=== PATIENT | male | born 1965 | race Caucasian/White ===

== ENCOUNTER → 2016-08-29 | Outpatient (CLI) | payer BC ==
[2016-08-29 16:59] LABS: BASO % 0.3 %; BASO ABS # 0.03 K/uL (0-0.2); COMPLETE YES; EOS % 0.2 %; HEMATOCRIT 43.9 % (42-52); IG% 0.3 %; LYMPH % 12.3 %; LYMPH ABS # 1.21 K/uL (1.2-3.4); MEAN CELL VOLUME 88.7 fL (80-100); MEAN CORPUSCULAR HEMOGLOBIN 31.1 pg (25-34); MEAN CORPUSCULAR HGB CONC 35.1 g/dl (32-36); MEAN PLATELET VOLUME 11.1 fL (7.4-10.4); MONO % 4.8 %; NEUT % 82.1 %; PLATELET COUNT 321 K/uL (130-400); RED BLOOD COUNT 4.95 M/uL (4.7-6.1); WHITE BLOOD COUNT 9.86 K/uL (4.8-10.8)
[2016-08-29 17:07] LABS: ALT/SGPT 43 U/L (12-78); AST/SGOT 15 U/L (15-37); BLOOD UREA NITROGEN 12 mg/dl (7-18); BUN/CREATININE RATIO 13.9 (10-20); CALCIUM 9.6 mg/dl (8.5-10.1); CARBON DIOXIDE 24 mmol/L (21-32); CHLORIDE 106 mmol/L (98-107); CREATININE 0.85 mg/dl (0.60-1.40); GLUCOSE 100 mg/dl (70-99); SODIUM 138 mmol/L (136-145)
[2016-08-29 17:17] LABS: ALB/GLOB RATIO 1.1 (0.9-2); ALKALINE PHOSPHATASE 72 U/L (45-117)
[2016-09-05 00:37] LABS: JCV ANTIBODY POSITIVE; JCV INDEX 0.45
== END | disposition home or self-care (01) ==
LOC: C.LABBC 13:39
PROVIDERS: ATTEND Psychiatry & Neurology Neurology
DX: G35 Multiple sclerosis (principal); E55.9 Vitamin D deficiency, unspecified; R26.1 Paralytic gait; R15.9 Full incontinence of feces

== ENCOUNTER → 2016-09-09 | Outpatient (CLI) | payer BC ==
[~2016-09-09] MED LIST: GADAVIST IV PRN
--- NOTE | 2016-09-09 14:15 | DIAGNOSTIC IMAGING REPORT ---
MRI CERVICAL SPINE COMBO CLINICAL HISTORY: G35 Multiple [id number] Spastic gaitR15.9 fecal incontinence TECHNIQUE: Sagittal and axial T1, T2 and STIR images were obtained. Imaging was performed before and after administration of 9.5 cc of intravenous Gadavist COMPARISON STUDY: 09/11/2015 There are foci of increased T2 signal within the brainstem. There is a linear focus of increased T2 signal within the cervical cord at the C2 level. There is a focus of increased activity in the cervical cord to C3 level posteriorly. There is an ovoid focus of increased activity within the anterior cervical cord at the inferior C4 level. This measures 7 mm. There is a linear focus of increased signal within the cord at the C6-7 level. The lesions remain similar to the prior 2016 study. The findings are consistent with multiple sclerosis plaques. There is no pathologic enhancement. C2-3: There is no evidence of disc bulge or focal herniation. There is no spinal or foraminal stenosis. C3-4: There is no evidence of disc bulge or focal herniation. There is no spinal or foraminal stenosis. C4-5: There is a mild circumferential disc bulge. There is no significant spinal or foraminal stenosis C5-6 :There is a mild circumferential disc bulge. There is mild effacement of the anterior subarachnoid space. There is no significant foraminal narrowing C6-7: There is a mild circumferential disc bulge. There is no significant spinal stenosis. There is minor bilateral foraminal narrowing. C7-T1: There is no evidence of disc bulge or focal herniation. There is no evidence of spinal or foraminal stenosis. IMPRESSION: 1. Mild multilevel spondylitic changes. 2. Multiple foci of abnormal increased T2 signal within both the cervical spinal cord and right stent. The findings are consistent with the clinical history of multiple sclerosis. The lesions remain similar to the preceding study. There is no pathologic enhancement. Electronically signed by: Pool Bedoya M.D. 09/09/2016 2:14 PM Dictated Date/Time: 09/09/2016 2:08 PM
--- NOTE | 2016-09-09 14:33 | DIAGNOSTIC IMAGING REPORT ---
BRAIN COMBO FOR MS CLINICAL HISTORY: 51 years-old Male presenting with multiple sclerosis, spastic gait, fecal incontinence. TECHNIQUE: Multisequence, multiplane are MR imaging of the brain was performed before and after the administration of intravenous contrast. IV contrast: 9.5 mL of Gadavist. COMPARISON: 09/11/2015. FINDINGS: Extensive T1 hypointense, T2/FLAIR hyperintense foci throughout the periventricular and subcortical white matter extensively involving the corpus callosum, similar in size and extent to prior exam in 2016. No restricted diffusion of lesions or evidence of acute ischemia. No convincing evidence of new lesion. No lesion enhancement to suggest active disease. No mass effect or midline shift. No hemorrhage or extra-axial fluid collection. No hydrocephalus. Normal T2 skull base flow voids. IMPRESSION: 1. Extensive periventricular and subcortical white matter T1 hypointense, T2/FLAIR hyperintense lesions, consistent with multiple sclerosis. No restricted diffusion or enhancement to suggest active disease. No evidence of progression since the prior exam in 2016. Electronically signed by: Guzman Dumont M.D. 09/09/2016 2:32 PM Dictated Date/Time: 09/09/2016 2:15 PM
--- NOTE | 2016-09-09 14:46 | DIAGNOSTIC IMAGING REPORT ---
THORACIC SPINE COMBO HISTORY:51 [id number] Multiple [id number] Spastic gaitR15.9 Incontinence COMPARISON: Cervical spine and brain MRI 09/09/2016, MRI cervical spine 09/11/2015. TECHNIQUE: Multiplanar multisequence MRI of the thoracic spine was obtained both with and without the use of 9.5 mL Gadavist. FINDINGS: Several of the sequences are mildly motion degraded. There is convex left curvature of the lumbar spine. Large [id number] images demonstrate no gross abnormality of the chest or abdomen. Multilevel mild to moderate endplate degenerative changes are present. No focal fracture marrow or soft tissue edema identified. Posterior spondylitic spurring is seen at T9-T10 along with facet arthropathy. No central canal or foraminal narrowing. At T10-T11 circumferential disc bulge with facet arthropathy and spondylotic spurring is seen causing mild central canal stenosis. This causes mild left foraminal stenosis. The right foramen is patent. At T11-T12: There is intervertebral disc space narrowing with facet arthropathy, circumferential annular disc bulge and posterior spondylotic spurring causing effacement of the ventral thecal sac. No central canal narrowing. There is however mild bilateral foraminal stenosis. At T12-L1, intervertebral disc space narrowing with moderate facet arthropathy, posterior spondylitic spurring and circumferential annular disc bulge causes effacement of the ventral thecal sac and mild bilateral foraminal narrowing. 6 mm linear T2 hyperintense plaque of the right cord at T11-T12 is noted, Christly seen on image 7 of the sagittal series. Similar-appearing 1.9 cm long plaque is seen along the right aspect of the cord at T9-T10. No definite additional T2 hyperintense lesions are identified within the thoracic cord. No significant enhancement of these lesions. IMPRESSION: 1. T2 hyperintense nonenhancing lesions of the lower thoracic cord at T9-T10 and T11-T12 are compatible with patient's known history of multiple sclerosis. 2. Multilevel intervertebral disc space narrowing, facet arthropathy and endplate spurring is noted as above. At T10-T11, these changes cause mild central canal and mild left foraminal stenosis. 3. Mildly limited exam secondary to patient motion. The above report was generated using voice recognition software. It may contain grammatical, syntax or spelling errors. Electronically signed by: Dominic Dhillon M.D. 09/09/2016 2:45 PM Dictated Date/Time: 09/09/2016 2:28 PM
== END | disposition home or self-care (01) ==
LOC: C.MRIBC 11:17
PROVIDERS: ATTEND Psychiatry & Neurology Neurology
DX: G35 Multiple sclerosis (principal); R26.1 Paralytic gait; R15.9 Full incontinence of feces

== ENCOUNTER → 2016-11-19 | Outpatient (CLI) | payer BC ==
--- NOTE | 2016-11-19 12:47 | DIAGNOSTIC IMAGING REPORT ---
CHEST AND ABDOMEN 2 VIEWS HISTORY: DIARRHEA COMPARISON: None. FINDINGS: The lungs are clear. The cardiomediastinal silhouette is within normal limits. There is no pneumoperitoneum or pneumatosis. The bowel gas pattern is unremarkable. No evidence for bowel obstruction. No pathologic calcifications. Levoscoliosis of the lumbar spine. IMPRESSION: No acute cardiopulmonary process. No evidence for bowel obstruction. Electronically signed by: Cameron Hogan M.D. 11/19/2016 12:46 PM Dictated Date/Time: 11/19/2016 12:44 PM
[2016-11-24 22:27] LABS: IGA SERUM 198 mg/dL (81-463); TIS TRANS IGA 1 U/mL (<4)
== END | disposition home or self-care (01) ==
LOC: C.RADBC 12:01
PROVIDERS: ATTEND Physician Assistant
DX: R19.7 Diarrhea, unspecified (principal); R19.4 Change in bowel habit

== ENCOUNTER → 2016-11-28 | Outpatient (CLI) | payer BC | END | disposition home or self-care (01) | LOC: C.LABBC 10:27 | PROVIDERS: ATTEND Physician Assistant | DX: R19.7 Diarrhea, unspecified (principal) ==

== ENCOUNTER → 2016-12-16 | Day surgery (SDC) | payer BC ==
[2016-12-13 15:31] VITALS: BMI 32.0
[~2016-12-16] VITALS: Ht 172.7 cm; Wt 95.5 kg
[~2016-12-16] MED LIST changes: +CHOL1000 PO; +CPXI SC; -GADAVIST IV PRN; +LIDOCAINE HCL 2% 2 ML VIAL (20MG/ML) ONE; +MIDAZOLAM HCL 1 MG/ML 2ML VIAL ONE; +MULTTAB58 PO; +NALTREXONE PO; +OMEG10007 PO; +ONDANSETRON INJ 2 MG/ML 2 ML VIAL ONE; +PROPOFOL IV EMULSION 10 MG/ML 20 ML VIAL IV ONE; +PSYL48.59 PO; +SODIUM CHLORIDE 0.9% 500ML 500 ML IV ONE
[2016-12-16 10:50] VITALS: Ht 172.7 cm; Wt 95.5 kg
--- NOTE | 2016-12-16 11:00 | Endo History and Physical ---
History & Physical Date of Service: Dec 16, 2016. Chief Complaint: Change in bowel habits Referring Physician: Khalif Medellin History of Present Illness 51 yo CM who presents for colonoscopy secondary to change in bowel habits. Past Surgical History Hx Cardiac Surgery: No Hx Internal Defibrillator: No Hx Pacemaker: No Hx Abdominal Surgery: No Hx of Implantable Prosthesis: No Hx Post-Op Nausea and Vomiting: No Hx Cancer Surgery: No Hx Thoracic Surgery: No Hx Orthopedic: No Hx Urinary Tract Surgery: No Family History None Social History Smoking Status: Never Smoker Hx Substance Use: No Hx Alcohol Use: Yes (1 BEER/MONTH) Allergies Coded Allergies: No Known Allergies (Verified , 12/16/16) Current Medications Reported Home Medications Medications Dose Route/Sig Max Daily Dose Days Date Category Metamucil (Psyllium) 48.57 % Pow 1 Dose PO QAM 12/13/16 Reported [Naltrex] 1 Tab PO QPM 12/13/16 Reported Vitamin D3 (Cholecalciferol) 1,000 Unit Tab 1 Tab PO DAILY 12/13/16 Reported Herod-3 (Fish Oil) 1 Ea Cap 1 Cap PO DAILY 12/13/16 Reported Multivitamin (Multiple Vitamin) 1 Tab Tab 3 Tabs PO DAILY 12/13/16 Reported Copaxone (Glatiramer Acetate) 20 Mg/1 Ml Inj 20 Mg SC QPM 12/13/16 Reported Vital Signs Weight (Kilograms): 95.45 Height (Feet): 5 Height (Inches): 8 Physical Exam General Appearance: WD/WN, no apparent distress Respiratory/Chest: Auscultation: breath sounds normal Cardiovascular: Heart Auscultation: RRR Abdomen: Bowel Sounds: normal Inspection & Palpation: soft, non-distended, no tenderness, guarding & rebound Assessment and Plan Assessment: 51 yo CM who presents for colonoscopy secondary to change in bowel habits. Plan: Proceed with colonoscopy.
--- NOTE | 2016-12-16 12:28 | Discharge Instructions ---
Endoscopy Patient Instructions Date / Procedure(s) Performed Dec 16, 2016. Colonoscopy Allergy Information Coded Allergies: No Known Allergies (Verified , 12/16/16) Discharge Date / Findings Dec 16, 2016. Colon polyps Rectal polyp Internal hemorrhoids Medication Instructions OK to resume all medications today as prescribed Reported Home Medications Medications Dose Route/Sig Max Daily Dose Days Date Category Metamucil (Psyllium) 48.57 % Pow 1 Dose PO QAM 12/13/16 Reported [Naltrex] 1 Tab PO QPM 12/13/16 Reported Vitamin D3 (Cholecalciferol) 1,000 Unit Tab 1 Tab PO DAILY 12/13/16 Reported [place]-3 (Fish Oil) 1 Ea Cap 1 Cap PO DAILY 12/13/16 Reported Multivitamin (Multiple Vitamin) 1 Tab Tab 3 Tabs PO DAILY 12/13/16 Reported Copaxone (Glatiramer Acetate) 20 Mg/1 Ml Inj 20 Mg SC QPM 12/13/16 Reported Provider Instructions Activity Restrictions - No exercising or heavy lifting for 24 hours. - Do not drink alcohol the day of the procedure. - Do not drive a car or operate machinery until the day after the procedure. - Do not make any important decisions or sign important papers in 24 hours after the procedure. Following Day: - Return to full activity which may include returning to work/school. Diet Start your diet with liquids and light foods (jello, soup, juice, toast). Then eat your usual diet if not nauseated. Treatment For Common After Affects For mild abdominal pain, bloating, or excessive gas: - Rest - Eat lightly - Lie on right side Follow-Up Information Follow-up with DR. CAMILO AYO as scheduled Anesthesia Information What You Should Know You have had a procedure that required some medicine to reduce anxiety and discomfort. This treatment is called moderate sedation. After receiving the treatment, you may be sleepy, but you will be able to breathe on your own. The effects of the treatment may last for several hours. Follow these instructions along with Activity/Diet recommendations noted above: * Do NOT do anything where dizziness or clumsiness would be dangerous. * Rest quietly at home today, then you can be up and about tomorrow. * Have a responsible person stay with you the rest of today. * You may have had an I.V. today. If so, you may take the dressing off later today. Recommendations Call your doctor if: * Trouble breathing * Continuous vomiting for more than 24 hours * Temperature above 101 degrees * Severe abdominal pain or bloating * Pain not relieved by pain medicine ordered * There is increased drainage or redness from any incision * A large amount of rectal bleeding greater than 2-3 tablespoons. (If you had a polyp/s removed or have hemorrhoids, a small amount of blood - from the rectum is to be expected.) * You have any unanswered questions or concerns. IN THE EVENT OF A SERIOUS EMERGENCY, GO TO THE NEAREST EMERGENCY ROOM Your discharge instructions were prepared by provider Julio César Mcclellan. Patient Instructions Signature Page Javier Thomas Patient (or Guardian) Signature/Date: I have read and understand the instructions given to me by my caregivers. Caregiver/RN/Doctor Signature/Date: The above-named patient and/or guardian has received patient instructions on this date. + Original Patient Signature Page (only) stays with chart. Please make copy for patient.
--- NOTE | 2016-12-16 12:33 | GI REPORT ---
Procedure Date: 12/16/2016 11:49 AM Procedure: Colonoscopy Indications: Change in bowel habits Medicines: Monitored Anesthesia Care Complications: No immediate complications. Estimated Blood Loss: Estimated blood loss: none. Procedure: Pre-Anesthesia Assessment: - Prior to the procedure, a History and Physical was performed, and patient medications and allergies were reviewed. The patient's tolerance of previous anesthesia was also reviewed. The risks and benefits of the procedure and the sedation options and risks were discussed with the patient. All questions were answered, and informed consent was obtained. Prior Anticoagulants: The patient has taken no previous anticoagulant or antiplatelet agents. ASA Grade Assessment: II - A patient with mild systemic disease. After reviewing the risks and benefits, the patient was deemed in satisfactory condition to undergo the procedure. After I obtained informed consent, the scope was passed under direct vision. Throughout the procedure, the patient's blood pressure, pulse, and oxygen saturations were monitored continuously. The On-site loaner was introduced through the anus and advanced to the terminal ileum. The colonoscopy was performed without difficulty. The patient tolerated the procedure well. The quality of the bowel preparation was good. The terminal ileum, ileocecal valve, appendiceal orifice, and rectum were photographed. Findings: Three sessile polyps were found in the rectum, in the sigmoid colon and in the transverse colon. The polyps were 5 to 8 mm in size. These polyps were removed with a hot snare. Resection and retrieval were complete. Non-bleeding internal hemorrhoids were found during retroflexion. The hemorrhoids were small. Impression: - Three 5 to 8 mm polyps in the rectum, in the sigmoid colon and in the transverse colon, removed with a hot snare. Resected and retrieved. - Non-bleeding internal hemorrhoids. Recommendation: - Resume previous diet. - Continue present medications. - Repeat colonoscopy for surveillance based on pathology results. - Return to primary care physician as previously scheduled. Julio César Mcclellan DO 12/16/2016 12:33:03 PM This report has been signed electronically. Note Initiated On: 12/16/2016 11:49 AM I attest to the content of the Intraoperative Record and orders documented therein, exceptions below
[2016-12-16 12:50] VITALS: BP 120/85; PULSE 69; O2SAT 92
--- NOTE | 2016-12-16 13:25 | Anesthesiology Progress Note ---
Anesthesia Post Op Note Date & Time Dec 16, 2016 at 13:25 Vital Signs Pain Intensity: 0 Vital Signs Past 12 Hours Date Time Temp Pulse Resp B/P (MAP) Pulse Ox O2 Delivery O2 Flow Rate FiO2 12/16/16 12:50 69 20 120/85 (97) 92 Room Air 12/16/16 12:39 72 20 114/83 (93) 93 Room Air 12/16/16 12:24 90 20 135/66 (89) 97 Room Air 12/16/16 11:12 37 90 20 149/96 (113) 97 Room Air Notes Mental Status: alert / awake / arousable, participated in evaluation Pt Amnestic to Procedure: Yes Nausea / Vomiting: adequately controlled Pain: adequately controlled Airway Patency, RR, SpO2: stable & adequate BP & HR: stable & adequate Hydration State: stable & adequate Anesthetic Complications: no major complications apparent
== END | disposition home or self-care (01) ==
LOC: C.GI 10:40
PROVIDERS: ATTEND Internal Medicine
DX: R19.4 Change in bowel habit (principal); K62.1 Rectal polyp; D12.5 Benign neoplasm of sigmoid colon; D12.3 Benign neoplasm of transverse colon; K64.8 Other hemorrhoids; G47.33 Obstructive sleep apnea (adult) (pediatric); G35 Multiple sclerosis

== ENCOUNTER 2017-03-19 12:17 | Inpatient (IN) | payer BC ==
[~2017-03-19] VITALS: Ht 172.7 cm; Wt 102.4 kg
[~2017-03-19 12:17] MED LIST changes: -LIDOCAINE HCL 2% 2 ML VIAL (20MG/ML) ONE; -MIDAZOLAM HCL 1 MG/ML 2ML VIAL ONE; -ONDANSETRON INJ 2 MG/ML 2 ML VIAL ONE; -PROPOFOL IV EMULSION 10 MG/ML 20 ML VIAL IV ONE; -SODIUM CHLORIDE 0.9% 500ML 500 ML IV ONE
[2017-03-19] MEDS ORDERED: ALBUTEROL 0.083% NEBU SOLN 3 ML VIAL INH STA (12:48)
[2017-03-19] MEDS ORDERED: ACETAMINOPHEN 500 MG TAB PO STA (12:48)
[2017-03-19] MEDS ORDERED: SODIUM CHLORIDE 0.9% 1000ML 1,000 ML IV ONE (12:48)
--- NOTE | 2017-03-19 12:54 | EMERGENCY ROOM VISIT NOTE ---
History Report prepared by Alona: Diane Keita Under the Supervision of: Dr. Dick Noble M.D. First contact with patient: 12:42 Chief Complaint: FEVER Stated Complaint: WEAKNESS History of Present Illness The patient is a 51 year old male who presents to the Emergency Room with complaints of a fever beginning this morning. Per , the patient has had a cough for the last 2 days and has been weak. Per , the patient has multiple sclerosis and fell last night and hit his head. Per , the patient is usually weak when he has multiple sclerosis flair-ups, but she has never seen it this bad. The patient denies having abdominal pain. The patient states that he is not on blood thinners. Source of History: patient, spouse/significant other Onset: this morning Position: other (global) Quality: other (fever) Associated Symptoms: + fevers, + cough, No abdominal pain Review of Systems See HPI for pertinent positives & negatives. A total of 10 systems reviewed and were otherwise negative. Past Medical & Surgical Medical Problems: (1) Multiple sclerosis Family History No pertinent family history Social History Smoking Status: Never Smoker Marital Status: Housing Status: lives with significant other Current/Historical Medications Scheduled Cholecalciferol (Vitamin D3), 1 TAB PO DAILY Fish Oil (Providence-3), 2 CAP PO BID Glatiramer Acetate (Copaxone), 20 MG SC QPM Multiple Vitamin (Multivitamin), 3 TABS PO DAILY Naltrexone Hcl (Naltrexone Hcl), 50 MG PO QPM Oseltamivir Phosphate (Tamiflu), 75 MG PO BID Psyllium (Metamucil), 1 DOSE PO QAM Allergies Coded Allergies: No Known Allergies (Verified , 03/19/17) Physical Exam Vital Signs Date Time Temp Pulse Resp B/P (MAP) Pulse Ox O2 Delivery O2 Flow Rate FiO2 03/19/17 14:42 37.6 107 22 130/76 92 Room Air 03/19/17 13:49 106 24 145/79 95 Room Air 03/19/17 12:27 114 03/19/17 12:20 94 Room Air 03/19/17 12:20 37.8 116 24 136/74 94 Room Air Physical Exam GENERAL: Patient is a healthy-appearing well-nourished male HEAD: Normocephalic atraumatic EYES: Ocular movements intact pupils equal and react to light OROPHARYNX mucous membranes are moist no exudates present no erythema or edema present NECK: Supple no nuchal rigidity CHEST: Good equal expansion LUNGS: Clear and equal to auscultation CARDIAC: Normal S1 and S2 ABDOMEN: Soft nontender no guarding BACK: No CVA tenderness EXTREMITIES: No pain upon palpation normal muscle strength in all groups no clubbing cyanosis or edema NEURO: Patient is following commands and answering questions appropriately. Alert and oriented x3 Cranial Nerves 2-12 grossly intact Medical Decision & Procedures ER Provider Diagnostic Interpretation: Radiology results as stated below per my review and radiologist interpretation: CHEST ONE VIEW PORTABLE HISTORY: 51 years-old Male Sepsis acute sepsis COMPARISON: Acute abdominal series radiographs 11/19/2016 TECHNIQUE: Portable AP view of the chest FINDINGS: Cardiac silhouette is upper limits of normal in size. The patient is rotated to the left. There is no pneumothorax, pleural effusion, focal airspace consolidation or overt pulmonary edema. There is mild right hemidiaphragmatic elevation. Bones of the chest appear grossly intact. IMPRESSION: No acute process. The above report was generated using voice recognition software. It may contain grammatical, syntax or spelling errors. Electronically signed by: Dominic Dhillon M.D. 03/19/2017 1:20 PM Dictated Date/Time: 03/19/2017 1:18 PM HEAD WITHOUT CONTRAST (CT) CLINICAL HISTORY: 51 years-old Male with Pt c/o AMS. Acute altered mental status . History of multiple sclerosis. TECHNIQUE: Multiple axial CT images of the head were obtained without contrast. A dose lowering technique was utilized adhering to the principles of ALARA. CT DOSE: 614.27 mGy.cm COMPARISON: Brain MRI 09/09/2016. FINDINGS: No acute intracranial hemorrhage, midline shift, intracranial mass, hydrocephalus, territorial ischemia or abnormal extra-axial collection. Patchy areas of low-attenuation are seen within the periventricular white matter of the cerebral hemispheres bilaterally correlating with areas of T2/FLAIR prolongation seen on comparison brain MRIs. Vascular calcifications are seen at the level of the skull base. The calvarium is intact. The mastoid air cells, and middle ear cavities are clear. Mild to moderate mucosal thickening of the ethmoid air cells. IMPRESSION: 1. No acute intracranial abnormality. 2. Multifocal areas of ill-defined low-attenuation are seen within the periventricular white matter of the cerebral hemispheres bilaterally corresponding with areas of T2/FLAIR prolongation on comparison brain MRIs. These findings are compatible with patient's clinical history of multiple sclerosis. 3. Mild ethmoid sinus disease. The above report was generated using voice recognition software. It may contain grammatical, syntax or spelling errors. Electronically signed by: Dominic Dhillon M.D. 03/19/2017 1:48 PM Dictated Date/Time: 03/19/2017 1:45 PM Laboratory Results 03/19/17 12:33 Red Blood Count 4.67, Mean Corpuscular Volume 88.0, Mean Corpuscular Hemoglobin 31.0, Mean Corpuscular Hemoglobin Concent 35.3, Mean Platelet Volume 10.4, Neutrophils (%) (Auto) 80.2, Lymphocytes (%) (Auto) 8.3, Monocytes (%) (Auto) 10.6, Eosinophils (%) (Auto) 0.3, Basophils (%) (Auto) 0.3, Neutrophils # (Auto ) 4.90, Lymphocytes # (Auto) 0.51, Monocytes # (Auto) 0.65, Eosinophils # (Auto ) 0.02, Basophils # (Auto) 0.02 03/19/17 12:33 Test 03/19/17 12:24 03/19/17 12:33 03/19/17 12:46 03/19/17 14:30 Influenza Type A Antigen Neg for Influ A (NEG) Influenza Type B Antigen Neg for Influ B (NEG) White Blood Count 6.12 K/uL (4.8-10.8) Red Blood Count 4.67 M/uL (4.7-6.1) Hemoglobin 14.5 g/dL (14.0-18.0) Hematocrit 41.1 % (42-52) Mean Corpuscular Volume 88.0 fL (80-100) Mean Corpuscular Hemoglobin 31.0 pg (25-34) Mean Corpuscular Hemoglobin Concent 35.3 g/dl (32-36) Platelet Count 269 K/uL (130-400) Mean Platelet Volume 10.4 fL (7.4-10.4) Neutrophils (%) (Auto) 80.2 % Lymphocytes (%) (Auto) 8.3 % Monocytes (%) (Auto) 10.6 % Eosinophils (%) (Auto) 0.3 % Basophils (%) (Auto) 0.3 % Neutrophils # (Auto) 4.90 K/uL (1.4-6.5) Lymphocytes # (Auto) 0.51 K/uL (1.2-3.4) Monocytes # (Auto) 0.65 K/uL (0.11-0.59) Eosinophils # (Auto) 0.02 K/uL (0-0.5) Basophils # (Auto) 0.02 K/uL (0-0.2) RDW Standard Deviation 41.7 fL (36.4-46.3) RDW Coefficient of Variation 13.1 % (11.5-14.5) Immature Granulocyte % (Auto) 0.3 % Immature Granulocyte # (Auto) 0.02 K/uL (0.00-0.02) Prothrombin Time 10.3 SECONDS (9.0-12.0) Prothromb Time International Ratio 1.0 (0.9-1.1) Activated Partial Thromboplast Time 26.4 SECONDS (21.0-31.0) Partial Thromboplastin Ratio 1.0 Anion Gap 8.0 mmol/L (3-11) Estimated GFR () 118.6 Estimated GFR (Non- 102.3 BUN/Creatinine Ratio 10.7 (10-20) Calcium Level 8.9 mg/dl (8.5-10.1) Total Bilirubin 0.5 mg/dl (0.2-1) Aspartate Amino Transf (AST/SGOT) 15 U/L (15-37) Alanine Aminotransferase (ALT/SGPT) 44 U/L (12-78) Alkaline Phosphatase 80 U/L (45-117) Total Creatine Kinase 88 U/L (39-308) Creatine Kinase MB 0.6 ng/ml (0.5-3.6) Creatine Kinase MB Ratio 0.7 (0-3.0) Troponin I < 0.015 ng/ml (0-0.045) Total Protein 7.2 gm/dl (6.4-8.2) Albumin 3.5 gm/dl (3.4-5.0) Globulin 3.7 gm/dl (2.5-4.0) Albumin/Globulin Ratio 0.9 (0.9-2) Procalcitonin 0.08 ng/ml (0-0.5) Bedside Lactic Acid Venous 1.88 mmol/L (0.90-1.70) Urine Color DK YELLOW Urine Appearance CLEAR (CLEAR) Urine pH 5.5 (4.5-7.5) Urine Specific Cope 1.025 (1.000-1.030) Urine Protein NEG (NEG) Urine Glucose (UA) NEG (NEG) Urine Ketones TRACE (NEG) Urine Occult Blood NEG (NEG) Urine Nitrite NEG (NEG) Urine Bilirubin NEG (NEG) Urine Urobilinogen NEG (NEG) Urine Leukocyte Esterase NEG (NEG) Urine WBC (Auto) 1-5 /hpf (0-5) Urine RBC (Auto) 0-4 /hpf (0-4) Urine Hyaline Casts (Auto) 1-5 /lpf (0-5) Urine Epithelial Cells (Auto) 10-20 /lpf (0-5) Urine Bacteria (Auto) NEG (NEG) Labs reviewed by ED physician. Medications Administered Medications (Trade) Dose Ordered Sig/Damir Route Start Time Stop Time Status Last Admin Dose Admin Sodium Chloride 1,000 ml @ 999 mls/hr Q1H1M ONCE IV 03/19/17 12:48 03/19/17 13:48 DC 03/19/17 13:20 999 MLS/HR Acetaminophen (Tylenol Tab) 1,000 mg NOW STAT PO 03/19/17 12:48 03/19/17 12:52 DC 03/19/17 13:20 1,000 MG Albuterol Sulfate (Ventolin 0.083% 2.5MG/3ML Neb) 2.5 mg NOW STAT INH 03/19/17 12:48 03/19/17 12:52 DC 03/19/17 13:20 2.5 MG ECG Indication: weakness Rate (beats per minute): 110 Rhythm: sinus tachycardia Findings: no acute ischemic change, no ectopy Change: Patient's Electrocardiogram interpreted by me. ED Course 1244: Past medical records reviewed. The patient was evaluated in room A10. A complete history and physical examination was performed. 1248: Ordered Albuterol Sulfate 2.5 mg INH, Tylenol Tab 1,000 mg PO, Sodium Chloride 1,000 ml @ 999 mls/hr IV. 1420: Upon reexamination the patient is resting. I discussed results and treatment plan with the patient. He verbalizes agreement and understanding. [facility] The patient will be evaluated for further management. Medical Decision Differentials include: Etiologies such as viral syndrome, otitis, pharyngitis, pneumonia, influenza, meningitis, urinary tract infection, sepsis, bacteremia, as well as others were entertained. This is a 51-year-old male who presents emergency department complaining of weakness. The patient is so weak that at this point his needs to carry him around the house. His flu swab is negative I strongly suspect he does most likely have the flu. He was given normal saline bolus here in emergency department along with Tylenol. Repeat examination revealed improvement the patient's symptoms. Because of the weakness of the patient I did discuss the case with the hospitalist service who agreed to admit the patient. Patient and family were in agreement with the treatment plan. Medication Reconcilliation Current Medication List: was personally reviewed by me Blood Pressure Screening Patient's blood pressure: Elevated blood pressure will be monitored by hospitalist Consults Time Called: 1400 Consulting Physician: Dr. Olivares Returned Call: 1420 I discussed the patient's case with Dr. Lemus, He has agreed to evaluate the patient for further management and care. Impression Primary Impression: Weakness Additional Impression: Fever Scribe Attestation The scribe's documentation has been prepared under my direction and personally reviewed by me in its entirety. I confirm that the note above accurately reflects all work, treatment, procedures, and medical decision making performed by me. Departure Information Dispostion Being Evaluated By Hospitalist Prescriptions Oseltamivir Phosphate (Tamiflu) 75 Mg Cap 75 MG PO BID for 3 Days, #6 CAP Prov: Oneida Patel M.D. 03/21/17 Referrals Khalif Medellin M.D. ([facility]) (PCP) Patient Instructions My [facility] Problem Qualifiers Additional Impression: Fever Fever type: unspecified Qualified Codes: R50.9 - Fever, unspecified
[2017-03-19] MEDS ORDERED: NALT50TA5 PO (13:01)
[2017-03-19 13:12] LABS: BASO % 0.3 %; BASO ABS # 0.02 K/uL (0-0.2); EOS % 0.3 %; EOS ABS # 0.02 K/uL (0-0.5); HEMATOCRIT 41.1 % (42-52); HEMOGLOBIN 14.5 g/dL (14.0-18.0); IG# 0.02 K/uL (0.00-0.02); LYMPH % 8.3 %; LYMPH ABS # 0.51 K/uL (1.2-3.4); MEAN CORPUSCULAR HGB CONC 35.3 g/dl (32-36); MEAN PLATELET VOLUME 10.4 fL (7.4-10.4); MONO % 10.6 %; MONO ABS # 0.65 K/uL (0.11-0.59); NEUT % 80.2 %; PLATELET COUNT 269 K/uL (130-400); RED CELL DISTRIBUTION WIDTH CV 13.1 % (11.5-14.5); RED CELL DISTRIBUTION WIDTH SD 41.7 fL (36.4-46.3); WHITE BLOOD COUNT 6.12 K/uL (4.8-10.8)
[2017-03-19 13:20] LABS: ALBUMIN 3.5 gm/dl (3.4-5.0); ALT/SGPT 44 U/L (12-78); AST/SGOT 15 U/L (15-37); BLOOD UREA NITROGEN 9 mg/dl (7-18); CALCIUM 8.9 mg/dl (8.5-10.1); CARBON DIOXIDE 26 mmol/L (21-32); CREATININE 0.85 mg/dl (0.60-1.40); GLUCOSE 129 mg/dl (70-99); POTASSIUM 3.9 mmol/L (3.5-5.1); PTT PATIENT 26.4 SECONDS (21.0-31.0); SODIUM 135 mmol/L (136-145)
--- NOTE | 2017-03-19 13:21 | DIAGNOSTIC IMAGING REPORT ---
CHEST ONE VIEW PORTABLE HISTORY: 51 years-old Male Sepsis acute sepsis COMPARISON: Acute abdominal series radiographs 11/19/2016 TECHNIQUE: Portable AP view of the chest FINDINGS: Cardiac silhouette is upper limits of normal in size. The patient is rotated to the left. There is no pneumothorax, pleural effusion, focal airspace consolidation or overt pulmonary edema. There is mild right hemidiaphragmatic elevation. Bones of the chest appear grossly intact. IMPRESSION: No acute process. The above report was generated using voice recognition software. It may contain grammatical, syntax or spelling errors. Electronically signed by: Dominic Dhillon M.D. 03/19/2017 1:20 PM Dictated Date/Time: 03/19/2017 1:18 PM
[2017-03-19 13:25] LABS: ALKALINE PHOSPHATASE 80 U/L (45-117); CKMB 0.6 ng/ml (0.5-3.6); TOTAL PROTEIN 7.2 gm/dl (6.4-8.2)
[2017-03-19 13:39] LABS: INFLUENZA B ANTIGEN Neg for Influ B (NEG)
--- NOTE | 2017-03-19 13:49 | DIAGNOSTIC IMAGING REPORT ---
HEAD WITHOUT CONTRAST (CT) CLINICAL HISTORY: 51 years-old Male with Pt c/o AMS. Acute altered mental status . History of multiple sclerosis. TECHNIQUE: Multiple axial CT images of the head were obtained without contrast. A dose lowering technique was utilized adhering to the principles of ALARA. CT DOSE: 614.27 mGy.cm COMPARISON: Brain MRI 09/09/2016. FINDINGS: No acute intracranial hemorrhage, midline shift, intracranial mass, hydrocephalus, territorial ischemia or abnormal extra-axial collection. Patchy areas of low-attenuation are seen within the periventricular white matter of the cerebral hemispheres bilaterally correlating with areas of T2/FLAIR prolongation seen on comparison brain MRIs. Vascular calcifications are seen at the level of the skull base. The calvarium is intact. The mastoid air cells, and middle ear cavities are clear. Mild to moderate mucosal thickening of the ethmoid air cells. IMPRESSION: 1. No acute intracranial abnormality. 2. Multifocal areas of ill-defined low-attenuation are seen within the periventricular white matter of the cerebral hemispheres bilaterally corresponding with areas of T2/FLAIR prolongation on comparison brain MRIs. These findings are compatible with patient's clinical history of multiple sclerosis. 3. Mild ethmoid sinus disease. The above report was generated using voice recognition software. It may contain grammatical, syntax or spelling errors. Electronically signed by: Dominic Dhillon M.D. 03/19/2017 1:48 PM Dictated Date/Time: 03/19/2017 1:45 PM
[2017-03-19] MEDS ORDERED: ACETAMINOPHEN 325 MG TAB PO PRN (15:30)
[2017-03-19] MEDS ORDERED: LEVALBUTEROL/IPRATROPIUM NEB INH PRN (15:30)
[2017-03-19] MEDS ORDERED: ALUMINUM/MAGNESIUM/SIMETH (MAALOX MAX) 30 ML UDC PO PRN (15:30)
[2017-03-19] MEDS ORDERED: ONDANSETRON INJ 2 MG/ML 2 ML VIAL IV PRN (15:30)
[2017-03-19] MEDS ORDERED: OSELTAMIVIR PHOSPHATE 75 MG CAP PO STA (16:12)
[2017-03-19 17:59] VITALS: BP 138/81; PULSE 101; TEMP 37; O2SAT 95
[2017-03-19 18:00] VITALS: BP 138/81; PULSE 101; TEMP 37; O2SAT 95; Ht 172.7 cm; Wt 102.4 kg
[2017-03-19] MEDS ORDERED: LEVALBUTEROL 1.25MG/0.5ML NEB INH PRN (18:30)
[2017-03-19] MEDS ORDERED: POLYETHYLENE (MIRALAX) 17 GM PACK PO PRN (18:30)
[2017-03-19] MEDS ORDERED: IPRATROPIUM BROMIDE NEB SOLN 0.02% 2.5 ML VIAL INH PRN (18:30)
[2017-03-19] MEDS: SODIUM CHLORIDE 0.9% 1000ML 1,000 ML IV SCH (19:27)
--- NOTE | 2017-03-19 19:31 | HISTORY & PHYSICAL EXAMINATION ---
DATE OF ADMISSION: 03/19/2017 CHIEF COMPLAINT: Generalized weakness, cough and fever. HISTORY OF PRESENT ILLNESS: This is a 51-year-old male with past medical history significant for multiple sclerosis, presents with ongoing cough since last Monday and also generalized weakness and started spiking temperatures today. He called his neurologist and was advised to come to the ER. The patient has multiple sclerosis and generally his ambulatory function is very limited. He sometimes uses walker and sometimes he will walk with the help of his , but lately since the flu like symptoms started his ambulatory function went down and having generalized weakness, tired and he has dry cough, some mild sore throat. Mild runny nose, no headaches, no blurred vision, no earache, no chest pain, no shortness of breath, no nausea, no vomiting, no abdominal pain, no diarrhea, no constipation, no blood in the stools. Normal bladder movements. He is has temperature spike in the ER, slightly tachycardic, otherwise is comfortable. ALLERGIES: No known drug allergies. PAST MEDICAL HISTORY: As mentioned above. PAST SURGICAL HISTORY: Dental surgery. MEDICATIONS: The patient is on fish oil 2 grams p.o. b.i.d., Copaxone 20 mg subQ q.p.m., multivitamin 1 tablet daily, Mirapex 150 mg p.o. q.p.m. FAMILY HISTORY: Significant for father has hypertension. Aunt has heart disorder. Maternal grandmother has diabetes. Maternal grandfather has [place]. SOCIAL HISTORY: , never smoked. Alcohol rarely. No drug use. REVIEW OF SYMPTOMS: As per HPI. Rest of review of systems negative. PHYSICAL EXAMINATION: GENERAL: The patient is of moderate build, not in distress. VITAL SIGNS: Temperature 37.8, pulse 107, respiratory rate 22, blood pressure 130/76, oxygen 92% on room air. HEENT: No pallor, no icterus. Pupils equal, round, and reactive to light. NECK: No JVD, no neck masses, no carotid bruits. CARDIOVASCULAR: S1, S2 heard. Tachycardia. No murmurs. RESPIRATORY SYSTEM: Clear to auscultation bilaterally. No accessory muscle use. No wheezing, no crackles. ABDOMEN: Soft, bowel sounds present. Nontender. No distention. CENTRAL NERVOUS SYSTEM: Nonfocal. EXTREMITIES: No edema, no erythema. LABS: WBC 6.1, hemoglobin 14.5, hematocrit 41.1, platelets 269. Sodium 135, potassium 3.9, chloride 101, bicarbonate 26, BUN 9, creatinine 0.8, serum glucose 129 lactic acid 1.8, calcium 8.9, total bilirubin 0.5, AST 15, ALT 44, alkaline phosphatase 80, troponin I less than 0.015. Procalcitonin 0.08. PT 10.3, INR 1, PTT 26.4. Urinalysis negative. Influenza A and B negative. CT of the head, no acute intracranial abnormalities seen. CHEST X-RAY: No acute process seen. EKG sinus tachycardia, no previous EKG available, rate of 110. ASSESSMENT AND PLAN: This is a 51-year-old male who presents with fever and cough. 1. Possible flu presents with 2 days of cough, mild sore throat, generalized weakness and fever spikes. No other source of infections. Initial influenza negative, we will do influenza PCR, start on Tamiflu, empirically place on IV Levaquin and IV fluids. Follow the lactic acid and stop the antibiotics if the cultures are negative and monitor on the medical floor. 2. History of multiple sclerosis. Continue home medications of Copaxone the patient gets his MS symptoms worse whenever he gets infection. We will consult neurology in a.m. 3. Deep venous thrombosis prophylaxis, Lovenox. DISPOSITION: Admit to medical floor. Expect to discharge home and follow with his family doctor. Level 1 full code. MTDD
[2017-03-19] MEDS: LEVOFLOXACIN / D5W 750 MG in PREMIXED IN D5W 150 ML IV SCH (19:37)
[2017-03-19] MEDS: OMEGA-3 (PURIFIED FISH OIL) 1 GM CAP PO SCH (20:52)
[2017-03-19] MEDS: ENOXAPARIN 40 MG/0.4 ML SYR SQ SCH (20:52)
[2017-03-19] MEDS: NALTREXONE HCL 50 MG TAB PO SCH (20:52)
[2017-03-19 20:55] LABS: INFLUENZA A PCR POS for Influ A (NEG); INFLUENZA B PCR Neg for Influ B (NEG)
[2017-03-19] MEDS ORDERED: NON-FORMULARY MEDICATION (Glatiramer Acetate (Copaxone) 20 MG) SC SCH (21:00)
[2017-03-19] MEDS: OSELTAMIVIR PHOSPHATE 75 MG CAP PO SCH (21:12)
[2017-03-20] VITALS: BP 124/78; PULSE 104; TEMP 37.9; O2SAT 95
[2017-03-20 07:20] VITALS: BP 131/80; PULSE 102; TEMP 36.8; O2SAT 96
[2017-03-20] MEDS: PSYLLIUM 58.6% PWD PACK S\\F PO SCH (08:33)
[2017-03-20] MEDS: SODIUM CHLORIDE 0.9% 1000ML 1,000 ML IV SCH ×2 (08:33→22:58)
[2017-03-20] MEDS: OMEGA-3 (PURIFIED FISH OIL) 1 GM CAP PO SCH ×2 (08:33→20:38)
[2017-03-20] MEDS: CHOLECALCIFEROL 1000 INTER.UNIT TAB PO SCH (08:33)
[2017-03-20] MEDS: MULTIVITAMIN TAB PO SCH (08:34)
[2017-03-20] MEDS: OSELTAMIVIR PHOSPHATE 75 MG CAP PO SCH ×2 (08:34→20:37)
--- NOTE | 2017-03-20 10:26 | Neurology Consultation ---
Neurology Consultation Date of Consultation: Mar 20, 2017. Attending Physician: Oneida Patel M.D. Primary Care Physician: Khalif Medellin M.D.(DONNY) Reason for Consultation: Consultation for MS History of Present Illness Source: patient, hospital records This is a 51-year-old male who presents with a viral syndrome. Reports having low-grade fever since Monday. Denies any dizziness or presyncopal symptoms. Denies any shortness of breath or chest pain. Denies any new neurological symptoms. Reports that typically when he is sick his MS symptoms can get a little bit worse. Has baseline right hemiplegia and spasticity from his MS. Denies any symptoms or events concerning for an MS exacerbation or flareup at this time. Flu A PCR positive Patient normally sees Dr. Neely in neurology clinic for MS care. Is compliant with his Copaxone. Normally ambulates with the assistance of a cane. Past Medical/Surgical History Medical Problems: (1) Fever Status: Acute (2) Weakness Status: Acute Multiple sclerosis relapsing remitting Social History Marital Status: Housing Status: lives with significant other Allergies Coded Allergies: No Known Allergies (Verified , 03/19/17) Current Inpatient Medications Current Inpatient Medications Medications (Trade) Dose Ordered Sig/Damir Route Start Time Stop Time Status Last Admin Dose Admin Enoxaparin Sodium (Lovenox Inj) 40 mg Q24H SQ 03/19/17 21:00 04/18/17 20:59 03/19/17 20:52 40 MG Acetaminophen (Tylenol Tab) 650 mg Q4H PRN PO 03/19/17 15:30 04/18/17 15:29 Al Hydrox/Mg Hydrox/Simethicone (Maalox Max Susp) 15 ml Q4H PRN PO 03/19/17 15:30 04/18/17 15:29 Polyethylene (Miralax Powder Packet) 17 gm DAILY PRN PO 03/19/17 18:30 04/18/17 18:29 Ondansetron HCl (Zofran Inj) 4 mg Q6H PRN IV 03/19/17 15:30 04/18/17 15:29 Cholecalciferol (Vitamin D Tab) 1,000 inter.unit DAILY PO 03/20/17 09:00 04/19/17 08:59 03/20/17 08:33 1,000 INTER.UNIT Fish Oil ([place]-3 (Purified Fish Oil) Cap) 2 gm BID PO 03/19/17 21:00 04/18/17 20:59 03/20/17 08:33 2 GM Multivitamins (Multivitamin Tab) 3 tab DAILY PO 03/20/17 09:00 04/19/17 08:59 03/20/17 08:34 3 TAB Naltrexone HCl (Naltrexone) 50 mg QPM PO 03/19/17 21:00 04/18/17 20:59 03/19/17 20:52 50 MG Psyllium Hydrophilic Mucilloid (Metamucil Powder) 1 pkt QAM PO 03/20/17 09:00 04/19/17 08:59 03/20/17 08:33 1 PKT Oseltamivir Phosphate (Tamiflu Cap) 75 mg BID PO 03/19/17 21:00 03/24/17 20:59 03/20/17 08:34 75 MG Sodium Chloride 1,000 ml @ 80 mls/hr [id number] IV 03/19/17 18:30 04/18/17 18:29 03/20/17 08:33 80 MLS/HR Levofloxacin 750 mg/Prmx 150 ml @ 100 mls/hr Q24H IV 03/19/17 18:45 03/26/17 18:44 03/19/17 19:37 100 MLS/HR Ipratropium [place] (Atrovent 0.02% 0.5MG/2.5ML Neb) 0.5 mg Q4R PRN INH 03/19/17 18:30 04/18/17 18:29 Levalbuterol (Xopenex 1.25MG/ 0.5ML Neb) 1.25 mg Q4R PRN INH 03/19/17 18:30 04/18/17 18:29 Miscellaneous Information (Order Awaiting Action) 1 ea QS N/A 03/20/17 00:00 04/19/17 00:00 Review of Systems Compleat ROS otherwise negative except for the above noted in HPI Physical Exam Vital Signs (Past 24 Hrs): Date Time Temp Pulse Resp B/P (MAP) Pulse Ox O2 Delivery O2 Flow Rate FiO2 03/20/17 07:20 36.8 102 22 131/80 (97) 96 Room Air 03/20/17 00:00 Room Air 03/20/17 00:00 37.9 104 18 124/78 (93) 95 Room Air 03/19/17 18:00 37.0 101 16 138/81 95 Room Air 03/19/17 17:59 37.0 101 16 138/81 (100) 95 Room Air 03/19/17 17:31 110 20 122/78 99 03/19/17 16:18 104 20 122/82 94 Room Air 03/19/17 14:42 37.6 107 22 130/76 92 Room Air 03/19/17 13:49 106 24 145/79 95 Room Air 03/19/17 12:27 114 03/19/17 12:20 94 Room Air 03/19/17 12:20 37.8 116 24 136/74 94 Room Air Gen.: Patient is alert and sitting in bed, in no acute distress. HEENT: Normocephalic /atraumatic, no scleral icterus Heart: Regular rate and rhythm Extremities: No gross deformities or rashes noted Neurological examination: Mental status: Patient is alert and oriented x3. Attention and concentration normal for the situation. Good fund of knowledge. Remote and recent memory intact. Speech is fluent with mild dysarthria, no aphasia noted Cranial nerve: Funduscopic examination was unremarkable. No papilledema. Pupils equally round and reactive to light. Extraocular muscles intact without nystagmus. No facial asymmetry noted. Facial sensation intact. Tongue is midline. Good palatal elevation. Good shoulder shrug bilaterally. Hearing grossly intact to voice. Strength: 5/5 both proximal and distally in left upper and lower extremity. Right upper extremity is approximately 1/5, and distally 4/5 with difficulty opening his right hand. Increased tone in the right upper extremity. Left lower extremity proximally 3/5 with foot dorsiflexion 1/5 and plantar 3/5 Sensation: Grossly intact to light touch in all extremities. Deep tendon reflexes: +1 in bilateral biceps, brachioradialis and patellar. Coordination: Patient had good finger to nose without dysmetria on the left Station within the bed was normal Laboratory Results Past 24 Hours: 03/19/17 12:33 Red Blood Count 4.67, Mean Corpuscular Volume 88.0, Mean Corpuscular Hemoglobin 31.0, Mean Corpuscular Hemoglobin Concent 35.3, Mean Platelet Volume 10.4, Neutrophils (%) (Auto) 80.2, Lymphocytes (%) (Auto) 8.3, Monocytes (%) (Auto) 10.6, Eosinophils (%) (Auto) 0.3, Basophils (%) (Auto) 0.3, Neutrophils # (Auto ) 4.90, Lymphocytes # (Auto) 0.51, Monocytes # (Auto) 0.65, Eosinophils # (Auto ) 0.02, Basophils # (Auto) 0.02 03/19/17 12:33 Test 03/19/17 12:24 03/19/17 12:33 03/19/17 12:46 03/19/17 14:30 Influenza Type A Antigen Neg for Influ A (NEG) Influenza Type B Antigen Neg for Influ B (NEG) White Blood Count 6.12 K/uL (4.8-10.8) Red Blood Count 4.67 M/uL (4.7-6.1) Hemoglobin 14.5 g/dL (14.0-18.0) Hematocrit 41.1 % (42-52) Mean Corpuscular Volume 88.0 fL (80-100) Mean Corpuscular Hemoglobin 31.0 pg (25-34) Mean Corpuscular Hemoglobin Concent 35.3 g/dl (32-36) Platelet Count 269 K/uL (130-400) Mean Platelet Volume 10.4 fL (7.4-10.4) Neutrophils (%) (Auto) 80.2 % Lymphocytes (%) (Auto) 8.3 % Monocytes (%) (Auto) 10.6 % Eosinophils (%) (Auto) 0.3 % Basophils (%) (Auto) 0.3 % Neutrophils # (Auto) 4.90 K/uL (1.4-6.5) Lymphocytes # (Auto) 0.51 K/uL (1.2-3.4) Monocytes # (Auto) 0.65 K/uL (0.11-0.59) Eosinophils # (Auto) 0.02 K/uL (0-0.5) Basophils # (Auto) 0.02 K/uL (0-0.2) RDW Standard Deviation 41.7 fL (36.4-46.3) RDW Coefficient of Variation 13.1 % (11.5-14.5) Immature Granulocyte % (Auto) 0.3 % Immature Granulocyte # (Auto) 0.02 K/uL (0.00-0.02) Prothrombin Time 10.3 SECONDS (9.0-12.0) Prothromb Time International Ratio 1.0 (0.9-1.1) Activated Partial Thromboplast Time 26.4 SECONDS (21.0-31.0) Partial Thromboplastin Ratio 1.0 Anion Gap 8.0 mmol/L (3-11) Estimated GFR () 118.6 Estimated GFR (Non- 102.3 BUN/Creatinine Ratio 10.7 (10-20) Calcium Level 8.9 mg/dl (8.5-10.1) Total Bilirubin 0.5 mg/dl (0.2-1) Aspartate Amino Transf (AST/SGOT) 15 U/L (15-37) Alanine Aminotransferase (ALT/SGPT) 44 U/L (12-78) Alkaline Phosphatase 80 U/L (45-117) Total Creatine Kinase 88 U/L (39-308) Creatine Kinase MB 0.6 ng/ml (0.5-3.6) Creatine Kinase MB Ratio 0.7 (0-3.0) Troponin I < 0.015 ng/ml (0-0.045) Total Protein 7.2 gm/dl (6.4-8.2) Albumin 3.5 gm/dl (3.4-5.0) Globulin 3.7 gm/dl (2.5-4.0) Albumin/Globulin Ratio 0.9 (0.9-2) Procalcitonin 0.08 ng/ml (0-0.5) Bedside Lactic Acid Venous 1.88 mmol/L (0.90-1.70) Urine Color DK YELLOW Urine Appearance CLEAR (CLEAR) Urine pH 5.5 (4.5-7.5) Urine Specific [place] 1.025 (1.000-1.030) Urine Protein NEG (NEG) Urine Glucose (UA) NEG (NEG) Urine Ketones TRACE (NEG) Urine Occult Blood NEG (NEG) Urine Nitrite NEG (NEG) Urine Bilirubin NEG (NEG) Urine Urobilinogen NEG (NEG) Urine Leukocyte Esterase NEG (NEG) Urine WBC (Auto) 1-5 /hpf (0-5) Urine RBC (Auto) 0-4 /hpf (0-4) Urine Hyaline Casts (Auto) 1-5 /lpf (0-5) Urine Epithelial Cells (Auto) 10-20 /lpf (0-5) Urine Bacteria (Auto) NEG (NEG) Test 03/19/17 16:10 03/19/17 19:57 Lactic Acid Level 0.6 mmol/L (0.4-2.0) Influenza Type A (RT-PCR) POS for Influ A (NEG) Influenza Type B (RT-PCR) Neg for Influ B (NEG) Impression This is a 51-year-old male who presents with 3 days of flulike symptoms. No signs or symptoms concerning for MS exacerbation or flare. Plan Patient should continue with disease modifying therapy of Copaxone. No additional treatment for MS needed at this time. Patient may follow up in neurology clinic with Dr. Neely for care and management of sclerosis as previously indicated. Can give us a call if there is any concerns for acute MS exacerbation or flare.
[2017-03-20 15:25] VITALS: BP 120/83; PULSE 103; TEMP 36.8; O2SAT 97
[2017-03-20] MEDS: LEVOFLOXACIN / D5W 750 MG in PREMIXED IN D5W 150 ML IV SCH (18:09)
--- NOTE | 2017-03-20 18:58 | Progress Note ---
Medicine Progress Note Date & Time of Visit: Mar 20, 2017 at 10:45. Subjective Pt was seen and examined Lying in bed with no distress Pt said that he feels fine Denies any SOB, palpitation, dizziness and SOB Objective Last 8 Hrs Date Time Temp Pulse Resp B/P (MAP) Pulse Ox O2 Delivery O2 Flow Rate FiO2 03/20/17 16:00 Room Air 03/20/17 15:25 36.8 103 18 120/83 (95) 97 Room Air Physical Exam: General- No acute distress Head- atraumatic Eyes- PERRL, EOMI ENT- oropharynx clear Neck- supple, no JVD Lungs- clear to auscultation Heart- regular rhythm Abdomen- normal bowel sounds Extremities- no pretibial edema, no calf tenderness Neuro- alert, oriented x 3; PERRL, Right extremities weakness Skin- warm & dry Laboratory Results: Last 24 Hours Test 03/19/17 19:57 Influenza Type A (RT-PCR) POS for Influ A Influenza Type B (RT-PCR) Neg for Influ B Assessment & Plan Influenza A Present with flu like symptoms Influenza A PCR positive On Tamiflu to complete 5 days course Procalcitonin normal Lactic acid normal Will d/c levaquin Follow up blood cx Hx multiple sclerosis. No signs of exacerbation Continue Copaxone Neuro on board DVT px On lovenox CODE STATUS FULL CODE Current Inpatient Medications: Current Inpatient Medications Medications (Trade) Dose Ordered Sig/Damir Route Start Time Stop Time Status Last Admin Dose Admin Enoxaparin Sodium (Lovenox Inj) 40 mg Q24H SQ 03/19/17 21:00 04/18/17 20:59 03/19/17 20:52 40 MG Acetaminophen (Tylenol Tab) 650 mg Q4H PRN PO 03/19/17 15:30 04/18/17 15:29 Al Hydrox/Mg Hydrox/Simethicone (Maalox Max Susp) 15 ml Q4H PRN PO 03/19/17 15:30 04/18/17 15:29 Polyethylene (Miralax Powder Packet) 17 gm DAILY PRN PO 03/19/17 18:30 04/18/17 18:29 Ondansetron HCl (Zofran Inj) 4 mg Q6H PRN IV 03/19/17 15:30 04/18/17 15:29 Cholecalciferol (Vitamin D Tab) 1,000 inter.unit DAILY PO 03/20/17 09:00 04/19/17 08:59 03/20/17 08:33 1,000 INTER.UNIT Fish Oil ([place]-3 (Purified Fish Oil) Cap) 2 gm BID PO 03/19/17 21:00 04/18/17 20:59 03/20/17 08:33 2 GM Multivitamins (Multivitamin Tab) 3 tab DAILY PO 03/20/17 09:00 04/19/17 08:59 03/20/17 08:34 3 TAB Naltrexone HCl (Naltrexone) 50 mg QPM PO 03/19/17 21:00 04/18/17 20:59 03/19/17 20:52 50 MG Psyllium Hydrophilic Mucilloid (Metamucil Powder) 1 pkt QAM PO 03/20/17 09:00 04/19/17 08:59 03/20/17 08:33 1 PKT Oseltamivir Phosphate (Tamiflu Cap) 75 mg BID PO 03/19/17 21:00 03/24/17 20:59 03/20/17 08:34 75 MG Sodium Chloride 1,000 ml @ 80 mls/hr [id number] IV 03/19/17 18:30 04/18/17 18:29 03/20/17 08:33 80 MLS/HR Levofloxacin 750 mg/Prmx 150 ml @ 100 mls/hr Q24H IV 03/19/17 18:45 03/26/17 18:44 03/20/17 18:09 100 MLS/HR Ipratropium [place] (Atrovent 0.02% 0.5MG/2.5ML Neb) 0.5 mg Q4R PRN INH 03/19/17 18:30 04/18/17 18:29 Levalbuterol (Xopenex 1.25MG/ 0.5ML Neb) 1.25 mg Q4R PRN INH 03/19/17 18:30 04/18/17 18:29 Miscellaneous Information (Order Awaiting Action) 1 ea QS N/A 03/20/17 00:00 04/19/17 00:00
[2017-03-20 19:07] VITALS: BP 117/80; PULSE 101; TEMP 37.1; O2SAT 94
[2017-03-20] MEDS: ENOXAPARIN 40 MG/0.4 ML SYR SQ SCH (20:38)
[2017-03-20] MEDS: NALTREXONE HCL 50 MG TAB PO SCH (20:39)
[2017-03-21 00:39] VITALS: BP 122/82; PULSE 92; TEMP 37.2; O2SAT 98
[2017-03-21 06:58] VITALS: BP 142/88; PULSE 92; TEMP 36.9; O2SAT 97
[2017-03-21 08:00] VITALS: O2SAT 97
[2017-03-21] MEDS: SODIUM CHLORIDE 0.9% 1000ML 1,000 ML IV SCH (09:42)
[2017-03-21] MEDS: OMEGA-3 (PURIFIED FISH OIL) 1 GM CAP PO SCH (09:42)
[2017-03-21] MEDS: PSYLLIUM 58.6% PWD PACK S\\F PO SCH (09:42)
[2017-03-21] MEDS: OSELTAMIVIR PHOSPHATE 75 MG CAP PO SCH ×2 (09:42→18:45)
[2017-03-21] MEDS: MULTIVITAMIN TAB PO SCH (09:42)
[2017-03-21] MEDS: CHOLECALCIFEROL 1000 INTER.UNIT TAB PO SCH (09:43)
--- NOTE | 2017-03-21 10:06 | Progress Note ---
Medicine Progress Note Date & Time of Visit: Mar 21, 2017 at 10:01. Subjective Pt was seen and examined lying in bed with no distress Pt said that he feels fine Denies any chest pain, palpitation and SOB Objective Last 8 Hrs Date Time Temp Pulse Resp B/P (MAP) Pulse Ox O2 Delivery O2 Flow Rate FiO2 03/21/17 06:58 36.9 92 16 142/88 (106) 97 Room Air Physical Exam: General- No acute distress Head- atraumatic Eyes- PERRL, EOMI ENT- oropharynx clear Neck- supple, no JVD Lungs- clear to auscultation Heart- regular rhythm Abdomen- normal bowel sounds Extremities- no pretibial edema, no calf tenderness Neuro- alert, oriented x 3; PERRL, Right extremities weakness Skin- warm & dry Assessment & Plan Influenza A Present with flu like symptoms Influenza A PCR positive On Tamiflu to complete 5 days course Procalcitonin normal Lactic acid normal Will d/c levaquin Blood cx no growth Clinically improve significantly Hx multiple sclerosis. No signs of exacerbation Continue Copaxone Neuro on board Pt had Occupational therapy done today that recommended inpatient rehab Pt refused inpatient rehab. 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 Pt said that he is back to his baseline He said that he has an electronic scouter to take him from the school parking lot to the school building He has a motorized wheelchair where he uses inside the school and the classroom Explained to patient about the risks by not going to rehab such as fall/injury/ worsening weakness, bleeding from the fall and bones fractures Pt understands the risks and continue to refuse to go for inpatient rehab He agreed with home health services and outpatient physical therapy Stable DVT px On lovenox CODE STATUS FULL CODE Disposition Discharge home today Consultants: Neuro Current Inpatient Medications: Current Inpatient Medications Medications (Trade) Dose Ordered Sig/Damir Route Start Time Stop Time Status Last Admin Dose Admin Enoxaparin Sodium (Lovenox Inj) 40 mg Q24H SQ 03/19/17 21:00 04/18/17 20:59 03/20/17 20:38 40 MG Acetaminophen (Tylenol Tab) 650 mg Q4H PRN PO 03/19/17 15:30 04/18/17 15:29 Al Hydrox/Mg Hydrox/Simethicone (Maalox Max Susp) 15 ml Q4H PRN PO 03/19/17 15:30 04/18/17 15:29 Polyethylene (Miralax Powder Packet) 17 gm DAILY PRN PO 03/19/17 18:30 04/18/17 18:29 Ondansetron HCl (Zofran Inj) 4 mg Q6H PRN IV 03/19/17 15:30 04/18/17 15:29 Cholecalciferol (Vitamin D Tab) 1,000 inter.unit DAILY PO 03/20/17 09:00 04/19/17 08:59 03/21/17 09:43 1,000 INTER.UNIT Fish Oil ([place]-3 (Purified Fish Oil) Cap) 2 gm BID PO 03/19/17 21:00 04/18/17 20:59 03/21/17 09:42 2 GM Multivitamins (Multivitamin Tab) 3 tab DAILY PO 03/20/17 09:00 04/19/17 08:59 03/21/17 09:42 3 TAB Naltrexone HCl (Naltrexone) 50 mg QPM PO 03/19/17 21:00 04/18/17 20:59 03/20/17 20:39 50 MG Psyllium Hydrophilic Mucilloid (Metamucil Powder) 1 pkt QAM PO 03/20/17 09:00 04/19/17 08:59 03/21/17 09:42 1 PKT Oseltamivir Phosphate (Tamiflu Cap) 75 mg BID PO 03/19/17 21:00 03/24/17 20:59 03/21/17 09:42 75 MG Sodium Chloride 1,000 ml @ 80 mls/hr [id number] IV 03/19/17 18:30 04/18/17 18:29 03/21/17 09:42 80 MLS/HR Ipratropium [place] (Atrovent 0.02% 0.5MG/2.5ML Neb) 0.5 mg Q4R PRN INH 03/19/17 18:30 04/18/17 18:29 Levalbuterol (Xopenex 1.25MG/ 0.5ML Neb) 1.25 mg Q4R PRN INH 03/19/17 18:30 04/18/17 18:29 Miscellaneous Information (Order Awaiting Action) 1 ea QS N/A 03/20/17 00:00 04/19/17 00:00
[2017-03-21] MEDS ORDERED: TMF75 PO (10:11)
--- NOTE | 2017-03-21 10:23 | Discharge Instructions ---
Discharge Instructions Date of Service Mar 21, 2017. Admission Reason for Admission: Fever, Weakness Discharge Discharge Diagnosis / Problem: Influenza A, Hx multiple sclerosis Discharge Goals Goal(s): Decrease discomfort, Improve function, Improve disease control Activity Recommendations Activity Limitations: resume your previous activity (as tolerated) . Instructions / Follow-Up Instructions / Follow-Up Discharge with home health services Follow up with your primary care provider Dr. Medellin on 03/27 @ 12:55 Complete the course of Tamiflu Continue Physical therapy and occupational therapy Fall precaution Current Hospital Diet Patient's current hospital diet: Regular Diet Discharge Diet Recommended Diet: Regular Diet Pending Studies Studies pending at discharge: no Medical Emergencies . Who to Call and When: Medical Emergencies: If at any time you feel your situation is an emergency, please call 911 immediately. . Non-Emergent Contact Non-Emergency issues call your: Primary Care Provider Call Non-Emergent contact if: you have a fever, you have any medication questions . . "Provider Documentation" section prepared by Oneida Patel. . VTE Core Measure Inpt VTE Proph given/why not?: Enoxaparin (Lovenox)SQ
[2017-03-21 14:52] VITALS: BP 129/86; PULSE 92; TEMP 37.5; O2SAT 97
[2017-03-21 18:03] VITALS: BP 129/86; PULSE 92; TEMP 37.5; O2SAT 97
--- NOTE | 2017-03-21 18:06 | Discharge Summary ---
Discharge Summary Date of Service Mar 21, 2017. Discharge Summary Admission Date: Mar 19, 2017 at 15:37 Discharge Date: Mar 21, 2017 Discharge Disposition: Home with services Principal Diagnosis: Influenza A Secondary Diagnoses/Problems: Multiple sclerosis Weakness Ambulatory dysfunction Procedures: HEAD WITHOUT CONTRAST (CT) CLINICAL HISTORY: 51 years-old Male with Pt c/o AMS. Acute altered mental status . History of multiple sclerosis. TECHNIQUE: Multiple axial CT images of the head were obtained without contrast. A dose lowering technique was utilized adhering to the principles of ALARA. CT DOSE: 614.27 mGy.cm COMPARISON: Brain MRI 09/09/2016. FINDINGS: No acute intracranial hemorrhage, midline shift, intracranial mass, hydrocephalus, territorial ischemia or abnormal extra-axial collection. Patchy areas of low-attenuation are seen within the periventricular white matter of the cerebral hemispheres bilaterally correlating with areas of T2/FLAIR prolongation seen on comparison brain MRIs. Vascular calcifications are seen at the level of the skull base. The calvarium is intact. The mastoid air cells, and middle ear cavities are clear. Mild to moderate mucosal thickening of the ethmoid air cells. IMPRESSION: 1. No acute intracranial abnormality. 2. Multifocal areas of ill-defined low-attenuation are seen within the periventricular white matter of the cerebral hemispheres bilaterally corresponding with areas of T2/FLAIR prolongation on comparison brain MRIs. These findings are compatible with patient's clinical history of multiple sclerosis. 3. Mild ethmoid sinus disease. The above report was generated using voice recognition software. It may contain grammatical, syntax or spelling errors. Electronically signed by: Dominic Dhillon M.D. 03/19/2017 1:48 PM Dictated Date/Time: 03/19/2017 1:45 PM CHEST ONE VIEW PORTABLE HISTORY: 51 years-old Male Sepsis acute sepsis COMPARISON: Acute abdominal series radiographs 11/19/2016 TECHNIQUE: Portable AP view of the chest FINDINGS: Cardiac silhouette is upper limits of normal in size. The patient is rotated to the left. There is no pneumothorax, pleural effusion, focal airspace consolidation or overt pulmonary edema. There is mild right hemidiaphragmatic elevation. Bones of the chest appear grossly intact. IMPRESSION: No acute process. The above report was generated using voice recognition software. It may contain grammatical, syntax or spelling errors. Electronically signed by: Dominic Dhillon M.D. 03/19/2017 1:20 PM Dictated Date/Time: 03/19/2017 1:18 PM Consultations: Neuro Medication Reconciliation New Medications: Oseltamivir Phosphate (Tamiflu) 75 Mg Cap 75 MG PO BID for 3 Days, #6 CAP Continued Medications: Cholecalciferol (Vitamin D3) 1,000 Unit Tab 1 TAB PO DAILY Fish Oil ([place]-3) 1 Ea Cap 2 CAP PO BID Glatiramer Acetate (Copaxone) 20 Mg/1 Ml Inj 20 MG SC QPM Multiple Vitamin (Multivitamin) 1 Tab Tab 3 TABS PO DAILY Naltrexone Hcl (Naltrexone Hcl) 50 Mg Tab 50 MG PO QPM, TAB 1 Refill Psyllium (Metamucil) 48.57 % Pow 1 DOSE PO QAM Admission Information HPI (per Admitting provider): CHIEF COMPLAINT: Generalized weakness, cough and fever. HISTORY OF PRESENT ILLNESS: This is a 51-year-old male with past medical history significant for multiple sclerosis, presents with ongoing cough since last Monday and also generalized weakness and started spiking temperatures today. He called his neurologist and was advised to come to the ER. The patient has multiple sclerosis and generally his ambulatory function is very limited. He sometimes uses walker and sometimes he will walk with the help of his , but lately since the flu like symptoms started his ambulatory function went down and having generalized weakness, tired and he has dry cough, some mild sore throat. Mild runny nose, no headaches, no blurred vision, no earache, no chest pain, no shortness of breath, no nausea, no vomiting, no abdominal pain, no diarrhea, no constipation, no blood in the stools. Normal bladder movements. He is has temperature spike in the ER, slightly tachycardic, otherwise is comfortable. Physical Exam (per Admitting): GENERAL: The patient is of moderate build, not in distress. VITAL SIGNS: Temperature 37.8, pulse 107, respiratory rate 22, blood pressure 130/76, oxygen 92% on room air. HEENT: No pallor, no icterus. Pupils equal, round, and reactive to light. NECK: No JVD, no neck masses, no carotid bruits. CARDIOVASCULAR: S1, S2 heard. Tachycardia. No murmurs. RESPIRATORY SYSTEM: Clear to auscultation bilaterally. No accessory muscle use. No wheezing, no crackles. ABDOMEN: Soft, bowel sounds present. Nontender. No distention. CENTRAL NERVOUS SYSTEM: Nonfocal. EXTREMITIES: No edema, no erythema. Hospital Course Influenza A Present with flu like symptoms Influenza A PCR positive On Tamiflu to complete 5 days course Procalcitonin normal Lactic acid normal Will d/c levaquin Blood cx no growth Clinically improve significantly Hx multiple sclerosis. No signs of exacerbation Continue Copaxone Neuro on board Ambulatory dysfunction Pt had Occupational therapy done today that recommended inpatient rehab Pt refused inpatient rehab. 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 Pt said that he is back to his baseline He said that he has an electronic scouter to take him from the school parking lot to the school building He has a motorized wheelchair where he uses inside the school and the classroom Explained to patient about the risks by not going to rehab such as fall/injury/ worsening weakness, bleeding from the fall and bones fractures Pt understands the risks and continue to refuse to go for inpatient rehab He agreed with home health services and outpatient physical therapy Stable DVT px On lovenox CODE STATUS FULL CODE Disposition Discharge home today Total time spent on discharge = 35 minutes This includes examination of the patient, discharge planning, medication reconciliation, and communication with other providers. Discharge Instructions Discharge Instructions Date of Service Mar 21, 2017. Admission Reason for Admission: Fever, Weakness Discharge Discharge Diagnosis / Problem: Influenza A, Hx multiple sclerosis Discharge Goals Goal(s): Decrease discomfort, Improve function, Improve disease control Activity Recommendations Activity Limitations: resume your previous activity (as tolerated) . Instructions / Follow-Up Instructions / Follow-Up Discharge with home health services Follow up with your primary care provider Dr. Medellin on 03/27 @ 12:55 Complete the course of Tamiflu Physical therapy and occupational therapy Fall precaution Current Hospital Diet Patient's current hospital diet: Regular Diet Discharge Diet Recommended Diet: Regular Diet Pending Studies Studies pending at discharge: no Medical Emergencies . Who to Call and When: Medical Emergencies: If at any time you feel your situation is an emergency, please call 911 immediately. . Non-Emergent Contact Non-Emergency issues call your: Primary Care Provider Call Non-Emergent contact if: you have a fever, you have any medication questions . . "Provider Documentation" section prepared by Oneida Patel. . VTE Core Measure Inpt VTE Proph given/why not?: Enoxaparin (Lovenox)SQ Signed: Signed: The status of this report is Draft * If report status is Draft, the document has not been finalized by the responsible provider. Additional Copies To Khalif Medellin M.D.(DONNY)
== END 2017-03-21 18:58 | disposition home health service (06) | DRG 195 ==
LOC: EDBD 12:17 → C.EDA 12:19 → C.MED 15:37 → ENRESERV 16:49
PROVIDERS: ADMIT Internal Medicine; ATTEND Internal Medicine
DX: J10.1 Influenza due to other identified influenza virus with other respiratory manifestations (principal); G35 Multiple sclerosis; R53.1 Weakness; R26.2 Difficulty in walking, not elsewhere classified; Z51.81 Encounter for therapeutic drug level monitoring; Z79.899 Other long term (current) drug therapy; Z82.49 Family history of ischemic heart disease and other diseases of the circulatory system; Z83.3 Family history of diabetes mellitus

== ENCOUNTER 2017-04-24 14:35 | Emergency (ER) | payer BC ==
[~2017-04-24] VITALS: Ht 172.7 cm; Wt 98.0 kg
[~2017-04-24 14:35] MED LIST changes: +NALT50TA5 PO; -NALTREXONE PO; +TMF75 PO
[2017-04-24 14:51] VITALS: TEMP 36.7; Ht 172.7 cm; Wt 98.0 kg
[2017-04-24] MEDS ORDERED: OPTIRAY 320 IV PRN (16:30)
[2017-04-24 16:46] LABS: BASO % 0.1 %; BASO ABS # 0.01 K/uL (0-0.2); HEMATOCRIT 41.7 % (42-52); HEMOGLOBIN 14.6 g/dL (14.0-18.0); IG# 0.04 K/uL (0.00-0.02); LYMPH % 4.8 %; LYMPH ABS # 0.72 K/uL (1.2-3.4); MEAN CELL VOLUME 87.1 fL (80-100); MEAN CORPUSCULAR HEMOGLOBIN 30.5 pg (25-34); MEAN PLATELET VOLUME 9.7 fL (7.4-10.4); MONO % 4.7 %; NEUT % 90.1 %; NEUT ABS # 13.54 K/uL (1.4-6.5); PLATELET COUNT 316 K/uL (130-400); RED CELL DISTRIBUTION WIDTH CV 13.3 % (11.5-14.5); RED CELL DISTRIBUTION WIDTH SD 42.4 fL (36.4-46.3); WHITE BLOOD COUNT 15.01 K/uL (4.8-10.8)
[2017-04-24 17:03] LABS: ALBUMIN 3.8 gm/dl (3.4-5.0); CALCIUM 9.7 mg/dl (8.5-10.1); CREATININE 1.48 mg/dl (0.60-1.40); POTASSIUM 4.6 mmol/L (3.5-5.1)
[2017-04-24] MEDS ORDERED: SODIUM CHLORIDE 0.9% 1000ML 1,000 ML IV STA ×2 (17:03→18:42)
[2017-04-24 17:05] LABS: TOTAL PROTEIN 7.7 gm/dl (6.4-8.2)
--- NOTE | 2017-04-24 17:28 | DIAGNOSTIC IMAGING REPORT ---
ABDOMEN AND PELVIS CT WITH IV CONTRAST CT DOSE: 656.31 mGy.cm HISTORY: Right lower quadrant abdominal pain. TECHNIQUE: Multiaxial CT images of the abdomen and pelvis were performed following the use of intravenous contrast. A dose lowering technique was utilized adhering to the principles of ALARA. COMPARISON STUDY: None. FINDINGS: The lung bases are clear. No pneumoperitoneum. No pneumatosis. The liver, gallbladder, spleen, adrenal glands, pancreas, and left kidney are unremarkable. No intraperitoneal lymphadenopathy. There is a left retroaortic renal vein. Right perinephric and periureteral edema. Slightly delayed right nephrogram. Mild right hydroureteronephrosis secondary to an obstructing 2 mm stone at the right ureterovesical junction. The bladder is completely decompressed and not well evaluated. No bowel wall thickening or obstruction. Normal appendix. A few scattered colonic diverticula. IMPRESSION: 1. An obstructing 2 mm stone within the right ureterovesical junction resulting in mild right hydronephrosis. 2. Normal appendix. 3. No bowel wall thickening or obstruction. Electronically signed by: Cameron Hogan M.D. 04/24/2017 5:27 PM Dictated Date/Time: 04/24/2017 5:19 PM
[2017-04-24] MEDS ORDERED: MULT-506 PO (17:40)
[2017-04-24] MEDS ORDERED: NALT50TA16 PO (17:40)
[2017-04-24] MEDS ORDERED: CPXI SC (17:40)
[2017-04-24] MEDS ORDERED: OMEG10007 PO (17:40)
[2017-04-24] MEDS ORDERED: CHOL1TAB42 PO (17:40)
[2017-04-24] MEDS ORDERED: PSYL48.59 PO (17:40)
[2017-04-24] MEDS ORDERED: SODIUM CHLORIDE 0.9% 500ML 500 ML IV STA (18:50)
[2017-04-24] MEDS ORDERED: OXYCODONE IR HOME PACK PO ONE (20:00)
[2017-04-24] MEDS ORDERED: TAMSULOSIN HCL 0.4 MG CAP PO ONE (20:00)
[2017-04-24] MEDS ORDERED: ONDANSETRON HOME PACK 4MG OD TAB PO ONE (20:00)
[2017-04-24] MEDS ORDERED: OXYC1TAB3 PO (20:03)
[2017-04-24] MEDS ORDERED: TAMS0.4C38 PO (20:03)
[2017-04-24] MEDS ORDERED: ONDA4TAB10 SL (20:03)
--- NOTE | 2017-04-24 20:05 | EMERGENCY ROOM VISIT NOTE ---
History First contact with patient: 16:03 Chief Complaint: GI ASSESSMENT Stated Complaint: CANT MOVE BOWELS OR PASS GAS, PAIN ON RT SIDE Nursing Triage Summary: RLQ pain started 1 day ago pt reports last normal BM 1 day ago . pt reports unable to pass elba or have BM today and pain in abdomen has increased denies NV History of Present Illness The patient is a 52 year old male who presents to the Emergency Room with complaints of right lower quadrant abdominal pain and decreased bowel movements. The patient reports that for the past 2 days, he has had pain in the right lower quadrant and has not been moving his bowels normally. He states that for him, he typically has 5-6 loose stools per day but he has not had a bowel movement yet today. He reports the pain is worse when he takes a deep breath in. It does not seem to be worse with walking or moving. He does report some increased frequency of urination. There has been no nausea or vomiting. The patient denies any history of similar symptoms. He denies any history of abdominal surgeries. The patient does have MS and states this is fairly well controlled. He denies any fever/chills or blood in the stools. Review of Systems A complete 10 point review of systems was reviewed with the patient with pertinent positives and negatives as per history of present illness. All else were negative. Past Medical/Surgical History Medical Problems: (1) Multiple sclerosis Family History No pertinent family history Social History Smoking Status: Never Smoker Alcohol Use: none Marital Status: Housing Status: lives with significant other Occupation Status: employed Current/Historical Medications Scheduled Cholecalciferol (Vitamin D), 5,000 UNITS PO Q2D Cholecalciferol (Vitamin D), 10,000 UNITS PO Q2D Fish Oil ([place]-3), 2 CAP PO BID Glatiramer Acetate (Copaxone), 20 MG SC QPM Multivitamin (Multivitamin), 1 TAB PO BID Naltrexone HCl (Naltrexone HCl), 50 MG PO QPM Ondasetron Odt (Zofran Odt), 4 MG SL Q6H Psyllium (Metamucil), 1 DOSE PO QAM Tamsulosin Hcl (Flomax), 0.4 MG PO DAILY Scheduled PRN Oxycodone Ir (Roxicodone Ir), 1-2 TAB PO Q4H PRN for Pain Physical Exam Vital Signs Date Time Temp Pulse Resp B/P (MAP) Pulse Ox O2 Delivery O2 Flow Rate FiO2 04/24/17 20:42 100 160/98 93 04/24/17 18:52 109 22 128/99 95 04/24/17 16:38 105 17 166/111 97 Room Air 04/24/17 14:51 36.7 111 20 160/109 96 Room Air Physical Exam VITALS: Vitals are noted on the nurse's note and reviewed by myself. Vital signs stable. GENERAL: This is a 52-year-old male, in no acute distress, nondiaphoretic, well- developed well-nourished. SKIN: The skin was without rashes. EYES: Pupils equal round and reactive to light and accommodation. MOUTH: Mucous membranes moist. Tonsils are not enlarged. Pharynx without erythema or exudate. NECK: Supple without nuchal rigidity. No lymphadenopathy. HEART: Regular rate and rhythm without murmurs gallops or rubs. LUNGS: Clear to auscultation bilaterally without wheezes, rales or rhonchi. No retractions or accessory muscle use. ABDOMEN: Positive bowel sounds x 4. Soft, mild tenderness in the right lower quadrant. No guarding or rebound tenderness. No CVA tenderness. NEURO: Patient was alert and oriented to person place and time. Medical Decision & Procedures ER Provider Diagnostic Interpretation: ABDOMEN AND PELVIS CT WITH IV CONTRAST CT DOSE: 656.31 mGy.cm HISTORY: Right lower quadrant abdominal pain. TECHNIQUE: Multiaxial CT images of the abdomen and pelvis were performed following the use of intravenous contrast. A dose lowering technique was utilized adhering to the principles of ALARA. COMPARISON STUDY: None. FINDINGS: The lung bases are clear. No pneumoperitoneum. No pneumatosis. The liver, gallbladder, spleen, adrenal glands, pancreas, and left kidney are unremarkable. No intraperitoneal lymphadenopathy. There is a left retroaortic renal vein. Right perinephric and periureteral edema. Slightly delayed right nephrogram. Mild right hydroureteronephrosis secondary to an obstructing 2 mm stone at the right ureterovesical junction. The bladder is completely decompressed and not well evaluated. No bowel wall thickening or obstruction. Normal appendix. A few scattered colonic diverticula. IMPRESSION: 1. An obstructing 2 mm stone within the right ureterovesical junction resulting in mild right hydronephrosis. 2. Normal appendix. 3. No bowel wall thickening or obstruction. Laboratory Results 2/26/18 16:35 Red Blood Count 4.79, Mean Corpuscular Volume 87.1, Mean Corpuscular Hemoglobin 30.5, Mean Corpuscular Hemoglobin Concent 35.0, Mean Platelet Volume 9.7, Neutrophils (%) (Auto) 90.1, Lymphocytes (%) (Auto) 4.8, Monocytes (%) (Auto) 4.7, Eosinophils (%) (Auto) 0.0, Basophils (%) (Auto) 0.1, Neutrophils # (Auto) 13.54, Lymphocytes # (Auto) 0.72, Monocytes # (Auto) 0.70, Eosinophils # (Auto) 0.00, Basophils # (Auto) 0.01 04/24/17 16:35 Test 04/24/17 16:35 04/24/17 18:31 White Blood Count 15.01 K/uL (4.8-10.8) Red Blood Count 4.79 M/uL (4.7-6.1) Hemoglobin 14.6 g/dL (14.0-18.0) Hematocrit 41.7 % (42-52) Mean Corpuscular Volume 87.1 fL (80-100) Mean Corpuscular Hemoglobin 30.5 pg (25-34) Mean Corpuscular Hemoglobin Concent 35.0 g/dl (32-36) Platelet Count 316 K/uL (130-400) Mean Platelet Volume 9.7 fL (7.4-10.4) Neutrophils (%) (Auto) 90.1 % Lymphocytes (%) (Auto) 4.8 % Monocytes (%) (Auto) 4.7 % Eosinophils (%) (Auto) 0.0 % Basophils (%) (Auto) 0.1 % Neutrophils # (Auto) 13.54 K/uL (1.4-6.5) Lymphocytes # (Auto) 0.72 K/uL (1.2-3.4) Monocytes # (Auto) 0.70 K/uL (0.11-0.59) Eosinophils # (Auto) 0.00 K/uL (0-0.5) Basophils # (Auto) 0.01 K/uL (0-0.2) RDW Standard Deviation 42.4 fL (36.4-46.3) RDW Coefficient of Variation 13.3 % (11.5-14.5) Immature Granulocyte % (Auto) 0.3 % Immature Granulocyte # (Auto) 0.04 K/uL (0.00-0.02) Anion Gap 11.0 mmol/L (3-11) Est Creatinine Clear Calc Drug Dose 67.8 ml/min Estimated GFR () 63.0 Estimated GFR (Non- 54.4 BUN/Creatinine Ratio 11.3 (10-20) Calcium Level 9.7 mg/dl (8.5-10.1) Total Bilirubin 0.4 mg/dl (0.2-1) Aspartate Amino Transf (AST/SGOT) 13 U/L (15-37) Alanine Aminotransferase (ALT/SGPT) 42 U/L (12-78) Alkaline Phosphatase 82 U/L (45-117) Total Protein 7.7 gm/dl (6.4-8.2) Albumin 3.8 gm/dl (3.4-5.0) Globulin 3.9 gm/dl (2.5-4.0) Albumin/Globulin Ratio 1.0 (0.9-2) Lipase 93 U/L (73-393) Urine Color YELLOW Urine Appearance CLEAR (CLEAR) Urine pH 6.0 (4.5-7.5) Urine Specific [place] 1.024 (1.000-1.030) Urine Protein NEG (NEG) Urine Glucose (UA) NEG (NEG) Urine Ketones NEG (NEG) Urine Occult Blood 2+ (NEG) Urine Nitrite NEG (NEG) Urine Bilirubin NEG (NEG) Urine Urobilinogen NEG (NEG) Urine Leukocyte Esterase NEG (NEG) Urine WBC (Auto) 1-5 /hpf (0-5) Urine RBC (Auto) 5-10 /hpf (0-4) Urine Hyaline Casts (Auto) 0 /lpf (0-5) Urine Epithelial Cells (Auto) 0-5 /lpf (0-5) Urine Bacteria (Auto) NEG (NEG) Medications Administered Medications (Trade) Dose Ordered Sig/Damir Route Start Time Stop Time Status Last Admin Dose Admin Sodium Chloride 1,000 ml @ 999 mls/hr Q1H1M STAT IV 04/24/17 17:03 04/24/17 18:03 DC 04/24/17 17:48 999 MLS/HR Sodium Chloride 1,000 ml @ 999 mls/hr Q1H1M STAT IV 04/24/17 18:42 04/24/17 18:51 DC 04/24/17 18:51 999 MLS/HR Sodium Chloride 500 ml @ 999 mls/hr Q31M STAT IV 04/24/17 18:50 04/24/17 19:20 DC 04/24/17 18:55 999 MLS/HR Ondansetron HCl (ZOFRAN ODT 4MG Home Pack) 1 homepack UD ONCE PO 04/24/17 20:00 04/24/17 20:01 DC 04/24/17 20:19 1 HOMEPACK Oxycodone HCl (Roxicodone Immediate Rel 5MG Home Pack) 1 homepack UD ONCE PO 04/24/17 20:00 04/24/17 20:01 DC 04/24/17 20:19 1 HOMEPACK Tamsulosin HCl (Flomax Cap) 0.4 mg NOW ONCE PO 04/24/17 20:00 04/24/17 20:01 DC 04/24/17 20:19 0.4 MG ED Course The patient was evaluated as above. Labs were drawn and IV access was obtained. Patient was medicated with 1 liter NSS. He declined any analgesics. CT of the abdomen and pelvis was performed and read by radiology as above. Patient was reevaluated and findings were discussed. An additional 500 mL normal saline solution was ordered. Discharge instructions were reviewed with the patient. The patient verbalized understanding of my assessment and treatment plan and was discharged home in good condition. Medical Decision Differential diagnosis includes appendicitis, colitis, small bowel obstruction, kidney stone, pyelonephritis, urinary tract infection, gastroenteritis, among others. The patient is a 52-year-old male who presents today complaining of right lower quadrant abdominal pain. CT was performed and showed a 2 mm obstructing calculus in the distal right ureter. Labs revealed leukocytosis of 15,000, likely secondary to the stress of the situation. Creatinine was mildly elevated at 1.48 and patient was educated that he will need to have this rechecked by his primary care provider. Urinalysis was not suggestive of infection. Patient was initially tachycardic. This improved with IV fluids. On review of patient's previous visits, it does seem that he is slightly tachycardic at baseline as well. The patient did not require any analgesics. He was given a prescription for OxyIR and Zofran to be used as needed. He was given information for urology follow-up and will also follow-up with his primary care provider. Patient does take low-dose naltrexone nightly, but tells me that this is an optional medication and he often misses doses. He states that he will not take this while taking the narcotic medication. I did recommend he call his neurologist to discuss this. He was advised to return here for worsening pain, fevers, vomiting or other new/concerning symptoms. Based on the patient's presentation and work up, I feel the patient is stable for outpatient treatment. The patient was educated to return to the emergency department for any worsening of their current condition or new/concerning symptoms. He will follow up with his PCP. [place] [facility] Monitoring Program Search Results: patient reviewed within database, no issues identified Medication Reconcilliation Current Medication List: was personally reviewed by me Blood Pressure Screening Patient's blood pressure: Elevated blood pressure Blood pressure disposition: Elevated BP felt to be situational Impression Primary Impression: Kidney stone Departure Information Dispostion Home / Self-Care Condition GOOD Prescriptions Ondasetron Odt (ZOFRAN ODT) 4 Mg Tab 4 MG SL Q6H for Nausea, #15 TAB Prov: Samantha Chen PA-C 04/24/17 Oxycodone Ir (Roxicodone Ir) 5 Mg Tab 1-2 TAB PO Q4H Y for Pain, #15 TAB For Initial Treatment Prov: Samantha Chen PA-C 04/24/17 Tamsulosin Hcl (FLOMAX) 0.4 Mg Cap 0.4 MG PO DAILY for 10 Days, #10 CAP Prov: Samantha Chen PA-C 04/24/17 Referrals Khalif Medellin M.D.(DONNY) (PCP) Brodie Hurst MD, Urology Patient Instructions My [facility] Additional Instructions You have been treated in the Emergency Department today for a Kidney Stone ( Nephrolithiasis). You have been prescribed Oxy IR to be used for pain control. This is a narcotic medication. You cannot drive or consume alcohol while on this medicine. This medicine should only be used for pain that cannot be controlled with over-the- counter pain medicines. You have been prescribed Zofran to be used for any nausea or vomiting. Take as prescribed. You have been prescribed Flomax 0.4 mg to be taken ONCE daily until the stone has passed. This medicine has been prescribed as it can help relax the smooth muscles of the urinary tract increasing transit time of the kidney stone. For pain control, you can use the following otit-mdm-lvakwen medicines (if >12 yo): - Regular strength (325mg/tab) Tylenol (acetaminophen) 2 tabs every 4-6 hours as needed. Do not exceed 12 tablets in a 24 hour period. Avoid taking more than 4 grams (4000 mg) of Tylenol per day. This includes any other sources of acetaminophen you may take on a regular basis. - Regular strength (200 mg/tab) Advil (ibuprofen) 1-2 tabs every 4-6 hours as needed. Do not exceed a dose of 3200 mg per day. You have been provided a strainer and specimen collection cup. You should strain your urine to collect any passed stones. Your stones can be placed into the specimen cup and taken to your Urologist for further evaluation. Your creatinine was slightly elevated today. This should be rechecked by your primary care provider after you have passed the stone. You have been provided the contact information for the on-call Urologist. You should contact the Urologist's office tomorrow to establish a follow-up appointment from today's Emergency Department visit. Return to the Emergency Department if your symptoms persist despite the treatment plan outlined above or if you develop the following symptoms: intractable pain, fever, chills, or large amounts of blood in your urine.
[2017-04-24 20:42] VITALS: BP 160/98; PULSE 100; O2SAT 93
== END 2017-04-24 20:43 | disposition home or self-care (01) ==
LOC: C.EDB 14:37 → C.EDC 20:43
DX: N20.0 Calculus of kidney (principal); R10.31 Right lower quadrant pain; G35 Multiple sclerosis; Z79.899 Other long term (current) drug therapy

== ENCOUNTER 2017-06-02 15:50 | Emergency (ER) | payer BC ==
[~2017-06-02 15:50] MED LIST changes: -CHOL1000 PO; +CHOL1TAB42 PO; +MULT-506 PO; -MULTTAB58 PO; +NALT50TA16 PO; -NALT50TA5 PO; +ONDA4TAB10 SL; +OXYC1TAB3 PO; -TMF75 PO
[2017-06-02 15:54] VITALS: Ht 172.7 cm
[2017-06-02] MEDS ORDERED: SODIUM CHLORIDE 0.9% 1000ML 1,000 ML IV STA (17:03)
--- NOTE | 2017-06-02 17:03 | EMERGENCY ROOM VISIT NOTE ---
History Report prepared by Alona: Diane Keita Under the Supervision of: Dr. Santy Pinedo M.D. First contact with patient: 16:56 Chief Complaint: SWELLING TO EXTREMITY Stated Complaint: SWELLING/REDNESS IN LOWER LEFT LEG History of Present Illness The patient is a 52 year old male who presents to the Emergency Room with complaints of worsening redness and swelling to the right lower leg beginning a few days ago. Per family, the patient has multiple sclerosis. His family states that they called his doctor but was unable to get into the office today. The patient denies fevers, chills, cough, nausea, vomiting, headaches, dizziness, and congestion. Per family, the patient does not remember injuring his right lower leg. Per family, the patient is on Copaxone. His family states that the patient was in the ED 1 month ago due to a kidney stone. Source of History: patient, family Onset: a few days ago Position: leg (right) Quality: other (redness and swelling ) Timing: worsening Associated Symptoms: No fevers, No chills, No headache, No nausea, No vomiting, No weakness (dizziness ) Review of Systems See HPI for pertinent positives and negatives. A total of ten systems were reviewed and were otherwise negative. Past Medical & Surgical Medical Problems: (1) Multiple sclerosis Family History No pertinent family history Social History Smoking Status: Never Smoker Alcohol Use: none Marital Status: Housing Status: lives with significant other Occupation Status: employed Current/Historical Medications Scheduled Cephalexin Monohydrate (Keflex), 1 CAP PO QID Cholecalciferol (Vitamin D), 5,000 UNITS PO Q2D Cholecalciferol (Vitamin D), 10,000 UNITS PO Q2D Fish Oil ([place]-3), 2 CAP PO BID Glatiramer Acetate (Copaxone), 20 MG SC QPM Multivitamin (Multivitamin), 1 TAB PO BID Psyllium (Metamucil), 1 DOSE PO QAM [Naltrexone], 4.5 MG PO DAILY Allergies Coded Allergies: No Known Allergies (Verified , 06/02/17) Physical Exam Vital Signs Date Time Temp Pulse Resp B/P (MAP) Pulse Ox O2 Delivery O2 Flow Rate FiO2 06/02/17 18:56 36.8 84 18 141/91 94 06/02/17 18:48 88 18 141/91 98 Room Air 06/02/17 17:41 95 20 126/78 97 Room Air 06/02/17 15:54 36.8 90 16 132/87 95 Room Air Physical Exam GENERAL: Awake, alert, well-appearing, in no distress HENT: Normocephalic, atraumatic. Dry mucous membranes, otherwise oropharynx unremarkable. EYES: Normal conjunctiva. Sclera non-icteric. NECK: Supple. No nuchal rigidity. FROM. No JVD. RESPIRATORY: Clear to auscultation. CARDIAC: Regular rate, normal rhythm. Extremities warm and well perfused. Pulses equal. ABDOMEN: Soft, non-distended. No tenderness to palpation. No rebound or guarding. No masses. RECTAL: Deferred. MUSCULOSKELETAL: Chest examination reveals no tenderness. The back is symmetrical on inspection without obvious abnormality. There is no CVA tenderness to palpation. No joint edema. LOWER EXTREMITIES: Calves are equal size bilaterally and non-tender. 1+ pitting edema. Mild erythema and warmth to right lower leg, foot, and ankle. NEURO: Normal sensorium. No sensory or motor deficits noted. SKIN: No rash or jaundice noted. Medical Decision & Procedures ER Provider Diagnostic Interpretation: Radiology results as stated below per my review and radiologist interpretation: R ANKLE MIN 3 VIEWS ROUTINE CLINICAL HISTORY: Right ankle pain and swelling COMPARISON: None. DISCUSSION: There is mild soft tissue swelling. No acute fractures are visualized. There is irregularity anterior subtalar joint, likely arthritic, although an underlying bone lesion of the talus cannot be excluded. IMPRESSION: 1. No acute fractures 2. Nonspecific irregularity of the anterior subtalar joint, likely arthritic, although an underlying bone lesion of the talus cannot be excluded. Electronically signed by: Pool Bedoya M.D. 06/02/2017 5:21 PM Dictated Date/Time: 06/02/2017 5:19 PM ULTRASOUND R VENOUS DOPP LOWER EXT UNILAT CLINICAL HISTORY: Right leg redness swelling and pain COMPARISON STUDY: No previous studies for comparison. FINDINGS: Real-time and color flow Doppler imaging were performed. Flow was seen within the femoral, popliteal and calf veins with no intraluminal thrombus demonstrated. The saphenous vein is patent. IMPRESSION: No evidence of right lower extremity DVT. Electronically signed by: Pool Bedoya M.D. 06/02/2017 6:22 PM Dictated Date/Time: 06/02/2017 6:22 PM Laboratory Results 06/02/17 17:35 Red Blood Count 4.72, Mean Corpuscular Volume 86.7, Mean Corpuscular Hemoglobin 30.5, Mean Corpuscular Hemoglobin Concent 35.2, Mean Platelet Volume 10.1, Neutrophils (%) (Auto) 70.7, Lymphocytes (%) (Auto) 19.4, Monocytes (%) (Auto) 8.9, Eosinophils (%) (Auto) 0.6, Basophils (%) (Auto) 0.2, Neutrophils # (Auto) 5.71, Lymphocytes # (Auto) 1.57, Monocytes # (Auto) 0.72, Eosinophils # (Auto) 0.05, Basophils # (Auto) 0.02 06/02/17 17:35 Test 06/02/17 17:35 White Blood Count 8.09 K/uL (4.8-10.8) Red Blood Count 4.72 M/uL (4.7-6.1) Hemoglobin 14.4 g/dL (14.0-18.0) Hematocrit 40.9 % (42-52) Mean Corpuscular Volume 86.7 fL (80-100) Mean Corpuscular Hemoglobin 30.5 pg (25-34) Mean Corpuscular Hemoglobin Concent 35.2 g/dl (32-36) Platelet Count 306 K/uL (130-400) Mean Platelet Volume 10.1 fL (7.4-10.4) Neutrophils (%) (Auto) 70.7 % Lymphocytes (%) (Auto) 19.4 % Monocytes (%) (Auto) 8.9 % Eosinophils (%) (Auto) 0.6 % Basophils (%) (Auto) 0.2 % Neutrophils # (Auto) 5.71 K/uL (1.4-6.5) Lymphocytes # (Auto) 1.57 K/uL (1.2-3.4) Monocytes # (Auto) 0.72 K/uL (0.11-0.59) Eosinophils # (Auto) 0.05 K/uL (0-0.5) Basophils # (Auto) 0.02 K/uL (0-0.2) RDW Standard Deviation 41.5 fL (36.4-46.3) RDW Coefficient of Variation 12.9 % (11.5-14.5) Immature Granulocyte % (Auto) 0.2 % Immature Granulocyte # (Auto) 0.02 K/uL (0.00-0.02) Anion Gap 7.0 mmol/L (3-11) Estimated GFR () 122.0 Estimated GFR (Non- 105.3 BUN/Creatinine Ratio 18.1 (10-20) Calcium Level 9.3 mg/dl (8.5-10.1) Chemistry Specimen Hemolysis Laboratory results reviewed by me Medications Administered Medications (Trade) Dose Ordered Sig/Damir Route Start Time Stop Time Status Last Admin Dose Admin Sodium Chloride 1,000 ml @ 999 mls/hr Q1H1M STAT IV 06/02/17 17:03 06/02/17 18:03 DC 06/02/17 17:03 999 MLS/HR Cephalexin Monohydrate (Keflex Cap) 500 mg NOW STAT PO 06/02/17 18:26 06/02/17 18:27 DC 06/02/17 18:47 500 MG Cephalexin Monohydrate (Keflex 500MG Home Pack) 1 homepack NOW STAT PO 06/02/17 18:26 06/02/17 18:27 DC 06/02/17 18:48 1 HOMEPACK ED Course 1657: The patient was evaluated in room A2. A complete history and physical exam was performed. 1831: I reevaluated the patient. Discussed results and discharge instructions: He verbalized understanding and agreement. The patient is ready for discharge. Medical Decision I reviewed the patient's past medical history, medications, and the nursing notes as described above. The patient's presentation and history were concerning for cellulitis, DVT, superficial thrombus, ligamentous injury, soft tissue injury, and fracture. The patient is a 52-year-old gentleman with a past medical history of MS who presents to emergency department with concern for right lower extremity redness and swelling around his ankle brace which he wears for his chronic foot drop, over the past several days per hpi. While the patient is well-appearing no acute distress, afebrile stable vital signs. On exam patient has mild erythema and warmth to the anterior aspect of the right lower leg ankle and foot. No crepitus. Labs unremarkable including WBC within normal limits. Plain film negative for osseous involvement. Duplex negative for DVT. Symptoms most likely related to an early cellulitis. Will treat with Keflex. Findings and plan for follow-up reviewed with patient. Patient agreeable and d/c'd per discharge instructions. Medication Reconcilliation Current Medication List: was personally reviewed by me Blood Pressure Screening Patient's blood pressure: Elevated blood pressure Blood pressure disposition: Referred to PCP Impression Primary Impression: Cellulitis Scribe Attestation The scribe's documentation has been prepared under my direction and personally reviewed by me in its entirety. I confirm that the note above accurately reflects all work, treatment, procedures, and medical decision making performed by me. Departure Information Dispostion Home / Self-Care Prescriptions Cephalexin Monohydrate (Keflex) 500 Mg Cap 1 CAP PO QID for 7 Days, #28 CAP Prov: Santy Pinedo M.D. 06/02/17 Referrals Kt Ledesma DO (PCP) Forms HOME CARE DOCUMENTATION FORM, IMPORTANT VISIT INFORMATION, WORK / SCHOOL INSTRUCTIONS Patient Instructions ED Infec Skin Cellulitis, My [facility] Additional Instructions Please follow up with your primary care physician in the next 1-3 days for re- evaluation. You likely have a skin infection. Otherwise, your exam, lab results, xray, and ultrasound did not show signs of an emergent condition at this time. Acetaminophen or ibuprofen for pain and fevers as needed. Keflex as directed. Drink plenty of fluids to ensure hydration. Return to the emergency department for worsening symptoms as described in the accompanying instructions.
--- NOTE | 2017-06-02 17:23 | DIAGNOSTIC IMAGING REPORT ---
R ANKLE MIN 3 VIEWS ROUTINE CLINICAL HISTORY: Right ankle pain and swelling COMPARISON: None. DISCUSSION: There is mild soft tissue swelling. No acute fractures are visualized. There is irregularity anterior subtalar joint, likely arthritic, although an underlying bone lesion of the talus cannot be excluded. IMPRESSION: 1. No acute fractures 2. Nonspecific irregularity of the anterior subtalar joint, likely arthritic, although an underlying bone lesion of the talus cannot be excluded. Electronically signed by: Pool Bedoya M.D. 06/02/2017 5:21 PM Dictated Date/Time: 06/02/2017 5:19 PM
[2017-06-02] MEDS ORDERED: NALTPOW PO (17:42)
[2017-06-02 18:02] LABS: BASO % 0.2 %; BASO ABS # 0.02 K/uL (0-0.2); EOS % 0.6 %; EOS ABS # 0.05 K/uL (0-0.5); HEMATOCRIT 40.9 % (42-52); HEMOGLOBIN 14.4 g/dL (14.0-18.0); IG# 0.02 K/uL (0.00-0.02); LYMPH % 19.4 %; LYMPH ABS # 1.57 K/uL (1.2-3.4); MEAN CELL VOLUME 86.7 fL (80-100); MEAN CORPUSCULAR HEMOGLOBIN 30.5 pg (25-34); MEAN CORPUSCULAR HGB CONC 35.2 g/dl (32-36); MEAN PLATELET VOLUME 10.1 fL (7.4-10.4); MONO % 8.9 %; MONO ABS # 0.72 K/uL (0.11-0.59); NEUT % 70.7 %; NEUT ABS # 5.71 K/uL (1.4-6.5); PLATELET COUNT 306 K/uL (130-400); RED CELL DISTRIBUTION WIDTH CV 12.9 % (11.5-14.5); RED CELL DISTRIBUTION WIDTH SD 41.5 fL (36.4-46.3); WHITE BLOOD COUNT 8.09 K/uL (4.8-10.8)
[2017-06-02 18:20] LABS: BLOOD UREA NITROGEN 14 mg/dl (7-18); CALCIUM 9.3 mg/dl (8.5-10.1); CARBON DIOXIDE 25 mmol/L (21-32); CREATININE 0.78 mg/dl (0.60-1.40); GLUCOSE 98 mg/dl (70-99); POTASSIUM 4.4 mmol/L (3.5-5.1); SODIUM 135 mmol/L (136-145)
--- NOTE | 2017-06-02 18:23 | DIAGNOSTIC IMAGING REPORT ---
ULTRASOUND R VENOUS DOPP LOWER EXT UNILAT CLINICAL HISTORY: Right leg redness swelling and pain COMPARISON STUDY: No previous studies for comparison. FINDINGS: Real-time and color flow Doppler imaging were performed. Flow was seen within the femoral, popliteal and calf veins with no intraluminal thrombus demonstrated. The saphenous vein is patent. IMPRESSION: No evidence of right lower extremity DVT. Electronically signed by: Pool Bedoya M.D. 06/02/2017 6:22 PM Dictated Date/Time: 06/02/2017 6:22 PM
[2017-06-02] MEDS ORDERED: CEPHALEXIN 500MG HOME PACK 1 EA BTL PO STA (18:26)
[2017-06-02] MEDS ORDERED: CEPHALEXIN MONOHYDRATE 250 MG CAP PO STA (18:26)
[2017-06-02] MEDS ORDERED: CEPH500C PO (18:29)
[2017-06-02 18:56] VITALS: BP 141/91; PULSE 84; TEMP 36.8; O2SAT 94
== END 2017-06-02 18:58 | disposition home or self-care (01) ==
LOC: C.EDB 15:53 → C.EDA 18:58
DX: L03.115 Cellulitis of right lower limb (principal); G35 Multiple sclerosis; Z87.442 Personal history of urinary calculi; Z79.899 Other long term (current) drug therapy

== ENCOUNTER → 2017-09-22 | Outpatient (CLI) | payer BC ==
[~2017-09-22] MED LIST changes: +GADAVIST IV PRN; -NALT50TA16 PO; +NALTPOW PO; -ONDA4TAB10 SL; -OXYC1TAB3 PO
--- NOTE | 2017-09-22 10:10 | DIAGNOSTIC IMAGING REPORT ---
Brain MRI WITH AND WITHOUT CONTRAST HISTORY: Multiple sclerosis. Right-sided foot drop and right arm and leg weakness. TECHNIQUE: Multiplanar multisequence MRI of the brain was performed both before and after the intravenous administration of contrast. COMPARISON STUDY: Head CT 03/19/2017. Brain MRI 09/09/2016. FINDINGS: No areas of restricted diffusion to suggest acute infarction. The midline structures are intact. The major vascular flow voids at the skull base are well-maintained. Partial opacification of the posterior ethmoid air cells, unchanged. The mastoid air cells are clear. The orbits are unremarkable. There is no mass, hematoma, midline shift. Extensive confluent periventricular white matter T2 hyperintensity is not significantly change. There are multiple periventricular T1 dark holes. This is consistent with white matter plaques given the patient's history of multiple sclerosis. Multiple scattered white matter plaques seen within the cerebellar hemispheres, brainstem, and bilateral internal capsules remain unchanged. No abnormal enhancement to suggest active demyelination. IMPRESSION: 1. Extensive white matter plaques within the supratentorial and infratentorial brain consistent with the patient's known history of multiple sclerosis. Overall, this is not significantly changed compared to the prior study. 2. No abnormal enhancement to suggest active demyelination at this time. Electronically signed by: Cameron Hogan M.D. 09/22/2017 10:08 AM Dictated Date/Time: 09/22/2017 9:59 AM
--- NOTE | 2017-09-22 10:29 | DIAGNOSTIC IMAGING REPORT ---
CERVICAL SPINE COMBO HISTORY: Demyelinating disorder G35 Multiple [id number] TECHNIQUE: Multiplanar multisequence MRI of the cervical spine was performed both before and after the use of intravenous contrast. COMPARISON STUDY: 09/09/2016 FINDINGS: Somewhat compromised exam due to patient motion. Nevertheless it is diagnostic. Multiple foci of increased signal within the cervical cord as well as pontine medullary region of the base of the brain. These foci are considered generally stable within limitations of motion artifact. Postcontrast sagittal images are considered negative for an enhancing lesion. Transaxial images throughout the entire cervical region are considered negative for major disc herniation or component of spinal stenosis. Findings of mild broad-based bulging disc C5-C6 and C6-C7 considered unchanged from the prior study. Transaxial postcontrast images again are considered negative for significant postcontrast enhancement. IMPRESSION: 1. Stable exam with no change from the prior study dated 08/30/2016. 2. Foci of increased signal within the pontine medullary region as well as scattered throughout the cervical spine are unchanged compared to the prior study. 3. No new interval or progressive process. 4. No abnormal postcontrast enhancement. 5. Broad-based bulging disc C5-C6 and C6-C7 unchanged. The above report was generated using voice recognition software. It may contain grammatical, syntax or spelling errors. Electronically signed by: Trino Jiemnez M.D. 09/22/2017 10:27 AM Dictated Date/Time: 09/22/2017 10:22 AM
== END | disposition home or self-care (01) ==
LOC: C.MRIBC 07:43
PROVIDERS: ATTEND Psychiatry & Neurology Neurology
DX: G35 Multiple sclerosis (principal)

== ENCOUNTER 2020-08-20 09:32 | Observation (INO) ==
--- NOTE | 2020-08-17 16:02 | Anesthesiology Consultation ---
Date of Service August 17, 2020 Assessment & Plan (1) Encounter for pre-operative examination: Case previously scheduled for 08/06/2020. Postponed pending evaluation by PCP for abnormal chest x-ray. Patient completed echo and was seen by PCP as below. 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 Preoperative COVID19 testing to be completed on 08/18, results pending. PCP clearance 08/10/2020: Presents today for follow-up of cardiomegaly seen on a chest x-ray. He got an echo done, and we are following up on that today. He has been experiencing mild symptoms of shortness of breath and swelling in his legs but attributed to his worsening multiple sclerosis... My recommendation is to get through surgery and then reassess the situation. We talked about starting the patient on an ARB for this but since he is asymptomatic with a normal ejection fraction were going to hold off on this. The patient is having worsening multiple sclerosis, we're going to hold off on this for now. Cleared for surgery." Chart Review Chart Review: Acceptable Risk for Surgery and Patient NOT seen in Pre Admission Testing History Surgery Operation Date: 08/20/20 14:00 Proposed Procedures p Transurethral Resection Of The Prostate, Cystoscopy - Derek Valenzuela DO s Botox Injection - Derek Valenzuela, Height/Weight Height: 5 ft 8 in Weight: 111.13 kg Allergies Allergy/AdvReac Type Severity Reaction Status Date / Time green pepper Allergy Unknown Unknown Verified 08/17/20 14:53 potato Allergy Unknown Unknown Verified 08/17/20 14:53 tomato Allergy Unknown Unknown Verified 08/17/20 14:53 No Known Drug Allergies Allergy NONE Verified 08/17/20 14:53 Medications Home Medications Medication Instructions Recorded Confirmed Last Taken Align 4 mg PO QAM 01/27/18 08/17/20 03/21/18 multivitamin 1 tab PO QAM 01/27/18 08/17/20 03/21/18 AM DOSE omega 5-odu-fnh-fish oil [Fish Oil] 1,000 mg PO QAM 01/27/18 08/17/20 03/21/18 psyllium 3 tbsp PO QAM 01/27/18 08/17/20 03/21/18 cholecalciferol (vitamin D3) 5,000 units PO Q2D 03/21/18 08/17/20 03/20/18 [Vitamin D3] cholecalciferol (vitamin D3) 10,000 units PO Q2D 03/21/18 08/17/20 03/21/18 [Vitamin D3] ocrelizumab 30 mg/mL intravenous 600 mg IV Q6MO #20 ml 05/11/20 08/17/20 Unknown solution baclofen 20 mg tablet 20 mg PO QID #360 tab 07/13/20 08/17/20 Unknown escitalopram oxalate [Lexapro] 20 mg PO QAM 07/31/20 08/17/20 Unknown naltrexone 4.5 mg PO HS 07/31/20 08/17/20 Unknown tamsulosin 0.4 mg PO HS 07/31/20 08/17/20 Unknown Past Medical History Medical History (Updated 08/17/20 @ 14:56 by Yue Thrasher RN) Anxiety and depression Multiple sclerosis WHEELCHAIR BOUND. DX'D 2007-F/U DR GALVEZ. Per last OV 07/01/20, "advanced multiple sclerosis condition radiographically stable on Ocrevus" OCD (obsessive compulsive disorder) Spastic gait Vitamin D deficiency hx Past Family History Family History Father Crohn's disease Colorectal cancer PT DENIES Mother Crohn's disease Colorectal cancer Other No significant family history Past Surgical History Surgical History (Updated 08/17/20 @ 14:56 by Yue Thrasher, RN) History of colonoscopy Social History Smoking Status: Never smoker Do You Dip or Chew Tobacco: No Hx Alcohol Use: No Alcohol type: beer alcohol intake frequency: a few times a month Hx Substance Use: No substance use type: does not use Lab Results Anesthesia Preop Results Results Anesthesia Widget: WBC 6.51 K/uL (4.8-10.8) 08/03/20 Hgb 14.5 g/dL (14.0-18.0) 08/03/20 Hct 43.0 % (42-52) 08/03/20 Plt 373 K/uL (130-400) 08/03/20 Na 140 mmol/L (136-145) 08/03/20 K 3.9 mmol/L (3.5-5.1) 08/03/20 Cl 108 mmol/L (98-107) H 08/03/20 CO2 25 mmol/L (21-32) 08/03/20 BUN 15 mg/dl (7-18) 08/03/20 Creat 0.86 mg/dl (0.6-1.4) 08/03/20 Glucose Level 144 mg/dl (70-99) H 08/03/20 Urine Color Yellow 08/03/20 Urine Appearance Clear (Clear) 08/03/20 Urine pH 5.0 (4.5-7.5) 08/03/20 Urine Specific [place] 1.024 (1.000-1.030) 08/03/20 Urine Protein Negative (Negative) 08/03/20 Urine Glucose (UA) Negative (Negative) 08/03/20 Urine Ketones Negative (Negative) 08/03/20 Urine Blood Negative (Negative) 08/03/20 Urine Nitrite Negative (Negative) 08/03/20 Urine Bilirubin Negative (Negative) 08/03/20 Urine Urobilinogen Negative (Negative) 08/03/20 Urine Leukocyte Esterase Negative (Negative) 08/03/20 Testing Echocardiogram Date: 08/06/20 Normal LV size and systolic function. EF 60-65%. No regional wall motion abnormalities. Mild concentric LVH. No significant valvular abnormalities visualized. Technically difficult study, enhanced with IV Definity. No prior study available for comparison. Other Testing EKG (08/03/20) Normal sinus rhythm at 88 bpm. iRBBB. CXR (08/03/20) FINDINGS: Cardiac silhouette is enlarged. Mild right hemidiaphragmatic elevation. Pulmonary vascular congestion with interstitial opacities. No pneumothorax or large pleural effusion. Degenerative changes of the shoulders and spine with mild dextroscoliosis of the upper to midthoracic spine. A battery pack device projects over the central upper abdomen. IMPRESSION: Cardiomegaly with pulmonary vascular congestion and interstitial coarsening suggestive of pulmonary edema versus interstitial pneumonitis. This CXR was reviewed by PCP and prompted follow-up with echo as above.
[~2020-08-20 09:32] MED LIST changes: -CHOL1TAB42 PO; -CPXI SC; -GADAVIST IV PRN; +LR 15ML/HR IV SCH; -MULT-506 PO; -NALTPOW PO; -OMEG10007 PO; -PSYL48.59 PO; +ceFAZolin 2000MG 2,000 MG/15 ML SYR IV SCH
[2020-08-20] MEDS ORDERED: ONDANSETRON INJ 2 MG/ML 2 ML VIAL ONE (09:58)
[2020-08-20] MEDS ORDERED: MIDAZOLAM HCL 1 MG/ML 2ML VIAL ONE (09:58)
[2020-08-20] MEDS ORDERED: LIDOCAINE 2% 2 ML VIAL/AMP(20MG/ML) INFIL ONE (09:58)
[2020-08-20] MEDS ORDERED: PROPOFOL IV EMULSION 10 MG/ML 20 ML VIAL IV ONE ×2 (09:58→12:09)
[2020-08-20] MEDS ORDERED: fentaNYL citrate 100 MCG/2 ML VIAL ONE ×4 (09:58→12:32)
--- NOTE | 2020-08-20 10:45 | History & Physical Bridge Note ---
Date of Service August 20, 2020 History & Physical Bridge Note I have examined the patient, reviewed the History & Physical and in the interval since the performance of the History & Physical I have noted the following changes of clinical significance: no changes noted
[2020-08-20] MEDS ORDERED: NON-FORMULARY MEDICATION (Ocrelizumab [Ocrevus] 30 mg/mL solution) IV SCH (11:00)
[2020-08-20] MEDS ORDERED: BOTULINUM TOXIN TYPE A 100 UNIT VIAL IM ONE (11:10)
[2020-08-20] MEDS ORDERED: ePHEDrine sulfate 50 MG/ML AMP IV PRN (11:30)
[2020-08-20] MEDS ORDERED: fentaNYL citrate 100 MCG/2 ML VIAL IV PRN (11:30)
[2020-08-20] MEDS ORDERED: ATROPINE SULFATE 0.1 MG/ML 10ML SYR IV PRN (11:30)
[2020-08-20] MEDS ORDERED: ONDANSETRON INJ 2 MG/ML 2 ML VIAL IV PRN ×2 (11:30→15:02)
[2020-08-20] MEDS ORDERED: SUGAMMADEX SODIUM 200 MG/2 ML VIAL IV ONE ×2 (11:41)
[2020-08-20] MEDS ORDERED: SODIUM CHLORIDE 0.9% INJ 10 ML VIAL ONE (12:10)
[2020-08-20] MEDS ORDERED: BELLADONNA/OPIUM SUPP 60 MG SUPP PR ONE ×2 (12:23→12:47)
--- NOTE | 2020-08-20 13:10 | Operative Report ---
PG Post Operative Report Pre & Post Diagnosis Operation Date: 08/20/20 11:10 Pre-Op Diagnosis: Bladder Outlet Obstruction. Refractory urge incontinence. Post-Op Diagnosis: Bladder Outlet Obstruction. Refractory urge incontinence. I identified the patient and participated in the time-out.: Yes Procedure Operation Date: 08/20/20 11:10 Actual Procedures Transurethral Resection Of The Prostate and cystoscopy with meatal/urethral dilation, and Botox Injection - Derek Valenzuela, Surgeon Derek Valenzuela, II, DO Service Delivery Supervisor None Estimated Blood Loss 20 Findings Consistent with Post-Op Diagnosis Prostate with obstruction. Meatal/Distal urethra stricture. Specimens Prostate adenoma. Drains 22Fr Catheter Anesthesia Type General Complications none Disposition Disposition: Recovery Room Indications Patient with obstruction due to prostate enlargement. Severe refractory urge incontinence. Risks and benefits discussed at length. Description of Procedure Patient was consented and brought back to the operating room. Patient was placed under anesthesia in the supine position and moved to the dorsal lithotomy position. Patient was prepped and draped in the regular sterile fashion. A time out was completed. A 30degree Cystoscope was placed into the bladder and the entire bladder was e xamined. The meatus and distal urethra were found to have a significant stricture. This was dilated. The scope was then easily able to bypass the area. The UO's were identified as well as the bladder neck, trigone, dome, and the other important landmarks. The prostatic urethra and large lobes/adenoma was assessed and the veru and bladder neck identified and area/size was assessed. 100 units of botox was then injected into the bladder wall in a 4 x 5 grid pattern. The trigone was spared. No major bleeding after injections. The resection scope was placed and the fine bipolar loop was selected. Starting at the 5 and 7 o'clock positions, a channel was created from bladder neck to the veru. The lateral lobes of the prostate were then resected starting at the 11 and 1 o'clock position. The resection was taken to the capsule fibers. A large channel was able to be formed and all bleeding was controlled. The Specimen was removed and sent for analysis. The resection bed and any bleeding areas were fulgurated/cauterized and the entire area inspected. All bleeding was controlled. The bladder was inspected a final time. The bladder was emptied and irrigated. All specimen and debris was removed. The scope was removed with the bladder partially full. A catheter was placed and balloon elevated. This was easily irrigated. This was attached to CBI. The patient was cleaned, aroused from anesthesia, and transferred to the pacu in stable condition having tolerated the procedure well with no complications. I was present and participated in all aspects of the procedure. The patient will be monitored in the PACU until transferred. Plan to maintain catheter for 10-14 days and follow up as outpatient for removal. Observation overnight. I attest to the content of the Intraoperative Record and any orders documented therein. Any exceptions are noted below.
--- NOTE | 2020-08-20 14:53 | Anesthesiology Progress Note ---
Date of Service August 20, 2020 Anesthesia Post Procedure Vital Signs Vital Signs: Temp Pulse Pulse Resp BP Pulse Ox 08/20/20 14:15 95 H 14 140/82 95 08/20/20 14:00 36.9 C 96 H 14 122/76 94 08/20/20 13:50 37.4 C 97 H 19 133/80 95 08/20/20 13:40 98 H 17 127/84 95 08/20/20 13:30 98 H 16 127/71 96 08/20/20 13:20 100 H 20 142/74 H 97 08/20/20 13:12 36.7 C 95 H 16 124/70 97 08/20/20 10:39 36.6 C 85 18 150/90 H 94 Transfer of Care Handoff Completed per policy Notes Mental Status: alert / awake / arousable and participated in evaluation Patient Amnestic to Procedure: Yes Nausea / Vomiting: adequately controlled Pain: adequately controlled Airway Patency, RR, SpO2: stable & adequate BP & HR: stable & adequate Hydration State: stable & adequate Anesthetic Complications: no major complications apparent and Pt Satisfied with anesthetic care
[2020-08-20] MEDS ORDERED: MoRPHine SULFATE 2 MG/ML CARP IV PRN (15:02)
[2020-08-20] MEDS ORDERED: BELLADONNA/OPIUM SUPP 60 MG SUPP PR PRN (15:02)
[2020-08-20] MEDS ORDERED: oxyCODONE/ACETAMINOPHEN 5mg/325mg TAB PO PRN (15:02)
[2020-08-20] MEDS ORDERED: MoRPHine SULFATE 4 MG/ML 1 ML CARP\\VIAL IV PRN (15:02)
[2020-08-20] MEDS ORDERED: PHENAZOPYRIDINE HCL 200 MG TAB PO PRN (15:02)
[2020-08-20] MEDS: BACLOFEN 20 MG TAB PO SCH ×3 (15:11→22:13)
[2020-08-20 15:20] LABS: Basophils # (auto) 0.02 K/uL (0-0.2); Basophils % (auto) 0.3 %; Eosinophils # (auto) 0.07 K/uL (0-0.5); Eosinophils % (auto) 0.9 %; Hematocrit (blood only) 40.3 % (42-52); Hemoglobin 13.7 g/dL (14.0-18.0); Immature Granulocytes # (auto) 0.01 K/uL (0.00-0.02); Immature Granulocytes % (auto) 0.1 %; Lymphocytes # (auto) 1.01 K/uL (1.2-3.4); Lymphocytes % (auto) 13.2 %; Mean Corpuscular Hemoglobin 30.5 pg (25-34); Mean Corpuscular Volume 89.8 fL (80-100); Mean Platelet Volume 10.1 fL (7.4-10.4); Monocytes # (auto) 0.71 K/uL (0.11-0.59); Monocytes % (auto) 9.3 %; Neutrophils # (auto) 5.82 K/uL (1.4-6.5); Neutrophils % (auto) 76.2 %; Platelet Count 273 K/uL (130-400); RDW Coefficient of Variation 13.6 % (11.5-14.5); RDW Standard Deviation 45.1 fL (36.4-46.3); Red Blood Count 4.49 M/uL (4.7-6.1); White Blood Count 7.64 K/uL (4.8-10.8)
[2020-08-20 15:41] LABS: Albumin Level 3.2 gm/dl (3.4-5.0); BUN Creatinine Ratio 13.8 (10-20); Calcium 8.5 mg/dl (8.5-10.1); Creatinine Clr Calc Pharmacy 124.3 ml/min; Est GFR (African American) 115.9 ml/min; Potassium 4.4 mmol/L (3.5-5.1)
[2020-08-20] MEDS: SODIUM CHLORIDE 0.9% 1000ML 1,000 ML IV SCH (15:41)
[2020-08-20 15:43] LABS: Bilirubin,Total 0.5 mg/dl (0.2-1); Globulin 3.4 gm/dl (2.5-4.0); Total Protein 6.6 gm/dl (6.4-8.2)
[2020-08-20] MEDS ORDERED: TAMSULOSIN HCL 0.4 MG CAP PO SCH (21:00)
[2020-08-21] MEDS: SODIUM CHLORIDE 0.9% 1000ML 1,000 ML IV SCH (03:41)
[2020-08-21] MEDS: BACLOFEN 20 MG TAB PO SCH (08:39)
[2020-08-21] MEDS ORDERED: ESCITALOPRAM OXALATE 20 MG TAB PO SCH (09:00)
--- NOTE | 2020-08-21 09:01 | Urology Progress Note ---
Date of Service August 21, 2020 Assessment & Plan (1) Bladder outlet obstruction: 55 year old male POD #1 s/p TURP with Dr. Valenzuela. - Doing well, progressing as expected - Urine clear overnight with CBI running on slow - CBI clamped at time of exam @0840, plan to discontinue CBI if urine remains appropriate - Tolerating diet - Maintain Mayen catheter x 14 days - Discharge with Cephalexin 500 mg BID x 7 days - Anticipate home later today if he continues to progress as expected - Expected clinical course reviewed, all questions answered - Will arrange appropriate post-op follow-up with our service Admission and Anticipated Discharge Date Admission Date: August 20, 2020 Subjective 55 year old male POD #1 s/p TURP with Dr. Valenzuela. Pt seen and examined at bedside No acute issues overnight Offers no complaints at present Denies pain - he did not utilize any pain medication overnight Tolerating Mayen catheter Mayen intact, patent and draining clear yellow urine with CBI running very slow Per nursing, urine remained clear overnight, no issues with catheter CBI clamped at time of exam @0840 Tolerating PO diet No nausea or vomiting No fever or chills No additional concerns today. Review of Systems Constitutional: as per Subjective / HPI Gastrointestinal: as per Subjective / HPI Genitourinary: + as per Subjective / HPI Physical Exam Constitutional: well developed, well nourished and + obese; no acute distress Respiratory: normal respiratory effort and able to speak in complete sentences; no respiratory distress and no labored breathing Cardiovascular: trace bilateral lower extremity edema Gastrointestinal (Abdomen): Inspection/Auscultation: abdomen normal to inspection; abdomen not distended Percussion/Palpation: abdomen soft; abdomen nontender and no guarding Musculoskeletal: Head/Neck/Chest: normocephalic and head atraumatic Extremities: extremities normal to inspection Skin: no rashes, warm and dry Neurologic: awake Psychiatric: Orientation: alert and oriented x 3 Genitourinary: Mayen intact, patent and draining clear yellow urine with CBI running very slow CBI clamped at 0840 Results & Data ([facility]) Vital Signs (Past 12 Hours) Vital Signs Temp Pulse Resp BP BP Pulse Ox 08/21/20 08:38 93 08/21/20 07:11 36.8 C 90 16 142/85 H 95 08/21/20 05:15 16 95 08/21/20 02:00 18 95 08/20/20 22:09 37.2 C 90 18 137/79 95
--- NOTE | 2020-08-21 11:46 | Discharge Summary ---
Date of Service August 21, 2020 Admission HPI Per Admitting Provider 55 year old male with bladder outlet obstruction admitted for TURP. Admission Exam Per Admitting Provider Constitutional well developed, well nourished and healthy appearing; no acute distress Eyes no eyelid abnormality ENMT Ears: no external ear abnormality Neck normal visual inspection and trachea midline Respiratory normal respiratory effort Auscultation: lungs clear to auscultation bilaterally; no rales, no rhonchi and no wheezes Cardiovascular Rate/Rhythm: regular rate and regular rhythm Heart Sounds: normal S1 and normal S2; no gallop, no murmur and no cardiac rub Extremities: + edema (Trace pitting edema to bilateral lower extremities ) Gastrointestinal (Abdomen) Inspection/Auscultation: abdomen normal to inspection; abdomen not distended Percussion/Palpation: abdomen soft; abdomen nontender and no guarding Obese abdomen Musculoskeletal Head/Neck/Chest: normocephalic and head atraumatic MS, in wheelchair. Skin No visible rashes, lesions, or wounds present. Neurologic awake Motor/Sensory: no tremor Psychiatric A+Ox3, euthymic affect Appearance: appropriately dressed and appropriately groomed Genitourinary no CVA tenderness Principal Diagnosis Bladder outlet obstruction Discharge Exam Constitutional well developed, well nourished and + obese; no acute distress Respiratory normal respiratory effort and able to speak in complete sentences; no respiratory distress and no labored breathing Cardiovascular trace bilateral lower extremity edema Gastrointestinal (Abdomen) Inspection/Auscultation: abdomen normal to inspection; abdomen not distended Percussion/Palpation: abdomen soft; abdomen nontender and no guarding Musculoskeletal Head/Neck/Chest: normocephalic and head atraumatic Extremities: extremities normal to inspection Skin no rashes, warm and dry Neurologic awake Psychiatric Orientation: alert and oriented x 3 Genitourinary Mayen catheter intact, patent and draining clear yellow urine Discharge Data Allergies Allergy/AdvReac Type Severity Reaction Status Date / Time green pepper Allergy Unknown Unknown Verified 08/20/20 10:22 potato Allergy Unknown Unknown Verified 08/20/20 10:22 tomato Allergy Unknown Unknown Verified 08/20/20 10:22 No Known Drug Allergies Allergy NONE Verified 08/20/20 10:22 Procedures Performed Operation Date: 08/20/20 11:10 Actual Procedures p Transurethral Resection Of The Prostate, Cystoscopy(Not Applicable) - Derek H. Valenzuela, DO s Botox Injection(Not Applicable) - Derek Valenzuela DO Hospital Course (1) Bladder outlet obstruction: 55 year old male POD #1 s/p TURP with Dr. Valenzuela. - Doing well, progressing as expected - Urine clear overnight with CBI running on slow - CBI clamped at time of exam @0840, plan to discontinue CBI if urine remains appropriate - Tolerating diet - Maintain Mayen catheter, continue x 14 days - Discharge with Cephalexin 500 mg BID x 7 days - Anticipate home later today if he continues to progress as expected - Expected clinical course reviewed with patient and his , all questions answered - Will arrange appropriate post-op follow-up with our service - Patient discharge to home in stable condition on POD#1 Total Time Total Time Spent Total Time Spent (In Minutes): 30 Discharge Plan Discharge Items Patient Disposition: Home - Self-Care Reason For Visit: Bladder Outlet Obstruction Discharge Diagnosis: Bladder Outlet Obstruction Activity: Per Instructions section Lifting: No more than 25 pounds Bathing Comment: Okay to shower in 1 day, no tub bath or soaking Sexual Activity: Wait until after follow-up appointment Exercise/Sports: Wait until after follow-up appointment Driving/Machine Use: No driving while taking prescription pain medication Non-emergency contact: Surgeon and Urologist Call non-emergency contact if: your pain is not controlled, your pain is worsening, you have a fever and your temperature is above 101 Follow-up/Referrals: Derek Valenzuela DO [Physician] - (Office will call patient with appointment date and time) Kt Ledesma [Primary Care Provider] - Diet: Regular Addtl Attending Provider Instructions: Please take all medications as prescribed and keep all follow-ups as scheduled. Please call our office at [phone] with any questions, concerns or need to reschedule appointments for any reason. We are happy to assist you. Tips for your recovery at home: Dont be alarmed by brownish or reddish blood or clots in your urine. This is a result of the procedure. This may occur off and on for weeks to months after the procedure but should continue to improve. Drink plenty of fluids during the day (enough to keep your urine very light colored). This will help keep a healthy flow of urine. Do not lift >25 lbs until your followup Avoid constipation. Please use a stool softener (Colace) for the first two weeks after your procedure Be sure to finish the antibiotics as prescribed. If you go home with a catheter, please wash tubing where it enters your body twice daily with mild soap (Dove or Dial). Once your catheter is removed, expect some blood in your urine and some burning when you urinate. You should have an appointment to have this removed, if you do not please call our office to arrange. Pending Studies at Discharge: Yes Studies:: Pathology Stand-Alone Forms: [facility], Smoking Cessation Medications and DC Order Prescriptions: New docusate sodium [Colace] 100 mg capsule 100 mg PO BID Qty: 60 RF: 0 cephalexin 500 mg capsule 500 mg PO BID 7 Days Qty: 14 RF: 0 Continued Ocrevus 30 mg/mL solution 600 mg IV Q6MO Qty: 20 RF: 1 baclofen 20 mg tablet 20 mg PO QID Qty: 360 RF: 1 multivitamin Tablet 1 tab PO QAM RF: 0 psyllium Powder 3 tbsp PO QAM RF: 0 Align 4 mg Capsule 4 mg PO QAM RF: 0 omega 4-tlu-sem-fish oil [Fish Oil] 1,000 mg (120 mg-180 mg) Capsule 1,000 mg PO QAM RF: 0 cholecalciferol (vitamin D3) [Vitamin D3] 5,000 unit Tablet 10,000 units PO Q2D RF: 0 cholecalciferol (vitamin D3) [Vitamin D3] 5,000 unit Tablet 5,000 units PO Q2D RF: 0 escitalopram oxalate [Lexapro] 20 mg tablet 20 mg PO QAM RF: 0 naltrexone 50 mg tablet 4.5 mg PO HS RF: 0 tamsulosin 0.4 mg capsule 0.4 mg PO HS RF: 0 Discharge Orders: Discharge Order (Routine); Ordered 08/21/20 Ordered By: Candy Laguerre/Other Patient Handouts: Emptying and Cleaning Your ..., Discharge Instructions Caring for ..., ED Mayen Catheter, Care Admission Data Admit Date/Time: 08/20/20 13:14 Attending Provider: Derek Valenzuela Admit Provider: Derek Valenzuela Primary Care Provider: Kt Ledesma Other Interventions: Discharge Summary Assessment (RN) Last Done: 08/21/20 10:42 Coding Level of Care Code 03451 OBS Care - Discharge Diagnoses Bladder outlet obstruction N32.0 Time Spent (min) 30
== END 2020-08-21 11:58 | disposition home or self-care (01) ==
LOC: ASU 09:32 → 3N 09:32

== ENCOUNTER 2020-08-30 18:47 | Observation (INO) ==
--- NOTE | 2020-08-30 19:16 | Emergency Department Note ---
Impression & Plan Bladder pain, Bladder spasms, History of prostate surgery ED Provider Note NAME: JUAN MIGUEL NIEVES AGE: 55 SEX: M : 1965 ARRIVES VIA: Walk-In INFORMANT: [Patient][] ED PROVIDER(S): [Dennis Lambert MD] CHIEF COMPLAINT: Urinary complaints HISTORY OF PRESENT ILLNESS: The patient is a 55-year-old male who had a transurethral prostate resection on 20 August. He still has a Mayen catheter in place. He is do to have the Mayen out in 3 days. For the last 4 to 5 days, the patient has had a lot of bladder spasms. The pain is intense when it is present. His urologist started him on oxybutynin however, this is not helping. There has been no fever, no vomiting. The urine is yellow/clear in the bag. Last evening, the patient's spoke with urology and they told her that the catheter could be removed early. The was uncomfortable removing catheter herself so the patient presents to the ED for this intervention. Of note, the patient has severe MS and is wheelchair bound. REVIEW OF SYSTEMS: See HPI for pertinent positives and negatives. A total of ten systems were reviewed and were otherwise negative. PMHx/PSHx: See Below SOCIAL HISTORY: See Below. PHYSICAL EXAM: GENERAL: Patient is in no acute distress. HEENT: No acute trauma, normocephalic atraumatic, mucous membranes moist, no nasal congestion, no scleral icterus. NECK: No stridor, no adenopathy, no meningismus, trachea is midline. LUNGS: Clear to auscultation bilaterally, no wheeze, no rhonchi, breath sounds equal. HEART: Without murmurs gallops or rubs, regular rate and rhythm. ABDOMEN: Soft, nontender, bowel sounds positive, no hernias, no peritonitis. EXTREMITIES: No cyanosis, moderate bilateral pedal edema. NEUROLOGIC: The patient has some movement of the left arm and left leg, minimal movement of the right leg and really no movement of the right arm. There is some speech slur but this is baseline as per the . The patient is seated in a wheelchair. SKIN: No rash, no jaundice, no diaphoresis. DIFFERENTIAL DIAGNOSIS: Misplaced Mayen catheter, clogged Mayen catheter, UTI, bladder spasms, urinary retention, hematuria, bladder irritation, among others. EMERGENCY DEPARTMENT COURSE/PROCEDURES: MEDICAL DECISION MAKING: There is no leukocytosis or concerning anemia. There is a normal platelet count. No significant electrolyte abnormality or kidney failure. No worrisome liver enzyme elevation. No evidence for pancreatitis. Urinalysis is consistent with possible infection. Abdominal and pelvis CT shows possible cystitis. There was no urinary obstruction. Pyelonephritis was queried. On exam, the patient was not toxic or febrile. Patient presents asking for his Mayen catheter to be removed. He had undergone prostate surgery just under 2 weeks ago. The patient has been having a lot of irritation from the catheter and a lot of bladder spasms. The patient's Mayen catheter was removed. He persisted with bladder spasms here. He was able to urinate and did not seem to be retaining urine. He was given oral Pyridium to try to help with the bladder spasms. He was given IV saline 1000 cc. He received IV ceftriaxone as antibiotic coverage. I did speak with urology. Really, nothing more is available to help with his spasms. The longer he goes without the Mayen catheter, the more likely his spasms will dissipate. Patient is truly uncomfortable and cannot be cared for by his in this condition. A hospital stay is warranted under the circumstances. I did speak with the patient and his . I spoke with the community case manager. The on-call hos pitalist was consulted. If there is truly a UTI present, this could explain some of his spasms and discomfort. We await urine culture results. Past Med/Surg History Medical History Anxiety and depression Multiple sclerosis WHEELCHAIR BOUND. DX'D 2007-F/U DR GALVEZ. Per last OV 07/01/20, "advanced multiple sclerosis condition radiographically stable on Ocrevus" OCD (obsessive compulsive disorder) Spastic gait Vitamin D deficiency hx Surgical History (Updated 08/31/20 @ 01:27 by Dennis Lambert MD) History of colonoscopy Family History Father Crohn's disease Colorectal cancer PT DENIES Mother Crohn's disease Colorectal cancer Other No significant family history Social History Smoking Status: Never smoker Second Hand Exposure: No; Hx Alcohol Use: No Hx Substance Use: No Preferred Language: Ivorian Communication Ability: Effective [employer] Required: No Beliefs That Will Affect Care: None marital status: Current Living Situation: Spouse current occupational status: disabled Feels Safe at Home: Yes Physical Activity Frequency Comment: WHEELCHAIR BOUND Assistive Devices: Glasses and Wheelchair Allergies Allergies Allergy/AdvReac Type Severity Reaction Status Date / Time green pepper Allergy Unknown Unknown Verified 08/30/20 20:20 potato Allergy Unknown Unknown Verified 08/30/20 20:20 tomato Allergy Unknown Unknown Verified 08/30/20 20:20 No Known Drug Allergies Allergy NONE Verified 08/30/20 20:20 Home Meds Home Medications Medication Instructions Recorded Confirmed Align 4 mg PO QAM 01/27/18 08/30/20 multivitamin 1 tab PO QAM 01/27/18 08/30/20 omega 8-wql-pee-fish oil [Fish Oil] 1,000 mg PO QAM 01/27/18 08/30/20 psyllium 3 tbsp PO QAM 01/27/18 08/30/20 cholecalciferol (vitamin D3) 5,000 units PO Q2D 03/21/18 08/30/20 [Vitamin D3] cholecalciferol (vitamin D3) 10,000 units PO Q2D 03/21/18 08/30/20 [Vitamin D3] escitalopram oxalate [Lexapro] 20 mg PO QAM 07/31/20 08/30/20 naltrexone 4.5 mg PO HS 07/31/20 08/30/20 tamsulosin 0.4 mg PO HS 07/31/20 08/30/20 Previous Rx's Medication Instructions Recorded ocrelizumab 30 mg/mL intravenous 600 mg IV Q6MO #20 ml 05/11/20 solution baclofen 20 mg tablet 20 mg PO QID #360 tab 07/13/20 docusate sodium [Colace] 100 mg PO BID #60 cap 08/21/20 oxybutynin chloride 5 mg tablet 5 mg PO BID PRN #20 tab 08/27/20 Results & Data (ED) Vital Signs Vital Signs - 24 hr 08/30/20 18:55 08/30/20 21:32 08/30/20 23:08 Temperature 36.9 C Temperature Source Oral Pulse Rate 86 Pulse Rhythm Regular Pulse Strength Normal Respiratory Rate 18 Respiratory Effort / Characteristics Non-Labored Spontaneous Non-Labored Spontaneous Non-Labored Spontaneous Respiratory Depth Normal Normal Normal Respiratory Pattern Regular Blood Pressure 129/86 Blood Pressure Mean 100 Blood Pressure Position Sitting Pulse Oximetry 93 98 Oxygen Delivery Method Room Air Room Air Room Air Sepsis Recent Fever Within 48 Hours No Sepsis New/Unexplained Change in Mental Status N/A Sepsis Action Taken by Nursing No Action Required 08/31/20 01:08 Temperature Temperature Source Pulse Rate Pulse Rhythm Pulse Strength Respiratory Rate Respiratory Effort / Characteristics Non-Labored Spontaneous Respiratory Depth Normal Respiratory Pattern Blood Pressure Blood Pressure Mean Blood Pressure Position Pulse Oximetry 98 Oxygen Delivery Method Room Air Sepsis Recent Fever Within 48 Hours Sepsis New/Unexplained Change in Mental Status Sepsis Action Taken by Halfway Medications Current Medication List: was personally reviewed by me Laboratory Data Attestation: I reviewed the patient's lab results. Result diagrams: 08/30/20 23:46 08/30/20 23:46 Lab Results 08/30/20 08/30/20 08/30/20 Range/Units 20:56 23:46 23:46 WBC 9.47 (4.8-10.8) K/uL RBC 4.35 L (4.7-6.1) M/uL Hgb 13.1 L (14.0-18.0) g/dL Hct 38.3 L (42-52) % MCV 88.0 (80-100) fL MCH 30.1 (25-34) pg MCHC 34.2 (32-36) g/dL RDW Std Deviation 45.2 (36.4-46.3) fL RDW Coeff of Bridget 13.9 (11.5-14.5) % Plt Count 388 (130-400) K/uL MPV 9.9 (7.4-10.4) fL Immature Gran % (Auto) 0.5 % Neut % (Auto) 65.2 % Lymph % (Auto) 22.7 % [place] % (Auto) 8.7 % Eos % (Auto) 2.6 % Baso % (Auto) 0.3 % Neut # (Auto) 6.17 (1.4-6.5) K/uL Lymph # (Auto) 2.15 (1.2-3.4) K/uL [place] # (Auto) 0.82 H (0.11-0.59) K/uL Eos # (Auto) 0.25 (0-0.5) K/uL Baso # (Auto) 0.03 (0-0.2) K/uL Immature Gran # (Auto) 0.05 H (0.00-0.02) K/uL Sodium 139 (136-145) mmol/L Potassium 3.8 (3.5-5.1) mmol/L Chloride 105 (98-107) mmol/L Carbon Dioxide 25 (21-32) mmol/L Anion Gap 9.0 (3-11) BUN 11 (7-18) mg/dl Creatinine 0.84 (0.6-1.4) mg/dl Est Cr Clr Drug Dosing 122.3 ml/min Est GFR ( Amer) 115.9 ml/min Est GFR (Non-Af Amer) 100.0 ml/min BUN/Creatinine Ratio 13.0 (10-20) Glucose 93 (70-99) mg/dl Calcium 8.7 (8.5-10.1) mg/dl Total Bilirubin 0.3 (0.2-1) mg/dl AST 14 L (15-37) U/L ALT 37 (12-78) U/L Alkaline Phosphatase 75 (45-117) U/L Total Protein 6.8 (6.4-8.2) gm/dl Albumin 3.2 L (3.4-5.0) gm/dl Globulin 3.6 (2.5-4.0) gm/dl Albumin/Globulin Ratio 0.9 (0.9-2) Lipase 105 (73-393) U/L Urine Color Dark Yellow Urine Appearance Turbid A (Clear) Urine pH 5.5 (4.5-7.5) Ur Specific [place] 1.027 (1.000-1.030) Urine Protein 3+ H (Negative) Urine Glucose (UA) Negative (Negative) Urine Ketones Trace H (Negative) Urine Blood 3+ H (Negative) Urine Nitrite Negative (Negative) Urine Bilirubin Negative (Negative) Urine Urobilinogen Negative (Negative) Ur Leukocyte Esterase 2+ H (Negative) Urine WBC (Auto) >30 H (0-5) /hpf Urine RBC (Auto) >30 H (0-4) /hpf U Hyaline Cast (Auto) 5-10 H (0-5) /lpf U Epithel Cells (Auto) 20-30 H (0-5) /lpf Urine Bacteria (Auto) 1+ H (Negative) Urine Crystals Not Reportable Calcium Oxalate Crystal Present A (None Prsent) Urine Yeast Budding A (None Prsent) Administered Medications Discontinued Medications Sodium Chloride (Nss) 500 mls @ 999 mls/hr IV .Q31M STA Stop: 08/30/20 23:48 Last Admin: 08/31/20 01:09 Dose: 999 mls/hr Documented by: [id number] Ioversol (Optiray 320 100ml) 94 ml IV ONCE ONE Stop: 08/31/20 00:13 Last Admin: 08/31/20 00:12 Dose: 1 ml Documented by: [id number] Phenazopyridine HCl (Phenazopyridine Hcl 200 Mg Tab) 200 mg PO NOW STA Stop: 08/30/20 22:46 Last Admin: 08/30/20 22:56 Dose: 200 mg Documented by: [id number] Imaging Data Radiologist's Impression: Abdominal and pelvis CT with contrast: There is a decompressed urinary bladder with moderate wall thickening which was irregular and appeared consistent with possible UTI. An underlying lesion was not excluded. There was relative decreased enhancement involving the anterior cortex of the left kidney which could be artifactual although, pyelonephritis was thought possible. No bony abnormality. Small fat-containing umbilical hernia. Unremarkable appendix. Discharge Plan Visit Data Chief Complaint: Urinary Symptoms Stated Complaint: PROSTATE SURG WEEK AGO - CATH CAUSING PAIN ED Provider: Dennis Lambetr Discharge Problem: Bladder pain, Bladder spasms, History of prostate surgery Patient Disposition: Admitted As Inpatient Condition: Fair Forms Stand Alone Forms: [facility] Althe[facility] Vdolg Prescriptions Prescriptions: No Action Ocrevus 30 mg/mL solution 600 mg IV Q6MO Qty: 20 RF: 1 baclofen 20 mg tablet 20 mg PO QID Qty: 360 RF: 1 oxybutynin chloride 5 mg tablet 5 mg PO BID PRN (Reason: bladder spasms) Qty: 20 RF: 1 multivitamin Tablet 1 tab PO QAM RF: 0 psyllium Powder 3 tbsp PO QAM RF: 0 Align 4 mg Capsule 4 mg PO QAM RF: 0 omega 0-hrs-jzp-fish oil [Fish Oil] 1,000 mg (120 mg-180 mg) Capsule 1,000 mg PO QAM RF: 0 cholecalciferol (vitamin D3) [Vitamin D3] 5,000 unit Tablet 10,000 units PO Q2D RF: 0 cholecalciferol (vitamin D3) [Vitamin D3] 5,000 unit Tablet 5,000 units PO Q2D RF: 0 docusate sodium [Colace] 100 mg capsule 100 mg PO BID Qty: 60 RF: 0 escitalopram oxalate [Lexapro] 20 mg tablet 20 mg PO QAM RF: 0 naltrexone 50 mg tablet 4.5 mg PO HS RF: 0 tamsulosin 0.4 mg capsule 0.4 mg PO HS RF: 0 Referrals Referrals: Kt Ledesma [Primary Care Provider] -
[2020-08-30] MEDS ORDERED: PHENAZOPYRIDINE HCL 200 MG TAB PO STA (22:45)
[2020-08-30] MEDS ORDERED: SODIUM CHLORIDE 0.9% 500 ML IV STA (23:18)
[2020-08-30 23:53] LABS: Basophils # (auto) 0.03 K/uL (0-0.2); Basophils % (auto) 0.3 %; Eosinophils # (auto) 0.25 K/uL (0-0.5); Eosinophils % (auto) 2.6 %; Hematocrit (blood only) 38.3 % (42-52); Hemoglobin 13.1 g/dL (14.0-18.0); Immature Granulocytes # (auto) 0.05 K/uL (0.00-0.02); Immature Granulocytes % (auto) 0.5 %; Lymphocytes # (auto) 2.15 K/uL (1.2-3.4); Lymphocytes % (auto) 22.7 %; Mean Corpuscular Hemoglobin 30.1 pg (25-34); Mean Corpuscular Hgb Conc 34.2 g/dL (32-36); Mean Platelet Volume 9.9 fL (7.4-10.4); Monocytes # (auto) 0.82 K/uL (0.11-0.59); Monocytes % (auto) 8.7 %; Neutrophils # (auto) 6.17 K/uL (1.4-6.5); Neutrophils % (auto) 65.2 %; Platelet Count 388 K/uL (130-400); RDW Coefficient of Variation 13.9 % (11.5-14.5); RDW Standard Deviation 45.2 fL (36.4-46.3); Red Blood Count 4.35 M/uL (4.7-6.1); White Blood Count 9.47 K/uL (4.8-10.8)
[2020-08-31 00:09] LABS: Albumin Level 3.2 gm/dl (3.4-5.0); Calcium 8.7 mg/dl (8.5-10.1); Creatinine Clr Calc Pharmacy 122.3 ml/min; Est GFR (African American) 115.9 ml/min; Potassium 3.8 mmol/L (3.5-5.1)
[2020-08-31 00:12] LABS: Albumin Globulin Ratio 0.9 (0.9-2); Bilirubin,Total 0.3 mg/dl (0.2-1); Globulin 3.6 gm/dl (2.5-4.0); Total Protein 6.8 gm/dl (6.4-8.2)
[2020-08-31] MEDS ORDERED: OPTIRAY 320 100ml IV ONE (00:12)
[2020-08-31 01:19] LABS: Appearance Urine Turbid (Clear); Bacteria Urine Automated 1+ (Negative); Bilirubin Urine Negative (Negative); Blood Urine 3+ (Negative); Color Urine Dark Yellow; Epithelial Cell Urine Auto 20-30 /lpf (0-5); Glucose Urine UA Negative (Negative); Ketones Urine Trace (Negative); Leukocyte Esterase Urine 2+ (Negative); Nitrite Urine Negative (Negative); Protein Urine 3+ (Negative); RBC Urine Automated >30 /hpf (0-4); Specific Gravity Urine 1.027 (1.000-1.030); Urobilinogen Urine Negative (Negative); WBC Urine Automated >30 /hpf (0-5); pH Urine 5.5 (4.5-7.5)
[2020-08-31 01:35] LABS: Calcium Oxalate Crystals Urine Present (None Prsent)
[2020-08-31] MEDS ORDERED: cefTRIAXone SODIUM 2,000 MG/70 ML BAG IV STA (01:41)
[2020-08-31] MEDS ORDERED: SODIUM CHLORIDE 0.9% 1000ML 500 ML IV ONE (01:42)
--- NOTE | 2020-08-31 02:35 | History & Physical Report ---
Date of Service August 31, 2020 Assessment & Plan (1) Bladder spasms: 55yo male with history of MS, s/p TURP performed 08/20/20 presenting with 3 days of severe bladder spasm. Mayen has been removed in the ER. Patient has been on Oxybutynin as well and was given Phenazopyridine tonight as well. -Continue Oxybutynin - increase to 5mg po TID PRN -Continue Pyridium 200mg po TID PRN -Continue Flomax -Monitor I/Os -Urology consultation appreciated Present on Admission?: Yes (2) UTI (urinary tract infection): ?True infection vs inflammation with recent catheter in place. Ceftriaxone given in ER -Continue Ceftriaxone -Follow cultures Present on Admission?: Yes (3) Anxiety and depression: Chronic -Continue Lexapro Present on Admission?: Yes (4) Multiple sclerosis: Chronic -Continue Baclofen -Continue Naltrexone Present on Admission?: Yes History of Present Illness Chief Complaint: bladder spasm Primary Care Provider: Ktkarely Ledesma Javier Thomas is a 55yo C male with history of MS, s/p TURP for bladder outlet obstruction and refractory urge incontinence performed by Dr. Valenzuela on 08/20/20 presenting with bladder spasm. TURP on 08/20/20 as well as Botox injection. Surgery was well tolerated with no complications identified. Eusebia max was discharged home with Mayen catheter in place. He completed his 7 day course of Keflex as prescribed. He has been experiencing severe bladder spasms for the last 3 days. His describes theses spasms as severe - sometimes causing tension in his whole body, also associated with fecal incontinence. Spasms have been occurring hourly and occasionally more frequently - last 1-2 minutes. No additional complaints - denies fever, chills, chest pain, palpitations, cough, SOB, nausea, vomiting, constipation. ER Course: Ceftriaxone, Pyridium, NSS Allergies Allergy/AdvReac Type Severity Reaction Status Date / Time green pepper Allergy Unknown Unknown Verified 08/30/20 20:20 potato Allergy Unknown Unknown Verified 08/30/20 20:20 tomato Allergy Unknown Unknown Verified 08/30/20 20:20 No Known Drug Allergies Allergy NONE Verified 08/30/20 20:20 Home Medications Medication Instructions Recorded Confirmed Type Align 4 mg PO QAM 01/27/18 08/30/20 History multivitamin 1 tab PO QAM 01/27/18 08/30/20 History omega 6-qli-xic-fish oil [Fish Oil] 1,000 mg PO QAM 01/27/18 08/30/20 History psyllium 3 tbsp PO QAM 01/27/18 08/30/20 History cholecalciferol (vitamin D3) 5,000 units PO Q2D 03/21/18 08/30/20 History [Vitamin D3] cholecalciferol (vitamin D3) 10,000 units PO Q2D 03/21/18 08/30/20 History [Vitamin D3] ocrelizumab 30 mg/mL intravenous 600 mg IV Q6MO #20 ml 05/11/20 08/30/20 Rx solution baclofen 20 mg tablet 20 mg PO QID #360 tab 07/13/20 08/30/20 Rx escitalopram oxalate [Lexapro] 20 mg PO QAM 07/31/20 08/30/20 History naltrexone 4.5 mg PO HS 07/31/20 08/30/20 History tamsulosin 0.4 mg PO HS 07/31/20 08/30/20 History docusate sodium [Colace] 100 mg PO BID #60 cap 08/21/20 08/30/20 Rx oxybutynin chloride 5 mg tablet 5 mg PO BID PRN #20 tab 08/27/20 08/30/20 Rx Past Med/Surg History Medical History (Updated 08/31/20 @ 03:13 by Tana Kaiser DO) Anxiety and depression Multiple sclerosis WHEELCHAIR BOUND. DX'D 2007-F/U DR GALVEZ. Per last OV 07/01/20, "advanced multiple sclerosis condition radiographically stable on Ocrevus" OCD (obsessive compulsive disorder) Spastic gait Vitamin D deficiency hx Surgical History (Updated 08/31/20 @ 03:07 by Tana Kaiser DO) History of colonoscopy History of transurethral resection of prostate Family History Father Crohn's disease Colorectal cancer PT DENIES Mother Crohn's disease Colorectal cancer Other No significant family history Social History Smoking Status: Never smoker Second Hand Exposure: No; Hx Alcohol Use: No Hx Substance Use: No Preferred Language: Vietnamese Communication Ability: Effective Stave Hewer Required: No Beliefs That Will Affect Care: None marital status: Current Living Situation: Spouse current occupational status: disabled Feels Safe at Home: Yes Physical Activity Frequency Comment: WHEELCHAIR BOUND Assistive Devices: Glasses and Wheelchair Review of Systems Review of Systems: All systems reviewed & are unremarkable except as noted in HPI & below Physical Exam Physical Exam: General: patient resting comfortably, NAD, non-toxic in appearance, AA&O x 4 Skin: warm, dry, intact, no rashes or lesions HEENT: NC/AT, PERRL, EOMI, anicteric sclera, conjunctiva without injection, external ear normal to inspection and nontender, nares patent, moist mucus membranes, dentition intact, no oropharyngeal lesions, neck supple, trachea midline, no LAD, no thyromegaly, no JVD Heart: +S1/S2, regular, no m/r/g Lungs: equal air entry bilaterally, no rales/rhonchi/wheezes Abd: +BS, soft, NT/ND, no masses/organomegaly/ascites Ext: warm, 2+ pulses in UE/LE bilaterally, no clubbing/cyanosis or edema Results & Data Results & Data ([facility]) Vital Signs (Past 12 Hours) Vital Signs Temp Pulse Resp BP BP Pulse Ox 08/31/20 01:08 98 08/31/20 00:00 20 148/75 H 98 08/30/20 21:32 98 08/30/20 18:55 36.9 C 86 18 129/86 93 Laboratory Results Laboratory Results WBC 9.47 K/uL (4.8-10.8) 08/30/20 23:46 RBC 4.35 M/uL (4.7-6.1) L 08/30/20 23:46 Hgb 13.1 g/dL (14.0-18.0) L 08/30/20 23:46 Hct 38.3 % (42-52) L 08/30/20 23:46 MCV 88.0 fL (80-100) 08/30/20 23:46 MCH 30.1 pg (25-34) 08/30/20 23:46 MCHC 34.2 g/dL (32-36) 08/30/20 23:46 RDW Std Deviation 45.2 fL (36.4-46.3) 08/30/20 23:46 RDW Coeff of Bridget 13.9 % (11.5-14.5) 08/30/20 23:46 Plt Count 388 K/uL (130-400) 08/30/20 23:46 MPV 9.9 fL (7.4-10.4) 08/30/20 23:46 Immature Gran % (Auto) 0.5 % 08/30/20 23:46 Neut % (Auto) 65.2 % 08/30/20 23:46 Lymph % (Auto) 22.7 % 08/30/20 23:46 [place] % (Auto) 8.7 % 08/30/20 23:46 Eos % (Auto) 2.6 % 08/30/20 23:46 Baso % (Auto) 0.3 % 08/30/20 23:46 Neut # (Auto) 6.17 K/uL (1.4-6.5) 08/30/20 23:46 Lymph # (Auto) 2.15 K/uL (1.2-3.4) 08/30/20 23:46 [place] # (Auto) 0.82 K/uL (0.11-0.59) H 08/30/20 23:46 Eos # (Auto) 0.25 K/uL (0-0.5) 08/30/20 23:46 Baso # (Auto) 0.03 K/uL (0-0.2) 08/30/20 23:46 Immature Gran # (Auto) 0.05 K/uL (0.00-0.02) H 08/30/20 23:46 Sodium 139 mmol/L (136-145) 08/30/20 23:46 Potassium 3.8 mmol/L (3.5-5.1) 08/30/20 23:46 Chloride 105 mmol/L (98-107) 08/30/20 23:46 Carbon Dioxide 25 mmol/L (21-32) 08/30/20 23:46 Anion Gap 9.0 (3-11) 08/30/20 23:46 BUN 11 mg/dl (7-18) 08/30/20 23:46 Creatinine 0.84 mg/dl (0.6-1.4) 08/30/20 23:46 Est Cr Clr Drug Dosing 122.3 ml/min 08/30/20 23:46 Est GFR ( Amer) 115.9 ml/min 08/30/20 23:46 Est GFR (Non-Af Amer) 100.0 ml/min 08/30/20 23:46 BUN/Creatinine Ratio 13.0 (10-20) 08/30/20 23:46 Glucose 93 mg/dl (70-99) 08/30/20 23:46 Calcium 8.7 mg/dl (8.5-10.1) 08/30/20 23:46 Total Bilirubin 0.3 mg/dl (0.2-1) 08/30/20 23:46 AST 14 U/L (15-37) L 08/30/20 23:46 ALT 37 U/L (12-78) 08/30/20 23:46 Alkaline Phosphatase 75 U/L (45-117) 08/30/20 23:46 Total Protein 6.8 gm/dl (6.4-8.2) 08/30/20 23:46 Albumin 3.2 gm/dl (3.4-5.0) L 08/30/20 23:46 Globulin 3.6 gm/dl (2.5-4.0) 08/30/20 23:46 Albumin/Globulin Ratio 0.9 (0.9-2) 08/30/20 23:46 Lipase 105 U/L (73-393) 08/30/20 23:46 Urine Color Dark Yellow 08/30/20 20:56 Urine Appearance Turbid (Clear) A 08/30/20 20:56 Urine pH 5.5 (4.5-7.5) 08/30/20 20:56 Ur Specific [place] 1.027 (1.000-1.030) 08/30/20 20:56 Urine Protein 3+ (Negative) H 08/30/20 20:56 Urine Glucose (UA) Negative (Negative) 08/30/20 20:56 Urine Ketones Trace (Negative) H 08/30/20 20:56 Urine Blood 3+ (Negative) H 08/30/20 20:56 Urine Nitrite Negative (Negative) 08/30/20 20:56 Urine Bilirubin Negative (Negative) 08/30/20 20:56 Urine Urobilinogen Negative (Negative) 08/30/20 20:56 Ur Leukocyte Esterase 2+ (Negative) H 08/30/20 20:56 Urine WBC (Auto) >30 /hpf (0-5) H 08/30/20 20:56 Urine RBC (Auto) >30 /hpf (0-4) H 08/30/20 20:56 U Hyaline Cast (Auto) 5-10 /lpf (0-5) H 08/30/20 20:56 U Epithel Cells (Auto) 20-30 /lpf (0-5) H 08/30/20 20:56 Urine Bacteria (Auto) 1+ (Negative) H 08/30/20 20:56 Urine Crystals Not Reportable 08/30/20 20:56 Calcium Oxalate Crystal Present (None Prsent) A 08/30/20 20:56 Urine Yeast Budding (None Prsent) A 08/30/20 20:[address] Abdomen and Pelvis with contrast: Per STAT-rad - Decompressed bladder with moderate wall thickening which appears mildly irregular which could be seen in clinical settin of UTI. PG Care Time/CCT Total # of Minutes Spent Total Time Spent with Patient: Total time spent is greater than 50% in coordination of care (as documented) at patient's floor/unit and/or counseling patient: Coding Level of Care Code 65476 OBS Care - Level 2 Diagnoses Bladder spasms N32.89 UTI (urinary tract infection) N39.0; R31.9 Urinary tract infection type: site unspecified Hematuria presence: with hematuria Anxiety and depression F41.9; F32.9 Multiple sclerosis G35 (1) UTI (urinary tract infection) Urinary tract infection type: site unspecified Hematuria presence: with hematuria Qualified Code(s): N39.0 - Urinary tract infection, site not specified; R31.9 - Hematuria, unspecified
--- NOTE | 2020-08-31 09:29 | CT Scan Report ---
CT SCAN OF THE ABDOMEN AND PELVIS WITH IV CONTRAST CLINICAL HISTORY: Pelvic pain. Recent TURP. COMPARISON STUDY: Abdominal CT dated 10/10/2019. TECHNIQUE: Following the IV administration of 94 cc of Optiray 320, CT scan of the abdomen and pelvi s is performed from the lung bases to the proximal femora. Images are reviewed in the axial, sagittal , and coronal planes. IV contrast was administered without complication. A dose lowering technique wa s utilized adhering to the principles of ALARA. The examination is significantly degraded by streak a rtifact from the arms which could not be elevated above the abdomen or pelvis as well as motion artif act. CT DOSE: 1747.56 mGy.cm FINDINGS: Lung bases: The heart is normal in size and without pericardial effusion. There are coronary artery c alcifications. A tiny hiatal hernia is noted. The lung bases are clear noting dependent atelectasis. Liver: Evaluation of the liver is compromised by streak artifact. The contrast-enhanced liver appears normal in size, contour, and attenuation. There is no intrahepatic biliary ductal dilatation. The he patic veins and portal veins are patent. Gallbladder: Unremarkable. Spleen: Normal in size and attenuation. Pancreas: Unremarkable. Adrenal glands: Unremarkable. Kidneys: The contrast enhanced kidneys are normal in size and without hydronephrosis. The kidneys enh ance symmetrically. A retroaortic left renal vein is incidentally noted. Abdominal vasculature: The abdominal aorta is normal in course and caliber noting mild atheroscleroti c calcification. Bowel: There is no bowel obstruction. The appendix is well-visualized and normal. Peritoneum: There is no intraperitoneal free air or abdominal ascites. A fat-containing umbilical her jarod is noted. Lymphadenopathy: None. Pelvic viscera: The bladder is decompressed. Pericystic inflammation is noted. Hyperdense material wi thin the bladder lumen may represent small stones and/or blood clots. The prostate gland is diminutiv e and heterogeneous. The seminal vesicles are normal as imaged. There are moderate bilateral fat-cont aining inguinal hernias. Skeletal structures: There is mild lumbosacral spondylosis. No lytic or blastic lesions are seen. IMPRESSION: 1. Streak and motion compromised examination. 2. The prostate gland is diminutive and heterogeneous. 3. The bladder is decompressed and there is mild surrounding inflammation. Correlate with clinical fi ndings and urinalysis. 4. Hyperdense material within the bladder lumen may represent tiny stones and/or blood clots. 5. There is no pelvic hematoma or fluid collection. 6. Additional findings as above. ACT 112: Negative or not required by law. Electronically signed by: Dennis Lombardo M.D. 08/31/2020 9:28 AM
[2020-08-31] MEDS ORDERED: NON-FORMULARY MEDICATION (Bifidobacterium Infantis [Align] 4 mg Capsule) PO SCH (10:03)
[2020-08-31] MEDS ORDERED: ONDANSETRON INJ 2 MG/ML 2 ML VIAL IV PRN (10:03)
[2020-08-31] MEDS ORDERED: OXYBUTYNIN CHLORIDE 5 MG TAB PO PRN (10:03)
[2020-08-31] MEDS ORDERED: PHENAZOPYRIDINE HCL 200 MG TAB PO PRN (10:03)
[2020-08-31] MEDS ORDERED: ACETAMINOPHEN 325 MG TAB PO PRN (10:03)
[2020-08-31] MEDS: DOCUSATE SODIUM 100 MG CAP PO SCH ×2 (11:08→19:45)
[2020-08-31] MEDS: BACLOFEN 20 MG TAB PO SCH ×4 (11:26→21:00)
[2020-08-31] MEDS: PSYLLIUM 58.6% POWDER PACKET PO SCH (11:27)
[2020-08-31] MEDS: ESCITALOPRAM OXALATE 20 MG TAB PO SCH (11:27)
[2020-08-31] MEDS: ADVANCED PROBIOTIC 1250 MG CAPSULE PO SCH (13:27)
--- NOTE | 2020-08-31 14:41 | Urology Consultation ---
Date of Consultation August 31, 2020 Assessment & Plan (1) Bladder spasms: (2) History of prostate surgery: 55 year old male with history of MS admitted for bladder spasms and suspected UTI s/p recent TURP. - Case reviewed with Dr. Valenzuela, urologist supervisor fabrication and assembly - Afebrile, lab work reviewed - creatinine and WBC within normal limits on admission 08/30 - CTAP reviewed - inflammation of bladder noted - possibly due to recent procedure vs infection - UC&S pending - continue IV Ceftriaxone, follow cultures - Pt subjectively improving since catheter removal - Continue supportive care, antibiotics, and management per primary service - Continue prn Pyridium and oxybutynin - Suspect symptoms will continue to gradually improve after catheter removal - Will continue to follow History of Present Illness Reason for Consultation: bladder spasms s/p TURP Requesting Physician: Dr. Kaiser Attending Physician: Alexandre Hare MD History of Present Illness 55 year old male with past medical history of multiple sclerosis, bladder outlet obstruction and s/p recent TURP admitted for bladder spasms and suspected UTI. Patient presented to [facility] ED on 08/30/20 with Mayen catheter in place and complaint of persistent severe bladder spasms for the past few days. Patient is known to our service. He is recently s/p TURP on 08/[address] Valenzuela. He tried oxybutynin at home without much relief. He spoke to the supervisor fabrication and assembly urologist who discussed removal of catheter a few days earlier than scheduled on 09/02. He presented to the ER for catheter removal and evaluation. Afebrile on arrival. Lab work revealed creatinine and WBC within normal limits. UA showed 2+ leuks, >30 RBCs and WBCs, 20-30 epithelials, 1+ bacteria, negative nitrates; urine culture collected. He was treated with IV Ceftriaxone in ED. He was admitted by hospital medicine for further management. Our service is consulted for bladder spasm s/p TURP. Chart review: Afebrile Creatinine 0.84 (08/30) WBC 9.47 (/) Hgb 13.1 (/) UC&S pending On IV Ceftriaxone Imaging: CTAP IMPRESSION: 1. Streak and motion compromised examination. 2. The prostate gland is diminutive and heterogeneous. 3. The bladder is decompressed and there is mild surrounding inflammation. Correlate with clinical findings and urinalysis. 4. Hyperdense material within the bladder lumen may represent tiny stones and/or blood clots. 5. There is no pelvic hematoma or fluid collection. 6. Additional findings as above. Patient seen and examined at bedside this afternoon. present. Reports intermittent bladder spasms, though frequency diminished since catheter removal. Last bladder spasm around 11 am today. No pain at present. No abdominal or flank pain. No dysuria or hematuria. Condom catheter in place draining clear concentrated yellow urine. Tolerating PO diet. Denies constipation. No nausea or vomiting. No fever or chills. No additional concerns at this time. Allergies Allergy/AdvReac Type Severity Reaction Status Date / Time green pepper Allergy Unknown Unknown Verified 08/30/20 20:20 potato Allergy Unknown Unknown Verified 08/30/20 20:20 tomato Allergy Unknown Unknown Verified 08/30/20 20:20 No Known Drug Allergies Allergy NONE Verified 08/30/20 20:20 Home Medications Medication Instructions Recorded Confirmed Type Align 4 mg PO QAM 01/27/18 08/30/20 History multivitamin 1 tab PO QAM 01/27/18 08/30/20 History omega [id number] oil [Fish Oil] 1,000 mg PO QAM 01/27/18 08/30/20 History psyllium 3 tbsp PO QAM 01/27/18 08/30/20 History cholecalciferol (vitamin D3) 5,000 units PO Q2D 03/21/18 08/30/20 History [Vitamin D3] cholecalciferol (vitamin D3) 10,000 units PO Q2D 03/21/18 08/30/20 History [Vitamin D3] ocrelizumab 30 mg/mL intravenous 600 mg IV Q6MO #20 ml 05/11/20 08/30/20 Rx solution baclofen 20 mg tablet 20 mg PO QID #360 tab 07/13/20 08/30/20 Rx escitalopram oxalate [Lexapro] 20 mg PO QAM 07/31/20 08/30/20 History naltrexone 4.5 mg PO HS 07/31/20 08/30/20 History tamsulosin 0.4 mg PO HS 07/31/20 08/30/20 History docusate sodium [Colace] 100 mg PO BID #60 cap 08/21/20 08/30/20 Rx oxybutynin chloride 5 mg tablet 5 mg PO BID PRN #20 tab 08/27/20 08/30/20 Rx Patient History Medical History Anxiety and depression Multiple sclerosis WHEELCHAIR BOUND. DX'D 2007-F/U DR GALVEZ. 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: No Beliefs That Will Affect Care: None marital status: Current Living Situation: Spouse current occupational status: disabled Feels Safe at Home: Yes Physical Activity Frequency Comment: WHEELCHAIR BOUND Assistive Devices: Wheelchair Review of Systems Constitutional: as per Subjective / HPI Respiratory: no problem reported Cardiovascular: no problem reported Gastrointestinal: as per Subjective / HPI Genitourinary: + as per Subjective / HPI Musculoskeletal: as per Subjective / HPI Physical Exam Constitutional: comfortable; no acute distress Respiratory: normal respiratory effort and able to speak in complete sentences; no respiratory distress and no labored breathing Cardiovascular: Extremities: no pedal edema Gastrointestinal (Abdomen): Inspection/Auscultation: abdomen normal to inspection; abdomen not distended Percussion/Palpation: abdomen soft; abdomen nontender and no guarding Musculoskeletal: Head/Neck/Chest: normocephalic and head atraumatic Skin: no rashes, warm and dry Neurologic: awake Psychiatric: Orientation: alert and oriented x 3 Genitourinary: no CVA tenderness Condom catheter intact and draining clear concentrated yellow urine Results & Data ([facility]) Vital Signs (Past 12 Hours) Vital Signs Temp Pulse Pulse Resp BP BP BP 08/31/20 10:05 36.9 C 76 18 154/88 H 08/31/20 08:58 74 18 117/77 08/31/20 06:55 75 20 156/94 H 08/31/20 05:51 142/82 H 08/31/20 05:00 08/31/20 03:00 20 134/90 Pulse Ox 08/31/20 10:05 93 08/31/20 08:58 96 08/31/20 06:55 95 08/31/20 05:51 08/31/20 05:00 98 08/31/20 03:00 98 PG Care Time/CCT Total # of Minutes Spent Total Time Spent with Patient: Total time spent is greater than 50% in coordination of care (as documented) at patient's floor/unit and/or counseling patient: Coding Level of Care Code 00973 Inpt Consult Level 3 Diagnoses Bladder spasms N32.89 History of prostate surgery Z98.890
[2020-08-31] MEDS: OXYBUTYNIN CHLORIDE 5 MG TAB PO SCH ×2 (15:53→21:00)
[2020-08-31] MEDS: TAMSULOSIN HCL 0.4 MG CAP PO SCH (21:00)
[2020-08-31] MEDS: cefTRIAXone SODIUM 2,000 MG in DEXTROSE 5% 50 ML IV SCH (21:00)
[2020-08-31] MEDS: PHENAZOPYRIDINE HCL 200 MG TAB PO PRN (21:00)
[2020-09-01] MEDS: PHENAZOPYRIDINE HCL 200 MG TAB PO PRN (06:31)
[2020-09-01] MEDS: OXYBUTYNIN CHLORIDE 5 MG TAB PO SCH ×2 (08:16→13:12)
[2020-09-01] MEDS: ESCITALOPRAM OXALATE 20 MG TAB PO SCH (08:16)
[2020-09-01] MEDS: ADVANCED PROBIOTIC 1250 MG CAPSULE PO SCH (08:16)
[2020-09-01] MEDS: DOCUSATE SODIUM 100 MG CAP PO SCH ×2 (08:16→21:47)
[2020-09-01] MEDS: PSYLLIUM 58.6% POWDER PACKET PO SCH (08:17)
[2020-09-01] MEDS: BACLOFEN 20 MG TAB PO SCH ×4 (08:17→21:47)
[2020-09-01] MEDS: cefTRIAXone SODIUM 2,000 MG in DEXTROSE 5% 50 ML IV SCH (08:29)
--- NOTE | 2020-09-01 11:40 | Hospitalist Progress Note ---
Date of Service September 01, 2020 Assessment & Plan (1) Bladder spasms: 55yo male with history of MS, s/p TURP performed 08/20/20 presenting with 3 days of severe bladder spasm. Hernandez has been removed in the ER. Patient has been on Oxybutynin as well and was given Phenazopyridine tonight as well. -Continue Oxybutynin - will switch back to PRN given improvement with hernandez catheter removal. -Continue Pyridium 200mg po TID PRN -Continue Flomax -Monitor I/Os -Urology consultation appreciated (2) UTI (urinary tract infection): ?True infection vs inflammation with recent catheter in place. -x3 doses of ceftriaxone given. Urine culture showing mixed anatoliy. In setting of antibiotic-associated diarrhea will discontinue further antibiotics now hernandez catheter has been removed. (3) Anxiety and depression: Chronic -Continue Lexapro (4) Multiple sclerosis: Chronic -Continue Baclofen -Continue Naltrexone if his brings this in (5) Diarrhea: C. diff negative. Suspected antibiotic-associated however will get stool culture for completeness. Medically stable for discharge pending placement decision. Admission and Anticipated Discharge Date Admission Date: August 31, 2020 Subjective No fever, chills. Bladder spasm much improved. Still having diarrhea, non- watery, ongoing since Monday. He as on keflex prior to this and concerned regarding antibiotic-associated diarrhea. C. diff testing negative yesterday. His is concerned regarding ability to manage him at home and requests PT/OT assessments for acute rehabilitation. Review of Systems Review of Systems: All systems reviewed & are unremarkable except as noted in HPI & below Physical Exam Constitutional: well developed and well nourished; no acute distress Respiratory: normal respiratory effort, lungs clear to auscultation Cardiovascular: RRR, no murmur, no edema Gastrointestinal (Abdomen): normal bowel sounds, soft, nontender, no hepatosplenomegaly Genitourinary: no CVA tenderness Results & Data Results & Data ([facility]) Vital Signs (Past 12 Hours) Vital Signs Temp Pulse Resp BP Pulse Ox 09/01/20 07:19 36.8 C 72 18 149/85 H 94 PG Care Time/CCT Total # of Minutes Spent Total Time Spent with Patient: Total time spent is greater than 50% in coordination of care (as documented) at patient's floor/unit and/or counseling patient: Coding Level of Care Code 78935 Subseq Obs Care Lvl 1 Diagnoses Bladder spasms N32.89 UTI (urinary tract infection) N39.0; R31.9 Hematuria presence: with hematuria Urinary tract infection type: site unspecified Anxiety and depression F41.9; F32.9 Multiple sclerosis G35 Diarrhea R19.7 (1) UTI (urinary tract infection) Hematuria presence: with hematuria Urinary tract infection type: site unspecified Qualified Code(s): N39.0 - Urinary tract infection, site not sp ecified; R31.9 - Hematuria, unspecified
--- NOTE | 2020-09-01 12:54 | Urology Progress Note ---
Date of Service September 01, 2020 Assessment & Plan (1) Bladder spasms: (2) Bladder pain: (3) History of prostate surgery: 55 year old male with history of MS admitted for bladder spasms and suspected UTI s/p recent TURP. - Patient is status post TURP procedure on 08/20/[address] Valenzuela. - He is afebrile. - Lab work reviewed - creatinine and WBC within normal limits on admission 08/30. - CTAP yesterday noted inflammation of the bladder, possibly due to recent procedure. - UC&S with high counts of mixed organisms. - Pt subjectively improving since catheter removal. - Continue supportive care and management per primary service. - Continue tamsulosin, prn Pyridium, and prn oxybutynin. - Suspect symptoms will continue to gradually improve with further time and healing. - Will arrange outpatient follow-up with urology service. Admission and Anticipated Discharge Date Admission Date: August 31, 2020 Subjective Patient seen and examined at bedside this afternoon. present. Bladder spasms have significantly improved. No pain at present. No abdominal or flank pain. No dysuria or hematuria. Condom catheter in place draining clear concentrated yellow urine. Tolerating PO diet. Denies constipation. No nausea or vomiting. No fever or chills. Review of Systems Constitutional: as per Subjective / HPI Gastrointestinal: as per Subjective / HPI Genitourinary: + as per Subjective / HPI Physical Exam Constitutional: comfortable; no acute distress Respiratory: normal respiratory effort and able to speak in complete sentences; no respiratory distress and no labored breathing Gastrointestinal (Abdomen): Inspection/Auscultation: abdomen normal to inspection; abdomen not distended Percussion/Palpation: abdomen soft; abdomen nontender and no guarding Musculoskeletal: Head/Neck/Chest: normocephalic Skin: no rashes, warm and dry Neurologic: awake Psychiatric: Orientation: alert and oriented x 3 Genitourinary: no CVA tenderness Condom catheter intact and draining clear concentrated yellow urine Results & Data ([facility]) Vital Signs (Past 12 Hours) Vital Signs Temp Pulse Resp BP Pulse Ox 09/01/20 07:19 36.8 C 72 18 149/85 H 94 PG Care Time/CCT Total # of Minutes Spent Total Time Spent with Patient: Total time spent is greater than 50% in coordination of care (as documented) at patient's floor/unit and/or counseling patient: Coding Level of Care Code 56205 Subseq Hosp Care Lvl 2 Diagnoses Bladder spasms N32.89 Bladder pain R39.89 History of prostate surgery Z98.890
[2020-09-01] MEDS ORDERED: OXYBUTYNIN CHLORIDE 5 MG TAB PO PRN (16:06)
[2020-09-01] MEDS: TAMSULOSIN HCL 0.4 MG CAP PO SCH (21:47)
[2020-09-02] MEDS: DOCUSATE SODIUM 100 MG CAP PO SCH ×2 (10:31→21:19)
[2020-09-02] MEDS: BACLOFEN 20 MG TAB PO SCH ×4 (10:31→21:19)
[2020-09-02] MEDS: PSYLLIUM 58.6% POWDER PACKET PO SCH (10:31)
[2020-09-02] MEDS: ADVANCED PROBIOTIC 1250 MG CAPSULE PO SCH (10:32)
[2020-09-02] MEDS: ESCITALOPRAM OXALATE 20 MG TAB PO SCH (10:32)
[2020-09-02] MEDS: TAMSULOSIN HCL 0.4 MG CAP PO SCH (21:19)
[2020-09-03] MEDS: PSYLLIUM 58.6% POWDER PACKET PO SCH (08:44)
[2020-09-03] MEDS: ADVANCED PROBIOTIC 1250 MG CAPSULE PO SCH (08:45)
[2020-09-03] MEDS: DOCUSATE SODIUM 100 MG CAP PO SCH (08:45)
[2020-09-03] MEDS: BACLOFEN 20 MG TAB PO SCH ×4 (08:45→19:57)
[2020-09-03] MEDS: ESCITALOPRAM OXALATE 20 MG TAB PO SCH (08:45)
--- NOTE | 2020-09-03 16:07 | Hospitalist Progress Note ---
Date of Service September 02, 2020 Assessment & Plan (1) Bladder spasms: 55yo male with history of MS, s/p TURP performed 08/20/20 presenting with 3 days of severe bladder spasm. Hernandez has been removed in the ER. Patient has been on Oxybutynin as well and was given Phenazopyridine tonight as well. -Continue Oxybutynin PRN given improvement with hernandez catheter removal. -Continue Pyridium 200mg po TID PRN -Continue Flomax -Monitor I/Os -Urology consultation appreciated (2) UTI (urinary tract infection): ?True infection vs inflammation with recent catheter in place. -x3 doses of ceftriaxone given. Urine culture showing mixed anatoliy. In setting of antibiotic-associated diarrhea will discontinue further antibiotics now hernandez catheter has been removed. (3) Anxiety and depression: Chronic -Continue Lexapro (4) Multiple sclerosis: Chronic progressive, requiring rehabilitation -Continue Baclofen -Continue Naltrexone if his brings this in (5) Diarrhea: C. diff negative. Suspected antibiotic-associated however will get stool culture for completeness. Medically stable for discharge pending placement decision. Admission and Anticipated Discharge Date Admission Date: September 03, 2020 Subjective No acute concerns or questions. Minimal further bladder spasms. Having ongoing diarrhea. Awaiting placement at this time due to chrnic progressive multiple sclerosis. Review of Systems Review of Systems: All systems reviewed & are unremarkable except as noted in HPI & below Physical Exam Constitutional: well developed and well nourished; no acute distress Respiratory: normal respiratory effort, lungs clear to auscultation Cardiovascular: RRR, no murmur, no edema Gastrointestinal (Abdomen): normal bowel sounds, soft, nontender, no hepatosplenomegaly Genitourinary: no CVA tenderness Results & Data Results & Data ([facility]) Vital Signs (Past 12 Hours) Vital Signs Temp Pulse Resp BP Pulse Ox 09/03/20 07:08 36.7 C 80 18 126/85 95 PG Care Time/CCT Total # of Minutes Spent Total Time Spent with Patient: Total time spent is greater than 50% in coordination of care (as documented) at patient's floor/unit and/or counseling patient: Coding Level of Care Code 35933 Subseq Obs Care Lvl 1 Diagnoses Bladder spasms N32.89 UTI (urinary tract infection) N39.0; R31.9 Hematuria presence: with hematuria Urinary tract infection type: site unspecified Anxiety and depression F41.9; F32.9 Multiple sclerosis G35 Diarrhea R19.7 (1) UTI (urinary tract infection) Hematuria presence: with hematuria Urinary tract infection type: site unspecified Qualified Code(s): N39.0 - Urinary tract infection, site not specified; R31.9 - Hematuria, unspecified
[2020-09-03] MEDS: TAMSULOSIN HCL 0.4 MG CAP PO SCH (19:57)
[2020-09-04] MEDS: BACLOFEN 20 MG TAB PO SCH (08:17)
[2020-09-04] MEDS: ESCITALOPRAM OXALATE 20 MG TAB PO SCH (08:17)
[2020-09-04] MEDS: ADVANCED PROBIOTIC 1250 MG CAPSULE PO SCH (08:17)
[2020-09-04] MEDS: PSYLLIUM 58.6% POWDER PACKET PO SCH (08:18)
--- NOTE | 2020-09-04 10:10 | Hospitalist Progress Note ---
Date of Service September 04, 2020 Assessment & Plan (1) Bladder spasms: 55yo male with history of MS, s/p TURP performed 08/20/20 presenting with 3 days of severe bladder spasm. Resolved with hernandez catheter removal. -Continue Oxybutynin PRN given improvement with hernandez catheter removal. -Continue Pyridium 200mg po TID PRN -Continue Flomax -Monitor I/Os -Urology consultation appreciated (2) UTI (urinary tract infection): ?True infection vs inflammation with recent catheter in place. -x3 doses of ceftriaxone given. Urine culture showing mixed antaoliy. In setting of antibiotic-associated diarrhea will discontinue further antibiotics now hernandez catheter has been removed. (3) Anxiety and depression: Chronic -Continue Lexapro (4) Multiple sclerosis: Chronic progressive, requiring rehabilitation, awaiting insurance authorization at this time. -Continue Baclofen -Continue Naltrexone if his brings this in (5) Diarrhea: C. diff negative. Suspected antibiotic-associated however will get stool culture for completeness. Medically stable for discharge pending placement decision. Admission and Anticipated Discharge Date Admission Date: September 03, 2020 Subjective No acute concerns or questions. Minimal further bladder spasms. Having ongoing loose stool but only twice a day. Non-watery. No abdominal pain, nausea or vomiting Awaiting placement at this time due to chronic progressive multiple sclerosis. Review of Systems Review of Systems: All systems reviewed & are unremarkable except as noted in HPI & below Physical Exam Constitutional: well developed and well nourished; no acute distress Respiratory: normal respiratory effort, lungs clear to auscultation Cardiovascular: RRR, no murmur, no edema Gastrointestinal (Abdomen): normal bowel sounds, soft, nontender, no hepatosplenomegaly Genitourinary: no CVA tenderness Results & Data Results & Data ([facility]) Vital Signs (Past 12 Hours) Vital Signs Temp Pulse Resp BP Pulse Ox 09/04/20 05:57 36.8 C 75 16 118/78 96 09/03/20 23:14 36.7 C 79 16 102/67 96 PG Care Time/CCT Total # of Minutes Spent Total Time Spent with Patient: Total time spent is greater than 50% in coordination of care (as documented) at patient's floor/unit and/or counseling patient: Coding Level of Care Code 89632 Subseq Hosp Care Lvl 1 Diagnoses Bladder spasms N32.89 UTI (urinary tract infection) N39.0; R31.9 Urinary tract infection type: site unspecified Hematuria presence: with hematuria Anxiety and depression F41.9; F32.9 Multiple sclerosis G35 Diarrhea R19.7 (1) UTI (urinary tract infection) Urinary tract infection type: site unspecified Hematuria presence: with hematuria Qualified Code(s): N39.0 - Urinary tract infection, site not specified; R31.9 - Hematuria, unspecified
--- NOTE | 2020-09-04 10:29 | Discharge Summary ---
Date of Service September 04, 2020 Admission HPI Per Admitting Provider Javier Thomas is a 55yo C male with history of MS, s/p TURP for bladder outlet obstruction and refractory urge incontinence performed by Dr. Valenzuela on 08/20/20 presenting with bladder spasm. TURP on 08/20/20 as well as Botox injection. Surgery was well tolerated with no complications identified. Patient was discharged home with Mayen catheter in place. He completed his 7 day course of Keflex as prescribed. He has been experiencing severe bladder spasms for the last 3 days. His describes theses spasms as severe - sometimes causing tension in his whole body, also associated with fecal incontinence. Spasms have been occurring hourly and occasionally more frequently - last 1-2 minutes. No additional complaints - denies fever, chills, chest pain, palpitations, cough, SOB, nausea, vomiting, constipation. ER Course: Ceftriaxone, Pyridium, NSS Admission Exam Per Admitting Provider General: patient resting comfortably, NAD, non-toxic in appearance, AA&O x 4 Skin: warm, dry, intact, no rashes or lesions HEENT: NC/AT, PERRL, EOMI, anicteric sclera, conjunctiva without injection, external ear normal to inspection and nontender, nares patent, moist mucus membranes, dentition intact, no oropharyngeal lesions, neck supple, trachea midline, no LAD, no thyromegaly, no JVD Heart: +S1/S2, regular, no m/r/g Lungs: equal air entry bilaterally, no rales/rhonchi/wheezes Abd: +BS, soft, NT/ND, no masses/organomegaly/ascites Ext: warm, 2+ pulses in UE/LE bilaterally, no clubbing/cyanosis or edema Principal Diagnosis Bladder spasm Urinary trace infection Discharge Exam Constitutional well developed and well nourished; no acute distress Respiratory normal respiratory effort, lungs clear to auscultation Cardiovascular RRR, no murmur, no edema Gastrointestinal (Abdomen) normal bowel sounds, soft, nontender, no hepatosplenomegaly Genitourinary no CVA tenderness Discharge Data Allergies Allergy/AdvReac Type Severity Reaction Status Date / Time green pepper Allergy Unknown Unknown Verified 09/18/20 10:29 potato Allergy Unknown Unknown Verified 09/18/20 10:29 tomato Allergy Unknown Unknown Verified 09/18/20 10:29 No Known Drug Allergies Allergy NONE Verified 09/18/20 10:29 Consultations 08/31/20 01:55 ED Decision to Admit Stat 08/31/20 08:02 Consult Urology Routine Ordered Studies 08/30/20 23:18 CT abd pelvis IV con only Urgent IMPRESSION: 1. Streak and motion compromised examination. 2. The prostate gland is diminutive and heterogeneous. 3. The bladder is decompressed and there is mild surrounding inflammation. Correlate with clinical findings and urinalysis. 4. Hyperdense material within the bladder lumen may represent tiny stones and/or blood clots. 5. There is no pelvic hematoma or fluid collection. 6. Additional findings as above. Hospital Course (1) Bladder spasms: Javier Thomas is a 55 year old male admitted to [facility] from August 30-2020 due to severe bladder spasms after recent transurethral resection of the prostate performed on August 20, 2020. Mayen catheter was removed in the emergency room with good resolution of his symptoms. UA was suggestive of infection with subsequent culture growing 3 types of organisms. He was treated for possible UTI with 3 days of intravenous ceftriaxone. He is having ongoing diarrhea since postoperative Keflex use and ceftriaxone given during his hospitalization. Final stool cultures are outstanding on discharge are negative to date, C. difficile negative. Due to his chronically progressive multiple sclerosis his mobility is somewhat declined during his hospitalization and recommended inpatient rehab on discharge. He is now medically stable for discharge to [facility] for inpatient rehabilitation. No change to his outpatient medication regimen on discharge. (2) UTI (urinary tract infection): (3) Anxiety and depression: (4) Multiple sclerosis: (5) Diarrhea: Total Time Total Time Spent Total Time Spent (In Minutes): 35 Discharge Plan Discharge Items Patient Disposition: Transfer Inpatient Rehab Fac Reason For Visit: BLADDER SPAMS Discharge Diagnosis: Bladder spasm Urinary trace infection Condition on Discharge: Fair Activity: Resume your previous activity Non-emergency contact: Urologist Call non-emergency contact if: you have any medication questions and your symptoms worsen Follow-up/Referrals: Kt Ledesma [Primary Care Provider] - Diet: Regular Addtl Attending Provider Instructions: Javier Thomas is a 55 year old male admitted to [facility] from August 30-2020 due to severe bladder spasms after recent transurethral resection of the prostate performed on August 20, 2020. Mayen catheter was removed in the emergency room with good resolution of his symptoms. UA was suggestive of infection with subsequent culture growing 3 types of organisms. He was treated for possible UTI with 3 days of intravenous ceftriaxone. He is having ongoing diarrhea since postoperative Keflex use and ceftriaxone given during his hospitalization. Final stool cultures are outstanding on discharge are negative to date, C. difficile negative. Due to his chronically progressive multiple sclerosis his mobility is somewhat declined during his hospitalization and recommended inpatient rehab on discharge. He is now medically stable for discharge to [facility] for inpatient rehabilitation. No change to his outpatient medication regimen on discharge. Pending Studies at Discharge: Yes Stand-Alone Forms: My [facility] Skilled Items Patient informed of condition?: Yes DNR: No Discharge Level of Care: Acute rehab Communicable Disease: No Discharge Prognosis: Stable Lines: None Urinary Catheter: No Medications and DC Order Prescriptions: Continued Ocrevus 30 mg/mL solution 600 mg IV Q6MO Qty: 20 RF: 1 baclofen 20 mg tablet 20 mg PO QID Qty: 360 RF: 1 oxybutynin chloride 5 mg tablet 5 mg PO BID PRN (Reason: bladder spasms) Qty: 20 RF: 1 multivitamin Tablet 1 tab PO QAM RF: 0 psyllium Powder 3 tbsp PO QAM RF: 0 Align 4 mg Capsule 4 mg PO QAM RF: 0 omega [id number] oil [Fish Oil] 1,000 mg (120 mg-180 mg) Capsule 1,000 mg PO QAM RF: 0 cholecalciferol (vitamin D3) [Vitamin D3] 5,000 unit Tablet 5,000 units PO Q2D RF: 0 docusate sodium [Colace] 100 mg capsule 100 mg PO BID Qty: 60 RF: 0 escitalopram oxalate [Lexapro] 20 mg tablet 20 mg PO QAM RF: 0 naltrexone 50 mg tablet 4.5 mg PO HS RF: 0 tamsulosin 0.4 mg capsule 0.4 mg PO HS RF: 0 No Action acetaminophen 325 mg capsule 650 mg PO Q4H PRNRF: 0 enoxaparin 40 mg/0.4 mL syringe 40 mg subcut DAILY RF: 0 Discharge Orders: Discharge Order (Routine); Ordered 09/04/20 Ordered By: Alexandre Hare Admission Data Admit Date/Time: 08/31/20 02:14 Attending Provider: Alexandre Hare Admit Provider: Alexandre Hare Primary Care Provider: Kt Ledesma Other Providers: Derek Valenzuela Other Interventions: Discharge Summary Assessment (RN) Last Done: 09/04/20 10:46 Coding Level of Care Code D/C DAY MANAGEMENT >30 MINS Diagnoses Bladder spasms N32.89 UTI (urinary tract infection) N39.0; R31.9 Hematuria presence: with hematuria Urinary tract infection type: site unspecified Anxiety and depression F41.9; F32.9 Multiple sclerosis G35 Diarrhea R19.7
== END 2020-09-04 11:51 ==
LOC: 3E 18:47 → ED 18:47 → SUATTDRO 08-31 02:14 → 3E 08-31 08:58
DX: G35 Multiple sclerosis; Z91.018 Allergy to other foods; Z87.440 Personal history of urinary (tract) infections; Z20.822 Contact with and (suspected) exposure to COVID-19; Z99.3 Dependence on wheelchair; E55.9 Vitamin D deficiency, unspecified; Z90.79 Acquired absence of other genital organ(s); R39.89 Other symptoms and signs involving the genitourinary system; R19.7 Diarrhea, unspecified; Z79.899 Other long term (current) drug therapy; N32.89 Other specified disorders of bladder

== ENCOUNTER 2020-11-15 09:53 | Inpatient (IN) ==
[2020-11-15 10:42] LABS: Basophils # (auto) 0.03 K/uL (0-0.2); Basophils % (auto) 0.2 %; Eosinophils # (auto) 0.06 K/uL (0-0.5); Eosinophils % (auto) 0.3 %; Hematocrit (blood only) 42.2 % (42-52); Hemoglobin 14.2 g/dL (14.0-18.0); Immature Granulocytes # (auto) 0.06 K/uL (0.00-0.02); Immature Granulocytes % (auto) 0.3 %; Lymphocytes # (auto) 1.19 K/uL (1.2-3.4); Lymphocytes % (auto) 6.1 %; Mean Corpuscular Hemoglobin 30.1 pg (25-34); Mean Corpuscular Hgb Conc 33.6 g/dL (32-36); Mean Corpuscular Volume 89.6 fL (80-100); Mean Platelet Volume 10.1 fL (7.4-10.4); Monocytes # (auto) 1.42 K/uL (0.11-0.59); Monocytes % (auto) 7.3 %; Neutrophils % (auto) 85.8 %; Platelet Count 356 K/uL (130-400); RDW Coefficient of Variation 14.3 % (11.5-14.5); RDW Standard Deviation 46.8 fL (36.4-46.3); Red Blood Count 4.71 M/uL (4.7-6.1); White Blood Count 19.46 K/uL (4.8-10.8)
[2020-11-15 10:58] LABS: Partial Thromboplastin Ratio 1.1; Partial Thromboplastin Time 29.1 Seconds (21.0-31.0); Prothrombin Time 10.3 Seconds (9.0-12.0)
--- NOTE | 2020-11-15 11:31 | XRay Report ---
XR chest 1V portable CLINICAL HISTORY: SEPSIS COMPARISON STUDY: August 03, 2020 FINDINGS: No pneumothorax. No pleural effusion. Lung volumes are decreased with crowded lung markings. Redemonstration of diffuse reticular opacities and peribronchial cuffing are again seen bilaterally. Cardiomediastinal silhouette is within upper limits of normal. Vasculature is indistinct.. Osseous structures: unremarkable IMPRESSION: 1. CHF pattern, stable since prior. Low lung volumes. ACT 112: Negative or not required by law. The above report was generated using voice recognition software. It may contain grammatical, syntax o r spelling errors. Electronically signed by: Marisela Drummond DO 11/15/2020 11:30 AM
[2020-11-15 11:32] LABS: Alanine Aminotransferase 36 U/L (12-78); Albumin Level 3.2 gm/dl (3.4-5.0); Aspartate Aminotransferase 10 U/L (15-37); BUN Creatinine Ratio 11.8 (10-20); Blood Urea Nitrogen 10 mg/dl (7-18); Calcium 9.5 mg/dl (8.5-10.1); Carbon Dioxide 25 mmol/L (21-32); Chloride 103 mmol/L (98-107); Creatinine Clr Calc Pharmacy 129.2 ml/min; Est GFR (African American) 117.6 ml/min; Est GFR (Non-African American) 101.5 ml/min; Glucose 148 mg/dl (70-99); Magnesium 2.2 mg/dl (1.8-2.4); Potassium 4.1 mmol/L (3.5-5.1); Sodium 136 mmol/L (136-145)
[2020-11-15 11:37] LABS: Albumin Globulin Ratio 0.8 (0.9-2); Alkaline Phosphatase 98 U/L (45-117); Bilirubin,Total 0.6 mg/dl (0.2-1); Globulin 3.9 gm/dl (2.5-4.0); Total Protein 7.1 gm/dl (6.4-8.2); Troponin I < 0.015 ng/ml (0-0.045)
--- NOTE | 2020-11-15 11:56 | Ultrasound Report ---
TESTICULAR ULTRASOUND HISTORY: erythema and warmth over scrotum ro cellulitis/abs COMPARISON: None. FINDINGS: Right testis: Is measuring 3.9 x 2.5 x 3.0 cm in size. Mild diffuse prominence of the blood flow is s een within the right testicle. No definite focal testicular lesions are seen. Small complex hydrocele is demonstrated. Right epididymis is heterogeneous and show diffuse increase in blood flow. Left testis: 5.0 x 2.0 x 2.7 cm in size. There are no intratesticular masses. Normal color flow. No h ydrocele. Visualized portion of the left epididymis appear normal. IMPRESSION: Asymmetrical increase in blood flow within the right testicle and epididymis as well as small complex hydrocele could represent inflammatory process such is epididymoorchitis. Short-term follow-up is pe r clinical protocol. ACT 112: Negative or not required by law. The above report was generated using voice recognition software. It may contain grammatical, syntax o r spelling errors. Electronically signed by: Marisela Drummond DO 11/15/2020 11:54 AM
--- NOTE | 2020-11-15 12:21 | Emergency Department Note ---
History of Present Illness General Chief complaint: Illness Stated complaint: FEVER Time Seen by Provider: 11/15/20 10:06 History of Present Illness Provider complaint: Cough scrotal swelling fever Onset (ago): day(s) 2 Location: chest and genitals Radiation: non-radiation Severity: moderate Associated symptoms: + cough, + fever/chills ([id number]), + nausea/vomiting and + rash; no chest pain, no headaches or no shortness of breath 55-year-old male with history of MS on ocrevus immunosuppressant infusion presents emergency department with scrotal redness, cough and fever. at bedside is providing history. states that she noticed that the patient's been having increasing erythema over his scrotum yesterday. She states he is incontinent of urine and is not sure if the patient might have irritated skin from his diaper. She also reports yesterday the patient started aspirating on a cookie and has been coughing a lot. She reports a T-max of 99 degrees yesterday. Patient has been coughing more. Home Medications Medication Instructions Recorded Confirmed Type multivitamin 1 tab PO QAM 01/27/18 11/15/20 History omega 8-zer-epv-fish oil 1,000 mg 1,000 mg PO QAM 01/27/18 11/15/20 History (120 mg-180 mg) capsule (Fish Oil) psyllium 3 tbsp PO QAM 01/27/18 11/15/20 History cholecalciferol (vitamin D3) 125 5,000 units PO Q2D 03/21/18 11/15/20 History mcg (5,000 unit) tablet (Vitamin D3) baclofen 20 mg tablet 20 mg PO QID #360 tab 07/13/20 11/15/20 Rx escitalopram oxalate 20 mg tablet 20 mg PO QAM 07/31/20 11/15/20 History (Lexapro) oxybutynin chloride 5 mg tablet 5 mg PO BID PRN #20 tab 08/27/20 11/15/20 Rx acetaminophen 325 mg capsule 650 mg PO Q4H PRN cap 09/18/20 11/15/20 History phenazopyridine 100 mg tablet 100 mg PO TID 09/21/20 11/15/20 History (Pyridium) tamsulosin 0.4 mg capsule 0.4 mg PO HS #30 cap 10/22/20 11/15/20 Rx naltrexone 50 mg tablet 4.5 mg PO DAILY 11/15/20 11/15/20 History Allergies Allergy/AdvReac Type Severity Reaction Status Date / Time green pepper Allergy Unknown Unknown Verified 09/22/20 12:17 potato Allergy Unknown Unknown Verified 09/22/20 12:17 tomato Allergy Unknown Unknown Verified 09/22/20 12:17 No Known Drug Allergies Allergy NONE Verified 09/22/20 12:17 Past Med/Surg History Medical History Anxiety and depression Multiple sclerosis WHEELCHAIR BOUND. DX'D 2007-F/U DR GALVEZ. Per last OV 07/01/20, "advanced multiple sclerosis condition radiographically stable on Ocrevus" OCD (obsessive compulsive disorder) Spastic gait Vitamin D deficiency hx Surgical History History of colonoscopy History of transurethral resection of prostate Family History Father Crohn's disease Colorectal cancer PT DENIES Mother Crohn's disease Colorectal cancer Other No significant family history Social History Smoking Status: Never smoker Second Hand Exposure: No; Hx Alcohol Use: Yes Alcohol type: beer Hx Substance Use: No Preferred Language: Jordanian Communication Ability: Effective Scholarship Counselor Required: No Beliefs That Will Affect Care: None marital status: Current Living Situation: Spouse current occupational status: disabled Feels Safe at Home: Yes Physical Activity Frequency Comment: WHEELCHAIR BOUND Assistive Devices: Wheelchair Review of Systems A total of 10 systems reviewed and were otherwise negative Physical Exam Vital Signs Vital Signs - 24 hr 11/15/20 09:55 11/15/20 09:58 11/15/20 11:37 Temperature 36.8 C Temperature Source Oral Pulse Rate 105 H 101 H 109 H Pulse Rate from SpO2 Sensor 101 H 109 H Pulse Rhythm Regular Pulse Strength Normal Respiratory Rate 20 27 H 22 Respiratory Effort / Characteristics Non-Labored Spontaneous Respiratory Depth Normal Respiratory Pattern Regular Blood Pressure 176/109 H 176/109 H 176/116 H Blood Pressure Mean 131 131 136 Blood Pressure Position Lying Pulse Oximetry 95 95 94 Oxygen Delivery Method Room Air Sepsis Recent Fever Within 48 Hours Yes Sepsis New/Unexplained Change in Mental Status No Sepsis Action Taken by Nursing No Action Required 11/15/20 12:00 11/15/20 12:30 11/15/20 13:00 Temperature Temperature Source Pulse Rate 116 H 108 H 108 H Pulse Rate from SpO2 Sensor 107 H 108 H 110 H Pulse Rhythm Pulse Strength Respiratory Rate 35 H 38 H 33 H Respiratory Effort / Characteristics Respiratory Depth Respiratory Pattern Blood Pressure 170/124 H 185/113 H 164/109 H Blood Pressure Mean 139 137 127 Blood Pressure Position Pulse Oximetry 93 94 95 Oxygen Delivery Method Sepsis Recent Fever Within 48 Hours Sepsis New/Unexplained Change in Mental Status Sepsis Action Taken by Nursing 11/15/20 13:30 11/15/20 14:00 Temperature Temperature Source Pulse Rate 112 H 110 H Pulse Rate from SpO2 Sensor 111 H 110 H Pulse Rhythm Pulse Strength Respiratory Rate 30 H 39 H Respiratory Effort / Characteristics Respiratory Depth Respiratory Pattern Blood Pressure 174/104 H 166/105 H Blood Pressure Mean 127 125 Blood Pressure Position Pulse Oximetry 94 93 Oxygen Delivery Method Sepsis Recent Fever Within 48 Hours Sepsis New/Unexplained Change in Mental Status Sepsis Action Taken by Nursing Physical Exam GENERAL: He is oriented to person, place, and time. He appears well-developed and well-nourished. He does not appear distressed. HENT: Exam performed. - Head: Normocephalic and atraumatic. - Right Ear: External ear normal. No mastoid tenderness. - Left Ear: External ear normal. No mastoid tenderness. - Mouth/Throat: The oropharynx is clear and moist. No trismus in the jaw. No dental abscesses or uvula swelling. No oropharyngeal exudate or tonsillar abscesses. EYES: Conjunctivae and EOM are normal. Pupils are equal, round, and reactive to light. Right eye exhibits no discharge. Left eye exhibits no discharge. No scleral icterus. NECK: Normal range of motion. Neck supple. No JVD present. No spinous process tenderness present. No carotid bruit present. No rigidity. No tracheal deviation and normal range of motion present. No Brudzinski's sign and no Kernig's sign noted. CV: Tachycardic rate, regular rhythm, normal heart sounds and intact distal pulses. There is no peripheral edema. Palpable radial pulses bue. PULM/CHEST: Rhonchi bilaterally. ABD: The abdomen is soft. Bowel sounds are normal. He has no distension. No mass is present. There is no tenderness. There is no rebound, no guarding, no Milian's sign and no tenderness at McBurney's point. Rovsig negative. : Erythema and swelling over the scrotum. MUSC/SKEL: Normal range of motion. There is no peripheral edema, tenderness or deformity. LYMPH: No cervical adenopathy. NEURO: He is alert and oriented to person, place, and time. He has normal strength. No cranial nerve deficit or sensory deficit. Coordination and gait normal. GCS eye subscore is 4. GCS verbal subscore is 5. GCS motor subscore is 6. Cerebellar tests wnl. SKIN: Skin is warm and dry. He is not diaphoretic. PSYCH: He has a normal mood and affect. Behavior is normal. Judgment and thought content normal. Course Course 1006: The patient was evaluated in room B7. A complete history and physical exam was performed Cardiac monitoring: An order was placed for continuous cardiac monitoring. The monitor shows a rate of 100 with sinus tachycardia rhythm 1230: Vital signs stable. Labs show a leukocytosis of 19.46. Lactic acid within normal limits. Ultrasound shows no evidence of abscess does show possible Epididymoorchitis. Chest x-ray shows no definitive infiltrate. On reexam the patient is tachycardic and we will states his lungs with rhonchi bilaterally. Patient will be treated with broad-spectrum antibiotics Vanco for any sort of superficial scrotal skin infection as well as Zosyn for any sort of aspiration pneumonia, UTI, and to help cover against any cellulitis. Patient will be admitted to the [facility] Hospitalist team Dr. Hare team notified. Administered Medications Ondansetron HCl (Ondansetron Inj 2 Mg/Ml 2 Ml Vial) 4 mg IV Q6H PRN PRN Reason: Nausea And Vomiting Stop: 12/15/20 15:31 Last Admin: 11/15/20 15:53 Dose: 4 mg Documented by: [id number] Discontinued Medications Piperacillin Sod/Tazobactam Sod (Zosyn) 4.5 gm in 120 mls @ 240 mls/hr IV NOW ONE Stop: 11/15/20 12:57 Last Infusion: 11/15/20 13:41 Dose: 0 mls/hr Documented by: [id number] Admin: 11/15/20 12:52 Dose: 240 mls/hr Documented by: [id number] Vancomycin HCl 2,250 mg/ (Sodium Chloride) 545 mls @ 200 mls/hr IV NOW ONE Stop: 11/15/20 15:11 Last Infusion: 11/15/20 15:43 Dose: 0 mls/hr Documented by: [id number] Admin: 11/15/20 12:52 Dose: 200 mls/hr Documented by: [id number] Medical Decision Making Laboratory Data Result diagrams: 11/15/20 10:31 11/15/20 10:31 Lab Results 11/15/20 11/15/20 11/15/20 Range/Units 10:31 10:31 10:31 WBC 19.46 H (4.8-10.8) K/uL RBC 4.71 (4.7-6.1) M/uL Hgb 14.2 (14.0-18.0) g/dL Hct 42.2 (42-52) % MCV 89.6 (80-100) fL MCH 30.1 (25-34) pg MCHC 33.6 (32-36) g/dL RDW Std Deviation 46.8 H (36.4-46.3) fL RDW Coeff of Bridget 14.3 (11.5-14.5) % Plt Count 356 (130-400) K/uL MPV 10.1 (7.4-10.4) fL Immature Gran % (Auto) 0.3 % Neut % (Auto) 85.8 % Lymph % (Auto) 6.1 % [place] % (Auto) 7.3 % Eos % (Auto) 0.3 % Baso % (Auto) 0.2 % Neut # (Auto) 16.70 H (1.4-6.5) K/uL Lymph # (Auto) 1.19 L (1.2-3.4) K/uL [place] # (Auto) 1.42 H (0.11-0.59) K/uL Eos # (Auto) 0.06 (0-0.5) K/uL Baso # (Auto) 0.03 (0-0.2) K/uL Immature Gran # (Auto) 0.06 H (0.00-0.02) K/uL PT (9.0-12.0) Seconds INR (0.9-1.1) APTT (21.0-31.0) Seconds PTT Ratio Sodium 136 (136-145) mmol/L Potassium 4.1 (3.5-5.1) mmol/L Chloride 103 (98-107) mmol/L Carbon Dioxide 25 (21-32) mmol/L Anion Gap 9.0 (3-11) BUN 10 (7-18) mg/dl Creatinine 0.81 (0.6-1.4) mg/dl Est Cr Clr Drug Dosing 129.2 ml/min Est GFR ( Amer) 117.6 ml/min Est GFR (Non-Af Amer) 101.5 ml/min BUN/Creatinine Ratio 11.8 (10-20) Glucose 148 H (70-99) mg/dl Lactate (0.4-2.0) mmol/L Calcium 9.5 (8.5-10.1) mg/dl Magnesium 2.2 (1.8-2.4) mg/dl Total Bilirubin 0.6 (0.2-1) mg/dl AST 10 L (15-37) U/L ALT 36 (12-78) U/L Alkaline Phosphatase 98 (45-117) U/L Troponin I < 0.015 (0-0.045) ng/ml Total Protein 7.1 (6.4-8.2) gm/dl Albumin 3.2 L (3.4-5.0) gm/dl Globulin 3.9 (2.5-4.0) gm/dl Albumin/Globulin Ratio 0.8 L (0.9-2) Procalcitonin 0.07 (0-0.5) ng/ml Urine Color Urine Appearance (Clear) Urine pH (4.5-7.5) Ur Specific [place] (1.000-1.030) Urine Protein (Negative) Urine Glucose (UA) (Negative) Urine Ketones (Negative) Urine Blood (Negative) Urine Nitrite (Negative) Urine Bilirubin (Negative) Urine Urobilinogen (Negative) Ur Leukocyte Esterase (Negative) Urine WBC (Auto) (0-5) /hpf Urine RBC (Auto) (0-4) /hpf U Hyaline Cast (Auto) (0-5) /lpf U Epithel Cells (Auto) (0-5) /lpf Urine Bacteria (Auto) (Negative) Urine Mucus (None Prsent) COVID-19 Eval Order SARS-CoV-2 (PCR) (Negative) 11/15/20 11/15/20 11/15/20 Range/Units 10:31 10:32 10:40 WBC (4.8-10.8) K/uL RBC (4.7-6.1) M/uL Hgb (14.0-18.0) g/dL Hct (42-52) % MCV (80-100) fL MCH (25-34) pg MCHC (32-36) g/dL RDW Std Deviation (36.4-46.3) fL RDW Coeff of Bridget (11.5-14.5) % Plt Count (130-400) K/uL MPV (7.4-10.4) fL Immature Gran % (Auto) % Neut % (Auto) % Lymph % (Auto) % [place] % (Auto) % Eos % (Auto) % Baso % (Auto) % Neut # (Auto) (1.4-6.5) K/uL Lymph # (Auto) (1.2-3.4) K/uL [place] # (Auto) (0.11-0.59) K/uL Eos # (Auto) (0-0.5) K/uL Baso # (Auto) (0-0.2) K/uL Immature Gran # (Auto) (0.00-0.02) K/uL PT 10.3 (9.0-12.0) Seconds INR 1.0 (0.9-1.1) APTT 29.1 (21.0-31.0) Seconds PTT Ratio 1.1 Sodium (136-145) mmol/L Potassium (3.5-5.1) mmol/L Chloride (98-107) mmol/L Carbon Dioxide (21-32) mmol/L Anion Gap (3-11) BUN (7-18) mg/dl Creatinine (0.6-1.4) mg/dl Est Cr Clr Drug Dosing ml/min Est GFR ( Amer) ml/min Est GFR (Non-Af Amer) ml/min BUN/Creatinine Ratio (10-20) Glucose (70-99) mg/dl Lactate 1.9 (0.4-2.0) mmol/L Calcium (8.5-10.1) mg/dl Magnesium (1.8-2.4) mg/dl Total Bilirubin (0.2-1) mg/dl AST (15-37) U/L ALT (12-78) U/L Alkaline Phosphatase (45-117) U/L Troponin I (0-0.045) ng/ml Total Protein (6.4-8.2) gm/dl Albumin (3.4-5.0) gm/dl Globulin (2.5-4.0) gm/dl Albumin/Globulin Ratio (0.9-2) Procalcitonin (0-0.5) ng/ml Urine Color Urine Appearance (Clear) Urine pH (4.5-7.5) Ur Specific [place] (1.000-1.030) Urine Protein (Negative) Urine Glucose (UA) (Negative) Urine Ketones (Negative) Urine Blood (Negative) Urine Nitrite (Negative) Urine Bilirubin (Negative) Urine Urobilinogen (Negative) Ur Leukocyte Esterase (Negative) Urine WBC (Auto) (0-5) /hpf Urine RBC (Auto) (0-4) /hpf U Hyaline Cast (Auto) (0-5) /lpf U Epithel Cells (Auto) (0-5) /lpf Urine Bacteria (Auto) (Negative) Urine Mucus (None Prsent) COVID-19 Eval Order Covid19 at [facility] SARS-CoV-2 (PCR) (Negative) 11/15/20 11/15/20 Range/Units 10:40 12:13 WBC (4.8-10.8) K/uL RBC (4.7-6.1) M/uL Hgb (14.0-18.0) g/dL Hct (42-52) % MCV (80-100) fL MCH (25-34) pg MCHC (32-36) g/dL RDW Std Deviation (36.4-46.3) fL RDW Coeff of Bridget (11.5-14.5) % Plt Count (130-400) K/uL MPV (7.4-10.4) fL Immature Gran % (Auto) % Neut % (Auto) % Lymph % (Auto) % [place] % (Auto) % Eos % (Auto) % Baso % (Auto) % Neut # (Auto) (1.4-6.5) K/uL Lymph # (Auto) (1.2-3.4) K/uL [place] # (Auto) (0.11-0.59) K/uL Eos # (Auto) (0-0.5) K/uL Baso # (Auto) (0-0.2) K/uL Immature Gran # (Auto) (0.00-0.02) K/uL PT (9.0-12.0) Seconds INR (0.9-1.1) APTT (21.0-31.0) Seconds PTT Ratio Sodium (136-145) mmol/L Potassium (3.5-5.1) mmol/L Chloride (98-107) mmol/L Carbon Dioxide (21-32) mmol/L Anion Gap (3-11) BUN (7-18) mg/dl Creatinine (0.6-1.4) mg/dl Est Cr Clr Drug Dosing ml/min Est GFR ( Amer) ml/min Est GFR (Non-Af Amer) ml/min BUN/Creatinine Ratio (10-20) Glucose (70-99) mg/dl Lactate (0.4-2.0) mmol/L Calcium (8.5-10.1) mg/dl Magnesium (1.8-2.4) mg/dl Total Bilirubin (0.2-1) mg/dl AST (15-37) U/L ALT (12-78) U/L Alkaline Phosphatase (45-117) U/L Troponin I (0-0.045) ng/ml Total Protein (6.4-8.2) gm/dl Albumin (3.4-5.0) gm/dl Globulin (2.5-4.0) gm/dl Albumin/Globulin Ratio (0.9-2) Procalcitonin (0-0.5) ng/ml Urine Color Yellow Urine Appearance Clear (Clear) Urine pH 6.0 (4.5-7.5) Ur Specific [place] 1.022 (1.000-1.030) Urine Protein Negative (Negative) Urine Glucose (UA) Negative (Negative) Urine Ketones Negative (Negative) Urine Blood Trace H (Negative) Urine Nitrite Negative (Negative) Urine Bilirubin Negative (Negative) Urine Urobilinogen Negative (Negative) Ur Leukocyte Esterase 2+ H (Negative) Urine WBC (Auto) >30 H (0-5) /hpf Urine RBC (Auto) 5-10 H (0-4) /hpf U Hyaline Cast (Auto) 1-5 (0-5) /lpf U Epithel Cells (Auto) 0-5 (0-5) /lpf Urine Bacteria (Auto) 1+ H (Negative) Urine Mucus Present A (None Prsent) COVID-19 Eval Order SARS-CoV-2 (PCR) NEGATIVE (Negative) Imaging Data Radiologist's Impression: Chest X-Ray 11/15/20 10:19 XR chest 1V portable CLINICAL HISTORY: SEPSIS COMPARISON STUDY: August 03, 2020 FINDINGS: No pneumothorax. No pleural effusion. Lung volumes are decreased with crowded lung markings. Redemonstration of diffuse reticular opacities and peribronchial cuffing are again seen bilaterally. Cardiomediastinal silhouette is within upper limits of normal. Vasculature is indistinct.. Osseous structures: unremarkable IMPRESSION: 1. CHF pattern, stable since prior. Low lung volumes. ACT 112: Negative or not required by law. The above report was generated using voice recognition software. It may contain grammatical, syntax or spelling errors. Electronically signed by: Marisela Drummond DO 11/15/2020 11:30 AM Scrotum Ultrasound 11/15/20 10:20 TESTICULAR ULTRASOUND HISTORY: erythema and warmth over scrotum ro cellulitis/abs COMPARISON: None. FINDINGS: Right testis: Is measuring 3.9 x 2.5 x 3.0 cm in size. Mild diffuse prominence of the blood flow is seen within the right testicle. No definite focal testicular lesions are seen. Small complex hydrocele is demonstrated. Right epididymis is heterogeneous and show diffuse increase in blood flow. Left testis: 5.0 x 2.0 x 2.7 cm in size. There are no intratesticular masses. Normal color flow. No hydrocele. Visualized portion of the left epididymis appear normal. IMPRESSION: Asymmetrical increase in blood flow within the right testicle and epididymis as well as small complex hydrocele could represent inflammatory process such is epididymoorchitis. Short-term follow-up is per clinical protocol. ACT 112: Negative or not required by law. The above report was generated using voice recognition software. It may contain grammatical, syntax or spelling errors. Electronically signed by: Marisela Drummond DO 11/15/2020 11:54 AM ECG Data Indication: + SOB/dyspnea Rate (beats per minute): 100 Rhythm: + normal sinus ECG Intervals/blocks: + Normal QRS, + Normal ME and + Normal QT-c ECG ST segments: + Normal ST segments MDM Narrative Vital signs stable. Labs show a leukocytosis of 19.46. Lactic acid within normal limits. Ultrasound shows no evidence of abscess does show possible Epididymoorchitis. Chest x-ray shows no definitive infiltrate. On reexam the patient is tachycardic and we will states his lungs with rhonchi bilaterally. Patient will be treated with broad-spectrum antibiotics Vanco for any sort of superficial scrotal skin infection as well as Zosyn for any sort of aspiration pneumonia, UTI, and to help cover against any cellulitis. Patient will be admitted to the [facility] hospitalist team Dr. Hare team notified. Impression & Plan Epididymo-orchitis, acute, Acute UTI, Cellulitis Discharge Plan Visit Data Chief Complaint: Illness Stated Complaint: FEVER Discharge Problem: Epididymo-orchitis, acute, Acute UTI, Cellulitis Patient Disposition: Admitted As Inpatient Discharge Instructions Interventions: ED Discharge Assessment Last Done: 11/15/20 14:41
[2020-11-15] MEDS ORDERED: PIPERACILLIN/TAZOBACTAM 4.5 GM/120 ML BAG IV ONE (12:28)
[2020-11-15] MEDS ORDERED: VANCOMYCIN CONSULT ACTIVE PRN ×2 (12:28→15:17)
[2020-11-15] MEDS ORDERED: VANCOMYCIN HCL 2,250 MG in SODIUM CHLORIDE 0.9% 500 ML IV ONE (12:28)
[2020-11-15 12:29] LABS: Appearance Urine Clear (Clear); Bilirubin Urine Negative (Negative); Blood Urine Trace (Negative); Color Urine Yellow; Epithelial Cell Urine Auto 0-5 /lpf (0-5); Glucose Urine UA Negative (Negative); Ketones Urine Negative (Negative); Leukocyte Esterase Urine 2+ (Negative); Nitrite Urine Negative (Negative); Protein Urine Negative (Negative); Specific Gravity Urine 1.022 (1.000-1.030); Urobilinogen Urine Negative (Negative); WBC Urine Automated >30 /hpf (0-5)
[2020-11-15 12:42] LABS: Bacteria Urine Automated 1+ (Negative); Mucus Urine Present (None Prsent)
--- NOTE | 2020-11-15 14:04 | History & Physical Report ---
Date of Service November 15, 2020 Assessment & Plan (1) Epididymo-orchitis, acute: Plan: Attending: Dr. Hare Impression: Is a 55-year-old male with a history of MS who is primarily wheelchair-bound at home with a power wheelchair. He presents with edematous, erythematous scrotum with enlarged right testicle. He recently underwent TURP with Dr. Valenzuela. Low-grade fever with a T-max of 99 F at home. No sweats, chills, rigors. At this time we will begin antibiotic treatment with Zosyn as well as vancomycin Check a procalcitonin and panculture Follow serial labs No evidence of scrotal injury or open wound Urology consulted. Appreciate Dr. Valenzuela input May help to elevate scrotum with a rolled up washcloth. Avoid opiates and narcotics for pain as patient is on naltrexone at home Supportive care (2) Multiple sclerosis: Plan: Chronic Patient has a power wheelchair at home Primarily wheelchair and bed bound Outpatient follow-up (3) Vitamin D deficiency: Plan: Continue cholecalciferol Outpatient management (4) Spasticity: Plan: Continue baclofen Avoid opiates and narcotics for pain as patient is on naltrexone at home (5) OCD (obsessive compulsive disorder): Plan: Continue escitalopram (6) Anxiety and depression: Plan: Continue escitalopram (7) Incontinence: Plan: This is a chronic issue Continue to maintain dry skin as much as possible Avoid Mayen catheter unless directed by Dr. Valenzuela from urology (8) History of prostate surgery: Plan: Recent TURP with Dr. 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 Valenzuela of urology (9) DVT prophylaxis: Plan: Heparin 5000 units subcutaneously every 12 hours (10) Sepsis: (11) Aspiration of food: (12) Acute respiratory failure with hypoxia: (13) Encephalopathy acute: History of Present Illness Chief Complaint: Scrotal erythema and swelling Primary Care Provider: Kt Ledesma Attending: Dr. Hare Is a 55-year-old male with a past medical history including his mul tiple neurosis, aspiration, UTI, recent TURP, vitamin D deficiency, OCD, anxiety and depression, chronic urinary incontinence, anxiety/depression. The patient presents to the emergency department with erythema and swelling of the scrotal region and right testicle. His states that this was first noticed yesterday. It seems to be progressive today. Patient has no pain with urination and no evidence of hematuria. He is incontinent of urine. He recently had TURP performed by Dr. Valenzuela. The patient denies any hematuria. It is tender to palpation. No trauma or injury reported. T-max at home was 99 F. Patient has had no diarrhea. No abdominal pain. He does have aspiration secondary to his multiple sclerosis and notes aspiration as of yesterday it was witnessed. Patient has chronic urinary incontinence. The patient is negative for COVID-19. He reports he has had both vaccinations of [facility]. He has no symptoms associated with COVID-19. Allergies Allergy/AdvReac Type Severity Reaction Status Date / Time green pepper Allergy Unknown Unknown Verified 09/22/20 12:17 potato Allergy Unknown Unknown Verified 09/22/20 12:17 tomato Allergy Unknown Unknown Verified 09/22/20 12:17 No Known Drug Allergies Allergy NONE Verified 09/22/20 12:17 Home Medications Medication Instructions Recorded Confirmed Type multivitamin 1 tab PO QAM 01/27/18 11/15/20 History omega 6-yuq-tdr-fish oil 1,000 mg 1,000 mg PO QAM 01/27/18 11/15/20 History (120 mg-180 mg) capsule (Fish Oil) psyllium 3 tbsp PO QAM 01/27/18 11/15/20 History cholecalciferol (vitamin D3) 125 5,000 units PO Q2D 03/21/18 11/15/20 History mcg (5,000 unit) tablet (Vitamin D3) baclofen 20 mg tablet 20 mg PO QID #360 tab 07/13/20 11/15/20 Rx escitalopram oxalate 20 mg tablet 20 mg PO QAM 07/31/20 11/15/20 History (Lexapro) oxybutynin chloride 5 mg tablet 5 mg PO BID PRN #20 tab 08/27/20 11/15/20 Rx acetaminophen 325 mg capsule 650 mg PO Q4H PRN cap 09/18/20 11/15/20 History phenazopyridine 100 mg tablet 100 mg PO TID 09/21/20 11/15/20 History (Pyridium) tamsulosin 0.4 mg capsule 0.4 mg PO HS #30 cap 10/22/20 11/15/20 Rx naltrexone 50 mg tablet 4.5 mg PO DAILY 11/15/20 11/15/20 History Past Med/Surg History Medical History Anxiety and depression Multiple sclerosis WHEELCHAIR BOUND. DX'D 2007-F/U DR GALVEZ. Per last OV 07/01/20, "advanced multiple sclerosis condition radiographically stable on Ocrevus" OCD (obsessive compulsive disorder) Spastic gait Vitamin D deficiency hx Surgical History History of colonoscopy History of transurethral resection of prostate Family History Father Crohn's disease Colorectal cancer PT DENIES Mother Crohn's disease Colorectal cancer Other No significant family history Social History Smoking Status: Never smoker Second Hand Exposure: No; Hx Alcohol Use: Yes Alcohol type: beer Hx Substance Use: No Preferred Language: Faroese Communication Ability: Effective Line Mechanic Required: No Beliefs That Will Affect Care: None marital status: Current Living Situation: Spouse current occupational status: disabled Feels Safe at Home: Yes Physical Activity Frequency Comment: WHEELCHAIR BOUND Assistive Devices: Oxygen - Continuous and Wheelchair Review of Systems Review of Systems: All systems reviewed & are unremarkable except as noted in Subjective Physical Exam Physical Exam: GENERAL : No acute distress. Patient appears ill EYES: No icterus, gaze conjugate. Pupils equal round and reactive to light NOSE: No evidence of epistaxis MOUTH: No lesions or candidiasis. Mucosa moist NECK: Supple LUNGS: Crackles at bilateral bases. Good inspirational effort. HEART: Regular, tachycardic at 105 bpm ABDOMEN: Soft, NT, ND, BS Present : Scrotal edema with tender testicles, right larger than left. Scrotum appears erythematous and edematous. No apparent open lesions or wounds. EXTREMITIES: No LE edema, pedal pulses intact and equal bilaterally NEURO: A&OX3. Profound weakness. This is secondary to MS. Results & Data Results & Data ([facility]) Vital Signs (Past 12 Hours) Vital Signs Temp Pulse Resp BP Pulse Ox 11/15/20 09:55 36.8 C 105 H 20 176/109 H 95 Laboratory Results 11/15/20 10:31 11/15/20 10:31 Diagnostic Findings Chest X-Ray 11/15/20 10:19 XR chest 1V portable CLINICAL HISTORY: SEPSIS COMPARISON STUDY: August 03, 2020 FINDINGS: No pneumothorax. No pleural effusion. Lung volumes are decreased with crowded lung markings. Redemonstration of diffuse reticular opacities and peribronchial cuffing are again seen bilaterally. Cardiomediastinal silhouette is within upper limits of normal. Vasculature is indistinct.. Osseous structures: unremarkable IMPRESSION: 1. CHF pattern, stable since prior. Low lung volumes. ACT 112: Negative or not required by law. The above report was generated using voice recognition software. It may contain grammatical, syntax or spelling errors. Electronically signed by: Marisela Drummond DO 11/15/2020 11:30 AM Scrotum Ultrasound 11/15/20 10:20 TESTICULAR ULTRASOUND HISTORY: erythema and warmth over scrotum ro cellulitis/abs COMPARISON: None. FINDINGS: Right testis: Is measuring 3.9 x 2.5 x 3.0 cm in size. Mild diffuse prominence of the blood flow is seen within the right testicle. No definite focal testicular lesions are seen. Small complex hydrocele is demonstrated. Right epididymis is heterogeneous and show diffuse increase in blood flow. Left testis: 5.0 x 2.0 x 2.7 cm in size. There are no intratesticular masses. Normal color flow. No hydrocele. Visualized portion of the left epididymis appear normal. IMPRESSION: Asymmetrical increase in blood flow within the right testicle and epididymis as well as small complex hydrocele could represent inflammatory process such is epididymoorchitis. Short-term follow-up is per clinical protocol. ACT 112: Negative or not required by law. The above report was generated using voice recognition software. It may contain grammatical, syntax or spelling errors. Electronically signed by: Marisela Drummond DO 11/15/2020 11:54 AM Medications Administered Current Inpatient Medications Al Hydrox/Mg Hydrox/Simethicone (Aluminum/Magnesium Susp 30 Ml Udc) 15 ml PO Q4H PRN PRN Reason: Dyspepsia Stop: 12/15/20 15:16 Baclofen (Baclofen 20 Mg Tab) 20 mg PO QID YESENIA Stop: 12/15/20 16:59 Escitalopram Oxalate (Escitalopram Oxalate 20 Mg Tab) 20 mg PO QAM YESENIA Stop: 12/16/20 08:59 Hydralazine HCl (Hydralazine Hcl 20 Mg/Ml Vial) 5 mg IV Q8H PRN PRN Reason: Blood Pressure - High Stop: 12/15/20 15:16 Piperacillin Sod/Tazobactam (Sod 4.5 gm/ Dextrose) 120 mls @ 30 mls/hr IV Q8H YESENIA; Protocol Stop: 11/22/20 17:59 Vancomycin HCl 1,750 mg/ (Sodium Chloride) 535 mls @ 200 mls/hr IV UD YESENIA Stop: 11/22/20 15:16 Magnesium Hydroxide (Magnesium Hydroxide Susp 30 Ml Udc) 30 ml PO Q12H PRN PRN Reason: Constipation Stop: 12/15/20 15:16 Miscellaneous Information (Piperacill/Tazobac Consult Active) 1 ea N/A UD PRN PRN Reason: Consult Stop: 12/15/20 15:16 Miscellaneous Information (Vancomycin Consult Active) 1 ea N/A UD PRN PRN Reason: Consult Stop: 12/15/20 15:16 Naltrexone HCl (Naltrexone Hcl 50 Mg Tab) 4.5 mg PO DAILY YESENIA Stop: 12/16/20 08:59 Non-Formulary Medication (Acetaminophen) 650 mg PO Q4H PRN PRN Reason: Fever Or Pain Non-Formulary Medication (Cholecalciferol (Vitamin D3) [Vitamin D3]) 5,000 units PO Q2D YESENIA Stop: 12/15/20 15:16 Non-Formulary Medication (Multivitamin) 1 tab PO QAM [facility] Stop: 12/16/20 08:59 Non-Formulary Medication ([place] 0-Otp-Mmd-Fish Oil [Fish Oil]) 1,000 mg PO QAM YESENIA Stop: 12/16/20 08:59 Non-Formulary Medication (Psyllium) 3 tbs PO QAM [facility] Stop: 12/16/20 08:59 Ondansetron HCl (Ondansetron Inj 2 Mg/Ml 2 Ml Vial) 4 mg IV Q6H PRN PRN Reason: Nausea And Vomiting Stop: 12/15/20 15:31 Oxybutynin Chloride (Oxybutynin Chloride 5 Mg Tab) 5 mg PO BID PRN PRN Reason: bladder spasms Stop: 12/15/20 15:16 Phenazopyridine HCl (Phenazopyridine Hcl 100 Mg Tab) 100 mg PO TID YESENIA Stop: 12/15/20 15:16 Polyethylene Glycol (Polyethylene (Miralax) 17 Gm Pack) 17 gm PO DAILY PRN PRN Reason: Constipation Stop: 12/15/20 15:16 Tamsulosin HCl (Tamsulosin Hcl 0.4 Mg Cap) 0.4 mg PO HS YESENIA Stop: 12/15/20 20:59 Code Status & VTE Plan Code Status Level V; DNR/DNI. This was discussed with the patient as well as the patient's who is present in the room at the time of the interview. VTE Prophylaxis Plan VTE Prophylaxis will be ordered: Yes Supervising Physician Co-Signing Physician Notes I personally saw and examined the patient. I verified all kitchen points and agree with Dennis Cason PA-C with the following exceptions and/or additions: 55 yo male with multiple sclerosis presents with fever and right testicle swelling O/E - Chest - rhonchi throughout, HS tachycardic, regular, Right testicle painful on palpation and enlarged, abdo SNT A/P Sepsis - lactate/Cr normal therefore avoiding aggressive rehydration, broad spectrum antibiotics as below Right epididymoorchitis - continue broad spectrum antibiotics with vancomycin and Zosyn pending blood and urine cultures Aspiration with possible pneumonia - suspect aspiration related to acute illness, NPO, SLT, Aim O2 sats > 94% based on ABG, PNA covered with Zosyn Acute hypoxic respiratory failure - confirmed on ABG, suspect causing much of his encephalopathy, secondary to aspiration Acute metabolic/hypoxic encephalopathy - aim O2 sats > 94% as above, treat infec tion PG Care Time/CCT Total # of Minutes Spent Total Time Spent with Patient: Total time spent is greater than 50% in coordination of care (as documented) at patient's floor/unit and/or counseling p atient:60 minutes Coding Level of Care Code 67436 Initial Inpt Care Lvl 3 Medical Decision Making High Complexity Diagnoses Epididymo-orchitis, acute N45.3 Multiple sclerosis G35 Vitamin D deficiency E55.9 Spasticity R25.2 OCD (obsessive compulsive disorder) F42.9 Anxiety and depression F41.9; F32.9 Incontinence R32 History of prostate surgery Z98.890 DVT prophylaxis Z29.9 Sepsis A41.9 Aspiration of food T17.920A Encounter type: initial encounter Acute respiratory failure with hypoxia J96.01 Encephalopathy acute G93.40 Time Spent (min) 60 (1) Aspiration of food Encounter type: initial encounter Qualified Code(s): T17.920A - Food in respiratory tract, part unspecified causing asphyxiation, initial encounter
[2020-11-15] MEDS ORDERED: PIPERACILL/TAZOBAC CONSULT ACTIVE PRN (15:17)
[2020-11-15] MEDS ORDERED: POLYETHYLENE (MIRALAX) 17 GM PACK PO PRN (15:17)
[2020-11-15] MEDS ORDERED: MAGNESIUM HYDROXIDE SUSP 30 ML UDC PO PRN (15:17)
[2020-11-15] MEDS ORDERED: ALUMINUM/MAGNESIUM SUSP 30 ML UDC PO PRN (15:17)
[2020-11-15] MEDS ORDERED: hydrALAZINE HCL 20 MG/ML VIAL IV PRN (15:17)
[2020-11-15] MEDS ORDERED: OXYBUTYNIN CHLORIDE 5 MG TAB PO PRN (15:17)
[2020-11-15] MEDS ORDERED: VANCOMYCIN HCL 1,750 MG in SODIUM CHLORIDE 0.9% 500 ML IV SCH (15:17)
[2020-11-15] MEDS ORDERED: ONDANSETRON INJ 2 MG/ML 2 ML VIAL IV PRN (15:32)
--- NOTE | 2020-11-15 15:36 | Urology Consultation ---
Date of Consultation November 15, 2020 Assessment & Plan (1) Epididymo-orchitis, acute: (2) Urinary incontinence due to benign prostatic hyperplasia: 55-year-old male with history of MS and recent urologic procedure in July of this year involving Botox as well as TURP who is admitted to the medicine service for right epididymoorchitis. 1. Exam is consistent with right epididymoorchitis. No current concerns for abscess or necrotizing infection. Exam findings correlate with scrotal ultr asound. 2. Recommend placing Mayen catheter due to concern for urinary tract infection and gross incontinence on physical exam. Appropriately draining potentially infected urine will likely help resolve his orchitis. 3. Agree with continuing broad-spectrum antibiotics. Follow up cultures. 4. No urologic intervention necessary at this point. 5. We will reach out to primary team about change in mental status noted on exam via [place] text History of Present Illness Reason for Consultation: Right epididymoorchitis Attending Physician: Alexandre Hare MD History of Present Illness 55 yo M with a history of MS who is known to the urology service as he underwent botox injections and a TURP by Dr. Valenzuela on 08/20/2020. He has since dealt with irritative voiding symptoms and an MS flair that required rehab. He was treated with steroids, which improved his urinary symtpoms. He still had been having incontinence at his last visit. He discontinue ditropan and was considering stopping flomax as well. Plan was to reevaluate his symptoms at the end of this year. His noticed swelling and tenderness of his right testicle this morning. They presented to ED, where he was afebrile. Labs revealed a WBC of 19 (p revious WBC in August was also 19), and UA showed microscopic hematuria, pyuria and 1+ bacteria. Scrotal US showed increased flow to the right testicle and epididymis but no concerns for necrotizing infection or abscess. He was admitted to the hospital service and urology was consulted. When I rounded on the patient, he was fairly somnolent and did not provide verbal answers. He did respond to pain during the exam. Nursing said he had been this way since he got up to his room but that during report, she was told that he was alert and oriented in the emergency department. I was unable to get any further history from him. Allergies Allergy/AdvReac Type Severity Reaction Status Date / Time green pepper Allergy Unknown Unknown Verified 09/22/20 12:17 potato Allergy Unknown Unknown Verified 09/22/20 12:17 tomato Allergy Unknown Unknown Verified 09/22/20 12:17 No Known Drug Allergies Allergy NONE Verified 09/22/20 12:17 Home Medications Medication Instructions Recorded Confirmed Type multivitamin 1 tab PO QAM 01/27/18 11/15/20 History omega 0-sen-ghf-fish oil 1,000 mg 1,000 mg PO QAM 01/27/18 11/15/20 History (120 mg-180 mg) capsule (Fish Oil) psyllium 3 tbsp PO QAM 01/27/18 11/15/20 History cholecalciferol (vitamin D3) 125 5,000 units PO Q2D 03/21/18 11/15/20 History mcg (5,000 unit) tablet (Vitamin D3) baclofen 20 mg tablet 20 mg PO QID #360 tab 07/13/20 11/15/20 Rx escitalopram oxalate 20 mg tablet 20 mg PO QAM 07/31/20 11/15/20 History (Lexapro) oxybutynin chloride 5 mg tablet 5 mg PO BID PRN #20 tab 08/27/20 11/15/20 Rx acetaminophen 325 mg capsule 650 mg PO Q4H PRN cap 09/18/20 11/15/20 History phenazopyridine 100 mg tablet 100 mg PO TID 09/21/20 11/15/20 History (Pyridium) tamsulosin 0.4 mg capsule 0.4 mg PO HS #30 cap 10/22/20 11/15/20 Rx naltrexone 50 mg tablet 4.5 mg PO DAILY 11/15/20 11/15/20 History Patient History Medical History Anxiety and depression Multiple sclerosis WHEELCHAIR BOUND. DX'D 2007-F/U DR GALVEZ. Per last OV 07/01/20, "advanced multiple sclerosis condition radiographically stable on Ocrevus" OCD (obsessive compulsive disorder) Spastic gait Vitamin D deficiency hx Surgical History History of colonoscopy History of transurethral resection of prostate Family History Father Crohn's disease Colorectal cancer PT DENIES Mother Crohn's disease Colorectal cancer Other No significant family history Social History Smoking Status: Never smoker Second Hand Exposure: No; Hx Alcohol Use: Yes Alcohol type: beer Hx Substance Use: No Preferred Language: Italian Communication Ability: Effective Office Rn Required: No Beliefs That Will Affect Care: None marital status: Current Living Situation: Spouse current occupational status: disabled Feels Safe at Home: Yes Physical Activity Frequency Comment: WHEELCHAIR BOUND Assistive Devices: Wheelchair Review of Systems Review of Systems: Unable to perform due to mental status Physical Exam Physical Exam: General: Somnolent, only responded to exam HEENT: Normocephalic, mucous membranes moist Cardiovascular: Tachycardic Pulmonary: Nonlabored respirations Abdomen: Nondistended : Circumcised phallus with orthotopic meatus. Testicles descended bilaterally. Left testis palpably normal. Right hemiscrotum erythematous and tender to palpation. Right testicle is indurated and enlarged. There was no crepitus in the scrotum, perineum or inguinal canals. Consistent with epididymal orchitis. He was incontinent of urine during the exam. Skin: Warm, dry, no rashes noted Results & Data ([facility]) Vital Signs (Past 12 Hours) Vital Signs Temp Pulse Resp BP Pulse Ox 11/15/20 14:00 110 H 39 H 166/105 H 93 11/15/20 13:30 112 H 30 H 174/104 H 94 11/15/20 13:00 108 H 33 H 164/109 H 95 11/15/20 12:30 108 H 38 H 185/113 H 94 11/15/20 12:00 116 H 35 H 170/124 H 93 11/15/20 11:37 109 H 22 176/116 H 94 11/15/20 09:58 101 H 27 H 176/109 H 95 11/15/20 09:55 36.8 C 105 H 20 176/109 H 95 PG Care Time/CCT Total # of Minutes Spent Total Time Spent with Patient: Total time spent is greater than 50% in coordination of care (as documented) at patient's floor/unit and/or counseling patient: Coding [place] [address] Inpt Consult Level 5 Patient Type Established History Problem Focused Exam Detailed Medical Decision Making Moderate Complexity Diagnoses Epididymo-orchitis, acute N45.3 Urinary incontinence due to benign prostatic hyperplasia N40.1; N39.498
[2020-11-15] MEDS ORDERED: ACETAMINOPHEN 325 MG TAB PO PRN (15:55)
--- NOTE | 2020-11-15 16:14 | Pharmacy Report ---
Pharmacy Vanc AUC Short Note - Date of Service November 15, 2020 - Assessment & Plan Assessment 55 year old M receiving IV Vancomycin and Zosyn for treatment of epididymo- orchitis. Day # 1 of antimicrobial therapy. * Patient received Vancomycin 2250mg (~20mg/kg) IV x 1 in the ED as a loading dose Plan Vancomycin * AUC/DIPAK is the preferred PK/PD target for vancomycin * AUC guided dosing is effective and associated with decreased risk of nephrotoxicity compared to traditional trough targets * According to [facility], Vancomycin regimen of 1500mg IV q12 will produce an estimated trough level of 17.9 mcg/mL is predicted to achieve target AUC/DIPAK of 400-600 mg/L.hr and may be associated with a 14 % risk of nephrotoxicity * Trough or random level ordered for: 11/17/20 @ 0930 to confirm predicted pharmacokinetics Zosyn * Continue Zosyn 4.5g IV q8 (extended infusion) for BMI >35 and CrCl >20 mL/min Pharmacy will continue to follow and will adjust dose/frequency as necessary. Thank you.
[2020-11-15] MEDS: PHENAZOPYRIDINE HCL 100 MG TAB PO SCH ×3 (16:28→21:39)
[2020-11-15] MEDS: BACLOFEN 20 MG TAB PO SCH ×3 (16:29→21:39)
[2020-11-15] MEDS: PIPERACILLIN/TAZOBACTAM 4.5 GM in DEXTROSE 5% 100 ML IV SCH (17:49)
[2020-11-15 17:50] LABS: Base Excess ABG 2.3 mEq/L (-9-1.8); HCO3 ABG 26 mmol/L (19-24); Oxygen Saturation ABG 83.9 % (90-95); PCO2 ABG 36 mmHg (35-46); PO2 ABG 47 mmHg (80-95); pH ABG 7.47 (7.35-7.45)
[2020-11-15 17:53] LABS: Allen Test Pos (Pos)
--- NOTE | 2020-11-15 19:14 | XRay Report ---
XR chest 1V portable CLINICAL HISTORY: Hypoxia COMPARISON STUDY: November 15, 2020 at 10: 46 hours FINDINGS: No pneumothorax. No pleural effusion. Redemonstration of reticular nodular opacities throughout bilateral lung, interval development of haz y opacity within left lower lung when compared to recent prior study performed today and might repres ent pneumonia. Cardiomediastinal silhouette is mildly enlarged and partially obscured on the left by surrounding opa cities. Pulmonary vasculature is obscured.. Osseous structures: Degenerative changes of the spine Evaluation is suboptimal due to rotation. IMPRESSION: 1. Mild hazy opacity within left lower lung which might also represent pneumonia. Possible pulmonary edema. ACT 112: Negative or not required by law. The above report was generated using voice recognition software. It may contain grammatical, syntax o r spelling errors. Electronically signed by: Marisela Drummond DO 11/15/2020 7:13 PM
[2020-11-15] MEDS: NORMOSOL-R 1,000 ML IV SCH (19:53)
--- NOTE | 2020-11-15 20:44 | Electrocardiogram Report ---
Test Reason : Blood Pressure : / mmHG Vent. Rate : 100 BPM Atrial Rate : 100 BPM P-R Int : 160 ms QRS Dur : 102 ms QT Int : 332 ms P-R-T Axes : -08 -25 022 degrees QTc Int : 428 ms Normal sinus rhythm Incomplete right bundle branch block Septal infarct , age undetermined Abnormal ECG When compared with ECG of 03-AUG-2020 07:49, Septal infarct is now Present Confirmed by Kaushik Merchant ([id number]) on 11/15/2020 8:44:18 PM Referred By: REFERRED SELF Confirmed By:Kaushik Merchant
[2020-11-15] MEDS: VANCOMYCIN HCL 1,500 MG in SODIUM CHLORIDE 0.9% 500 ML IV SCH (21:38)
[2020-11-15] MEDS: TAMSULOSIN HCL 0.4 MG CAP PO SCH (21:39)
[2020-11-16] MEDS: PIPERACILLIN/TAZOBACTAM 4.5 GM in DEXTROSE 5% 100 ML IV SCH ×3 (02:43→17:28)
--- NOTE | 2020-11-16 07:45 | Urology Progress Note ---
Date of Service November 16, 2020 Assessment & Plan (1) Epididymo-orchitis, acute: (2) Urinary incontinence due to benign prostatic hyperplasia: Plan: 55-year-old male, with history of MS and recent urologic procedure in July of this year involving Botox as well as TURP, admitted to the medicine service for right epididymoorchitis. -Plan of care reviewed with Dr. Valenzuela. -Max temperature over last 24 hours 38.8, afebrile this AM. -Labs reviewed - white count 19.91, creatinine stable. -Blood and urine cultures pending. -Nursing staff unable to place hernandez catheter this morning, bladder scanned for 54 cc. -Okay to monitor without catheter, recommend bladder scan Qshift and PRN. -Will obtain CT abd/pelvis without contrast to evaluate for obstruction. -Recommend continuing with broad-spectrum antibiotic therapy and supportive care - follow cultures. -Epididymoorchitis likely not primary source of significantly elevated white count with the concern on admission for aspiration and chest x-ray findings. -Keep NPO for now while imaging pending. -Will continue to follow while inpatient. Attending note: Patient had CT today. No sign of stone, obstruction, pyelonephritis, or other major issue. Patient does have mild cystitis with some pericystic stranding likely inflammation. No considerable inflammation in the inguinal region. No need to maintain n.p.o. status at this point. Patient is an aspiration risk due to swallowing difficulty and will defer to hospitalist for diet order. Patient had presented with cough hypoxia and possible aspiration with likely pneumonia on chest x-ray. Patient significant white count more likely to be related to the aspiration pneumonia then epididymoorchitis. Also no signs of pyelonephritis to explain fever. Scrotal ultrasound shows likely epididymitis with accompanying inflammation. Would recommend conservative measures and antibiotics. Antibiotic regimen for aspiration pneumonia will likely sufficient to treat the epididymoorchitis. Otherwise would recommend anti-inflammatories, ice, elevation especially when laying flat, and time for resolution. Admission and Anticipated Discharge Date Admission Date: November 15, 2020 Subjective Patient examined at bedside, he is resting comfortably. Currently denies pain at rest. He is alert to person and place, unable to recall month and event. He has been incontinent of urine. Denies dysuria or hematuria. Reports he feels his bladder is currently empty. Nursing attempted to place hernandez catheter x2 this AM without success. Per nursing discussion, this was due to inability to advance hernandez upon insertion. Bladder scan this AM was 54 cc. Denies fevers or chills. Denies nausea or vomiting. Has been NPO since midnight. Chart review: T- max over past 24 hours 38.8 C, recheck this AM 37.1 Labs 11/15 Wbc 19.46 Hgb 14.2 Creatinine 0.81 White count this AM 19.91 Creatinine 12.4. Urine and blood cultures pending. Currently on IV Zosyn and IV Vancomycin. Denies additional urologic concerns today. Review of Systems Constitutional: as per Subjective / HPI; no fever and no chills Gastrointestinal: as per Subjective / HPI; no nausea and no vomiting Genitourinary: + as per Subjective / HPI Neurologic: as per Subjective / HPI Physical Exam Constitutional: cooperative and comfortable; no acute distress and not ill appearing Respiratory: normal respiratory effort; no respiratory distress, no labored breathing and no audible wheezes Currently on 2L nasal cannula Gastrointestinal (Abdomen): Inspection/Auscultation: abdomen normal to inspection; abdomen not distended Percussion/Palpation: abdomen soft; abdomen nontender and no guarding Psychiatric: Orientation: oriented to person, oriented to place and cooperative; + not oriented to time Affect: + flat affect Genitourinary: no CVA tenderness Left testis normal to palpation. Right hemiscrotum mildly erythematous and tender to palpation. Right testicle enlarged. No warmth. Results & Data ([facility]) Vital Signs (Past 12 Hours) Vital Signs Temp Pulse Pulse Resp BP BP Pulse Ox 11/16/20 07:41 37.1 C 96 H 16 125/75 96 11/16/20 02:54 37 C 99 H 20 128/78 94 11/15/20 23:42 102 H 11/15/20 22:53 36.6 C 105 H 19 123/74 94 PG Care Time/CCT Total # of Minutes Spent Total Time Spent with Patient: Total time spent is greater than 50% in coordination of care (as documented) at patient's floor/unit and/or counseling patient: Coding Level of Care Code 41850 Subseq Hosp Care Lvl 3 Diagnoses Epididymo-orchitis, acute N45.3 Urinary incontinence due to benign prostatic hyperplasia N40.1; N39.498
[2020-11-16 08:44] LABS: Basophils # (auto) 0.04 K/uL (0-0.2); Basophils % (auto) 0.2 %; Eosinophils # (auto) 0.04 K/uL (0-0.5); Eosinophils % (auto) 0.2 %; Hemoglobin 12.4 g/dL (14.0-18.0); Immature Granulocytes # (auto) 0.07 K/uL (0.00-0.02); Immature Granulocytes % (auto) 0.4 %; Lymphocytes # (auto) 1.09 K/uL (1.2-3.4); Lymphocytes % (auto) 5.5 %; Mean Corpuscular Hemoglobin 30.1 pg (25-34); Mean Corpuscular Hgb Conc 33.5 g/dL (32-36); Mean Corpuscular Volume 89.8 fL (80-100); Mean Platelet Volume 10.3 fL (7.4-10.4); Monocytes # (auto) 1.38 K/uL (0.11-0.59); Monocytes % (auto) 6.9 %; Neutrophils # (auto) 17.29 K/uL (1.4-6.5); Neutrophils % (auto) 86.8 %; Platelet Count 315 K/uL (130-400); RDW Coefficient of Variation 14.7 % (11.5-14.5); RDW Standard Deviation 48.1 fL (36.4-46.3); Red Blood Count 4.12 M/uL (4.7-6.1); White Blood Count 19.91 K/uL (4.8-10.8)
[2020-11-16] MEDS: NORMOSOL-R 1,000 ML IV SCH ×2 (09:12→21:39)
[2020-11-16 09:21] LABS: Calcium 8.7 mg/dl (8.5-10.1); Creatinine Clr Calc Pharmacy 124.9 ml/min; Est GFR (African American) 116.4 ml/min; Est GFR (Non-African American) 100.5 ml/min
[2020-11-16] MEDS: BACLOFEN 20 MG TAB PO SCH ×4 (09:57→21:24)
[2020-11-16] MEDS: PHENAZOPYRIDINE HCL 100 MG TAB PO SCH ×3 (09:58→21:24)
[2020-11-16] MEDS: MULTIVITAMIN TAB PO SCH (09:58)
[2020-11-16] MEDS: PSYLLIUM 58.6% POWDER PACKET PO SCH (09:58)
[2020-11-16] MEDS: CHOLECALCIFEROL 1,000 UNITS 25 MCG TAB PO SCH (09:59)
[2020-11-16] MEDS: OMEGA-3 (PURIFIED FISH OIL) 1 GM CAP PO SCH (09:59)
[2020-11-16] MEDS: ESCITALOPRAM OXALATE 20 MG TAB PO SCH (09:59)
[2020-11-16] MEDS: VANCOMYCIN HCL 1,500 MG in SODIUM CHLORIDE 0.9% 500 ML IV SCH ×2 (10:10→21:24)
--- NOTE | 2020-11-16 10:29 | CT Scan Report ---
CT SCAN OF THE ABDOMEN AND PELVIS WITHOUT CONTRAST CLINICAL HISTORY: evaluate for stone/obstruction COMPARISON STUDY: August 31, 2020 TECHNIQUE: CT scan of the abdomen and pelvis was performed from the lung bases to the proximal femurs . Images are reviewed in the axial, sagittal, and coronal planes. IV contrast was not administered fo r this examination. A dose lowering technique was utilized adhering to the principles of ALARA. CT DOSE: 1341.55 mGycm FINDINGS: Lower chest: Mild atelectasis at dependent portions of bilateral lower lobes. Few pulmonary nodules a re seen within right base and marked in PACs on series 3. Evaluation is limited due to nondedicated t echnique and motion artifact. Liver: The unenhanced liver is normal in size, contour, and attenuation. There is no intrahepatic meryl iary ductal dilatation. Evaluation is suboptimal due to lack of IV contrast and beam hardening artifa ct from patient's arms. Gallbladder: Unremarkable. Spleen: Normal in size and attenuation. Pancreas: Unremarkable. Adrenal glands: Unremarkable. Kidneys: The unenhanced kidneys are normal in size without hydronephrosis. There is no contour deform ing renal mass lesion. No renal calculi are identified. Bowel: The small bowel and colon are normal in course and caliber. Appendix is nondilated. Minimal di verticulosis of sigmoid colon is seen without evidence of diverticulitis. Peritoneum: There is no intraperitoneal free air or abdominal ascites. Vasculature: The abdominal aorta is normal in course and caliber. Adenopathy: None. Pelvic viscera: Urinary bladder is decompressed which limits evaluation. Mild thickening of urinary b ladder wall is again seen. Previously seen hyperattenuating heterogeneous material within urinary marc dder lumen is no longer visualized. Interval improvement of the previously seen fat stranding surroun ding urinary bladder. Prostate gland is small. Bilateral inguinal hernias which contains fat and small portion of nondilated loops of large bowel. Skeletal structures: Osteopenia and multilevel degenerative changes of the spine, most severe at L3-L 4 level, findings are unchanged since prior. IMPRESSION: 1. No evidence of nephrolithiasis or hydronephrosis. Urinary bladder remains collapsed with mild int erval improvement of surrounding fat stranding. Previously seen hyperattenuating collection within it s lumen is no longer visualized. Redemonstration of mild urinary bladder wall thickening. 2. Bilateral inguinal hernias which contain fat small portion of nondilated loops of bowel. 3. Diverticulosis of sigmoid colon without evidence of diverticulitis. Normal appendix. 4. Few pulmonary nodules within the right base. Evaluation is limited due to motion artifact. Furthe r evaluation with CT of the chest without IV contrast on nonemergency basis is suggested. 5. The rest of findings as above. ACT 112: Positive. There are findings on this exam that require communication between the performing entity and the patient following Patient Test Result Information Act ([place] Act 112) guidelines. The above report was generated using voice recognition software. It may contain grammatical, syntax o r spelling errors. Electronically signed by: Marisela Drummond DO 11/16/2020 10:27 AM
--- NOTE | 2020-11-16 11:40 | XRay Report ---
XR chest 1V portable HISTORY: 55 years-old Male Pneumonia due to aspiration acute shortness of breath with pneumonia COMPARISON: Chest radiograph 11/15/2020 TECHNIQUE: Portable AP view of the chest FINDINGS: Cardiac silhouette is enlarged. Pulmonary vascular congestion with left greater than right reticular interstitial densities. No pneumothorax, large pleural effusion or lobar airspace consolidation. Dege nerative changes of the shoulders and spine. IMPRESSION: Cardiomegaly and pulmonary vascular congestion with unchanged left greater than right int erstitial opacities suggestive of asymmetric pulmonary edema versus interstitial pneumonitis. ACT 112: Negative or not required by law. The above report was generated using voice recognition software. It may contain grammatical, syntax o r spelling errors. Electronically signed by: Silas Dhillon M.D. 11/16/2020 11:39 AM
--- NOTE | 2020-11-16 15:14 | Hospitalist Progress Note ---
Date of Service November 16, 2020 Assessment & Plan (1) Epididymo-orchitis, acute: Plan: Attending: Dr. Hare Impression: Is a 55-year-old male with a history of MS who is primarily wheelchair-bound at home with a power wheelchair. He presents with edematous, erythematous scrotum with enlarged right testicle. He recently underwent TURP with Dr. Valenzuela. Low-grade fever with a T-max of 99 F at home. No sweats, chills, rigors. Continue treatment with Zosyn as well as vancomycin Check a procalcitonin (negative) and panculture No evidence of scrotal injury or open wound Urology consulted. Appreciate Dr. Valenzuela input May help to elevate scrotum with a rolled up washcloth. Avoid opiates and narcotics for pain as patient is on naltrexone at home Supportive care (2) Multiple sclerosis: Plan: Chronic Patient has a power wheelchair at home Primarily wheelchair and bed bound Outpatient follow-up (3) Vitamin D deficiency: Plan: Continue cholecalciferol Outpatient management (4) Spasticity: Plan: Continue baclofen Avoid opiates and narcotics for pain as patient is on naltrexone at home (5) OCD (obsessive compulsive disorder): Plan: Continue escitalopram (6) Anxiety and depression: Plan: Continue escitalopram (7) Incontinence: Plan: This is a chronic issue Continue to maintain dry skin as much as possible Avoid Mayen catheter unless directed by Dr. Valenzuela from urology (8) History of prostate surgery: Plan: Recent TURP with Dr. 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 Valenzuela of urology (9) DVT prophylaxis: Plan: Heparin 5000 units subcutaneously every 12 hours (10) Sepsis: (11) Aspiration of food: (12) Acute respiratory failure with hypoxia: (13) Encephalopathy acute: Admission and Anticipated Discharge Date Admission Date: November 15, 2020 Subjective Patient reports no new symptoms today. Pain appears to be controlled. Review of Systems Review of Systems: All systems reviewed & are unremarkable except as noted in HPI & below Physical Exam Physical Exam: GENERAL : No acute distress. EYES: No icterus, gaze conjugate. Pupils equal round and reactive to light NOSE: No evidence of epistaxis MOUTH: No lesions or candidiasis. Mucosa moist NECK: Supple LUNGS: Crackles at bilateral bases. Good inspirational effort. HEART: RRR ABDOMEN: Soft, NT, ND, BS Present : Scrotal edema with tender testicles, right larger than left. Scrotum appears erythematous and edematous. No apparent open lesions or wounds. EXTREMITIES: No LE edema, pedal pulses intact and equal bilaterally NEURO: A&OX3. Profound weakness. This is secondary to MS. Results & Data Results & Data ([facility]) Vital Signs (Past 12 Hours) Vital Signs Temp Pulse Pulse Resp BP BP Pulse Ox 11/16/20 11:02 36.9 C 88 18 124/70 91 11/16/20 08:00 57 L 11/16/20 07:41 37.1 C 96 H 16 125/75 96 PG Care Time/CCT Total # of Minutes Spent Total Time Spent with Patient: Total time spent is greater than 50% in coordination of care (as documented) at patient's floor/unit and/or counseling patient: Coding Level of Care Code 77272 Subseq Hosp Care Lvl 2 Diagnoses Epididymo-orchitis, acute N45.3 Multiple sclerosis G35 Vitamin D deficiency E55.9 Spasticity R25.2 OCD (obsessive compulsive disorder) F42.9 Anxiety and depression F41.9; F32.9 Incontinence R32 History of prostate surgery Z98.890 DVT prophylaxis Z29.9 Sepsis A41.9 Aspiration of food T17.920A Encounter type: initial encounter Acute respiratory failure with hypoxia J96.01 Encephalopathy acute G93.40 Time Spent (min) 25 (1) Aspiration of food Encounter type: initial encounter Qualified Code(s): T17.920A - Food in respiratory tract, part unspecified causing asphyxiation, initial encounter
[2020-11-16] MEDS: TAMSULOSIN HCL 0.4 MG CAP PO SCH (21:24)
[2020-11-17] MEDS: PIPERACILLIN/TAZOBACTAM 4.5 GM in DEXTROSE 5% 100 ML IV SCH ×3 (01:58→17:02)
--- NOTE | 2020-11-17 07:29 | Urology Progress Note ---
Date of Service November 17, 2020 Assessment & Plan (1) Epididymo-orchitis, acute: (2) Urinary incontinence due to benign prostatic hyperplasia: Plan: 55-year-old male, with history of MS and recent urologic procedure in July of this year involving Botox as well as TURP, admitted to the medicine service for right epididymoorchitis. -Plan of care reviewed with Dr. Valenzuela. -Patient afebrile over the past 24 hours. -Labs reviewed - white count improved to 11.2, creatinine pending. -Urine culture with more than three types of organisms present, all moderate counts mixed probable skin anatoliy. -Preliminary blood cultures no growth after 24 hours. -CT abd/pelvis reviewed - no sign of stone, obstruction, or pyelonephritis. -No evidence of retention, most recent bladder scan was for 0 ml. -Continue to monitor without catheter, recommend bladder scan Qshift and PRN. -Recommend continuing with broad-spectrum antibiotic therapy and supportive care - follow cultures. -Will likely need at least 10 days antibiotic therapy for right epididymoorchitis. -Will continue to follow while inpatient. Admission and Anticipated Discharge Date Admission Date: November 15, 2020 Subjective Patient examined at bedside this AM. Does appear more alert this morning. He is alert to person, place, month, and event. Currently denies scrotal/testicular pain. Denies dysuria or hematuria. Has been incontinent of urine. Most recent bladder scan was for 0 ml. Feels he is emptying his bladder. Denies fevers or chills. Denies nausea or vomiting. Remains on supplemental oxygen with 2L via nasal cannula. Chart review: Afebrile over the past 24 hours. Labs 11/16 - Wbc 19.91 Hgb 12.4 Creatinine 0.83 Labs today - Wbc 11.22 Hgb 12.1 Creatinine pending Urine culture with more than three types of organisms present, all moderate counts mixed probable skin anatoliy. Preliminary blood cultures no growth after 24 hours. Patient currently on IV Zosyn and IV Vancomycin. Denies additional urologic concerns today. Review of Systems Constitutional: as per Subjective / HPI; no fever and no chills Gastrointestinal: as per Subjective / HPI; no nausea and no vomiting Genitourinary: + as per Subjective / HPI Neurologic: as per Subjective / HPI Physical Exam Constitutional: cooperative and comfortable; no acute distress and not ill appearing Respiratory: normal respiratory effort; no respiratory distress, no labored breathing and no audible wheezes Currently on 2L nasal cannula Gastrointestinal (Abdomen): Inspection/Auscultation: abdomen normal to inspection; abdomen not distended Percussion/Palpation: abdomen soft; abdomen nontender and no guarding Psychiatric: Orientation: alert, oriented to person, oriented to place, oriented to time and cooperative Affect: + flat affect Genitourinary: no CVA tenderness Left testis normal to palpation. Right hemiscrotum remains mildly erythematous and tender to palpation. Does appear less tender compared to exam yesterday. Right testicle enlarged. No warmth. No crepitus. Results & Data ([facility]) Vital Signs (Past 12 Hours) Vital Signs Temp Pulse Pulse Resp BP Pulse Ox 11/17/20 04:00 36.9 C 95 H 18 120/79 96 11/16/20 23:53 37.0 C 81 18 112/74 96 11/16/20 23:20 80 11/16/20 20:26 37.1 C 87 18 119/79 95 PG Care Time/CCT Total # of Minutes Spent Total Time Spent with Patient: Total time spent is greater than 50% in coordination of care (as documented) at patient's floor/unit and/or counseling patient: Coding Level of Care Code 12489 Subseq Hosp Care Lvl 2 Diagnoses Epididymo-orchitis, acute N45.3 Urinary incontinence due to benign prostatic hyperplasia N40.1; N39.498
[2020-11-17] MEDS: BACLOFEN 20 MG TAB PO SCH ×4 (07:51→20:38)
[2020-11-17] MEDS: OMEGA-3 (PURIFIED FISH OIL) 1 GM CAP PO SCH (07:51)
[2020-11-17] MEDS: PSYLLIUM 58.6% POWDER PACKET PO SCH (07:51)
[2020-11-17] MEDS: ESCITALOPRAM OXALATE 20 MG TAB PO SCH (07:51)
[2020-11-17] MEDS: PHENAZOPYRIDINE HCL 100 MG TAB PO SCH ×3 (07:51→20:38)
[2020-11-17] MEDS: MULTIVITAMIN TAB PO SCH (07:51)
[2020-11-17] MEDS ORDERED: VANCOMYCIN TROUGH ONE (09:30)
[2020-11-17 10:20] LABS: Basophils # (auto) 0.03 K/uL (0-0.2); Basophils % (auto) 0.3 %; Eosinophils # (auto) 0.28 K/uL (0-0.5); Eosinophils % (auto) 2.5 %; Hematocrit (blood only) 36.5 % (42-52); Hemoglobin 12.1 g/dL (14.0-18.0); Immature Granulocytes # (auto) 0.03 K/uL (0.00-0.02); Immature Granulocytes % (auto) 0.3 %; Lymphocytes # (auto) 1.13 K/uL (1.2-3.4); Lymphocytes % (auto) 10.1 %; Mean Corpuscular Hemoglobin 29.7 pg (25-34); Mean Corpuscular Hgb Conc 33.2 g/dL (32-36); Mean Corpuscular Volume 89.7 fL (80-100); Mean Platelet Volume 10.1 fL (7.4-10.4); Monocytes # (auto) 0.52 K/uL (0.11-0.59); Monocytes % (auto) 4.6 %; Neutrophils # (auto) 9.23 K/uL (1.4-6.5); Neutrophils % (auto) 82.2 %; Platelet Count 301 K/uL (130-400); RDW Coefficient of Variation 14.4 % (11.5-14.5); RDW Standard Deviation 47.5 fL (36.4-46.3); Red Blood Count 4.07 M/uL (4.7-6.1); White Blood Count 11.22 K/uL (4.8-10.8)
[2020-11-17] MEDS: VANCOMYCIN HCL 1,500 MG in SODIUM CHLORIDE 0.9% 500 ML IV SCH (10:34)
[2020-11-17 10:53] LABS: Potassium 3.8 mmol/L (3.5-5.1)
[2020-11-17 10:54] LABS: BUN Creatinine Ratio 11.8 (10-20); Calcium 8.8 mg/dl (8.5-10.1); Creatinine Clr Calc Pharmacy 124.8 ml/min; Est GFR (African American) 116.4 ml/min; Est GFR (Non-African American) 100.5 ml/min
[2020-11-17] MEDS: NORMOSOL-R 1,000 ML IV SCH ×2 (13:00→20:37)
--- NOTE | 2020-11-17 16:11 | Hospitalist Progress Note ---
Date of Service November 17, 2020 Assessment & Plan (1) Epididymo-orchitis, acute: Plan: Attending: Dr. Hare Impression: Is a 55-year-old male with a history of MS who is primarily wheelchair-bound at home with a power wheelchair. He presents with edematous, erythematous scrotum with enlarged right testicle. He recently underwent TURP with Dr. Valenzuela. Low-grade fever with a T-max of 99 F at home. No sweats, chills, rigors. Continue treatment with Zosyn Check a procalcitonin (negative) and panculture No evidence of scrotal injury or open wound Urology consulted. Appreciate Dr. Valenzuela input May help to elevate scrotum with a rolled up washcloth. Avoid opiates and narcotics for pain as patient is on naltrexone at home Supportive care will remove vanco as patient has been afebrile and will monitor temp and WBC. (2) Multiple sclerosis: Plan: Chronic Patient has a power wheelchair at home Primarily wheelchair and bed bound Outpatient follow-up (3) Vitamin D deficiency: Plan: Continue cholecalciferol Outpatient management (4) Spasticity: Plan: Continue baclofen Avoid opiates and narcotics for pain as patient is on naltrexone at home (5) OCD (obsessive compulsive disorder): Plan: Continue escitalopram (6) Anxiety and depression: Plan: Continue escitalopram (7) Incontinence: Plan: This is a chronic issue Continue to maintain dry skin as much as possible Avoid Mayen catheter unless directed by Dr. Valenzuela from urology (8) History of prostate surgery: Plan: Recent TURP with Dr. 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 Valenzuela of urology (9) DVT prophylaxis: Plan: Heparin 5000 units subcutaneously every 12 hours (10) Sepsis: (11) Aspiration of food: (12) Acute respiratory failure with hypoxia: (13) Encephalopathy acute: Admission and Anticipated Discharge Date Admission Date: November 15, 2020 Subjective Patient reports feeling well. Review of Systems Review of Systems: All systems reviewed & are unremarkable except as noted in HPI & below Physical Exam Physical Exam: GENERAL : No acute distress. EYES: No icterus, gaze conjugate. Pupils equal round and reactive to light NOSE: No evidence of epistaxis MOUTH: No lesions or candidiasis. Mucosa moist NECK: Supple LUNGS: Crackles at bilateral bases. Good inspirational effort. HEART: RRR ABDOMEN: Soft, NT, ND, BS Present : Scrotal edema with tender testicles, right larger than left. Scrotum appears erythematous (mild decrease) and edematous. No apparent open lesions or wounds. EXTREMITIES: No LE edema, pedal pulses intact and equal bilaterally NEURO: A&OX3. Profound weakness. This is secondary to MS. Results & Data Results & Data ([facility]) Vital Signs (Past 12 Hours) Vital Signs Temp Pulse Pulse Resp BP Pulse Ox 11/17/20 15:26 37.3 C 82 18 118/75 95 11/17/20 15:00 83 11/17/20 10:58 36.7 C 87 22 138/76 95 11/17/20 08:00 73 11/17/20 07:45 36.4 C L 82 20 133/79 95 PG Care Time/CCT Total # of Minutes Spent Total Time Spent with Patient: Total time spent is greater than 50% in coordination of care (as documented) at patient's floor/unit and/or counseling patient: Coding Level of Care Code 30709 Subseq Hosp Care Lvl 3 Diagnoses Epididymo-orchitis, acute N45.3 Multiple sclerosis G35 Vitamin D deficiency E55.9 Spasticity R25.2 OCD (obsessive compulsive disorder) F42.9 Anxiety and depression F41.9; F32.9 Incontinence R32 History of prostate surgery Z98.890 DVT prophylaxis Z29.9 Sepsis A41.9 Aspiration of food T17.920A Encounter type: initial encounter Acute respiratory failure with hypoxia J96.01 Encephalopathy acute G93.40 (1) Aspiration of food Encounter type: initial encounter Qualified Code(s): T17.920A - Food in respiratory tract, part unspecified causing asphyxiation, initial encounter
[2020-11-17] MEDS: TAMSULOSIN HCL 0.4 MG CAP PO SCH (20:38)
[2020-11-18] MEDS: NORMOSOL-R 1,000 ML IV SCH ×2 (01:33→13:51)
[2020-11-18] MEDS: PIPERACILLIN/TAZOBACTAM 4.5 GM in DEXTROSE 5% 100 ML IV SCH ×3 (01:33→17:48)
[2020-11-18 06:30] LABS: Basophils # (auto) 0.03 K/uL (0-0.2); Basophils % (auto) 0.5 %; Eosinophils # (auto) 0.37 K/uL (0-0.5); Eosinophils % (auto) 5.7 %; Hematocrit (blood only) 36.4 % (42-52); Hemoglobin 11.8 g/dL (14.0-18.0); Immature Granulocytes # (auto) 0.02 K/uL (0.00-0.02); Immature Granulocytes % (auto) 0.3 %; Lymphocytes % (auto) 19.9 %; Mean Corpuscular Hemoglobin 29.6 pg (25-34); Mean Corpuscular Hgb Conc 32.4 g/dL (32-36); Mean Corpuscular Volume 91.5 fL (80-100); Mean Platelet Volume 10.3 fL (7.4-10.4); Monocytes # (auto) 0.66 K/uL (0.11-0.59); Monocytes % (auto) 10.1 %; Neutrophils # (auto) 4.15 K/uL (1.4-6.5); Neutrophils % (auto) 63.5 %; Platelet Count 340 K/uL (130-400); RDW Coefficient of Variation 14.3 % (11.5-14.5); RDW Standard Deviation 48.5 fL (36.4-46.3); Red Blood Count 3.98 M/uL (4.7-6.1); White Blood Count 6.53 K/uL (4.8-10.8)
[2020-11-18 07:00] LABS: BUN Creatinine Ratio 9.7 (10-20); Calcium 8.8 mg/dl (8.5-10.1); Creatinine Clr Calc Pharmacy 141.9 ml/min; Est GFR (African American) 122.7 ml/min; Est GFR (Non-African American) 105.9 ml/min; Potassium 3.8 mmol/L (3.5-5.1)
--- NOTE | 2020-11-18 08:02 | XRay Report ---
XR chest 1V portable HISTORY: 55 years-old Male aspiration acute shortness of breath with aspiration COMPARISON: Chest radiograph 11/16/2020 TECHNIQUE: Portable AP view of the chest FINDINGS: Cardiac silhouette is enlarged, unchanged. Pulmonary vascular congestion with mildly improved aeratio n of the lungs. Asymmetric interstitial coarsening of the left lung redemonstrated. No pneumothorax, large pleural effusion or lobar airspace consolidation. Degenerative changes of the shoulders and spi ne. IMPRESSION: Cardiomegaly with mildly improved aeration of the lungs. ACT 112: Negative or not required by law. The above report was generated using voice recognition software. It may contain grammatical, syntax o r spelling errors. Electronically signed by: Silas Dhillon M.D. 11/18/2020 8:00 AM
[2020-11-18] MEDS: PHENAZOPYRIDINE HCL 100 MG TAB PO SCH ×3 (08:20→21:50)
[2020-11-18] MEDS: CHOLECALCIFEROL 1,000 UNITS 25 MCG TAB PO SCH (08:21)
[2020-11-18] MEDS: PSYLLIUM 58.6% POWDER PACKET PO SCH (08:21)
[2020-11-18] MEDS: ESCITALOPRAM OXALATE 20 MG TAB PO SCH (08:21)
[2020-11-18] MEDS: BACLOFEN 20 MG TAB PO SCH ×4 (08:21→21:51)
[2020-11-18] MEDS: OMEGA-3 (PURIFIED FISH OIL) 1 GM CAP PO SCH (08:22)
[2020-11-18] MEDS: MULTIVITAMIN TAB PO SCH (08:23)
--- NOTE | 2020-11-18 09:51 | Urology Progress Note ---
Date of Service November 18, 2020 Assessment & Plan (1) Epididymo-orchitis, acute: Plan: 55-year-old male, with history of MS and recent urologic procedure in July of this year involving Botox as well as TURP, admitted to the medicine service for right epididymoorchitis. - Patient remains afebrile x 48 hours. - Subjectively and clinically improving. - Labs reviewed - white count improved to 6.53, creatinine 0.73. - Urine culture with more than three types of organisms present, all moderate counts mixed probable skin anatoliy. - Preliminary blood cultures no growth x 48 hours. - CT abd/pelvis reviewed - no sign of stone, obstruction, or pyelonephritis. - Pt largely incontinent, no evidence of retention, most recent bladder scan 0 ml - now with condom catheter in place. - Continue antibiotics and supportive care per primary team - transition to PO antibiotics upon discharge. - Will likely need at least 10 days antibiotic therapy for right epididymoorchitis. Thank you for allowing us to participate in the acute care of Mr. Thomas. Please reconsult us with additional questions, concerns or changes in patient status. Admission and Anticipated Discharge Date Admission Date: November 15, 2020 Supervising Physician Co-Signing Physician Notes Discussed patient and plan with CAROL. Agree with above. Will schedule outpatient follow in 2-3 weeks for repeat exam to ensure resolution of infection. Subjective Patient examined at bedside this AM. Awake and alert and sitting up in bed. Currently denies scrotal/testicular pain. Denies dysuria or hematuria. Has been incontinent of urine. Most recent bladder scan was for 0 ml. Condom catheter in place at time of exam, urine clear yellow. Denies fevers or chills. Denies nausea or vomiting. Patient feels ready to go home. Chart review: Afebrile overnight Creatinine 0.73, WBC 6.53, Hgb 11.8 Urine culture with more than three types of organisms present, all moderate counts mixed probable skin anatoliy Preliminary blood cultures no growth x 48 hours Patient currently on IV Zosyn Review of Systems Constitutional: as per Subjective / HPI Gastrointestinal: as per Subjective / HPI Genitourinary: + as per Subjective / HPI Physical Exam Constitutional: cooperative and comfortable; no acute distress and not ill appearing Respiratory: normal respiratory effort and able to speak in complete sentences; no respiratory distress and no labored breathing Gastrointestinal (Abdomen): Inspection/Auscultation: abdomen normal to inspection; abdomen not distended Percussion/Palpation: abdomen soft; abdomen nontender and no guarding Neurologic: awake Psychiatric: Orientation: alert and oriented x 3 Affect: + flat affect Genitourinary: no CVA tenderness Left testis normal to palpation. Right hemiscrotum remains mildly erythematous, minimally tender to palpation. Right testicle enlarged. No warmth. No crepitus. Condom catheter in place draining clear yellow urine. Results & Data ([facility]) Vital Signs (Past 12 Hours) Vital Signs Temp Pulse Pulse Resp BP Pulse Ox 11/18/20 08:00 71 11/18/20 07:00 36.6 C 74 20 122/78 97 11/18/20 04:00 37.1 C 71 18 142/82 H 95 11/17/20 23:00 37.3 C 80 75 18 137/93 93 PG Care Time/CCT Total # of Minutes Spent Total Time Spent with Patient: Total time spent is greater than 50% in coordination of care (as documented) at patient's floor/unit and/or counseling patient: Coding Level of Care Code 98401 Subseq Hosp Care Lvl 2 Diagnoses Epididymo-orchitis, acute N45.3
--- NOTE | 2020-11-18 21:00 | Hospitalist Progress Note ---
Date of Service November 18, 2020 Assessment & Plan (1) Epididymo-orchitis, acute: Plan: Attending: Dr. Vera Impression: Is a 55-year-old male with a history of MS who is primarily wheelchair-bound at home with a power wheelchair. He presents with edematous, erythematous scrotum with enlarged right testicle. He recently underwent TURP with Dr. Valenzuela. Low-grade fever with a T-max of 99 F at home. No sweats, chills, rigors. Continue treatment with Zosyn Check a procalcitonin (negative) and panculture No evidence of scrotal injury or open wound Urology consulted. Appreciate Dr. Valenzuela input May help to elevate scrotum with a rolled up washcloth. Avoid opiates and narcotics for pain as patient is on naltrexone at home Supportive care removed vanco on 11/17 as patient has been afebrile and will monitor temp and WBC. Patient remains afebrile (2) Multiple sclerosis: Plan: Chronic Patient has a power wheelchair at home Primarily wheelchair and bed bound Outpatient follow-up (3) Vitamin D deficiency: Plan: Continue cholecalciferol Outpatient management (4) Spasticity: Plan: Continue baclofen Avoid opiates and narcotics for pain as patient is on naltrexone at home (5) OCD (obsessive compulsive disorder): Plan: Continue escitalopram (6) Anxiety and depression: Plan: Continue escitalopram (7) Incontinence: Plan: This is a chronic issue Continue to maintain dry skin as much as possible Avoid Mayen catheter unless directed by Dr. Valenzuela from urology (8) History of prostate surgery: Plan: Recent TURP with Dr. 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 Valenzuela of urology (9) DVT prophylaxis: Plan: Heparin 5000 units subcutaneously every 12 hours (10) Sepsis: (11) Aspiration of food: (12) Acute respiratory failure with hypoxia: (13) Encephalopathy acute: Plan: Metabolic encephalopathy On admission, pt was very sleepy and A/O x 2 however his orientation improved through the night. resolved. Admission and Anticipated Discharge Date Admission Date: November 15, 2020 Subjective Patient reports no new symptoms Review of Systems Review of Systems: All systems reviewed & are unremarkable except as noted in HPI & below Physical Exam Physical Exam: Metabolic encephalopathy The medical record reflects the following clinical findings, treatment, and risk factors: Clinical Indicators: Acute encephalopathy is documented in the clinical record. The initial H/P includes metabolic encephalopathy in the attending's sign off note however then does not reappear in the record. Initially documented by nursing that pt was very sleepy and A/O x 2 but that his orientation improved through the night. Urology progress note indicates pt appears more alert on 11/17 and is A/O x 4 Results & Data Results & Data ([facility]) Vital Signs (Past 12 Hours) Vital Signs Temp Pulse Pulse Resp BP Pulse Ox 11/18/20 16:00 36.6 C 75 20 123/77 96 11/18/20 15:08 78 11/18/20 11:00 36.7 C 82 20 159/77 H 94 PG Care Time/CCT Total # of Minutes Spent Total Time Spent with Patient: Total time spent is greater than 50% in coordination of care (as documented) at patient's floor/unit and/or counseling patient: Coding Level of Care Code 42337 Subseq Hosp Care Lvl 2 Diagnoses Epididymo-orchitis, acute N45.3 Multiple sclerosis G35 Vitamin D deficiency E55.9 Spasticity R25.2 OCD (obsessive compulsive disorder) F42.9 Anxiety and depression F41.9; F32.9 Incontinence R32 History of prostate surgery Z98.890 DVT prophylaxis Z29.9 Sepsis A41.9 Aspiration of food T17.920A Encounter type: initial encounter Acute respiratory failure with hypoxia J96.01 Encephalopathy acute G93.40 (1) Aspiration of food Encounter type: initial encounter Qualified Code(s): T17.920A - Food in respiratory tract, part unspecified causing asphyxiation, initial encounter
[2020-11-18] MEDS: TAMSULOSIN HCL 0.4 MG CAP PO SCH (21:51)
[2020-11-19] MEDS: PIPERACILLIN/TAZOBACTAM 4.5 GM in DEXTROSE 5% 100 ML IV SCH ×3 (01:50→18:09)
[2020-11-19] MEDS ORDERED: Nursing to Pharmacy Communication SCH (03:45)
[2020-11-19] MEDS: NORMOSOL-R 1,000 ML IV SCH ×2 (04:40→16:55)
[2020-11-19] MEDS: OMEGA-3 (PURIFIED FISH OIL) 1 GM CAP PO SCH (08:57)
[2020-11-19] MEDS: PSYLLIUM 58.6% POWDER PACKET PO SCH (08:57)
[2020-11-19 08:58] LABS: Hematocrit (blood only) 37.4 % (42-52); Hemoglobin 12.5 g/dL (14.0-18.0); Mean Corpuscular Hemoglobin 29.6 pg (25-34); Mean Corpuscular Hgb Conc 33.4 g/dL (32-36); Mean Corpuscular Volume 88.6 fL (80-100); Mean Platelet Volume 9.5 fL (7.4-10.4); Platelet Count 326 K/uL (130-400); RDW Coefficient of Variation 13.8 % (11.5-14.5); RDW Standard Deviation 45.1 fL (36.4-46.3); Red Blood Count 4.22 M/uL (4.7-6.1); White Blood Count 6.71 K/uL (4.8-10.8)
[2020-11-19] MEDS: BACLOFEN 20 MG TAB PO SCH ×4 (08:58→20:09)
[2020-11-19] MEDS: PHENAZOPYRIDINE HCL 100 MG TAB PO SCH ×3 (08:58→20:09)
[2020-11-19] MEDS: ESCITALOPRAM OXALATE 20 MG TAB PO SCH (08:58)
[2020-11-19] MEDS: MULTIVITAMIN TAB PO SCH (08:58)
[2020-11-19 09:28] LABS: BUN Creatinine Ratio 7.9 (10-20); Calcium 8.9 mg/dl (8.5-10.1); Creatinine Clr Calc Pharmacy 134.4 ml/min; Est GFR (African American) 119.4 ml/min; Est GFR (Non-African American) 103.1 ml/min; Potassium 3.9 mmol/L (3.5-5.1)
[2020-11-19] MEDS: TAMSULOSIN HCL 0.4 MG CAP PO SCH (20:09)
--- NOTE | 2020-11-19 20:49 | Hospitalist Progress Note ---
Date of Service November 19, 2020 Assessment & Plan (1) Epididymo-orchitis, acute: Plan: Attending: Dr. Vera Impression: Is a 55-year-old male with a history of MS who is primarily wheelchair-bound at home with a power wheelchair. He presents with edematous, erythematous scrotum with enlarged right testicle. He recently underwent TURP with Dr. Valenzuela. Low-grade fever with a T-max of 99 F at home. No sweats, chills, rigors. Continue treatment with Zosyn Check a procalcitonin (negative) and panculture No evidence of scrotal injury or open wound Urology consulted. Appreciate Dr. Valenzuela input May help to elevate scrotum with a rolled up washcloth. Avoid opiates and narcotics for pain as patient is on naltrexone at home Supportive care removed vanco on 11/17 as patient has been afebrile and will monitor temp and WBC. Patient remains afebrile. Patient now off oxygen. Due to possible aspiration, will obtain speech eval (2) Multiple sclerosis: Plan: Chronic Patient has a power wheelchair at home Primarily wheelchair and bed bound Outpatient follow-up (3) Vitamin D deficiency: Plan: Continue cholecalciferol Outpatient management (4) Spasticity: Plan: Continue baclofen Avoid opiates and narcotics for pain as patient is on naltrexone at home (5) OCD (obsessive compulsive disorder): Plan: Continue escitalopram (6) Anxiety and depression: Plan: Continue escitalopram (7) Incontinence: Plan: This is a chronic issue Continue to maintain dry skin as much as possible Avoid Mayen catheter unless directed by Dr. Valenzuela from urology (8) History of prostate surgery: Plan: Recent TURP with Dr. 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 Valenzuela of urology (9) DVT prophylaxis: Plan: Heparin 5000 units subcutaneously every 12 hours (10) Sepsis: (11) Aspiration of food: (12) Acute respiratory failure with hypoxia: (13) Encephalopathy acute: Plan: Metabolic encephalopathy On admission, pt was very sleepy and A/O x 2 however his orientation improved through the night. resolved. Admission and Anticipated Discharge Date Admission Date: November 15, 2020 Subjective Patient reports feeling better today. Review of Systems Review of Systems: All systems reviewed & are unremarkable except as noted in HPI & below Physical Exam Physical Exam: GENERAL : No acute distress. EYES: No icterus, gaze conjugate. Pupils equal round and reactive to light NOSE: No evidence of epistaxis MOUTH: No lesions or candidiasis. Mucosa moist NECK: Supple LUNGS: Crackles at bilateral bases. Good inspirational effort. HEART: RRR ABDOMEN: Soft, NT, ND, BS Present : Scrotal edema with tender testicles, right larger than left. Scrotum appears erythematous (mild decrease) and edematous. No apparent open lesions or wounds. EXTREMITIES: No LE edema, pedal pulses intact and equal bilaterally NEURO: A&OX3. Profound weakness. This is secondary to MS. Results & Data Results & Data ([facility]) Vital Signs (Past 12 Hours) Vital Signs Temp Pulse Resp BP BP Pulse Ox 11/19/20 19:14 36.7 C 90 16 132/83 92 11/19/20 15:27 37.2 C 89 18 135/91 94 11/19/20 14:35 93 11/19/20 11:25 36.8 C 79 19 125/86 95 PG Care Time/CCT Total # of Minutes Spent Total Time Spent with Patient: Total time spent is greater than 50% in coordination of care (as documented) at patient's floor/unit and/or counseling patient: Coding Level of Care Code 95021 Subseq Hosp Care Lvl 2 Diagnoses Epididymo-orchitis, acute N45.3 Multiple sclerosis G35 Vitamin D deficiency E55.9 Spasticity R25.2 OCD (obsessive compulsive disorder) F42.9 Anxiety and depression F41.9; F32.9 Incontinence R32 History of prostate surgery Z98.890 DVT prophylaxis Z29.9 Sepsis A41.9 Aspiration of food T17.920A Encounter type: initial encounter Acute respiratory failure with hypoxia J96.01 Encephalopathy acute G93.40 Time Spent (min) 25 (1) Aspiration of food Encounter type: initial encounter Qualified Code(s): T17.920A - Food in respiratory tract, part unspecified causing asphyxiation, initial encounter
[2020-11-20] MEDS: PIPERACILLIN/TAZOBACTAM 4.5 GM in DEXTROSE 5% 100 ML IV SCH ×2 (01:53→10:45)
[2020-11-20] MEDS: PSYLLIUM 58.6% POWDER PACKET PO SCH (09:11)
[2020-11-20] MEDS: BACLOFEN 20 MG TAB PO SCH ×2 (09:11→15:19)
[2020-11-20] MEDS: OMEGA-3 (PURIFIED FISH OIL) 1 GM CAP PO SCH (09:11)
[2020-11-20] MEDS: ESCITALOPRAM OXALATE 20 MG TAB PO SCH (09:12)
[2020-11-20] MEDS: MULTIVITAMIN TAB PO SCH (09:12)
[2020-11-20] MEDS: PHENAZOPYRIDINE HCL 100 MG TAB PO SCH ×2 (09:12→15:18)
[2020-11-20] MEDS: CHOLECALCIFEROL 1,000 UNITS 25 MCG TAB PO SCH (09:13)
--- NOTE | 2020-11-22 16:21 | Discharge Summary ---
Date of Service November 20, 2020 Admission HPI Per Admitting Provider Attending: Dr. Hare Is a 55-year-old male with a past medical history including his multiple neurosis, aspiration, UTI, recent TURP, vitamin D deficiency, OCD, anxiety and depression, chronic urinary incontinence, anxiety/depression. The patient presents to the emergency department with erythema and swelling of the scrotal region and right testicle. His states that this was first noticed yesterday. It seems to be progressive today. Patient has no pain with urination and no evidence of hematuria. He is incontinent of urine. He recently had TURP performed by Dr. Valenzuela. The patient denies any hematuria. It is tender to palpation. No trauma or injury reported. T-max at home was 99 F. Patient has had no diarrhea. No abdominal pain. He does have aspiration secondary to his multiple sclerosis and notes aspiration as of yesterday it was witnessed. Patient has chronic urinary incontinence. The patient is negative for COVID-19. He reports he has had both vaccinations of [employer]. He has no symptoms associated with COVID-19. Principal Diagnosis as noted below on problem 1 Discharge Exam GENERAL : No acute distress. EYES: No icterus, gaze conjugate. Pupils equal round and reactive to light NOSE: No evidence of epistaxis MOUTH: No lesions or candidiasis. Mucosa moist NECK: Supple LUNGS: Crackles at bilateral bases. Good inspirational effort. HEART: RRR ABDOMEN: Soft, NT, ND, BS Present : Scrotal edema with tender testicles, right larger than left. Scrotum appears erythematous (mild decrease) and edematous. No apparent open lesions or wounds. EXTREMITIES: No LE edema, pedal pulses intact and equal bilaterally NEURO: A&OX3. Profound weakness. This is secondary to MS. Discharge Data Allergies Allergy/AdvReac Type Severity Reaction Status Date / Time green pepper Allergy Unknown Unknown Verified 09/22/20 12:17 potato Allergy Unknown Unknown Verified 09/22/20 12:17 tomato Allergy Unknown Unknown Verified 09/22/20 12:17 No Known Drug Allergies Allergy NONE Verified 09/22/20 12:17 Consultations 11/15/20 12:29 ED Decision to Admit Stat 11/15/20 15:17 Consult Urology Routine 11/17/20 10:29 Consult Infectious Diseases Routine Ordered Studies 11/15/20 10:20 US scrotum/testicle Stat 11/16/20 09:01 CT abd pelvis wo con Urgent Hospital Course (1) Epididymo-orchitis, acute: Attending: Dr. Vera Impression: Is a 55-year-old male with a history of MS who is primarily wheelchair-bound at home with a power wheelchair. He presents with edematous, erythematous scrotum with enlarged right testicle. He recently underwent TURP with Dr. Valenzuela. Low-grade fever with a T-max of 99 F at home. No sweats, chills, rigors. Continue treatment with Zosyn Check a procalcitonin (negative) and panculture No evidence of scrotal injury or open wound Urology consulted. Appreciate Dr. Valenzuela input May help to elevate scrotum with a rolled up washcloth. Avoid opiates and narcotics for pain as patient is on naltrexone at home Supportive care removed vanco on 11/17 as patient has been afebrile and will monitor temp and WBC. Patient remains afebrile. Patient now off oxygen. Due to possible aspiration, will obtain speech eval. Speech discharge recommendations noted below. will coninue PO antibiotics. recommend f/u with PCP in 5 days. (2) Multiple sclerosis: Chronic Patient has a power wheelchair at home Primarily wheelchair and bed bound Outpatient follow-up (3) Vitamin D deficiency: Continue cholecalciferol Outpatient management (4) Spasticity: Continue baclofen Avoid opiates and narcotics for pain as patient is on naltrexone at home (5) OCD (obsessive compulsive disorder): Continue escitalopram (6) Anxiety and depression: Continue escitalopram (7) Incontinence: This is a chronic issue Continue to maintain dry skin as much as possible Avoid Mayen catheter unless directed by Dr. Valenzuela from urology (8) History of prostate surgery: Recent TURP with Dr. 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 Valenzuela of urology (9) DVT prophylaxis: Heparin 5000 units subcutaneously every 12 hours (10) Sepsis: (11) Aspiration of food: (12) Acute respiratory failure with hypoxia: (13) Encephalopathy acute: Metabolic encephalopathy On admission, pt was very sleepy and A/O x 2 however his orientation improved through the night. resolved. Total Time Total Time Spent Total Time Spent (In Minutes): 32 Discharge Plan Discharge Items Patient Disposition: Home - Home Health Services Reason For Visit: OCHITIS/EPIDIDYMITIS Discharge Diagnosis: as above. Activity: Resume your previous activity Non-emergency contact: Primary Care Provider Call non-emergency contact if: you have any medication questions Follow-up/Referrals: Kt Ledesma [Primary Care Provider] - Diet: Heart Healthy Diet Texture: Easy to Chew Addtl Attending Provider Instructions: recommend to continue antibiotics for 5 more days. Keep scrotal area clean and dry. recommend followup with PCP in 5 days Pending Studies at Discharge: No Stand-Alone Forms: My [facility], Smoking Cessation Medications and DC Order Prescriptions: New amoxicillin-pot clavulanate [Augmentin] 875-125 mg tablet 1 tab PO BID 5 Days Qty: 10 RF: 0 Probiotic 3 billion cell capsule 3,000 mmu cells PO DAILY Qty: 10 RF: 0 loperamide [Imodium A-D] 2 mg capsule 2 mg PO QID PRN (Reason: loose stool) Qty: 20 RF: 0 Continued baclofen 20 mg tablet 20 mg PO QID Qty: 360 RF: 1 oxybutynin chloride 5 mg tablet 5 mg PO BID PRN (Reason: bladder spasms) Qty: 20 RF: 1 tamsulosin 0.4 mg capsule 0.4 mg PO HS Qty: 30 RF: 3 acetaminophen 325 mg capsule 650 mg PO Q4H PRN (Reason: Fever Or Pain) RF: 0 multivitamin Tablet 1 tab PO QAM RF: 0 psyllium Powder 3 tbsp PO QAM RF: 0 omega 9-fxa-dgf-fish oil [Fish Oil] 1,000 mg (120 mg-180 mg) Capsule 1,000 mg PO QAM RF: 0 cholecalciferol (vitamin D3) [Vitamin D3] 5,000 unit Tablet 5,000 units PO Q2D RF: 0 phenazopyridine [Pyridium] 100 mg Tablet 100 mg PO TID RF: 0 naltrexone 50 mg Tablet 4.5 mg PO DAILY RF: 0 escitalopram oxalate [Lexapro] 20 mg tablet 20 mg PO QAM RF: 0 Discharge Orders: Discharge Order (Routine); Ordered 11/20/20 Ordered By: Dominic Vera Admission Data Admit Date/Time: 11/15/20 14:01 Attending Provider: Dominic Vera Admit Provider: Ananya,Alexandre M. Primary Care Provider: Kt Ledesma Other Providers: Alexandre Hare ; Derek Valenzuela ; [facility] ; Gary Saucedo ; Olu Finley ; Layo Kaiser I. ; Wilmer Méndez II ; Yadira Hubbard ; Trino Bernard Other Interventions: Discharge Summary Assessment (RN) Last Done: 11/20/20 15:23 Coding Level of Care Code D/C DAY MANAGEMENT >30 MINS Diagnoses Epididymo-orchitis, acute N45.3 Multiple sclerosis G35 Vitamin D deficiency E55.9 Spasticity R25.2 OCD (obsessive compulsive disorder) F42.9 Anxiety and depression F41.9; F32.9 Incontinence R32 History of prostate surgery Z98.890 DVT prophylaxis Z29.9 Sepsis A41.9 Aspiration of food T17.920A Encounter type: initial encounter Acute respiratory failure with hypoxia J96.01 Encephalopathy acute G93.40
--- NOTE | 2020-11-25 13:45 | Coding Query ---
To promote full compliance with coding requirements relating to patient care, provider participation is requested in all cases of dobie man uncertainty. Please assist us with the question(s) below: Coding Question(s): The diagnoses below were documented in the H&P and Urology progress note on 11/16 then subsequently fell off all further documentation. Please indicate if it is still a possible diagnosis or ruled out. Physician's Response(s): UTI ( ) Diagnosed and POA ( ) Diagnosed and not POA ( x ) Ruled out ( ) Other (please specify) ASPIRATION PNEUMONIA ( ) Diagnosed and POA ( ) Diagnosed and not POA ( x ) Ruled out ( ) Other (please specify) PLEASE REDIRECT TO DR SANTAMARIA. THANK YOU! DO TREVOR Connelly
== END 2020-11-20 17:15 | disposition home health service (06) | DRG 871 ==
LOC: ED 09:53 → SUATTDRO 14:01 → 2W 14:01

== ENCOUNTER 2022-04-08 14:54 | Inpatient (IN) ==
[2022-04-08] MEDS ORDERED: CEFEPIME 2,000 MG/20 ML VIAL IV STA (15:42)
--- NOTE | 2022-04-08 15:51 | Emergency Department Note ---
Impression & Plan Weakness, Immunocompromised, Leukocytosis, Elevated lactic acid level ED Provider Note NAME: JUAN MIGUEL NIEVES AGE: 56 SEX: M : 1965 ARRIVES VIA: Ambulance INFORMANT: [Patient][ems, ] ED PROVIDER(S): [Dennis Lambert MD] CHIEF COMPLAINT: Illness HISTORY OF PRESENT ILLNESS: The patient is a 56-year-old male presents to the ER with an episode of nausea and vomiting, some skin flushing and some tachycardia. The patient had a biologic infusion yesterday. This was given because of his MS. He gets these infusions twice a year. He has in the past had these infusions without difficulty. As per his , last evening, he was not quite himself, he seemed off, he was nauseated with some dry heaves and vomiting. He was flushed. His heart rate was high. Today, he had similar symptoms and she spoke with the neurologist's office. The patient was ordered for laboratory work as an outpatient. The work was done outpatient but, the patient was not improving so his brings him for evaluation here at our hospital. Of note, the patient's white blood cell count from today's laboratory work was 19,000. Of note, the patient is wheelchair-bound from his MS. PMHx/PSHx: See Below SOCIAL HISTORY: See Below. PHYSICAL EXAM: GENERAL: Patient is in no acute distress. HEENT: No acute trauma, normocephalic atraumatic, mucous membranes moist, no nasal congestion. NECK: No stridor, no adenopathy, no meningismus, trachea is midline. LUNGS: Clear to auscultation bilaterally, no wheeze, no rhonchi, breath sounds equal. HEART: Without murmurs gallops or rubs, regular rate and rhythm. ABDOMEN: Soft, nontender, bowel sounds positive, no peritonitis. Obese. EXTREMITIES: No cyanosis. Mild bilateral pedal edema. No cellulitis to the lower extremities. NEUROLOGIC: Oriented x 3, Somewhat somnolent. SKIN: No rash, no jaundice, no diaphoresis. DIFFERENTIAL DIAGNOSIS: Sepsis, bacteremia, dehydration, electrolyte imbalance, pneumonia, viral illness, infusion reaction, among others. EMERGENCY DEPARTMENT COURSE/PROCEDURES: Prior/Outside records reviewed: EMS records. ECG per my interpretation: Indication was possible sepsis. The ECG shows a normal sinus rhythm with a rate of 100. There is an incomplete right bundle branch block. There is no ST elevation, no PVCs. The QTc is 454. Continuous Cardiac Monitoring per my interpretation: An order was placed for continuous cardiac monitoring. The monitor shows a rate of 98 with normal sinus rhythm. Critical Care Note: I have personally spent 48 minutes of critical care time in the direct management of this patient. This includes bedside care, interpretation of diagnostic studies, and testing, discussion with consultants, patient, and family members, and other required patient management activities. This 48 minutes is in excess of all separately billable procedures. MEDICAL DECISION MAKING: There is a significant leukocytosis to 19,000, this could be consistent with infection. There is a normal hemoglobin and platelet count. No renal failure or significant electrolyte abnormality. No concerning liver enzyme elevation. Urinalysis shows some contamination, no obvious infection. Lactic acid level was elevated consistent with potential infection/sepsis. Magnesium was normal. Respiratory bio fire was completely negative. Chest film per my review did not show pneumonia or CHF. On exam, there was no obvious cellulitis. Patient presents with some weakness and mild change in his mental status. He was tachycardic earlier and has had some vomiting. With the patient's immunocompromise, infection/sepsis was a real concern. I did speak with neurology, Dr. Galvez. The patient's biologic infusion would not have caused his reported symptoms. The patient received IV saline, 1 L. He was given IV cefepime as empiric antibiotic coverage. I did speak with the patient and his , I spoke with case management, the on- call hospitalist was consulted. DISPOSITION: Patient's findings and presentation warrant a hospital stay and further work-up. Past Med/Surg History Medical History Anxiety and depression Multiple sclerosis WHEELCHAIR BOUND. DX'D 2007-F/U DR GALVEZ. Per last OV 07/01/20, "advanced multiple sclerosis condition radiographically stable on Ocrevus" OCD (obsessive compulsive disorder) Spastic gait Vitamin D deficiency hx Surgical History History of colonoscopy History of transurethral resection of prostate Family History Father Crohn's disease Colorectal cancer PT DENIES Mother Crohn's disease Colorectal cancer Other No significant family history Social History Smoking Status: Never smoker Second Hand Exposure: No; Hx Alcohol Use: Yes Alcohol type: beer Hx Substance Use: No Preferred Language: Turkish Communication Ability: Effective Gift Manager Required: No Beliefs That Will Affect Care: None marital status: Current Living Situation: Spouse current occupational status: disabled Feels Safe at Home: Yes Physical Activity Frequency Comment: WHEELCHAIR BOUND Assistive Devices: Wheelchair Allergies Allergies Allergy/AdvReac Type Severity Reaction Status Date / Time green pepper Allergy Unknown Unknown Verified 12/30/21 09:50 potato Allergy Unknown Unknown Verified 12/30/21 09:50 tomato Allergy Unknown Unknown Verified 12/30/21 09:50 No Known Drug Allergies Allergy NONE Verified 12/30/21 09:50 Home Meds Home Medications Medication Instructions Recorded Confirmed multivitamin 1 tab PO QAM 01/27/18 03/31/22 omega 8-nix-kuz-fish oil 1,000 mg 1,000 mg PO QAM 01/27/18 03/31/22 (120 mg-180 mg) capsule (Fish Oil) cholecalciferol (vitamin D3) 125 5,000 units PO Q2D 03/21/18 03/31/22 mcg (5,000 unit) tablet (Vitamin D3) acetaminophen 325 mg capsule 650 mg PO Q4H PRN Fever Or Pain 09/18/20 03/31/22 Previous Rx's Medication Instructions Recorded lactobacillus combination no.4 3 3,000 mmu cells PO DAILY #10 caps 11/20/20 billion cell capsule (Probiotic) loperamide 2 mg capsule (Imodium 2 mg PO QID PRN loose stool #20 11/20/20 A-D) caps naltrexone 50 mg tablet 4.5 mg PO DAILY #100 tabs 10/13/21 ocrelizumab 30 mg/mL intravenous 600 mg (20 mL) IV Q6MO #20 mL 03/28/22 solution (Ocrevus) baclofen 20 mg tablet 20 mg PO QID #270 tabs 03/31/22 escitalopram oxalate 20 mg tablet 20 mg PO DAILY #90 tabs 04/07/22 (Lexapro) Results & Data (ED) Vital Signs Vital Signs - 24 hr 04/08/22 15:20 04/08/22 15:20 04/08/22 17:00 Temperature 36.9 C Temperature Source Oral Pulse Rate 95 H Pulse Rate [Apical] 95 H 100 H Pulse Rhythm Regular Pulse Rhythm [Apical] Regular Regular Pulse Strength Normal Pulse Strength [Apical] Normal Normal Respiratory Rate 14 14 18 Respiratory Effort / Characteristics Non-Labored Non-Labored Non-Labored Respiratory Depth Normal Normal Normal Respiratory Pattern Regular Regular Regular Blood Pressure 145/94 H Blood Pressure [Right Arm] 145/94 H 148/97 H Blood Pressure Mean 111 Blood Pressure Mean [Right Arm] 111 114 Blood Pressure Position [Right Arm] Lying Pulse Oximetry 95 95 96 Oxygen Delivery Method Room Air Room Air Room Air Sepsis Recent Fever Within 48 Hours No Sepsis New/Unexplained Change in Mental Status No Sepsis Action Taken by Nursing No Action Required Home Medications Current Medication List: was personally reviewed by me Laboratory Data Attestation: I reviewed the patient's lab results. Lab Results 04/08/22 04/08/22 04/08/22 Range/Units 16:16 16:16 16:23 Lactate 3.1 H* (0.4-2.0) mmol/L Magnesium 2.0 (1.7-2.4) mg/dl Urine Color Urine Appearance (Clear) Urine pH (4.5-7.5) Ur Specific [place] (1.000-1.030) Urine Protein (Negative) Urine Glucose (UA) (Negative) Urine Ketones (Negative) Urine Blood (Negative) Urine Nitrite (Negative) Urine Bilirubin (Negative) Urine Urobilinogen (Negative) Ur Leukocyte Esterase (Negative) Urine WBC (Auto) (0-5) /hpf Urine RBC (Auto) (0-4) /hpf U Hyaline Cast (Auto) (0-5) /lpf U Epithel Cells (Auto) (0-5) /lpf Urine Bacteria (Auto) (Negative) Adenovirus (PCR) Not Detected (NotDetected) B. pertussis DNA (PCR) Not Detected (NotDetected) B.parapertussis DNA PCR Not Detected (NotDetected) C. pneumoniae DNA (PCR) Not Detected (NotDetected) Coronavirus OC43 (PCR) Not Detected (NotDetected) Coronavirus HKU1 (PCR) Not Detected (NotDetected) Coronavirus 229E (PCR) Not Detected (NotDetected) SARS-CoV-2 (PCR) Not Detected (NotDetected) Coronavirus NL63 (PCR) Not Detected (NotDetected) Human Metapneumovir PCR Not Detected (NotDetected) Influenza Type A (PCR) Not Detected (NotDetected) Influenza Type B (PCR) Not Detected (NotDetected) M. pneumoniae (PCR) Not Detected (NotDetected) Parainfluenza 1 (PCR) Not Detected (NotDetected) Parainfluenza 2 (PCR) Not Detected (NotDetected) Parainfluenza 3 (PCR) Not Detected (NotDetected) Parainfluenza 4 (PCR) Not Detected (NotDetected) RSV (PCR) Not Detected (NotDetected) Entero/Rhino (PCR) Not Detected (NotDetected) 04/08/22 Range/Units 16:58 Lactate (0.4-2.0) mmol/L Magnesium (1.7-2.4) mg/dl Urine Color Yellow Urine Appearance Clear (Clear) Urine pH 5.0 (4.5-7.5) Ur Specific [place] 1.038 H (1.000-1.030) Urine Protein Trace H (Negative) Urine Glucose (UA) 2+ H (Negative) Urine Ketones Trace H (Negative) Urine Blood Negative (Negative) Urine Nitrite Negative (Negative) Urine Bilirubin Negative (Negative) Urine Urobilinogen Negative (Negative) Ur Leukocyte Esterase Negative (Negative) Urine WBC (Auto) 5-10 H (0-5) /hpf Urine RBC (Auto) 0-4 (0-4) /hpf U Hyaline Cast (Auto) 1-5 (0-5) /lpf U Epithel Cells (Auto) 10-20 H (0-5) /lpf Urine Bacteria (Auto) Negative (Negative) Adenovirus (PCR) (NotDetected) B. pertussis DNA (PCR) (NotDetected) B.parapertussis DNA PCR (NotDetected) C. pneumoniae DNA (PCR) (NotDetected) Coronavirus OC43 (PCR) (NotDetected) Coronavirus HKU1 (PCR) (NotDetected) Coronavirus 229E (PCR) (NotDetected) SARS-CoV-2 (PCR) (NotDetected) Coronavirus NL63 (PCR) (NotDetected) Human Metapneumovir PCR (NotDetected) Influenza Type A (PCR) (NotDetected) Influenza Type B (PCR) (NotDetected) M. pneumoniae (PCR) (NotDetected) Parainfluenza 1 (PCR) (NotDetected) Parainfluenza 2 (PCR) (NotDetected) Parainfluenza 3 (PCR) (NotDetected) Parainfluenza 4 (PCR) (NotDetected) RSV (PCR) (NotDetected) Entero/Rhino (PCR) (NotDetected) Administered Medications Sodium Chloride (Nss 1000ml) 1,000 mls @ 999 mls/hr IV .Q1H1M ONE Stop: 04/08/22 18:00 Last Admin: 04/08/22 17:44 Dose: 999 mls/hr Documented By: RSL Discontinued Medications Cefepime HCl (Maxipime) 2,000 mg in 20 mls @ 5 mls/min IV NOW STA; Protocol Stop: 04/08/22 15:45 Last Admin: 04/08/22 16:51 Dose: 5 mls/min Documented By: RSL Imaging Data Radiologist's Impression: Chest X-Ray 04/08/22 15:42 XR chest 1V portable HISTORY: 56 years-old Male fever acute fever COMPARISON: 08/25/2021 TECHNIQUE: AP view of the chest FINDINGS: Cardiac silhouette is enlarged. No pneumothorax, pleural effusion, airspace consolidation or pulmonary edema. Bones appear grossly intact. IMPRESSION: Cardiomegaly without acute process. ACT 112: Negative or not required by law. The above report was generated using voice recognition software. It may contain grammatical, syntax or spelling errors. Electronically signed by: Silas Dhillon M.D. 04/08/2022 3:53 PM Discharge Plan Visit Data Chief Complaint: Illness Stated Complaint: ILLNESS ED Provider: Dennis Lambert Discharge Problem: Weakness, Immunocompromised, Leukocytosis, Elevated lactic acid level Patient Disposition: Admitted As Inpatient Condition: Fair Forms Stand Alone Forms: Declara Prescriptions Prescriptions: No Action Ocrevus 30 mg/mL solution 600 mg IV Q6MO Qty: 20 1RF Rx Instructions: 30 minutes before each infusion,premedicate with methylprednisolone 100mg IV, diphenhydramine 25mg IV, and acetaminophen 500mg PO.May give an additional 25mg diphenhydramine IV during infusion PRN. escitalopram oxalate [Lexapro] 20 mg tablet 20 mg PO DAILY Qty: 90 3RF baclofen 20 mg tablet 20 mg PO QID Qty: 270 1RF naltrexone 50 mg tablet 4.5 mg PO DAILY Qty: 100 5RF acetaminophen 325 mg capsule 650 mg PO Q4H PRN (Reason: Fever Or Pain) multivitamin Tablet 1 tab PO QAM omega 9-ngo-dbp-fish oil [Fish Oil] 1,000 mg (120 mg-180 mg) Capsule 1,000 mg PO QAM cholecalciferol (vitamin D3) [Vitamin D3] 5,000 unit Tablet 5,000 units PO Q2D Probiotic 3 billion cell capsule 3,000 mmu cells PO DAILY Qty: 10 0RF Rx Instructions: administer with a meal loperamide [Imodium A-D] 2 mg capsule 2 mg PO QID PRN (Reason: loose stool) Qty: 20 0RF Referrals Referrals: Kt Ledesma [Primary Care Provider] -
--- NOTE | 2022-04-08 15:54 | XRay Report ---
XR chest 1V portable HISTORY: 56 years-old Male fever acute fever COMPARISON: 08/25/2021 TECHNIQUE: AP view of the chest FINDINGS: Cardiac silhouette is enlarged. No pneumothorax, pleural effusion, airspace consolidation or pulmonar y edema. Bones appear grossly intact. IMPRESSION: Cardiomegaly without acute process. ACT 112: Negative or not required by law. The above report was generated using voice recognition software. It may contain grammatical, syntax o r spelling errors. Electronically signed by: Silas Dhillon M.D. 04/08/2022 3:53 PM
[2022-04-08] MEDS ORDERED: SODIUM CHLORIDE 0.9% 1000ML 1,000 ML IV ONE (17:00)
[2022-04-08 17:15] LABS: Appearance Urine Clear (Clear); Bacteria Urine Automated Negative (Negative); Bilirubin Urine Negative (Negative); Blood Urine Negative (Negative); Color Urine Yellow; Glucose Urine UA 2+ (Negative); Ketones Urine Trace (Negative); Leukocyte Esterase Urine Negative (Negative); Nitrite Urine Negative (Negative); Protein Urine Trace (Negative); RBC Urine Automated 0-4 /hpf (0-4); Specific Gravity Urine 1.038 (1.000-1.030); Urobilinogen Urine Negative (Negative)
--- NOTE | 2022-04-08 17:23 | History & Physical Report ---
Date of Service April 08, 2022 Assessment & Plan (1) Leukocytosis: Plan: -Admit to med/tele -At this time the patient is currently afebrile, hemodynamically stable, and stable on RA -Patient had his regularly scheduled ocrelizumab infusion with Neurology yesterday, experienced multiple episodes of nausea and vomiting when he returned home but nothing today -Found to have a leukocytosis of 19 with left shift of 16, patient also noted to have an elevated lactate of 3.1 -Chest xray is without acute findings, UA is not suggestive of UTI, full respiratory biofire is negative, CMP without acute findings -Patient received one dose of cefepime and 1L NSS in the ED -ED staff spoke with Neurology who does not think that the nausea and vomiting are related to his recent infusion -At this time our suspicion for infection is low, the patient may have underlying gastritis as he was belching during the exam. He may have had severe gastritis yesterday leading to his nausea/vomiting leading to a reactive leukocytosis and elevated lactate from dehydration. -Will hold additional abx for now, follow blood cultures and monitor for infection -Will start 20 mg IV famotidine now and monitor for improvement of symptoms -Will continue light IV hydration overnight with LR at 80 ml/hr x 2 bags as he appears dehydrated on exam -Repeat lactate has been ordered, will FU to ensure it clears -Monitor on tele and pulse oximetry -AM CBC (2) Elevated lactic acid level: Plan: -See leukocytosis (3) Nausea and vomiting: Plan: -See leukocytosis (4) Multiple sclerosis: Plan: -Follows with neurology and is S/P ocrelizumab infusion yesterday -Will obtain dysphagia screen and start aspiration precautions -Will order a diet after his dysphagia screen -Continue daily Naltrexone for fatigue as prescribed by Neurology (5) Spasticity: Plan: -Continue baclofen (6) Anxiety and depression: Plan: -Continue Lexapro Plan The patient was discussed with Dr. Hare at the time of the admission History of Present Illness Chief Complaint: Illness Primary Care Provider: Kt Ochoa Baltazar Herrera is a 56 year old male with a PMH significant for Multiple sclerosis (now wheelchair bound), muscle spasms, OCD, bladder spasms, anxiety, depression who presented to the [facility] ED on 04/08/22 due to concerns for infusion reaction. Per chart review, the patient receives Ocrelizumab infusions twice a year at the [facility] and had an infusion yesterday. In the ED the patient was found to be afebrile, hemodynamically stable, sta ble on RA, but tachycardic with a HR of 100 bpm. Labs were significant for a leukocytosis of 19 with left shift of 16, stable Hgb and platelets, stable cr at 0.86, stable electrolytes, glucose of 144, lactate of 3.1, ALT of 72 (appears stable compared to the past year), UA not suggestive of acute UTI, and negative full respiratory biofire. Chest xray was read as "Cardiomegaly without acute process.". Prior to admission the patient was given 1L NSS and a dose of cefepime after blood cultures were obtained At the time of the exam the patient was resting in bed in no acute distress. He states that his left to go grab some of his things from home but will be coming back. He states that after his infusion yesterday he had multiple episodes of nausea and non-bloody emesis yesterday. When asked, he denies feeling as though he aspirated any of his vomit. He denies having any episodes of vomiting today and denies current nausea. He denies recent fevers, chills, headache, changes in vision, hearing, taste, and smell, chest pain, SOB, cough, abdominal pain, dysuria, hematuria, and recent wounds or skin infections. When asked, he states that he had his morning medications today but is unable to confirm his med rec as his handles his medications. He is incontinent at baseline and uses briefs, he is unsure if he retains urine after urinating. I confirmed his 's phone number in the chart and told him I will call her to give her an update and confirm his medications. We discussed code status, he confirms that he is a DNR/DNI and his would make medical decisions for him if he could not make them himself. Please refer to Dr. Gonzales's attestation for any changes to the treatment plan Allergies Allergy/AdvReac Type Severity Reaction Status Date / Time green pepper Allergy Unknown Unknown Verified 04/08/22 18:31 potato Allergy Unknown Unknown Verified 04/08/22 18:31 tomato Allergy Unknown Unknown Verified 04/08/22 18:31 No Known Drug Allergies Allergy NONE Verified 04/08/22 18:31 Home Medications Medication Instructions Recorded Confirmed Type multivitamin 1 tab PO QAM 01/27/18 04/08/22 History omega 2-ofm-god-fish oil 1,000 mg 1,000 mg PO QAM 01/27/18 04/08/22 History (120 mg-180 mg) capsule (Fish Oil) cholecalciferol (vitamin D3) 125 5,000 units PO Q2D 03/21/18 04/08/22 History mcg (5,000 unit) tablet (Vitamin D3) acetaminophen 325 mg capsule 650 mg PO Q4H PRN Fever Or Pain 09/18/20 04/08/22 History lactobacillus combination no.4 3 3,000 mmu cells PO DAILY #10 caps 11/20/20 04/08/22 Rx billion cell capsule (Probiotic) loperamide 2 mg capsule (Imodium 2 mg PO QID PRN loose stool #20 11/20/20 04/08/22 Rx A-D) caps naltrexone 50 mg tablet 4.5 mg PO DAILY #100 tabs 10/13/21 04/08/22 Rx ocrelizumab 30 mg/mL intravenous 600 mg (20 mL) IV Q6MO #20 mL 03/28/22 04/08/22 Rx solution (Ocrevus) baclofen 20 mg tablet 20 mg PO QID #270 tabs 03/31/22 04/08/22 Rx escitalopram oxalate 20 mg tablet 20 mg PO DAILY #90 tabs 04/07/22 04/08/22 Rx (Lexapro) Past Med/Surg History Medical History Anxiety and depression Multiple sclerosis WHEELCHAIR BOUND. DX'D 2007-F/U DR GALVEZ. Per last OV 07/01/20, "advanced multiple sclerosis condition radiographically stable on Ocrevus" OCD (obsessive compulsive disorder) Spastic gait Vitamin D deficiency hx Surgical History History of colonoscopy History of transurethral resection of prostate Family History Father Crohn's disease Colorectal cancer PT DENIES Mother Crohn's disease Colorectal cancer Other No significant family history Social History Smoking Status: Never smoker Second Hand Exposure: No; Hx Alcohol Use: Yes Alcohol type: beer Hx Substance Use: No Preferred Language: [place] Islander Communication Ability: Effective Oem Sales Manager Required: No Beliefs That Will Affect Care: None marital status: Current Living Situation: Spouse current occupational status: disabled Feels Safe at Home: Yes Physical Activity Frequency Comment: WHEELCHAIR BOUND Assistive Devices: Hospital Bed, Mechanical Lift, Wheelchair and Other Review of Systems Review of Systems: Denies current fever, chills, headache, changes in vision, hearing, taste, and smell, chest pain, SOB, cough, abdominal pain,diarrhea, hematemesis, melena, dysuria, hematuria, and recent falls. All systems have been reviewed and are otherwise negative. Physical Exam Physical Exam: Physical Exam: General: In no acute distress, stated age, obese, non-toxic appearing HEENT: Normocephalic, atraumatic, no scleral icterus, pupils around round, symmetrical, and reactive to light, dry mucus membranes, trachea midline, no thyromegaly Chest/Pulm: No respiratory distress, symmetrical chest expansion, clear breath sounds throughout Cardiac: tachycardic rate, regular rhythm, no murmurs noted Abdomen: Negative for ascites and bruising, normoactive bowel sounds, soft, non-tender to palpation throughout Musculoskeletal: Patient without acute trauma on exam, unable to move his upper and lower extremities due to MS Extremities: Radial, dorsalis pedis, and posterior tibial pulses are intact and symmetrical, no edema noted in the BL LE's Skin: Warm, dry, no rashes , lesions, or scars noted Neuro: Alert and oriented to person, place, month, year, and president, patient is slow to respond due to his MS, no tremors noted Psych: No acute distress, calm and cooperative during the exam Results & Data Results & Data ([facility]) Vital Signs (Past 12 Hours) Vital Signs Temp Pulse Pulse Resp BP BP Pulse Ox 04/08/22 17:00 100 H 18 148/97 H 96 04/08/22 15:20 95 H 14 145/94 H 95 04/08/22 15:20 36.9 C 95 H 14 145/94 H 95 O2 Del Method 04/08/22 17:00 Room Air 04/08/22 15:20 Room Air 04/08/22 15:20 Room Air Laboratory Results Abnormal lab results 04/08/22 04/08/22 Range/Units 16:16 16:58 Lactate 3.1 H* (0.4-2.0) mmol/L Ur Specific [place] 1.038 H (1.000-1.030) Urine Protein Trace H (Negative) Urine Glucose (UA) 2+ H (Negative) Urine Ketones Trace H (Negative) Urine WBC (Auto) 5-10 H (0-5) /hpf U Epithel Cells (Auto) 10-20 H (0-5) /lpf Diagnostic Findings Chest X-Ray 04/08/22 15:42 XR chest 1V portable HISTORY: 56 years-old Male fever acute fever COMPARISON: 08/25/2021 TECHNIQUE: AP view of the chest FINDINGS: Cardiac silhouette is enlarged. No pneumothorax, pleural effusion, airspace consolidation or pulmonary edema. Bones appear grossly intact. IMPRESSION: Cardiomegaly without acute process. ACT 112: Negative or not required by law. The above report was generated using voice recognition software. It may contain grammatical, syntax or spelling errors. Electronically signed by: Silas Dhillon M.D. 04/08/2022 3:53 PM ECG Additional Comments: Normal sinus rhythm Left atrial enlargement Incomplete right bundle branch block Borderline ECG When compared with ECG of 25-AUG-2021 11:30, No significant change was found Confirmed by Delfino Roach ([id number]) on 04/08/2022 5:31:25 PM Code Status & VTE Plan Code Status DNR/DNI VTE Prophylaxis Plan VTE Prophylaxis will be ordered: Yes Supervising Physician Co-Signing Physician Notes I personally saw and examined the patient. I verified all kitchen points and agree with Dick Cool PA-C with the following exceptions and/or additions: 56 year old male with multiple sclerosis presents to the ER with sudden onset nausea and vomiting following his ocrelizumab infusion yesterday. Currently back to his normal self when seen. O/E A&Ox3, HS RRR, Chest CTAB, no movement on left side, MRC 3/5 movement right ankle and 2/5 right knee, 4/5 topology teacher strength A/P Leukocytosis - HS initially elevated with elevated WBC however patient not septic appearing. Blood and urine cultures taken in ER PG Care Time/CCT Total # of Minutes Spent Total Time Spent with Patient: Total time spent is greater than 50% in coordination of care (as documented) at patient's floor/unit and/or counseling patient: Coding [place] [address] INT INP/OBS CARE 3/75MIN Patient Type Established Medical Decision Making High Complexity Diagnoses Leukocytosis D72.829 Leukocytosis type: unspecified Elevated lactic acid level R79.89 Nausea and vomiting R11.2 Multiple sclerosis G35 Spasticity R25.2 Anxiety and depression F41.9; F32.9 (1) Leukocytosis Leukocytosis type: unspecified Qualified Code(s): D72.829 - Elevated white blood cell count, unspecified
--- NOTE | 2022-04-08 17:31 | Electrocardiogram Report ---
Test Reason : Blood Pressure : / mmHG Vent. Rate : 100 BPM Atrial Rate : 100 BPM P-R Int : 186 ms QRS Dur : 100 ms QT Int : 352 ms P-R-T Axes : 042 -24 016 degrees QTc Int : 454 ms Normal sinus rhythm Left atrial enlargement Incomplete right bundle branch block Borderline ECG When compared with ECG of 25-AUG-2021 11:30, No significant change was found Confirmed by Delfino Roach ([id number]) on 04/08/2022 5:31:25 PM Referred By: REFERRED SELF Confirmed By:Delfino Roach
[2022-04-08] MEDS ORDERED: ONDANSETRON INJ 2 MG/ML 2 ML VIAL IV PRN (17:34)
[2022-04-08 17:52] LABS: Adenovirus PCR Not Detected (NotDetected); Bordetella parapertussis PCR Not Detected (NotDetected); Bordetella pertussis PCR Not Detected (NotDetected); Chlamydia pneumoniae PCR Not Detected (NotDetected); Coronavirus 229E PCR Not Detected (NotDetected); Coronavirus CoV-2 (COVID19)PCR Not Detected (NotDetected); Coronavirus HKU1 PCR Not Detected (NotDetected); Coronavirus NL63 PCR Not Detected (NotDetected); Coronavirus OC43PCR Not Detected (NotDetected); Human Metapneumovirus PCR Not Detected (NotDetected); Influenza A PCR Not Detected (NotDetected); Influenza B PCR Not Detected (NotDetected); Mycoplasma pneumoniae PCR Not Detected (NotDetected); Parainfluenza Virus 1 PCR Not Detected (NotDetected); Parainfluenza Virus 2 PCR Not Detected (NotDetected); Parainfluenza Virus 3 PCR Not Detected (NotDetected); Parainfluenza Virus 4 PCR Not Detected (NotDetected); Respiratory Syncytial VirusPCR Not Detected (NotDetected); Rhinovirus/Enterovirus PCR Not Detected (NotDetected)
[2022-04-08] MEDS ORDERED: BACLOFEN 20 MG TAB PO SCH (18:15)
[2022-04-08] MEDS: FAMOTIDINE 20MG IV PUSH 20 MG/5 ML SYR IV ONE ×2 (19:11→19:47)
[2022-04-08] MEDS: LACTATED RINGER'S 1,000 ML IV SCH (19:47)
[2022-04-08] MEDS ORDERED: ACETAMINOPHEN 325 MG TAB PO PRN (20:35)
[2022-04-09] MEDS: BACLOFEN 20 MG TAB PO SCH ×3 (00:27→12:40)
[2022-04-09] MEDS: ENOXAPARIN INJ 40 MG/0.4 ML SYR SQ SCH ×2 (00:27→08:04)
[2022-04-09 06:32] LABS: Hematocrit (blood only) 37.7 % (42.0-52.0); Hemoglobin 12.9 g/dl (14.0-18.0); Mean Corpuscular Hgb Conc 34.2 g/dL (32.0-36.0); Mean Corpuscular Volume 87.7 fL (80.0-100.0); Mean Platelet Volume 10.6 fL (9.4-12.4); Platelet Count 293 K/uL (130-400); RDW Standard Deviation 44.9 fL (36.4-46.3); White Blood Count 14.88 K/ul (4.8-10.8)
[2022-04-09 06:46] LABS: Albumin Globulin Ratio 1.4 (0.9-2); Albumin Level 3.4 gm/dl (3.4-5.0); BUN Creatinine Ratio 15.1 (10-20); Bilirubin,Total 0.6 mg/dl (0.2-1.0); Calcium 8.6 mg/dl (8.5-10.1); Creatinine Clr Calc Pharmacy 145.5 ml/min; Est GFR (African American) 121.9 ml/min; Est GFR (Non-African American) 105.2 ml/min; Globulin 2.5 gm/dl (2.5-4.0); Potassium 3.8 mmol/L (3.5-5.1); Total Protein 5.9 gm/dl (6.0-8.3)
[2022-04-09] MEDS: LACTATED RINGER'S 1,000 ML IV SCH (08:03)
[2022-04-09] MEDS ORDERED: ESCITALOPRAM OXALATE 20 MG TAB PO SCH (09:00)
[2022-04-09] MEDS ORDERED: ADVANCED PROBIOTIC 1250 MG CAPSULE PO SCH (09:00)
[2022-04-09] MEDS ORDERED: FAMOTIDINE 20 MG in SYRINGE 3 ML IV SCH (09:00)
--- NOTE | 2022-04-09 12:09 | Discharge Summary ---
Date of Service April 09, 2022 Admission HPI Per Admitting Provider Javier is a 56 year old male with a PMH significant for Multiple sclerosis (now wheelchair bound), muscle spasms, OCD, bladder spasms, anxiety, depression who presented to the [facility] ED on 04/08/22 due to concerns for infusion reaction. Per chart review, the patient receives Ocrelizumab infusions twice a year at [facility] and had an infusion yesterday. In the ED the patient was found to be afebrile, hemodynamically stable, stable on RA, but tachycardic with a HR of 100 bpm. Labs were significant for a leukocytosis of 19 with left shift of 16, stable Hgb and platelets, stable cr at 0.86, stable electrolytes, glucose of 144, lactate of 3.1, ALT of 72 (appears stable compared to the past year), UA not suggestive of acute UTI, and negative full respiratory biofire. Chest xray was read as "Cardiomegaly without acute process.". Prior to admission the patient was given 1L NSS and a dose of cefepime after blood cultures were obtained At the time of the exam the patient was resting in bed in no acute distress. He states that his left to go grab some of his things from home but will be coming back. He states that after his infusion yesterday he had multiple episodes of nausea and non-bloody emesis yesterday. When asked, he denies feeling as though he aspirated any of his vomit. He denies having any episodes of vomiting today and denies current nausea. He denies recent fevers, chills, headache, changes in vision, hearing, taste, and smell, chest pain, SOB, cough, abdominal pain, dysuria, hematuria, and recent wounds or skin infections. When asked, he states that he had his morning medications today but is unable to confirm his med rec as his handles his medications. He is incontinent at baseline and uses briefs, he is unsure if he retains urine after urinating. I confirmed his 's phone number in the chart and told him I will call her to give her an update and confirm his medications. We discussed code status, he confirms that he is a DNR/DNI and his would make medical decisions for him if he could not make them himself. Principal Diagnosis acute gastritis Discharge Exam The patient is awake, alert and oriented 3, well developed and well nourished, normocephalic and atraumatic, lying in bed and in no acute distress. HEENT--PERRL, EOMI, mucous membranes and oropharynx mildly dry Neck--supple. No JVD. No bruits. Thyroid normal, trachea midline, no adenopathy. Heart--normal S1 and S2. No murmurs, rubs or gallops. Lungs--clear bilaterally, no respiratory distress, no accessory muscle use. Abdomen--normal bowel sounds and soft. Mild epigastric and left sided abdominal pain Extremities--no cyanosis or clubbing. No edema. Dermatologic--normal skin turgor, normal color, no abnormal lymph nodes, no rash. Neurologic--cranial nerves II through XII grossly intact. Rheumatologic--normal range of motion. Psychiatric--normal affect. Discharge Data Allergies Allergy/AdvReac Type Severity Reaction Status Date / Time green pepper Allergy Unknown Unknown Verified 04/08/22 18:31 potato Allergy Unknown Unknown Verified 04/08/22 18:31 tomato Allergy Unknown Unknown Verified 04/08/22 18:31 No Known Drug Allergies Allergy NONE Verified 04/08/22 18:31 Consultations 04/08/22 17:10 ED Decision to Admit Stat Hospital Course (1) Leukocytosis: -Patient had his regularly scheduled ocrelizumab infusion with Neurology yesterday, experienced multiple episodes of nausea and vomiting when he returned home but nothing today -Found to have a leukocytosis of 19 with left shift of 16, patient also noted to have an elevated lactate of 3.1 -Chest xray is without acute findings, UA is not suggestive of UTI, full respiratory biofire is negative, CMP without acute findings -Patient received one dose of cefepime and 1L NSS in the ED -ED staff spoke with Neurology who does not think that the nausea and vomiting are related to his recent infusion -At this time our suspicion for infection is low, the patient may have underlying gastritis as he was belching during the exam. He may have had severe gastritis yesterday leading to his nausea/vomiting leading to a reactive leukocytosis and elevated lactate from dehydration. -Will hold additional abx for now, follow blood cultures and monitor for infection -Will start 20 mg IV famotidine now and monitor for improvement of symptoms -Will continue light IV hydration overnight with LR at 80 ml/hr x 2 bags as he appears dehydrated on exam -Repeat lactate now wnl -Monitor on tele and pulse oximetry -AM CBC (2) Elevated lactic acid level: -See leukocytosis (3) Nausea and vomiting: -See leukocytosis (4) Multiple sclerosis: -Follows with neurology and is S/P ocrelizumab infusion yesterday -Will obtain dysphagia screen and start aspiration precautions -Will order a diet after his dysphagia screen -Continue daily Naltrexone for fatigue as prescribed by Neurology (5) Spasticity: -Continue baclofen (6) Anxiety and depression: -Continue Lexapro Total Time Total Time Spent Total Time Spent (In Minutes): 35 Discharge Plan Discharge Items Patient Disposition: Home - Self-Care Reason For Visit: NAUSEA AND VOMITING Discharge Diagnosis: acute gastritis Condition on Discharge: Fair Activity: Resume your previous activity Non-emergency contact: Primary Care Provider Call non-emergency contact if: you have any medication questions Follow-up/Referrals: Kt Ledesma [Primary Care Provider] - (PLEASE CALL YOUR PRIMARY CARE PROVIDER TO SCHEDULE A DISCHARGE FOLLOW-UP APPOINTMENT WITHIN 7-10 DAYS.) Diet: Regular Addtl Attending Provider Instructions: please make appointment to follow up with your pcp Pending Studies at Discharge: No Stand-Alone Forms: My [employer], Smoking Cessation Medications and DC Order Prescriptions: Continued Ocrevus 30 mg/mL solution 600 mg IV Q6MO Qty: 20 1RF Rx Instructions: 30 minutes before each infusion,premedicate with methylprednisolone 100mg IV, diphenhydramine 25mg IV, and acetaminophen 500mg PO.May give an additional 25mg diphenhydramine IV during infusion PRN. escitalopram oxalate [Lexapro] 20 mg tablet 20 mg PO DAILY Qty: 90 3RF baclofen 20 mg tablet 20 mg PO QID Qty: 270 1RF naltrexone 50 mg tablet 4.5 mg PO DAILY Qty: 100 5RF acetaminophen 325 mg capsule 650 mg PO Q4H PRN (Reason: Fever Or Pain) multivitamin Tablet 1 tab PO QAM omega 2-ssx-jcf-fish oil [Fish Oil] 1,000 mg (120 mg-180 mg) Capsule 1,000 mg PO QAM cholecalciferol (vitamin D3) [Vitamin D3] 5,000 unit Tablet 5,000 units PO Q2D Probiotic 3 billion cell capsule 3,000 mmu cells PO DAILY Qty: 10 0RF Rx Instructions: administer with a meal loperamide [Imodium A-D] 2 mg capsule 2 mg PO QID PRN (Reason: loose stool) Qty: 20 0RF Discharge Orders: Discharge Order (Routine); Ordered 04/09/22 Ordered By: Suzanne Drew Admission Data Admit Date/Time: 04/08/22 18:04 Attending Provider: Suzanne Drew Admit Provider: Alexandre Hare Primary Care Provider: Kt Ledesma Other Providers: Alexandre Hare Other Interventions: Discharge Summary Assessment (RN) Last Done: 04/09/22 11:56 Coding Level of Care Code HOSP INP/OBS DISCH >30 MIN Diagnoses Leukocytosis D72.829 Leukocytosis type: unspecified Elevated lactic acid level R79.89 Nausea and vomiting R11.2 Multiple sclerosis G35 Spasticity R25.2 Anxiety and depression F41.9; F32.9 Time Spent (min) 35
[2022-04-09 19:42] LABS: A calco-baum cmplx NotReported Not Detected (NotDetected); Bact fragilis Not Reported Not Detected (NotDetected); C auris Not Reported Not Detected (NotDetected); Calbicans Not Reported Not Detected (NotDetected); Candida glabrata Not Reported Not Detected (NotDetected); Candida krusei Not Reported Not Detected (NotDetected); Cneoformans/gatti Not Reported Not Detected (NotDetected); Cparapsilosis Not Reported Not Detected (NotDetected); Ctropicalis Not Reported Not Detected (NotDetected); E cloacae compx Not Reported Not Detected (NotDetected); Efaecalis Not Reported Not Detected (NotDetected); Efaecium Not Reported Not Detected (NotDetected); Enterobacterales Not Reported Not Detected (NotDetected); Escherichia coli Not Reported Not Detected (NotDetected); H influenzae Not Reported Not Detected (NotDetected); K aerogenes Not Reported Not Detected (NotDetected); Koxytoca Not Reported Not Detected (NotDetected); Kpneumoniae grp Not Reported Not Detected (NotDetected); Lmonocyt Not Reported Not Detected (NotDetected); N meningitidis Not Reported Not Detected (NotDetected); P aeruginosa Not Reported Not Detected (NotDetected); Proteus spp Not Reported Not Detected (NotDetected); Salmonella spp Not Reported Not Detected (NotDetected); Smarcescens Not Reported Not Detected (NotDetected); Staph lugdunensis Not Reported Not Detected (NotDetected); Staph spp. Not Reported DETECTED (NotDetected); Staphaureus Not Reported Not Detected (NotDetected); Staphepi Not Reported Not Detected (NotDetected); Stenmaltophilia Not Reported Not Detected (NotDetected); Strep agal(GrpB) Not Reported Not Detected (NotDetected); Strep pneum Not Reported Not Detected (NotDetected); Strep pyog (GrpA) Not Reported Not Detected (NotDetected); Strep spp Not Reported Not Detected (NotDetected)
[2022-04-09 20:27] LABS: Staphylococcus spp. DETECTED (NotDetected)
[2022-04-10] MEDS ORDERED: CHOLECALCIFEROL 5,000 UNITS 125 MCG TAB PO SCH (09:00)
== END 2022-04-09 13:59 | disposition home or self-care (01) | DRG 392 ==
LOC: ED 14:54 → 2W 18:04 → SUATTDRO 18:04 → 2W 20:24

== ENCOUNTER 2022-06-13 13:52 | Inpatient (IN) ==
[2022-06-13 14:48] LABS: Basophils # (auto) 0.08 K/uL (0-0.2); Basophils % (auto) 0.4 %; Eosinophils # (auto) 0.05 K/uL (0-0.50); Eosinophils % (auto) 0.3 %; Hematocrit (blood only) 43.1 % (42.0-52.0); Hemoglobin 14.8 g/dl (14.0-18.0); Immature Granulocytes % (auto) 0.5 %; Lymphocytes # (auto) 1.28 K/uL (1.2-3.4); Lymphocytes % (auto) 6.9 %; Mean Corpuscular Hgb Conc 34.3 g/dL (32.0-36.0); Mean Corpuscular Volume 87.2 fL (80.0-100.0); Mean Platelet Volume 10.5 fL (9.4-12.4); Monocytes % (auto) 4.9 %; Platelet Count 382 K/uL (130-400); RDW Coefficient of Variation 13.7 % (11.5-14.5); RDW Standard Deviation 43.3 fL (36.4-46.3); Red Blood Count 4.94 M/uL (4.70-6.10); White Blood Count 18.51 K/ul (4.8-10.8)
[2022-06-13 15:00] LABS: Alanine Aminotransferase 47 U/L (7-52); Albumin Globulin Ratio 1.6 (0.9-2); Albumin Level 4.2 gm/dl (3.4-5.0); Alkaline Phosphatase 87 U/L (34-104); Anion Gap 9 (3-11); Aspartate Aminotransferase 20 U/L (13-39); BUN Creatinine Ratio 13.4 (10-20); Bilirubin,Total 0.9 mg/dl (0.2-1.0); Blood Urea Nitrogen 9 mg/dl (6-23); Calcium 9.4 mg/dl (8.6-10.3); Carbon Dioxide 24 mmol/L (21-32); Chloride 103 mmol/L (98-107); Est GFR (African American) 125.4 ml/min; Est GFR (Non-African American) 108.2 ml/min; Globulin 2.7 gm/dl (2.5-4.0); Glucose 104 mg/dl (70-99(Fasting)); Sodium 136 mmol/L (136-145); Total Protein 6.9 gm/dl (6.0-8.3)
--- NOTE | 2022-06-13 15:40 | XRay Report ---
XR chest 1V not portable CLINICAL HISTORY: Fever. COMPARISON STUDY: Chest radiograph April 08, 2022. FINDINGS: The patient is rotated. This likely accounts for subtle asymmetric increased opacity of the left hemithorax. Cardiomegaly is unchanged. No evidence for pulmonary edema. There is no lobar conso lidation. There is been no significant change in appearance of the chest. IMPRESSION: 1. Subtle asymmetric increased opacification of the left hemithorax. This is likely technical. Airspa ce disease could appear similar but is considered less likely. 2. Cardiomegaly. No evidence for pulmonary edema. ACT 112: Negative or not required by law. Electronically signed by: Doug Dior M.D. 06/13/2022 3:39 PM
[2022-06-13] MEDS ORDERED: ACETAMINOPHEN 1,000 MG/100 ML VIAL IV STA (16:07)
[2022-06-13] MEDS ORDERED: SODIUM CHLORIDE 0.9% 1000ML 1,000 ML IV ONE ×2 (16:07→18:31)
[2022-06-13] MEDS ORDERED: PIPERACILLIN/TAZOBACTAM 4.5 GM/120 ML BAG IV ONE (16:08)
[2022-06-13 16:10] LABS: Influenza A virus by PCR Negative (Neg); Influenza B virus by PCR Negative (Neg); RSV by PCR Negative (Neg); SARS CoV2 RNA(COVID-19) Ceph NEGATIVE (Negative)
--- NOTE | 2022-06-13 16:45 | XRay Report ---
XR foot LT 2V CLINICAL HISTORY: 1st toe infection, eval for osseous involvement TECHNIQUE: 3 views of the left foot were obtained. Comparison: None available at the time of this dictation. FINDINGS: No evidence of bony erosion is seen. Degenerative changes are seen. Soft tissue swelling is seen abou t the foot. IMPRESSION: No radiographic evidence of osteomyelitis. If clinical concern remains, MRI is a more sensitive modal ity. ACT 112: Negative or not required by law. Electronically signed by: Sudeep Smart M.D. 06/13/2022 4:44 PM
[2022-06-13] MEDS ORDERED: OPTIRAY 350 100ml IV ONE (17:02)
--- NOTE | 2022-06-13 17:43 | CT Scan Report ---
ABDOMEN AND PELVIS CT WITH IV CONTRAST CT DOSE: 1882.41 mGy.cm HISTORY: Acute fever with urinary tract infection feverish, ?UTI, MS TECHNIQUE: Multiaxial CT images of the abdomen and pelvis were performed following the IV administrat ion of 79 cc of Optiray, A dose lowering technique was utilized adhering to the principles of ALARA. COMPARISON STUDY: 11/16/2020 FINDINGS: There is limited secondary to upper extremity positioning and respiratory motion artifact. Mild cardiomegaly with moderate coronary artery calcifications. Mild subsegmental bibasilar atelectas is. No pneumatosis or pneumoperitoneum. Unremarkable spleen, pancreas, gallbladder and adrenal glands . Hepatic steatosis. Patency of the hepatic and portal veins. Symmetric enhancement kidneys without hydronephrosis. 2 mm nonobstructing calculus of the inferior po le right kidney. Decompressed urinary bladder with wall thickening. There is an 80 of the prostate. F at filled inguinal hernias. Retroaortic left renal vein. Atherosclerosis of the aorta without aneurys m. There is no lymphadenopathy identified. No bowel obstruction or bowel wall thickening. No ascites or mesenteric inflammation. Normal appendix. Tiny fat filled umbilical hernia. Unremarkable soft tiss ues. Degenerative changes of the spine, pelvis and hips. No acute fracture identified. Lumbar levoscoliosis. IMPRESSION: 1. No bowel obstruction or bowel wall thickening. 2. Decompressed urinary bladder with wall thickening. Correlate with urinalysis. 3. Right nephrolithiasis. No ureteral calculi or hydronephrosis. 4. Hepatic steatosis. 5. Additional findings as above. ACT 112: Negative or not required by law. The above report was generated using voice recognition software. It may contain grammatical, syntax o r spelling errors. Electronically signed by: Silas Dhillon M.D. 06/13/2022 5:42 PM
--- NOTE | 2022-06-13 18:49 | History & Physical Report ---
Date of Service June 13, 2022 Assessment & Plan (1) SIRS (systemic inflammatory response syndrome): Plan: -Admit to med/tele -The patient is currently afebrile, hemodynamically stable, and stable on RA -At this time the patient does have a leukocytosis with left shift, UA is in process, procal was negative, patient does have a history of aspiration but no obvious focal consolidations on CXR -His left great toe appears to be healing well and without acute signs of infection -Will obtain MRSA Swab, ESR, CRP, and full respiratory biofire for further evaluation -Blood cultures already obtained, UA is in process, S/P one dose of zosyn in the ED -For now will hold additional abx until the rest of his infectious workup results -If the rest of his workup is not suggestive of infection will hold additional abx and monitor for additional fevers -BL SCD's and Sub-Q Lovenox for DVT PPX (2) Multiple sclerosis: Plan: -Stable -Follows with [facility] [place] [facility] -Aspiration precautions with minced/moist diet ordered (3) Spasticity: Plan: -Continue baclofen (4) OCD (obsessive compulsive disorder): Plan: -Conitnue Lexapro Plan The patient was discussed with Dr. Kaiser at the time of the admission History of Present Illness Chief Complaint: Fevers, fatigue, dark urine Primary Care Provider: Kt Ledesma Javier is a 56 year old male with a PMH significant for Multiple sclerosis (now wheelchair bound), muscle spasms, OCD, bladder spasms, anxiety, depression who presented to the [facility] ED on 06/13/22 with complaints of fever, fatigue, poor oral intake, and dark urine. In the ED the patient was found to be afebrile, hemodynamically stable, stable on RA, but tachycardic with HR in the 100-110's. Labs were significant for a leukocytosis of 18 with left shift of 16, CMP WNL, lactate of 1.7, procal of 0.24, and Covid 19/Influenza/RSV negative. Chest xray was read as "1. Subtle asymmetric increased opacification of the left hemithorax. This is likely technical. Airspace disease could appear similar but is considered less likely. 2. Cardiomegaly. No evidence for pulmonary edema.". CT of the abd/pelvis with IV con was read as "1. No bowel obstruction or bowel wall thickening. 2. Decompressed urinary bladder with wall thickening. Correlate with urinalysis. 3. Right nephrolithiasis. No ureteral calculi or hydronephrosis 4. Hepatic steatosis 5. Additional findings as above.". Xray of the left foot was read as "No radiographic evidence of osteomyelitis. If clinical concern remains, MRI is a more sensitive modality.". Prior to admission the patient was given 1L NSS, 1 gm IV tylenol, and a dose of Zosyn. At the time of the exam the patient was lying in bed in no acute distress with his sitting bedside, history was primarily obtained from the patient's due to his baseline speech difficulties. His states that he had been i n his normal stat of health until yesterday when he started to become more fatigued, had very dark urine, and low-grade temperatures of 99F. His states that when he has temperatures of 99 or slightly greater he often gets very sick. She states that he had an infected ingrown toenail of the left great toe removed last week. Prior to that he completed a week of antibiotics before the procedure. She states that since the procedure the left great toe has been healing well. When asked, the patient's states that he has chronic micro aspiration and will often aspirate/cough at least once daily. He has not had an increase in cough of sputum production recently. The patient himself denies SOB, chest pain, abd pain, nausea, vomiting, diarrhea, dysuria, hematuria, melena, blood BM's, recent trauma, and recent lower extremity swelling. He states that other than his left great toe he is without other wounds such as pressure ulcers. His called their PCP this am regarding his symptoms and they were recommended to come to the ED for a full workup. We discussed code status, the patient's is his POA. The patient wishes to be a DNR/DNI and for his to make medical decisions for him if he cannot make them himself. Please refer to Dr. Kaiser's attestation for any changes to the treatment plan Allergies Allergy/AdvReac Type Severity Reaction Status Date / Time green pepper Allergy Unknown Unknown Verified 04/08/22 18:31 potato Allergy Unknown Unknown Verified 04/08/22 18:31 tomato Allergy Unknown Unknown Verified 04/08/22 18:31 No Known Drug Allergies Allergy NONE Verified 04/08/22 18:31 Home Medications Medication Instructions Recorded Confirmed Type multivitamin 1 tab PO QAM 01/27/18 06/13/22 History omega 1-shw-wor-fish oil 1,000 mg 1,000 mg PO QAM 01/27/18 06/13/22 History (120 mg-180 mg) capsule (Fish Oil) cholecalciferol (vitamin D3) 125 5,000 units PO Q2D 03/21/18 06/13/22 History mcg (5,000 unit) tablet (Vitamin D3) acetaminophen 325 mg capsule 650 mg PO Q4H PRN Fever Or Pain 09/18/20 06/13/22 History loperamide 2 mg capsule (Imodium 2 mg PO QID PRN loose stool #20 11/20/20 06/13/22 Rx A-D) caps ocrelizumab 30 mg/mL intravenous 600 mg (20 mL) IV Q6MO #20 mL 03/28/22 06/13/22 Rx solution (Ocrevus) escitalopram oxalate 20 mg tablet 20 mg PO DAILY #90 tabs 04/07/22 06/13/22 Rx (Lexapro) naltrexone 50 mg tablet 4.5 mg PO DAILY #100 tabs 05/09/22 06/13/22 Rx baclofen 20 mg tablet 20 mg PO TID 06/13/22 06/13/22 History Past Med/Surg History Medical History Acute respiratory failure with hypoxia Anxiety and depression Encephalopathy acute Encounter for pre-operative examination Multiple sclerosis WHEELCHAIR BOUND. DX'D 2007-F/U DR GALVEZ. Per last OV 07/01/20, "advanced multiple sclerosis condition radiographically stable on Ocrevus" OCD (obsessive compulsive disorder) Spastic gait Urinary incontinence due to benign prostatic hyperplasia Vitamin D deficiency hx Surgical History History of colonoscopy History of transurethral resection of prostate Family History Father Crohn's disease Colorectal cancer PT DENIES Mother Crohn's disease Colorectal cancer Other No significant family history Social History Smoking Status: Never smoker Second Hand Exposure: No; Hx Alcohol Use: Yes Alcohol type: beer Hx Substance Use: No Preferred Language: Frisian Communication Ability: Effective Communication Ability Comment: Pt communication garbled [employer] Required: No Beliefs That Will Affect Care: None marital status: Current Living Situation: Spouse current occupational status: disabled Feels Safe at Home: Yes Physical Activity Frequency Comment: WHEELCHAIR BOUND Assistive Devices: Hospital Bed, Mechanical Lift, Wheelchair and Other Physical Exam Physical Exam: Physical Exam: General: In no acute distress, stated age, chronically ill-appearing but non- toxic appearing HEENT: Normocephalic, atraumatic, no scleral icterus, pupils around round, symmetrical, and reactive to light, moist mucus membranes, trachea midline, no thyromegaly Chest/Pulm: No respiratory distress, symmetrical chest expansion, scattered wheezing noted throughout Cardiac: RRR, no murmurs noted Abdomen: Negative for ascites and bruising, normoactive bowel sounds, soft, non-tender to palpation throughout Musculoskeletal: Patient with minor erythema and swelling of the left great toe, no signs of drainage or significant infection, no other signs of erythema on the upper and lower extremities Extremities: Radial, dorsalis pedis, and posterior tibial pulses are intact and symmetrical, +1 edema noted in the BL LE's Skin: As described above Neuro: Alert and oriented to person, place, month, year, and president, no focal defects, patient with baseline masked-faces and paralysis due to his MS Psych: No acute distress, calm and cooperative during the exam Results & Data Results & Data Vital Signs (Past 12 Hours) Vital Signs Temp Pulse Resp BP Pulse Ox O2 Del Method 06/13/22 17:33 91 H 25 H 150/95 H 95 Room Air 06/13/22 16:30 105 H 28 H 152/95 H 95 Room Air 06/13/22 16:00 111 H 19 156/103 H 94 Room Air 06/13/22 16:01 105 H 06/13/22 14:03 36.5 C 110 H 20 141/91 H 94 Room Air Laboratory Results Abnormal lab results 06/13/22 06/13/22 Range/Units 14:14 14:14 WBC 18.51 H (4.8-10.8) K/ul Neut # (Auto) 16.10 H (1.40-6.50) K/uL Jewell # (Auto) 0.90 H (0.11-0.59) K/uL Glucose 104 H (70-99(Fasting)) mg/dl Diagnostic Findings Chest X-Ray 06/13/22 14:06 XR chest 1V not portable CLINICAL HISTORY: Fever. COMPARISON STUDY: Chest radiograph April 08, 2022. FINDINGS: The patient is rotated. This likely accounts for subtle asymmetric increased opacity of the left hemithorax. Cardiomegaly is unchanged. No evidence for pulmonary edema. There is no lobar consolidation. There is been no significant change in appearance of the chest. IMPRESSION: 1. Subtle asymmetric increased opacification of the left hemithorax. This is likely technical. Airspace disease could appear similar but is considered less likely. 2. Cardiomegaly. No evidence for pulmonary edema. ACT 112: Negative or not required by law. Electronically signed by: Doug Dior M.D. 06/13/2022 3:39 PM Abdomen/Pelvis CT 06/13/22 16:[address] WITH IV CONTRAST CT DOSE: 1882.41 mGy.cm HISTORY: Acute fever with urinary tract infection feverish, ?UTI, MS TECHNIQUE: Multiaxial CT images of the abdomen and pelvis were performed following the IV administration of 79 cc of Optiray, A dose lowering technique was utilized adhering to the principles of ALARA. COMPARISON STUDY: 11/16/2020 FINDINGS: There is limited secondary to upper extremity positioning and respiratory motion artifact. Mild cardiomegaly with moderate coronary artery calcifications. Mild subsegmental bibasilar atelectasis. No pneumatosis or pneumoperitoneum. Unremarkable spleen, pancreas, gallbladder and adrenal glands. Hepatic steatosis. Patency of the hepatic and portal veins. Symmetric enhancement kidneys without hydronephrosis. 2 mm nonobstructing calculus of the inferior pole right kidney. Decompressed urinary bladder with wall thickening. There is an 80 of the prostate. Fat filled inguinal hernias. Retroaortic left renal vein. Atherosclerosis of the aorta without aneurysm. There is no lymphadenopathy identified. No bowel obstruction or bowel wall thickening. No ascites or mesenteric inflammation. Normal appendix. Tiny fat filled umbilical hernia. Unremarkable soft tissues. Degenerative changes of the spine, pelvis and hips. No acute fracture identified. Lumbar levoscoliosis. IMPRESSION: 1. No bowel obstruction or bowel wall thickening. 2. Decompressed urinary bladder with wall thickening. Correlate with urinalysis. 3. Right nephrolithiasis. No ureteral calculi or hydronephrosis. 4. Hepatic steatosis. 5. Additional findings as above. ACT 112: Negative or not required by law. The above report was generated using voice recognition software. It may contain grammatical, syntax or spelling errors. Electronically signed by: Silas Dhillon M.D. 06/13/2022 5:42 PM Foot X-Ray 06/13/22 16:12 XR foot LT 2V CLINICAL HISTORY: 1st toe infection, eval for osseous involvement TECHNIQUE: 3 views of the left foot were obtained. Comparison: None available at the time of this dictation. FINDINGS: No evidence of bony erosion is seen. Degenerative changes are seen. Soft tissue swelling is seen about the foot. IMPRESSION: No radiographic evidence of osteomyelitis. If clinical concern remains, MRI is a more sensitive modality. ACT 112: Negative or not required by law. Electronically signed by: Sudeep Smart M.D. 06/13/2022 4:44 PM ECG Additional Comments: No ECG available at the time of the admission, will obtain Code Status & VTE Plan VTE Prophylaxis Plan VTE Prophylaxis will be ordered: Yes Supervising Physician Co-Signing Physician Notes Patient seen and examined, chart reviewed, case discussed with SUSAN Cool and I agree with the assessment and plan as documented above. In brief, patient is a 56-year-old male with history of multiple sclerosis (wheelchair-bound) presenting with fever, fatigue, poor oral intake and dark-colored urine. In the ER patient is afebrile, hemodynamically stable with exception of elevated heart rate 100-110's Exam: Chronically ill-appearing male in no acute distress, patient able to answer questions but is at times slow to respond. Skinwarm, dry, intact, no rash or lesions HEENTnormocephalic/atraumatic, pupils equal and reacting, moist mucous membranes LungsCTA, no rales/rhonchi/wheezes Abdomenpositive bowel sounds, soft, nontender, nondistended, no suprapubic pain Extremitieswarm, well-perfused, left great toe nail removalsite appears clean with no bleeding, drainage or cellulitis Labs and images reviewed. Significant for elevated WBC = 18.5 with neutrophil predominance UA dirty specimen with greater than 30 epithelial cells, WBC greater than 30 with yeast present. Foot x-ray, CT abdomen pelvis and chest x-ray results as above Assessment/plan 57-year-old male with history of MS presenting with fever, fatigue. Patient tachycardic otherwise hemodynamically stable. Labs significant for leukocytosis. Uncertain infection source. Possibilities include urine, possible chronic aspiration, skin Admit to medical telemetry Follow cultures Continue ceftriaxone for now Aspiration precautions We will give additional liter of normal saline Remainder plan as above PG Care Time/CCT Total # of Minutes Spent Total Time Spent with Patient: Total time spent is greater than 50% in coordination of care (as documented) at patient's floor/unit and/or counseling patient: [place] [address] INT INP/OBS CARE 255MIN Patient Type Established Medical Decision Making Moderate Complexity Diagnoses SIRS (systemic inflammatory response syndrome) R65.10 Multiple sclerosis G35 Spasticity R25.2 OCD (obsessive compulsive disorder) F42.9
[2022-06-13 19:27] LABS: Appearance Urine Cloudy (Clear); Bacteria Urine Automated Negative (Negative); Bilirubin Urine Negative (Negative); Blood Urine 2+ (Negative); Color Urine Yellow; Epithelial Cell Urine Auto >30 /lpf (0-5); Glucose Urine UA Negative (Negative); Ketones Urine Negative (Negative); Leukocyte Esterase Urine 1+ (Negative); Nitrite Urine Negative (Negative); Protein Urine Negative (Negative); Specific Gravity Urine > 1.045 (1.000-1.030); Urobilinogen Urine Negative (Negative); WBC Urine Automated >30 /hpf (0-5)
[2022-06-13 19:37] LABS: C Reactive Protein 8.16 mg/dl (0-0.5)
[2022-06-13] MEDS: cefTRIAXone SODIUM 2,000 MG in DEXTROSE 5% 50 ML IV SCH (20:34)
[2022-06-13 21:17] LABS: Adenovirus PCR Not Detected (NotDetected); Bordetella parapertussis PCR Not Detected (NotDetected); Bordetella pertussis PCR Not Detected (NotDetected); Chlamydia pneumoniae PCR Not Detected (NotDetected); Coronavirus 229E PCR Not Detected (NotDetected); Coronavirus CoV-2 (COVID19)PCR Not Detected (NotDetected); Coronavirus HKU1 PCR Not Detected (NotDetected); Coronavirus NL63 PCR Not Detected (NotDetected); Coronavirus OC43PCR Not Detected (NotDetected); Human Metapneumovirus PCR Not Detected (NotDetected); Influenza A PCR Not Detected (NotDetected); Influenza B PCR Not Detected (NotDetected); Mycoplasma pneumoniae PCR Not Detected (NotDetected); Parainfluenza Virus 1 PCR Not Detected (NotDetected); Parainfluenza Virus 2 PCR Not Detected (NotDetected); Parainfluenza Virus 3 PCR Not Detected (NotDetected); Parainfluenza Virus 4 PCR Not Detected (NotDetected); Respiratory Syncytial VirusPCR Not Detected (NotDetected); Rhinovirus/Enterovirus PCR Not Detected (NotDetected)
--- NOTE | 2022-06-13 22:32 | Emergency Department Note ---
Impression & Plan SIRS (systemic inflammatory response syndrome), Immunocompromised, Complicated urinary tract infection ED Provider Note NAME: JUAN MIGUEL NIEVES AGE: 57 SEX: M ARRIVES VIA: Walk-In INFORMANT: Patient ED PROVIDER(S): Snaty Pinedo MD CHIEF COMPLAINT: Weakness, feverish, referred. PLAN: Disposition: Admit MEDICAL DECISION MAKING: The patient is a pleasant 57-year-old gentleman with a past medical history of MS, spasticity, urinary incontinence, history of aspiration who presents to the emergency department accompanied by his via walk-in referred by their PCP office following telehealth visit for evaluation of malaise, feverishness and concern for urinary infection with dark foul-smelling urine. The patient's reports that his symptoms evolved since the weekend. She reports that she has taken his temperature and it was high for him at 99. They deny vomiting, diarrhea or cough. He has not had much of an appetite and so not eating or drinking well. She did perform a home COVID-19 test and this was negative. They further report that the patient was recently treated for a left great toe infection which required removal of his toenail. She feels the redness has improved but his not resolved completely despite completing antibiotics. Of note, the patient did arrive to emergency department during time of high volume, acuity and prolonged emergency department waiting times. Critical pathways initiated from triage. On my evaluation the patient is acute on chronically ill-appearing, afebrile heart in the 110s and vital signs otherwise stable. He appears clinically dry. He exhibits generalized weakness consistent with the patient's baseline MS. Chest x-ray with question of left basilar increased opacities however better characterized on CT of the abdomen pelvis which suspects likely atelectasis. WBC 18.5K with neutrophil predominance though no left shift. H/H and platelets within normal limits. Chemistry without metabolic acidosis. Lactic acid 1.7, within normal limits. LFTs unremarkable. Procalcitonin is not significantly elevated. UA is suspicious for infection with WBCs and leuk esterase albeit with epithelial cells present and no bacteria. Respiratory viral panel/Bio[employer] was negative. CT of the abdomen pelvis was performed and demonstrates nonspecific bladder wall thickening which given the patient's presentation and urinalysis is suspicious for urinary infection. Plain films of the left foot did not demonstrate any radiographic evidence of osseous involvement. Given the patient's SIRS in the setting of being immunocompromised with suspected urinary infection the patient and his agree with plan for admission. Case was discussed with Dr. Carmona, [facility], who will evaluate the patient for admission. Triage Nursing notes reviewed and agree them. Prior/outside medical records reviewed Vital Signs: reviewed Differential diagnosis: Viral syndrome, otitis, pharyngitis, pneumonia, influenza, meningitis, urinary tract infection, sepsis, bacteremia, as well as other pathologies. ER treatment provided: See below. Diagnostics interpreted by me: Cardiac Monitoring: An order for continuous cardiac monitoring was placed and demonstrated sinus tachycardia, 110 bpm, no ectopy. Laboratory studies: See below Imaging studies: See below Consultation(s): Case was discussed with Dr. Carmona, [facility] hospitalist, who will evaluate the patient for admission. HPI: The patient is a pleasant 57-year-old gentleman with a past medical history of MS, spasticity, urinary incontinence, history of aspiration who presents to the emergency department accompanied by his via walk-in referred by their PCP office following telehealth visit for evaluation of malaise, feverishness and concern for urinary infection with dark foul-smelling urine. The patient's reports that his symptoms evolved since the weekend. She reports that she has taken his temperature and it was high for him at 99. They deny vomiting, diarrhea or cough. He has not had much of an appetite and so not eating or drinking well. She did perform a home COVID-19 test and this was negative. They further report that the patient was recently treated for a left great toe infection which required removal of his toenail. She feels the redness has improved but his not resolved completely despite completing antibiotics. ROS: See above HPI for pertinent positives & negatives. A total of 10 systems reviewed and were otherwise negative. VITALS:See Below PHYSICAL EXAMINATION: GENERAL: Awake, alert, acute on chronically ill-appearing, in no distress HENT: Normocephalic, atraumatic. Oropharynx with dry mucous membranes and otherwise unremarkable. EYES: Normal conjunctiva. Sclera non-icteric. NECK: Supple. No nuchal rigidity. FROM. No JVD. RESPIRATORY: Clear to auscultation. CARDIAC: Tachycardic rate, normal rhythm. Extremities warm and well perfused. Pulses equal. ABDOMEN: Soft, non-distended. No tenderness to palpation. No rebound or guarding. No masses. RECTAL: Deferred. MUSCULOSKELETAL: Chest examination reveals no tenderness. The back is symmetrical on inspection without obvious abnormality. There is no CVA tenderness to palpation. Mild erythema of the distal aspect of the left great toe with absent toenail status post removal without significant warmth or te nderness. There is no crepitus, fluctuance or discharge. LOWER EXTREMITIES: Calves are equal size bilaterally and non-tender. No edema. No discoloration. NEURO: At baseline for MS SKIN: No rash or jaundice noted. Santy Pinedo MD Past Med/Surg History Medical History Acute respiratory failure with hypoxia Anxiety and depression Encephalopathy acute Encounter for pre-operative examination Multiple sclerosis WHEELCHAIR BOUND. DX'D 2007-/U DR GALVEZ. Per last OV 07/01/20, "advanced multiple sclerosis condition radiographically stable on Ocrevus" OCD (obsessive compulsive disorder) Spastic gait Urinary incontinence due to benign prostatic hyperplasia Vitamin D deficiency hx Surgical History History of colonoscopy History of transurethral resection of prostate Family History Father Crohn's disease Colorectal cancer PT DENIES Mother Crohn's disease Colorectal cancer Other No significant family history Social History Smoking Status: Never smoker Second Hand Exposure: No; Hx Alcohol Use: Yes Alcohol type: beer Hx Substance Use: No Preferred Language: Marshallese Communication Ability: Effective Communication Ability Comment: Pt communication garbled Adult Parole Officer Required: No Beliefs That Will Affect Care: None marital status: Current Living Situation: Spouse current occupational status: disabled Feels Safe at Home: Yes Safety Concerns: Feels Safe At This Time Physical Activity Frequency Comment: WHEELCHAIR BOUND Assistive Devices: Mechanical Lift and Wheelchair Allergies Allergies Allergy/AdvReac Type Severity Reaction Status Date / Time green pepper Allergy Unknown Unknown Verified 04/08/22 18:31 potato Allergy Unknown Unknown Verified 04/08/22 18:31 tomato Allergy Unknown Unknown Verified 04/08/22 18:31 No Known Drug Allergies Allergy NONE Verified 04/08/22 18:31 Home Meds Home Medications Medication Instructions Recorded Confirmed multivitamin 1 tab PO QAM 12/01/18 04/17/23 omega 1-nly-soo-fish oil 1,000 mg 1,000 mg PO QAM 01/27/18 06/13/22 (120 mg-180 mg) capsule (Fish Oil) cholecalciferol (vitamin D3) 125 5,000 units PO Q2D 03/21/18 06/13/22 mcg (5,000 unit) tablet (Vitamin D3) acetaminophen 325 mg capsule 650 mg PO Q4H PRN Fever Or Pain 09/18/20 06/13/22 baclofen 20 mg tablet 20 mg PO TID 06/13/22 06/13/22 Previous Rx's Medication Instructions Recorded loperamide 2 mg capsule (Imodium 2 mg PO QID PRN loose stool #20 11/20/20 A-D) caps ocrelizumab 30 mg/mL intravenous 600 mg (20 mL) IV Q6MO #20 mL 03/28/22 solution (Ocrevus) escitalopram oxalate 20 mg tablet 20 mg PO DAILY #90 tabs 04/07/22 (Lexapro) naltrexone 50 mg tablet 4.5 mg PO DAILY #100 tabs 05/09/22 Results & Data (ED) Vital Signs Vital Signs - 24 hr 06/13/22 14:03 06/13/22 16:01 06/13/22 16:00 Temperature 36.5 C Temperature Source Temporal Artery Scan Pulse Rate 110 H 105 H 111 H Pulse Rate from SpO2 Sensor 110 H Respiratory Rate 20 19 Respiratory Effort / Characteristics Non-Labored Spontaneous Respiratory Depth Normal Blood Pressure 141/91 H 156/103 H Blood Pressure Mean 107 120 Pulse Oximetry 94 94 Oxygen Delivery Method Room Air Room Air Sepsis Recent Fever Within 48 Hours Yes Sepsis New/Unexplained Change in Mental Status No Sepsis Action Taken by Nursing No Action Required 06/13/22 16:30 06/13/22 17:33 06/13/22 18:00 Temperature Temperature Source Pulse Rate 105 H 91 H 93 H Pulse Rate from SpO2 Sensor 104 H 91 H 92 H Respiratory Rate 28 H 25 H 21 Respiratory Effort / Characteristics Respiratory Depth Blood Pressure 152/95 H 150/95 H 142/86 H Blood Pressure Mean 114 113 104 Pulse Oximetry 95 95 95 Oxygen Delivery Method Room Air Room Air Room Air Sepsis Recent Fever Within 48 Hours Sepsis New/Unexplained Change in Mental Status Sepsis Action Taken by Nursing 06/13/22 18:30 Temperature Temperature Source Pulse Rate 92 H Pulse Rate from SpO2 Sensor 93 H Respiratory Rate 19 Respiratory Effort / Characteristics Respiratory Depth Blood Pressure 158/98 H Blood Pressure Mean 118 Pulse Oximetry 96 Oxygen Delivery Method Room Air Sepsis Recent Fever Within 48 Hours Sepsis New/Unexplained Change in Mental Status Sepsis Action Taken by Nursing Laboratory Data Attestation: I reviewed the patient's lab results. 06/13/22 14:14 06/13/22 14:14 Lab Results 06/13/22 06/13/22 06/13/22 Range/Units 14:00 14:14 14:14 WBC 18.51 H (4.8-10.8) K/ul RBC 4.94 (4.70-6.10) M/uL Hgb 14.8 (14.0-18.0) g/dl Hct 43.1 (42.0-52.0) % MCV 87.2 (80.0-100.0) fL MCH 30.0 (25.0-34.0) pg MCHC 34.3 (32.0-36.0) g/dL RDW Std Deviation 43.3 (36.4-46.3) fL RDW Coeff of Bridget 13.7 (11.5-14.5) % Plt Count 382 (130-400) K/uL MPV 10.5 (9.4-12.4) fL Immature Gran % (Auto) 0.5 % Neut % (Auto) 87.0 % Lymph % (Auto) 6.9 % [place] % (Auto) 4.9 % Eos % (Auto) 0.3 % Baso % (Auto) 0.4 % Neut # (Auto) 16.10 H (1.40-6.50) K/uL Lymph # (Auto) 1.28 (1.2-3.4) K/uL [place] # (Auto) 0.90 H (0.11-0.59) K/uL Eos # (Auto) 0.05 (0-0.50) K/uL Baso # (Auto) 0.08 (0-0.2) K/uL Immature Gran # (Auto) 0.10 (0.01-0.20) K/uL ESR (0-20) mm/hr Sodium 136 (136-145) mmol/L Potassium 4.0 (3.5-5.1) mmol/L Chloride 103 (98-107) mmol/L Carbon Dioxide 24 (21-32) mmol/L Anion Gap 9 (3-11) BUN 9 (6-23) mg/dl Creatinine 0.67 (0.6-1.4) mg/dl Est Cr Clr Drug Dosing Not Reportable Est GFR ( Amer) 125.4 ml/min Est GFR (Non-Af Amer) 108.2 ml/min BUN/Creatinine Ratio 13.4 (10-20) Glucose 104 H (70-99(Fasting)) mg/dl Lactate (0.4-2.0) mmol/L Calcium 9.4 (8.6-10.3) mg/dl Total Bilirubin 0.9 (0.2-1.0) mg/dl AST 20 (13-39) U/L ALT 47 (7-52) U/L Alkaline Phosphatase 87 (34-104) U/L C-Reactive Protein 8.16 H (0-0.5) mg/dl Total Protein 6.9 (6.0-8.3) gm/dl Albumin 4.2 (3.4-5.0) gm/dl Globulin 2.7 (2.5-4.0) gm/dl Albumin/Globulin Ratio 1.6 (0.9-2) Procalcitonin (0-0.5) ng/ml SARS-CoV-2 (PCR) NEGATIVE (Negative) Influenza Type A (PCR) Negative (Neg) Influenza Type B (PCR) Negative (Neg) RSV (RT-PCR) Negative (Neg) 06/13/22 06/13/22 06/13/22 Range/Units 14:14 17:22 17:22 WBC (4.8-10.8) K/ul RBC (4.70-6.10) M/uL Hgb (14.0-18.0) g/dl Hct (42.0-52.0) % MCV (80.0-100.0) fL MCH (25.0-34.0) pg MCHC (32.0-36.0) g/dL RDW Std Deviation (36.4-46.3) fL RDW Coeff of Bridget (11.5-14.5) % Plt Count (130-400) K/uL MPV (9.4-12.4) fL Immature Gran % (Auto) % Neut % (Auto) % Lymph % (Auto) % [place] % (Auto) % Eos % (Auto) % Baso % (Auto) % Neut # (Auto) (1.40-6.50) K/uL Lymph # (Auto) (1.2-3.4) K/uL [place] # (Auto) (0.11-0.59) K/uL Eos # (Auto) (0-0.50) K/uL Baso # (Auto) (0-0.2) K/uL Immature Gran # (Auto) (0.01-0.20) K/uL ESR 37 H (0-20) mm/hr Sodium (136-145) mmol/L Potassium (3.5-5.1) mmol/L Chloride (98-107) mmol/L Carbon Dioxide (21-32) mmol/L Anion Gap (3-11) BUN (6-23) mg/dl Creatinine (0.6-1.4) mg/dl Est Cr Clr Drug Dosing Est GFR ( Amer) ml/min Est GFR (Non-Af Amer) ml/min BUN/Creatinine Ratio (10-20) Glucose (70-99(Fasting)) mg/dl Lactate 1.7 (0.4-2.0) mmol/L Calcium (8.6-10.3) mg/dl Total Bilirubin (0.2-1.0) mg/dl AST (13-39) U/L ALT (7-52) U/L Alkaline Phosphatase (34-104) U/L C-Reactive Protein (0-0.5) mg/dl Total Protein (6.0-8.3) gm/dl Albumin (3.4-5.0) gm/dl Globulin (2.5-4.0) gm/dl Albumin/Globulin Ratio (0.9-2) Procalcitonin 0.24 (0-0.5) ng/ml SARS-CoV-2 (PCR) (Negative) Influenza Type A (PCR) (Neg) Influenza Type B (PCR) (Neg) RSV (RT-PCR) (Neg) Administered Medications Baclofen (Baclofen 20 Mg Tab) 20 mg PO TID YESENIA Stop: 07/13/22 22:41 Last Admin: 06/13/22 23:22 Dose: 20 mg Documented By: JONATHAN Enoxaparin Sodium (Enoxaparin Inj 40 Mg/0.4 Ml Syr) 40 mg SQ Q12H YESENIA Stop: 07/13/22 22:59 Last Admin: 06/13/22 23:21 Dose: 40 mg Documented By: JONATHAN Ceftriaxone Sodium 2,000 mg/ (Dextrose) 70 mls @ 100 mls/hr IV Q24H [facility]; Protocol Stop: 06/18/22 19:59 Last Infusion: 06/13/22 21:22 Dose: 0 mls/hr Documented By: Admin: 06/13/22 20:34 Dose: 100 mls/hr Documented By: KAMALA Sodium Chloride (Nss 1000ml) 1,000 mls @ 125 mls/hr IV .Q8H YESENIA Stop: 06/14/22 08:59 Last Admin: 06/14/22 02:19 Dose: 125 mls/hr Documented By: JONATHAN Discontinued Medications Piperacillin Sod/Tazobactam Sod (Zosyn) 4.5 gm in 120 mls @ 240 mls/hr IV NOW ONE Stop: 06/13/22 16:37 Last Infusion: 06/13/22 18:32 Dose: 0 mls/hr Documented By: Admin: 06/13/22 17:33 Dose: 240 mls/hr Documented By: KAMALA Sodium Chloride (Nss 1000ml) 1,000 mls @ 999 mls/hr IV .Q1H1M ONE Stop: 06/13/22 17:07 Last Infusion: 06/13/22 18:52 Dose: 0 mls/hr Documented By: Admin: 06/13/22 16:48 Dose: 999 mls/hr Documented By: KAMALA Acetaminophen (Ofirmev) 1,000 mg in 100 mls @ 400 mls/hr IV NOW STA Stop: 06/13/22 16:21 Last Infusion: 06/13/22 17:32 Dose: 0 mls/hr Documented By: Admin: 06/13/22 16:47 Dose: 400 mls/hr Documented By: KAMALA Sodium Chloride (Nss 1000ml) 1,000 mls @ 999 mls/hr IV .Q1H1M ONE Stop: 06/13/22 19:31 Last Infusion: 06/13/22 20:36 Dose: 0 mls/hr Documented By: Admin: 06/13/22 18:54 Dose: 999 mls/hr Documented By: KAMALA Ioversol (Optiray 350 100ml) 79 ml IV ONCE ONE Stop: 06/13/22 17:03 Last Admin: 06/13/22 17:02 Dose: 79 ml Documented By: AUDREY Imaging Data Radiologist's Impression: Abdomen/Pelvis CT 06/13/22 16:[address] WITH IV CONTRAST CT DOSE: 1882.41 mGy.cm HISTORY: Acute fever with urinary tract infection feverish, ?UTI, MS TECHNIQUE: Multiaxial CT images of the abdomen and pelvis were performed following the IV administration of 79 cc of Optiray, A dose lowering technique was utilized adhering to the principles of ALARA. COMPARISON STUDY: 11/16/2020 FINDINGS: There is limited secondary to upper extremity positioning and respiratory motion artifact. Mild cardiomegaly with moderate coronary artery calcifications. Mild subsegmental bibasilar atelectasis. No pneumatosis or pneumoperitoneum. Unremarkable spleen, pancreas, gallbladder and adrenal glands. Hepatic steatosis. Patency of the hepatic and portal veins. Symmetric enhancement kidneys without hydronephrosis. 2 mm nonobstructing calculus of the inferior pole right kidney. Decompressed urinary bladder with wall thickening. There is an 80 of the prostate. Fat filled inguinal hernias. Retroaortic left renal vein. Atherosclerosis of the aorta without aneurysm. There is no lymphadenopathy identified. No bowel obstruction or bowel wall thickening. No ascites or mesenteric inflammation. Normal appendix. Tiny fat filled umbilical hernia. Unremarkable soft tissues. Degenerative changes of the spine, pelvis and hips. No acute fracture identified. Lumbar levoscoliosis. IMPRESSION: 1. No bowel obstruction or bowel wall thickening. 2. Decompressed urinary bladder with wall thickening. Correlate with urinalysis. 3. Right nephrolithiasis. No ureteral calculi or hydronephrosis. 4. Hepatic steatosis. 5. Additional findings as above. ACT 112: Negative or not required by law. The above report was generated using voice recognition software. It may contain grammatical, syntax or spelling errors. Electronically signed by: Silas Dhillon M.D. 06/13/2022 5:42 PM Discharge Plan Visit Data Chief Complaint: Fever Stated Complaint: FEVER,FATIGUE,HAS MS,LOSS OF APPETITE ED Provider: Santy Pinedo Discharge Problem: SIRS (systemic inflammatory response syndrome), Immunocompromised, Complicated urinary tract infection Patient Disposition: Admitted As Inpatient Discharge Instructions Interventions: ED Discharge Assessment Last Done: 06/13/22 22:23
[2022-06-13] MEDS: ENOXAPARIN INJ 40 MG/0.4 ML SYR SQ SCH (23:21)
[2022-06-13] MEDS: BACLOFEN 20 MG TAB PO SCH (23:22)
[2022-06-14] MEDS ORDERED: SODIUM CHLORIDE 0.9% 1000ML 1,000 ML IV SCH (01:00)
[2022-06-14 07:51] LABS: Albumin Globulin Ratio 1.5 (0.9-2); Albumin Level 3.7 gm/dl (3.4-5.0); BUN Creatinine Ratio 8.8 (10-20); Bilirubin,Total 0.9 mg/dl (0.2-1.0); Calcium 8.9 mg/dl (8.6-10.3); Creatinine Clr Calc Pharmacy 154.4 ml/min; Est GFR (African American) 124.6 ml/min; Est GFR (Non-African American) 107.5 ml/min; Globulin 2.5 gm/dl (2.5-4.0); Magnesium 1.7 mg/dl (1.7-2.4); Potassium 3.9 mmol/L (3.5-5.1); Total Protein 6.2 gm/dl (6.0-8.3)
[2022-06-14 08:54] LABS: Basophils # (auto) 0.04 K/uL (0-0.2); Basophils % (auto) 0.3 %; Eosinophils # (auto) 0.04 K/uL (0-0.50); Eosinophils % (auto) 0.3 %; Hematocrit (blood only) 37.9 % (42.0-52.0); Hemoglobin 13.3 g/dl (14.0-18.0); Immature Granulocytes # (auto) 0.09 K/uL (0.01-0.20); Immature Granulocytes % (auto) 0.6 %; Lymphocytes # (auto) 1.43 K/uL (1.2-3.4); Lymphocytes % (auto) 9.7 %; Mean Corpuscular Hemoglobin 30.3 pg (25.0-34.0); Mean Corpuscular Hgb Conc 35.1 g/dL (32.0-36.0); Mean Corpuscular Volume 86.3 fL (80.0-100.0); Mean Platelet Volume 10.3 fL (9.4-12.4); Monocytes # (auto) 1.03 K/uL (0.11-0.59); Neutrophils # (auto) 12.04 K/uL (1.40-6.50); Neutrophils % (auto) 82.1 %; Platelet Count 317 K/uL (130-400); RDW Coefficient of Variation 13.7 % (11.5-14.5); RDW Standard Deviation 43.2 fL (36.4-46.3); Red Blood Count 4.39 M/uL (4.70-6.10); White Blood Count 14.67 K/ul (4.8-10.8)
[2022-06-14] MEDS: BACLOFEN 20 MG TAB PO SCH ×3 (08:56→20:32)
[2022-06-14] MEDS: ESCITALOPRAM OXALATE 20 MG TAB PO SCH (08:56)
--- NOTE | 2022-06-14 09:04 | XRay Report ---
XR chest 1V portable HISTORY: 57 years-old Male fevers, h/o aspiration; eval pneumonia acute fever COMPARISON: 06/13/2022 TECHNIQUE: AP view of the chest FINDINGS: Cardiac silhouette is enlarged. Patient is mildly rotated. No pneumothorax, large pleural effusion or lobar airspace consolidation. Mild coarsening of interstitium. Degenerative changes of the shoulders and spine. Ill-defined left midlung opacity, likely summation density. Right hemidiaphragmatic eleva tion. IMPRESSION: Cardiomegaly with mild coarsening of the interstitium, likely secondary to patient body h abitus. Pulmonary vascular congestion could appear similarly. ACT 112: Negative or not required by law. The above report was generated using voice recognition software. It may contain grammatical, syntax o r spelling errors. Electronically signed by: Silas Dhillon M.D. 06/14/2022 8:56 AM
[2022-06-14] MEDS: ENOXAPARIN INJ 40 MG/0.4 ML SYR SQ SCH (12:00)
--- NOTE | 2022-06-14 20:11 | Hospitalist Progress Note ---
Date of Service June 14, 2022 Assessment & Plan (1) SIRS (systemic inflammatory response syndrome): Plan: Thus far the following are negative - * CXR (no obvious pneumonia) * CT a/p (bladder wall thickened only) but no other acute findings * blood cx's * urine cx * BioFire respiratory panel No tick exposure - defer on tick borne pathogen testing. He has focal lung findings on exam today. He has what sounds like intermittent episodes of micro-aspiration and a chronic cough. Thus, will obtain CTA chest and re-eval after results are in. In meantime, if the lungs are the source for his SIRS, will add IV doxy 100mg BID to the previously scheduled rocephin 2gm IV daily. (2) Pneumonia: Plan: Question of LLL pneumonia based on examination only. To further investigate obtain a CTA chest. If CT chest is negative consider a REPEAT u/a and urine culture via straight cath (he is incontinent, cannot give clean catch). (first u/a at ER presentation showed yeast on microscopy) Could consider KELLIE and PSA to r/o prostatitis (you can have negative urine culture with acute prostatitis, and he likely does not have sensation in that region due to MS). If fevers persist despite negative work-up consider repeat COVID testing, dopplers of legs to r/o DVT (DVT can cause fever), EBV/CMV titers, etc. 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 (7) Morbid obesity: Plan: BMI 40.1 (8) DVT prophylaxis: Plan: lovenox 40mg BID Plan extensively updated at bedside during my visit Admission and Anticipated Discharge Date Admission Date: June 13, 2022 Subjective tele stable overnight during the visit the pt's was at bedside she confirmed he looks tired and is unwell but not severely patient was resting comfortably in bed he denied the following - headache, earache, nasal congestion, sore throat, chest pain, dyspnea, abd pain, vomiting at baseline patient is incontinent of urine - does not use catheters at home reports he has a chronic, mild cough and there is chronic episodes of mild aspiration due to dysphagia from MS pt and attended a function at [facility] during the [employer] game last Monday no recent travel no sick contacts at home he does not spend time outdoors thus no tick exposure had left great toenail removed last week - no concerns per Review of Systems Review of Systems: gen - no chills cv - no chest pain pulm - chronic, intermittent dry cough; no dyspnea; states he often has subtle/minimal retractions when he breathes GI - no vomiting, no diarrhea Physical Exam Physical Exam: gen - morbidly obese, NAD, tired/ill-appearing but nontoxic mouth - MMM, no thrush neck - no lymph nodes, no JVD heart - borderline tachy, s1 s2, no murmur lungs - focal LLL rales with focal wheeze; very poor inspiratory effort; decreased BS b/l; scant subcostal retractions abd - distended but soft, NT, BS+ ext - chronic appearing lymphedema b/l; pulses 2+ b/l skin - no rash musculo - left great toenail has been removed; no cellulitis neuro - hypertonicity of all 4 limbs including ankle clonus; speech mildly dysarthric Results & Data Results & Data Vital Signs (Past 12 Hours) Vital Signs Temp Pulse Pulse Resp BP BP Pulse Ox 06/14/22 19:54 37.7 C H 96 H 18 122/85 95 06/14/22 15:50 37.3 C 98 H 18 145/97 H 93 06/14/22 15:50 97 H 06/14/22 11:22 36.8 C 96 H 18 153/82 H 93 O2 Del Method 06/14/22 19:54 Room Air 06/14/22 15:50 Room Air 06/14/22 15:50 06/14/22 11:22 Room Air Laboratory Results Laboratory Results - last 24 hr 06/14/22 06/14/22 06/14/22 06:35 06:35 08:24 WBC Cancelled 14.67 H RBC Cancelled 4.39 L Hgb Cancelled 13.3 L Hct Cancelled 37.9 L MCV Cancelled 86.3 MCH Cancelled 30.3 MCHC Cancelled 35.1 RDW Std Deviation Cancelled 43.2 RDW Coeff of Bridget Cancelled 13.7 Plt Count Cancelled 317 MPV Cancelled 10.3 Immature Gran % (Auto) Cancelled 0.6 Neut % (Auto) Cancelled 82.1 Lymph % (Auto) Cancelled 9.7 [place] % (Auto) Cancelled 7.0 Eos % (Auto) Cancelled 0.3 Baso % (Auto) Cancelled 0.3 Neut # (Auto) Cancelled 12.04 H Lymph # (Auto) Cancelled 1.43 [place] # (Auto) Cancelled 1.03 H Eos # (Auto) Cancelled 0.04 Baso # (Auto) Cancelled 0.04 Immature Gran # (Auto) Cancelled 0.09 Absolute Nucleated RBC Cancelled Nucleated RBC % (auto) Cancelled Neutrophils % (Manual) Cancelled Band Neutrophils % Cancelled Lymphocytes % (Manual) Cancelled Prolymphocyte % Cancelled Reactive Lymphs % (Man) Cancelled Monocytes % (Manual) Cancelled Eosinophils % (Manual) Cancelled Basophils % (Manual) Cancelled Metamyelocytes % (Man) Cancelled Myelocytes % (Man) Cancelled Promyelocytes % (Man) Cancelled Blast Cells % (Manual) Cancelled Plasma Cell % (Manual) Cancelled Other Cells % Cancelled Nucleated RBC % Cancelled Neutrophils # (Manual) Cancelled Band Neutrophils # Cancelled Total Absolute Neuts Cancelled Lymphocytes # (Manual) Cancelled Prolymphocyte # Cancelled Reactive Lymphs # Cancelled Total Abs Lymphocytes Cancelled Monocytes # (Manual) Cancelled Eosinophils # (Manual) Cancelled Basophils # (Manual) Cancelled Metamyelocytes # (Man) Cancelled Myelocytes # (Manual) Cancelled Promyelocytes # (Man) Cancelled Blast Cells # (Man) Cancelled Plasma Cell # (Manual) Cancelled Other Cells # Cancelled Nucleated RBCs # (Man) Cancelled Hypersegmented Neuts Cancelled Hyposegmented Neuts Cancelled Hypogranular Neuts Cancelled Large Granular Lymphs Cancelled # Lrg Granular Lymphs Cancelled Hairy Cells Cancelled Smudge Cells Cancelled Toxic Granulation Cancelled Toxic Vacuolation Cancelled Dohle Bodies Cancelled Earnest Rods Cancelled Platelet Estimate Cancelled Hypogranular Platelets Cancelled Giant Platelets Cancelled Platelet Satelliting Cancelled RBC Morphology Cancelled Polychromasia Cancelled Hypochromasia Cancelled Poikilocytosis Cancelled Basophilic Stippling Cancelled Anisocytosis Cancelled Microcytosis Cancelled Macrocytosis Cancelled Spherocytes Cancelled Pappenheimer Bodies Cancelled Sickle Cells Cancelled Target Cells Cancelled Tear Drop Cells Cancelled Ovalocytes Cancelled Stomatocytes Cancelled [place] Bodies Cancelled Echinocytes Cancelled Acanthocytes (Spur) Cancelled Rouleaux Cancelled RBC Agglutinates Cancelled Schistocytes Cancelled Sezary Cell Cancelled Sodium 135 L Potassium 3.9 Chloride 103 Carbon Dioxide 23 Anion Gap 9 BUN 6 Creatinine 0.68 Est Cr Clr Drug Dosing 154.4 Est GFR ( Amer) 124.6 Est GFR (Non-Af Amer) 107.5 BUN/Creatinine Ratio 8.8 L Glucose 108 H Calcium 8.9 Magnesium 1.7 Total Bilirubin 0.9 AST 15 ALT 36 Alkaline Phosphatase 76 Total Protein 6.2 Albumin 3.7 Globulin 2.5 Albumin/Globulin Ratio 1.5 Blood Parasites ID Cancelled Diagnostic Findings Chest X-Ray 06/13/22 14:06 XR chest 1V not portable CLINICAL HISTORY: Fever. COMPARISON STUDY: Chest radiograph April 08, 2022. FINDINGS: The patient is rotated. This likely accounts for subtle asymmetric increased opacity of the left hemithorax. Cardiomegaly is unchanged. No evidence for pulmonary edema. There is no lobar consolidation. There is been no significant change in appearance of the chest. IMPRESSION: 1. Subtle asymmetric increased opacification of the left hemithorax. This is likely technical. Airspace disease could appear similar but is considered less likely. 2. Cardiomegaly. No evidence for pulmonary edema. ACT 112: Negative or not required by law. Electronically signed by: Doug Dior M.D. 06/13/2022 3:39 PM Abdomen/Pelvis CT 06/13/22 16:[address] WITH IV CONTRAST CT DOSE: 1882.41 mGy.cm HISTORY: Acute fever with urinary tract infection feverish, ?UTI, MS TECHNIQUE: Multiaxial CT images of the abdomen and pelvis were performed following the IV administration of 79 cc of Optiray, A dose lowering technique was utilized adhering to the principles of ALARA. COMPARISON STUDY: 11/16/2020 FINDINGS: There is limited secondary to upper extremity positioning and respiratory motion artifact. Mild cardiomegaly with moderate coronary artery calcifications. Mild subsegmental bibasilar atelectasis. No pneumatosis or pneumoperitoneum. Unremarkable spleen, pancreas, gallbladder and adrenal glands. Hepatic steatosis. Patency of the hepatic and portal veins. Symmetric enhancement kidneys without hydronephrosis. 2 mm nonobstructing calculus of the inferior pole right kidney. Decompressed urinary bladder with wall thickening. There is an 80 of the prostate. Fat filled inguinal hernias. Retroaortic left renal vein. Atherosclerosis of the aorta without aneurysm. There is no lymphadenopathy identified. No bowel obstruction or bowel wall thickening. No ascites or mesenteric inflammation. Normal appendix. Tiny fat filled umbilical hernia. Unremarkable soft tissues. Degenerative changes of the spine, pelvis and hips. No acute fracture identified. Lumbar levoscoliosis. IMPRESSION: 1. No bowel obstruction or bowel wall thickening. 2. Decompressed urinary bladder with wall thickening. Correlate with urinalysis. 3. Right nephrolithiasis. No ureteral calculi or hydronephrosis. 4. Hepatic steatosis. 5. Additional findings as above. ACT 112: Negative or not required by law. The above report was generated using voice recognition software. It may contain grammatical, syntax or spelling errors. Electronically signed by: Silas Dhillon M.D. 06/13/2022 5:42 PM Foot X-Ray 06/13/22 16:12 XR foot LT 2V CLINICAL HISTORY: 1st toe infection, eval for osseous involvement TECHNIQUE: 3 views of the left foot were obtained. Comparison: None available at the time of this dictation. FINDINGS: No evidence of bony erosion is seen. Degenerative changes are seen. Soft tissue swelling is seen about the foot. IMPRESSION: No radiographic evidence of osteomyelitis. If clinical concern remains, MRI is a more sensitive modality. ACT 112: Negative or not required by law. Electronically signed by: Sudeep Smart M.D. 06/13/2022 4:44 PM Chest X-Ray 06/14/22 07:41 XR chest 1V portable HISTORY: 57 years-old Male fevers, h/o aspiration; eval pneumonia acute fever COMPARISON: 06/13/2022 TECHNIQUE: AP view of the chest FINDINGS: Cardiac silhouette is enlarged. Patient is mildly rotated. No pneumothorax, large pleural effusion or lobar airspace consolidation. Mild coarsening of interstitium. Degenerative changes of the shoulders and spine. Ill-defined left midlung opacity, likely summation density. Right hemidiaphragmatic elevation. IMPRESSION: Cardiomegaly with mild coarsening of the interstitium, likely seco ndary to patient body habitus. Pulmonary vascular congestion could appear similarly. ACT 112: Negative or not required by law. The above report was generated using voice recognition software. It may contain grammatical, syntax or spelling errors. Electronically signed by: Silas Dhillon M.D. 06/14/2022 8:56 AM blood cx's negative to date urine cx negative Resp biofire fully negative PG Care Time/CCT Total # of Minutes Spent Total Time Spent with Patient: Total time spent is greater than 50% in coordination of care (as documented) at patient's floor/unit and/or counseling patient: Coding Level of Care Code 76196 SUB INP/OBS CARE 2/35MIN Diagnoses SIRS (systemic inflammatory response syndrome) R65.10 Pneumonia J18.9 Multiple sclerosis G35 Spasticity R25.2 OCD (obsessive compulsive disorder) F42.9 Paraplegia G82.20 Morbid obesity E66.01 DVT prophylaxis Z29.9
[2022-06-14] MEDS: cefTRIAXone SODIUM 2,000 MG in DEXTROSE 5% 50 ML IV SCH (20:23)
[2022-06-14] MEDS: DOXYCYCLINE HYCLATE 100 MG in DEXTROSE 5% 100 ML IV SCH (22:43)
[2022-06-15] MEDS: ENOXAPARIN INJ 40 MG/0.4 ML SYR SQ SCH ×2 (01:23→13:41)
[2022-06-15] MEDS ORDERED: OPTIRAY 320 500ml IV ONE (01:57)
--- NOTE | 2022-06-15 02:12 | CT Scan Report ---
Exam(s): CTA CHEST IV Amt: 112 ML OPTIRAY 320 EXAM: CT Angiography Chest With Intravenous Contrast CLINICAL HISTORY: Reason for exam: fever, paraplegic status, eval for PE or pneumonia. TECHNIQUE: Axial computed tomographic angiography images of the chest with intravenous contrast. Automated exposure control was utilized for the study. A dose lowering technique was utilized adhering to the principles of ALARA. MIP reconstructed images were created and reviewed. COMPARISON: No relevant prior studies available. FINDINGS: Pulmonary arteries: Unremarkable. No pulmonary embolism. Aorta: No acute findings. No thoracic aortic aneurysm. Lungs: There is mild diffuse bronchiectasis and bronchial wall thickening. There is by Subha dependent atelectasis. No mass. Pleural space: Unremarkable. No significant effusion. No pneumothorax. Heart: There is coronary vascular calcification. No significant pericardial effusion. No evidence of RV dysfunction. Bones/joints: There are degenerative changes of the thoracic spine. No acute fracture. No dislocation. Soft tissues: Unremarkable. Lymph nodes: Unremarkable. No enlarged lymph nodes. IMPRESSION: No acute findings in the visualized arteries of the chest. Electronically signed by: Buck Aj MD 06/15/22 02:11 AM
[2022-06-15 07:35] LABS: BUN Creatinine Ratio 8.8 (10-20); Calcium 8.8 mg/dl (8.6-10.3); Est GFR (African American) 124.6 ml/min; Est GFR (Non-African American) 107.5 ml/min; Potassium 3.9 mmol/L (3.5-5.1)
[2022-06-15 07:41] LABS: Basophils # (auto) 0.08 K/uL (0-0.2); Basophils % (auto) 0.9 %; Eosinophils # (auto) 0.17 K/uL (0-0.50); Eosinophils % (auto) 1.9 %; Hematocrit (blood only) 37.8 % (42.0-52.0); Hemoglobin 13.1 g/dl (14.0-18.0); Immature Granulocytes # (auto) 0.06 K/uL (0.01-0.20); Immature Granulocytes % (auto) 0.7 %; Lymphocytes # (auto) 1.84 K/uL (1.2-3.4); Lymphocytes % (auto) 20.1 %; Mean Corpuscular Hemoglobin 29.8 pg (25.0-34.0); Mean Corpuscular Hgb Conc 34.7 g/dL (32.0-36.0); Mean Corpuscular Volume 86.1 fL (80.0-100.0); Mean Platelet Volume 11.6 fL (9.4-12.4); Monocytes # (auto) 0.98 K/uL (0.11-0.59); Monocytes % (auto) 10.7 %; Neutrophils # (auto) 6.03 K/uL (1.40-6.50); Neutrophils % (auto) 65.7 %; Platelet Count 286 K/uL (130-400); RDW Coefficient of Variation 13.6 % (11.5-14.5); Red Blood Count 4.39 M/uL (4.70-6.10); White Blood Count 9.16 K/ul (4.8-10.8)
[2022-06-15] MEDS: ESCITALOPRAM OXALATE 20 MG TAB PO SCH (09:00)
[2022-06-15] MEDS: BACLOFEN 20 MG TAB PO SCH (09:00)
[2022-06-15] MEDS: DOXYCYCLINE HYCLATE 100 MG in DEXTROSE 5% 100 ML IV SCH (10:19)
--- NOTE | 2022-06-15 12:51 | Discharge Summary ---
Date of Service June 15, 2022 Admission HPI Per Admitting Provider Javier is a 56 year old male with a PMH significant for Multiple sclerosis (now wheelchair bound), muscle spasms, OCD, bladder spasms, anxiety, depression who presented to the [facility] ED on 06/13/22 with complaints of fever, fatigue, poor oral intake, and dark urine. In the ED the patient was found to be afebrile, hemodynamically stable, stable on RA, but tachycardic with HR in the 100-110's. Labs were significant for a leukocytosis of 18 with left shift of 16, CMP WNL, lactate of 1.7, procal of 0.24, and Covid 19/Influenza/RSV negative. Chest xray was read as "1. Subtle asymmetric increased opacification of the left hemithorax. This is likely technical. Airspace disease could appear similar but is considered less likely. 2. Cardiomegaly. No evidence for pulmonary edema.". CT of the abd/pelvis with IV con was read as "1. No bowel obstruction or bowel wall thickening. 2. Decompressed urinary bladder with wall thickening. Correlate with urinalysis. 3. Right nephrolithiasis. No ureteral calculi or hydronephrosis 4. Hepatic steatosis 5. Additional findings as above.". Xray of the left foot was read as "No radiographic evidence of osteomyelitis. If clinical concern remains, MRI is a more sensitive modality.". Prior to admission the patient was given 1L NSS, 1 gm IV tylenol, and a dose of Zosyn. At the time of the exam the patient was lying in bed in no acute distress with his sitting bedside, history was primarily obtained from the patient's due to his baseline speech difficulties. His states that he had been in his normal stat of health until yesterday when he started to become more f atigued, had very dark urine, and low-grade temperatures of 99F. His states that when he has temperatures of 99 or slightly greater he often gets very sick. She states that he had an infected ingrown toenail of the left great toe removed last week. Prior to that he completed a week of antibiotics before the procedure. She states that since the procedure the left great toe has been healing well. When asked, the patient's states that he has chronic micro aspiration and will often aspirate/cough at least once daily. He has not had an increase in cough of sputum production recently. The patient himself denies SOB, chest pain, abd pain, nausea, vomiting, diarrhea, dysuria, hematuria, melena, blood BM's, recent trauma, and recent lower extremity swelling. He states that other than his left great toe he is without other wounds such as pressure ulcers. His called their PCP this am regarding his symptoms and they were recommended to come to the ED for a full workup. We discussed code status, the patient's is his POA. The patient wishes to be a DNR/DNI and for his to make medical decisions for him if he cannot make them himself. Please refer to Dr. Kaiser's attestation for any changes to the treatment plan Principal Diagnosis SIRS, suspected viral illness Discharge Exam General-alert and oriented x3, no fevers, no chills HEENT-head atraumatic and normocephalic, pupils equal and reactive to light, extraocular muscles intact Neck-no lymphadenopathy or thyromegaly, trachea midline Chest-clear to auscultation percussion. No rales wheezing or rhonchi Cardiac-regular rate and rhythm, normal S1 and S2 Abdomen-normal bowel sounds, nontender, no hepatosplenomegaly Extremities- no cyanosis, clubbing, or edema Neuro-cranial nerves II through XII intact, chronic multiple sclerosis with spasticity Psych-normal affect, normal mood Discharge Data Allergies Allergy/AdvReac Type Severity Reaction Status Date / Time green pepper Allergy Unknown Unknown Verified 04/08/22 18:31 potato Allergy Unknown Unknown Verified 04/08/22 18:31 tomato Allergy Unknown Unknown Verified 04/08/22 18:31 No Known Drug Allergies Allergy NONE Verified 04/08/22 18:31 Consultations 06/13/22 18:31 ED Decision to Admit Stat Ordered Studies 06/13/22 16:09 CT abd pelvis IV con only Stat 06/14/22 16:31 CT angio chest PE protocol Urgent Hospital Course (1) SIRS (systemic inflammatory response syndrome): Thus far the following are negative - * CXR (no obvious pneumonia) * CT a/p (bladder wall thickened only) but no other acute findings * blood cx's * urine cx * BioFire respiratory panel No tick exposure - defer on tick borne pathogen testing. This may have simply been a viral syndrome now resolved. We will continue oral doxycycline for 5 days at discharge as a precaution. Chest CTA is negative. (2) Pneumonia: Question of LLL pneumonia based on examination only. No infiltrate seen on chest CTA. Ruled out. (3) Multiple sclerosis: Stable . Follows with [facility] [place] [facility]. Continue current medical management (4) Spasticity: Due to MS. Continue baclofen (5) OCD (obsessive compulsive disorder): Stable. Cont Lexapro (6) Paraplegia: Secondary to MS. Supportive care. Powerchair/wheelchair dependent (7) Morbid obesity: BMI 40.1 (8) DVT prophylaxis: lovenox 40mg BID Plan Discharge to home today, June 15, on doxycycline for 5 more days Total Time Total Time Spent Total Time Spent (In Minutes): 40 minutes Discharge Plan Discharge Items Patient Disposition: Home - Self-Care Reason For Visit: FEVER, FATIGUE, DARK URINE Discharge Diagnosis: SIRS, suspected viral syndrome Activity: Resume your previous activity Non-emergency contact: Primary Care Provider Call non-emergency contact if: you have any medication questions and your symptoms worsen Follow-up/Referrals: Kt Ledesma [Primary Care Provider] - Diet: Regular Addtl Attending Provider Instructions: Take doxycycline for 5 more days as a precaution Pending Studies at Discharge: No Stand-Alone Forms: My [employer], Smoking Cessation Medications and DC Order Prescriptions: New doxycycline hyclate 100 mg capsule 100 mg PO BID Qty: 10 0RF Continued Ocrevus 30 mg/mL solution 600 mg IV Q6MO Qty: 20 1RF Rx Instructions: 30 minutes before each infusion,premedicate with methylprednisolone 100mg IV, diphenhydramine 25mg IV, and acetaminophen 500mg PO.May give an additional 25mg diphenhydramine IV during infusion PRN. escitalopram oxalate [Lexapro] 20 mg tablet 20 mg PO DAILY Qty: 90 3RF naltrexone 50 mg tablet 4.5 mg PO DAILY Qty: 100 5RF acetaminophen 325 mg capsule 650 mg PO Q4H PRN (Reason: Fever Or Pain) multivitamin Tablet 1 tab PO QAM omega 5-rer-wyy-fish oil [Fish Oil] 1,000 mg (120 mg-180 mg) Capsule 1,000 mg PO QAM cholecalciferol (vitamin D3) [Vitamin D3] 5,000 unit Tablet 5,000 units PO Q2D loperamide [Imodium A-D] 2 mg capsule 2 mg PO QID PRN (Reason: loose stool) Qty: 20 0RF baclofen 20 mg tablet 20 mg PO TID Discharge Orders: Discharge Order (Routine); Ordered 06/15/22 Ordered By: Vince Archibald Admission Data Admit Date/Time: 06/13/22 18:55 Attending Provider: Vince Archibald Admit Provider: Guzman Carmona Primary Care Provider: Kt Ledesma Other Providers: Guzman Carmona Coding Level of Care Code 66582 INP/OBS DISCH >30 MIN Diagnoses SIRS (systemic inflammatory response syndrome) R65.10 Pneumonia J18.9 Multiple sclerosis G35 Spasticity R25.2 OCD (obsessive compulsive disorder) F42.9 Paraplegia G82.20 Morbid obesity E66.01 DVT prophylaxis Z29.9
== END 2022-06-15 16:12 | disposition home or self-care (01) | DRG 866 ==
LOC: ED 13:52 → 2W 18:55 → SUATTDRO 18:55 → 2W 22:23

== ENCOUNTER 2023-01-30 11:55 | Inpatient (IN) ==
[2023-01-30 12:03] VITALS: TEMP 97.9
[2023-01-30] MEDS ORDERED: SODIUM CHLORIDE 0.9% 1,000 ML IV ONE (12:38)
--- NOTE | 2023-01-30 12:40 | Emergency Department Note ---
Impression & Plan Acute UTI ADMIT ED Provider Note HPI: History obtained from patient and at bedside The patient is a 57-year-old gentleman with history of MS, wheelchair-bound at baseline, currently on ocrelizumab, presents the emergency department with a chief complaint of fever, sinus congestion, and scrotal swelling and pain that has been ongoing for about the past 24 hours. Patient denies any abdominal pain, he tells me he had 1 episode of vomiting shortly prior to arrival to the ED that his tells me she believes was from him being carsick. Patient is noted some scrotal pain and right-sided testicular swelling earlier this morning. Patient's states he does have a history of epididymitis, on arrival here to the ED the patient is tachycardic but otherwise hemodynamically stable, he is afebrile, he is saturating well on room air on arrival. ROS: - Per HPI Differential Diagnosis: Scrotal cellulitis, epididymitis, urinary tract infection, testicular torsion, testicular mass/cancer, viral upper respiratory infection, pneumonia, amongst other potential pathologies. *Outpatient medications and allergy history reviewed. PE: General: Alert HEENT: Normocephalic, trachea midline Eyes: Extraocular eye movement is intact, no scleral erythema Pulmonary: Clear to auscultation bilaterally, no wheezing Cardio: Regular rate and rhythm GI: Abdomen is soft to palpation : No suprapubic tenderness, there is erythema to the right side of the scrotum with moderate swelling of the right testicle in comparison to the left, no penile lesions, no penile drainage MSK: No evidence of trauma or malformation of the extremities, no edema Skin: No evidence of rash Neuro: Alert, limited movement of the lower extremities bilaterally at baseline with history of MS, no new focal deficits Psychiatric: Cooperative INDEPENDENT INTERPRETATIONS: court monitor: (As interpreted by myself): - An order was placed for continuous cardiac monitoring - Patient was noted to be in sinus rhythm with a rate of 115 EKG: (As interpreted by myself): Rate: 121 Rhythm: Sinus tachycardia Intervals: Within normal limits ST changes: No ST elevation Time: 1342 Chest x-ray: (As interpreted by myself): -Mild pulmonary edema Interventions provided in ED: -IV fluid bolus, IV cefepime, IV vancomycin Medical Decision Making: Shortly after the patient arrived IV was established lab work obtained, patient was placed on case monitor and IV fluid resuscitation was initiated given presenting tachycardia. Lab work shows a significant leukocytosis at 22.26, hemoglobin is normal, platelet count is normal, CMP shows a mild hyponatremia 135, no evidence of acute kidney injury, lactic acid is elevated at 3.5, procalcitonin is indeterminate at 0.26. Urinalysis shows evidence of likely infection, nitrite positive, leukocyte esterase 2+, pyuria greater than 30. Patient was initiated on broad-spectrum antibiotics with IV cefepime and IV vancomycin. Chest x-ray shows mild pulmonary edema pattern without any obvious pneumonia per my interpretation. Viral panel testing was obtained and did result enterovirus/rhinovirus positive. Patient has had some sinus congestion recently and this is likely the source. Given the patient's findings on physical exam with some pain in his right scrotum/testicle, ultrasound imaging of the scrotum was obtained and does not show any evidence of torsion, does show evidence of epididymoorchitis of the right testicle. I discussed all the above findings with the patient and his , he will be admitted to the hospitalist service for further management of potential early urosepsis given his tachycardia, UTI, elevated lactic acid, and significant leukocytosis. He was treated with broad-spectrum antibiotics with vancomycin and cefepime. Repeat lactic acid down trended from 3.5-2.0 following IV fluid resuscitation. Case was discussed with the on-call hospitalist service, Cameron Hung PA-C for the service of Dr. Hare, and the patient was placed for admission in stable condition. Consultants/Discussions held with other healthcare providers: -[facility] Hospitalist, Cameron Hung PA-C / Dr. Hare Disposition discussion held by myself with: -Patient and at bedside * CRITICAL CARE TIME: (36) minutes -Stabilization of patient with vital signs and lab work findings suggestive of early sepsis requiring IV fluid resuscitation greater than 30 cc/kg and initiation of broad-spectrum antibiotics, interpretation of diagnostic studies time spent at the bedside, discussion with other healthcare providers and arrangement of admission Diagnosis: 1. Urinary tract infection, acute 2. Lactic acidosis, acute 3. Epididymoorchitis, right-sided, acute 4. Viral URI, acute, enterovirus/rhinovirus PCR testing positive 5. History of MS, on immunosuppression 6. Hyponatremia, acute, mild 7. Ketonuria, acute Disposition: Admission Trino Hernandez DO Emergency Medicine Past Med/Surg History Medical History (Updated 01/30/23 @ 16:54 by Trino Hernandez DO) Morbid obesity Paraplegia Complicated urinary tract infection Immunocompromised Encephalopathy acute Acute respiratory failure with hypoxia Urinary incontinence due to benign prostatic hyperplasia Encounter for pre-operative examination Anxiety and depression OCD (obsessive compulsive disorder) Spastic gait Spasticity Vitamin D deficiency hx Multiple sclerosis WHEELCHAIR BOUND. DX'D 2007-F/U DR GALVEZ. Per last OV 07/01/20, "advanced multiple sclerosis condition radiographically stable on Ocrevus" Surgical History History of transurethral resection of prostate History of colonoscopy Family History Father Crohn's disease Colorectal cancer PT DENIES Mother Crohn's disease Colorectal cancer Other No significant family history Social History Smoking Status: Never smoker Second Hand Exposure: No; Do You Dip or Chew Tobacco: No; Hx Alcohol Use: Yes Alcohol type: beer Hx Substance Use: No Preferred Language: [place] Communication Ability: Effective Communication Ability Comment: Pt communication garbled Fuel Handler Required: No Beliefs That Will Affect Care: None marital status: Current Living Situation: Spouse current occupational status: disabled Feels Safe at Home: Yes Physical Activity Frequency Comment: WHEELCHAIR BOUND Assistive Devices: Bedside Commode, Hospital Bed, Mechanical Lift and Wheelchair Allergies Allergies Allergy/AdvReac Type Severity Reaction Status Date / Time de la torre pepper [green pepper] Allergy Unknown Unknown Verified 01/30/23 13:59 potato Allergy Unknown Unknown Verified 01/30/23 13:59 tomato Allergy Unknown Unknown Verified 01/30/23 13:59 No Known Drug Allergies Allergy NONE Verified 01/30/23 13:59 Home Meds Home Medications Medication Instructions Recorded Confirmed multivitamin 1 tab PO QAM 01/27/18 01/30/23 omega 2-dkw-nla-fish oil 1,000 mg 1,000 mg PO QAM 01/27/18 01/30/23 (120 mg-180 mg) capsule (Fish Oil) cholecalciferol (vitamin D3) 125 See Rx Instructions .Route .COMPLEX 03/21/18 01/30/23 mcg (5,000 unit) tablet (Vitamin D3) acetaminophen 325 mg capsule 650 mg PO Q4H PRN Fever Or Pain 09/18/20 01/30/23 vitamin B complex 1 cap PO DAILY 07/05/22 01/30/23 vortioxetine 20 mg tablet 20 mg PO QAM 01/09/23 01/30/23 (Trintellix) naltrexone 4.5 mg capsule 4.5 mg PO QAM 01/30/23 01/30/23 Previous Rx's Medication Instructions Recorded loperamide 2 mg capsule (Imodium 2 mg PO QID PRN loose stool #20 11/20/20 A-D) caps lorazepam 1 mg tablet 1 mg PO DAILY PRN reaction #6 tabs 09/14/22 ocrelizumab 30 mg/mL intravenous 600 mg (20 mL) IV Q6MO #20 mL 09/22/22 solution (Ocrevus) baclofen 20 mg tablet 20 mg PO TID #270 tabs 11/15/22 Results & Data (ED) Vital Signs Vital Signs - 24 hr 01/30/23 12:00 01/30/23 12:26 01/30/23 12:55 Temperature 36.6 C Temperature Source Temporal Artery Scan Pulse Rate 133 H 118 H 117 H Pulse Rate [Apical] Pulse Rate from SpO2 Sensor 118 H Pulse Rhythm Regular Respiratory Rate 20 24 22 Respiratory Effort / Characteristics Non-Labored Respiratory Depth Normal Respiratory Pattern Blood Pressure 169/90 H Blood Pressure Mean 116 Blood Pressure Position [Right Arm] Pulse Oximetry 96 92 91 Oxygen Delivery Method Room Air Room Air Sepsis Recent Fever Within 48 Hours No Sepsis New/Unexplained Change in Mental Status No Sepsis Action Taken by Nursing No Action Required 01/30/23 13:00 01/30/23 13:00 01/30/23 13:02 Temperature Temperature Source Pulse Rate 119 H 117 H Pulse Rate [Apical] Pulse Rate from SpO2 Sensor 118 H Pulse Rhythm Respiratory Rate 29 H Respiratory Effort / Characteristics Respiratory Depth Respiratory Pattern Blood Pressure 134/93 Blood Pressure Mean 111 Blood Pressure Position [Right Arm] Pulse Oximetry 91 Oxygen Delivery Method Sepsis Recent Fever Within 48 Hours Sepsis New/Unexplained Change in Mental Status Sepsis Action Taken by Nursing 01/30/23 13:15 01/30/23 13:30 01/30/23 13:44 Temperature Temperature Source Pulse Rate 120 H 116 H Pulse Rate [Apical] 122 H Pulse Rate from SpO2 Sensor 119 H 118 H Pulse Rhythm Respiratory Rate 24 24 21 Respiratory Effort / Characteristics Non-Labored Spontaneous Respiratory Depth Respiratory Pattern Regular Blood Pressure Blood Pressure Mean Blood Pressure Position [Right Arm] Sitting Pulse Oximetry 94 94 94 Oxygen Delivery Method Room Air Sepsis Recent Fever Within 48 Hours Sepsis New/Unexplained Change in Mental Status Sepsis Action Taken by Nursing 01/30/23 13:44 01/30/23 13:45 01/30/23 15:00 Temperature Temperature Source Pulse Rate 117 H 119 H Pulse Rate [Apical] Pulse Rate from SpO2 Sensor 120 H 119 H Pulse Rhythm Respiratory Rate 27 H 24 Respiratory Effort / Characteristics Respiratory Depth Respiratory Pattern Blood Pressure 141/98 H Blood Pressure Mean 109 Blood Pressure Position [Right Arm] Pulse Oximetry 91 90 Oxygen Delivery Method Sepsis Recent Fever Within 48 Hours Sepsis New/Unexplained Change in Mental Status Sepsis Action Taken by Nursing 01/30/23 15:15 01/30/23 15:30 01/30/23 16:13 Temperature Temperature Source Pulse Rate 119 H 118 H 121 H Pulse Rate [Apical] Pulse Rate from SpO2 Sensor 118 H 118 H Pulse Rhythm Respiratory Rate 26 H 22 23 Respiratory Effort / Characteristics Respiratory Depth Respiratory Pattern Blood Pressure Blood Pressure Mean Blood Pressure Position [Right Arm] Pulse Oximetry 92 93 Oxygen Delivery Method Sepsis Recent Fever Within 48 Hours Sepsis New/Unexplained Change in Mental Status Sepsis Action Taken by Nursing 01/30/23 16:14 01/30/23 16:14 01/30/23 16:15 Temperature Temperature Source Pulse Rate 120 H Pulse Rate [Apical] Pulse Rate from SpO2 Sensor 121 H Pulse Rhythm Respiratory Rate 26 H Respiratory Effort / Characteristics Respiratory Depth Respiratory Pattern Blood Pressure 156/108 H 156/109 H Blood Pressure Mean 129 133 Blood Pressure Position [Right Arm] Pulse Oximetry 92 Oxygen Delivery Method Sepsis Recent Fever Within 48 Hours Sepsis New/Unexplained Change in Mental Status Sepsis Action Taken by Nursing 01/30/23 16:15 01/30/23 16:30 01/30/23 16:30 Temperature Temperature Source Pulse Rate 118 H 118 H Pulse Rate [Apical] Pulse Rate from SpO2 Sensor 119 H 118 H Pulse Rhythm Respiratory Rate 26 H 28 H Respiratory Effort / Characteristics Respiratory Depth Respiratory Pattern Blood Pressure 165/108 H Blood Pressure Mean 122 Blood Pressure Position [Right Arm] Pulse Oximetry 93 93 Oxygen Delivery Method Sepsis Recent Fever Within 48 Hours Sepsis New/Unexplained Change in Mental Status Sepsis Action Taken by Nursing 01/30/23 16:45 01/30/23 16:45 Temperature Temperature Source Pulse Rate 118 H Pulse Rate [Apical] Pulse Rate from SpO2 Sensor 118 H Pulse Rhythm Respiratory Rate 26 H Respiratory Effort / Characteristics Respiratory Depth Respiratory Pattern Blood Pressure 156/108 H Blood Pressure Mean 126 Blood Pressure Position [Right Arm] Pulse Oximetry 92 Oxygen Delivery Method Sepsis Recent Fever Within 48 Hours Sepsis New/Unexplained Change in Mental Status Sepsis Action Taken by Nursing Laboratory Data 01/30/23 13:40 01/30/23 13:40 Lab Results 01/30/23 01/30/23 01/30/23 Range/Units 13:40 14:39 15:26 WBC 22.26 H (4.8-10.8) K/ul RBC 5.01 (4.70-6.10) M/uL Hgb 14.9 (14.0-18.0) g/dl Hct 43.4 (42.0-52.0) % MCV 86.6 (80.0-100.0) fL MCH 29.7 (25.0-34.0) pg MCHC 34.3 (32.0-36.0) g/dL RDW Std Deviation 44.1 (36.4-46.3) fL RDW Coeff of Bridget 14.0 (11.5-14.5) % Plt Count 356 (130-400) K/uL MPV 10.7 (9.4-12.4) fL Immature Gran % (Auto) 0.8 % Neut % (Auto) 89.9 % Lymph % (Auto) 3.5 % Day % (Auto) 5.5 % Eos % (Auto) 0.0 % Baso % (Auto) 0.3 % Neut # (Auto) 20.01 H (1.40-6.50) K/uL Lymph # (Auto) 0.77 L (1.20-3.40) K/uL Day # (Auto) 1.23 H (0.11-0.59) K/uL Eos # (Auto) 0.01 (0.00-0.50) K/uL Baso # (Auto) 0.06 (0.00-0.20) K/uL Immature Gran # (Auto) 0.18 (0.01-0.20) K/uL PT 11.2 (9.0-12.0) Seconds INR 1.0 (0.9-1.1) Sodium 135 L (136-145) mmol/L Potassium 4.3 (3.5-5.1) mmol/L Chloride 102 (98-107) mmol/L Carbon Dioxide 24 (21-32) mmol/L Anion Gap 9 (3-11) BUN 10 (6-23) mg/dl Creatinine 0.80 (0.6-1.4) mg/dl Est Cr Clr Drug Dosing 129.5 ml/min Est GFR ( Amer) 116.6 ml/min Est GFR (Non-Af Amer) 100.6 ml/min BUN/Creatinine Ratio 12.5 (10-20) Glucose 198 H (70-99(Fasting)) mg/dl Lactate 3.5 H* 2.0 (0.4-2.0) mmol/L Calcium 9.6 (8.6-10.3) mg/dl Magnesium 1.9 (1.7-2.4) mg/dl Total Bilirubin 0.7 (0.2-1.0) mg/dl Direct Bilirubin 0.1 (0-0.2) mg/dl AST 26 (13-39) U/L ALT 57 H (7-52) U/L Alkaline Phosphatase 85 (34-104) U/L Total Protein 7.0 (6.0-8.3) gm/dl Albumin 4.1 (3.4-5.0) gm/dl Procalcitonin 0.26 (0-0.5) ng/ml Urine Color Dark Yellow Urine Appearance Clear (Clear) Urine pH 6.0 (4.5-7.5) Ur Specific [place] 1.028 (1.000-1.030) Urine Protein Trace H (Negative) Urine Glucose (UA) 3+ H (Negative) Urine Ketones 1+ H (Negative) Urine Blood Trace H (Negative) Urine Nitrite Positive A (Negative) Urine Bilirubin Negative (Negative) Urine Urobilinogen Negative (Negative) Ur Leukocyte Esterase 2+ H (Negative) Urine WBC (Auto) >30 H (0-5) /hpf Urine RBC (Auto) 0-4 (0-4) /hpf U Hyaline Cast (Auto) 5-10 H (0-5) /lpf U Epithel Cells (Auto) 5-10 H (0-5) /lpf Urine Bacteria (Auto) 2+ H (Negative) Adenovirus (PCR) (NotDetected) B. pertussis DNA (PCR) (NotDetected) B.parapertussis DNA PCR (NotDetected) C. pneumoniae DNA (PCR) (NotDetected) Coronavirus OC43 (PCR) (NotDetected) Coronavirus HKU1 (PCR) (NotDetected) Coronavirus 229E (PCR) (NotDetected) SARS-CoV-2 (PCR) (NotDetected) Coronavirus NL63 (PCR) (NotDetected) Human Metapneumovir PCR (NotDetected) Influenza Type A (PCR) (NotDetected) Influenza Type B (PCR) (NotDetected) M. pneumoniae (PCR) (NotDetected) Parainfluenza 1 (PCR) (NotDetected) Parainfluenza 2 (PCR) (NotDetected) Parainfluenza 3 (PCR) (NotDetected) Parainfluenza 4 (PCR) (NotDetected) RSV (PCR) (NotDetected) Entero/Rhino (PCR) (NotDetected) 01/30/23 Range/Units Unknown WBC (4.8-10.8) K/ul RBC (4.70-6.10) M/uL Hgb (14.0-18.0) g/dl Hct (42.0-52.0) % MCV (80.0-100.0) fL MCH (25.0-34.0) pg MCHC (32.0-36.0) g/dL RDW Std Deviation (36.4-46.3) fL RDW Coeff of Bridget (11.5-14.5) % Plt Count (130-400) K/uL MPV (9.4-12.4) fL Immature Gran % (Auto) % Neut % (Auto) % Lymph % (Auto) % Day % (Auto) % Eos % (Auto) % Baso % (Auto) % Neut # (Auto) (1.40-6.50) K/uL Lymph # (Auto) (1.20-3.40) K/uL Day # (Auto) (0.11-0.59) K/uL Eos # (Auto) (0.00-0.50) K/uL Baso # (Auto) (0.00-0.20) K/uL Immature Gran # (Auto) (0.01-0.20) K/uL PT (9.0-12.0) Seconds INR (0.9-1.1) Sodium (136-145) mmol/L Potassium (3.5-5.1) mmol/L Chloride (98-107) mmol/L Carbon Dioxide (21-32) mmol/L Anion Gap (3-11) BUN (6-23) mg/dl Creatinine (0.6-1.4) mg/dl Est Cr Clr Drug Dosing ml/min Est GFR ( Amer) ml/min Est GFR (Non-Af Amer) ml/min BUN/Creatinine Ratio (10-20) Glucose (70-99(Fasting)) mg/dl Lactate (0.4-2.0) mmol/L Calcium (8.6-10.3) mg/dl Magnesium (1.7-2.4) mg/dl Total Bilirubin (0.2-1.0) mg/dl Direct Bilirubin (0-0.2) mg/dl AST (13-39) U/L ALT (7-52) U/L Alkaline Phosphatase (34-104) U/L Total Protein (6.0-8.3) gm/dl Albumin (3.4-5.0) gm/dl Procalcitonin (0-0.5) ng/ml Urine Color Urine Appearance (Clear) Urine pH (4.5-7.5) Ur Specific [place] (1.000-1.030) Urine Protein (Negative) Urine Glucose (UA) (Negative) Urine Ketones (Negative) Urine Blood (Negative) Urine Nitrite (Negative) Urine Bilirubin (Negative) Urine Urobilinogen (Negative) Ur Leukocyte Esterase (Negative) Urine WBC (Auto) (0-5) /hpf Urine RBC (Auto) (0-4) /hpf U Hyaline Cast (Auto) (0-5) /lpf U Epithel Cells (Auto) (0-5) /lpf Urine Bacteria (Auto) (Negative) Adenovirus (PCR) Not Detected (NotDetected) B. pertussis DNA (PCR) Not Detected (NotDetected) B.parapertussis DNA PCR Not Detected (NotDetected) C. pneumoniae DNA (PCR) Not Detected (NotDetected) Coronavirus OC43 (PCR) Not Detected (NotDetected) Coronavirus HKU1 (PCR) Not Detected (NotDetected) Coronavirus 229E (PCR) Not Detected (NotDetected) SARS-CoV-2 (PCR) Not Detected (NotDetected) Coronavirus NL63 (PCR) Not Detected (NotDetected) Human Metapneumovir PCR Not Detected (NotDetected) Influenza Type A (PCR) Not Detected (NotDetected) Influenza Type B (PCR) Not Detected (NotDetected) M. pneumoniae (PCR) Not Detected (NotDetected) Parainfluenza 1 (PCR) Not Detected (NotDetected) Parainfluenza 2 (PCR) Not Detected (NotDetected) Parainfluenza 3 (PCR) Not Detected (NotDetected) Parainfluenza 4 (PCR) Not Detected (NotDetected) RSV (PCR) Not Detected (NotDetected) Entero/Rhino (PCR) DETECTED A* (NotDetected) Administered Medications Vancomycin HCl 2,250 mg/ (Sodium Chloride) 545 mls @ 200 mls/hr IV NOW ONE Stop: 01/30/23 17:29 Last Admin: 01/30/23 16:16 Dose: 200 mls/hr Documented By: JOS Discontinued Medications Sodium Chloride (Nss) 1,000 mls @ 999 mls/hr IV .Q1H1M YESENIA Stop: 01/30/23 14:30 Last Infusion: 01/30/23 16:24 Dose: Infused Documented By: Admin: 01/30/23 14:39 Dose: 999 mls/hr Documented By: Infusion: 01/30/23 14:39 Dose: Infused Documented By: Admin: 01/30/23 13:52 Dose: 999 mls/hr Documented By: WM Sodium Chloride (Nss) 1,000 mls @ 999 mls/hr IV .Q1H1M ONE Stop: 01/30/23 13:38 Last Infusion: 01/30/23 16:24 Dose: Infused Documented By: Admin: 01/30/23 13:53 Dose: 999 mls/hr Documented By: WM Cefepime HCl (Maxipime) 2,000 mg in 20 mls @ 5 mls/min IV NOW STA; Protocol Stop: 01/30/23 14:49 Last Admin: 01/30/23 15:32 Dose: 5 mls/min Documented By: JOS Sodium Chloride (Nss) 500 mls @ 999 mls/hr IV .Q31M ONE Stop: 01/30/23 15:17 Last Admin: 01/30/23 16:00 Dose: 999 mls/hr Documented By: JOS Imaging Data Radiologist's Impression: Chest X-Ray 01/30/23 12:26 XR chest 1V portable CLINICAL HISTORY: Sepsis TECHNIQUE: Single frontal radiograph of the chest was obtained. Comparison: Comparison is made to chest radiograph 06/14/2022 FINDINGS: No lines and tubes are seen. Cardiomegaly is noted. Prominence and cephalization of the vasculature is seen. No evidence of pleural effusion or pneumothorax. IMPRESSION: Cardiomegaly and mild pulmonary edema. ACT 112: Negative or not required by law. Electronically signed by: Sudeep Smart M.D. 01/30/2023 1:01 PM Scrotum Ultrasound 01/30/23 12:38 ULTRASOUND TESTES AND SCROTUM CLINICAL HISTORY: Right testicular pain and swelling COMPARISON STUDY: Scrotal ultrasound dated 11/15/2020. TECHNIQUE: Real-time, grayscale, and color Doppler sonography of the testes and scrotum is performed. Images are reviewed in the transverse and longitudinal planes. FINDINGS: The testes are normal in size. The right testis is slightly heterogeneous. The right testis measures 4.6 x 2.9 x 3.2 cm and the left testis measures 4.9 x 2.3 x 2.7 cm. No intratesticular mass is seen. The right testis is markedly hyperemic as compared to the left. Normal Doppler waveforms are identified in both testes. The right epididymal head appears enlarged and heterogeneous measuring 1.4 cm in length. The right epididymal head is hyperemic. The left epididymal head is normal in appearance, measuring 0.9 cm in length. A 3 mm and a digital head cyst seen on the left. There is a small complex right-sided hydrocele. No hydrocele is seen on the left and there is no varicocele identified. IMPRESSION: 1. There is evidence of right-sided epididymoorchitis. Correlate clinically. 2. The left testis is normal in appearance. 3. There is no sonographic evidence of testicular torsion at the time of examination. 4. Small complex right-sided hydrocele. ACT 112: Negative or not required by law. Electronically signed by: Dennis Lombardo M.D. 01/30/2023 4:43 PM Discharge Plan Visit Data Chief Complaint: Illness Stated Complaint: FEVER, SWELLING IN SCROTUM, DARK URINE ED Provider: Trino Hernandez Discharge Problem: Acute UTI Forms Stand Alone Forms: [facility] Prescriptions Prescriptions: No Action lorazepam 1 mg tablet 1 mg PO DAILY PRN (Reason: reaction) Qty: 6 0RF Ocrevus 30 mg/mL solution 600 mg IV Q6MO Qty: 20 1RF Rx Instructions: 30 minutes before each infusion,premedicate with methylprednisolone 100mg IV, lorazepam 1mg PO, diphenhydramine 50mg IV, and acetaminophen 500mg PO.May give an additional 25mg diphenhydramine IV during infusion PRN. baclofen 20 mg tablet 20 mg PO TID Qty: 270 1RF vitamin B complex Capsule 1 cap PO DAILY Trintellix 20 mg tablet 20 mg PO QAM acetaminophen 325 mg capsule 650 mg PO Q4H PRN (Reason: Fever Or Pain) multivitamin Tablet 1 tab PO QAM omega 3-duk-gpe-fish oil [Fish Oil] 1,000 mg (120 mg-180 mg) Capsule 1,000 mg PO QAM cholecalciferol (vitamin D3) [Vitamin D3] 5,000 unit Tablet See Rx Instructions .ROUTE .COMPLEX Rx Instructions: Patient alternates between 5,000 unit tablet and 10,000 unit tablet every other day. Last took 10,000 unit tablet on the morning of 01/30/23. loperamide [Imodium A-D] 2 mg capsule 2 mg PO QID PRN (Reason: loose stool) Qty: 20 0RF naltrexone 4.5 mg Capsule 4.5 mg PO QAM Referrals Referrals: Kt Ledesma [Primary Care Provider] -
--- NOTE | 2023-01-30 13:03 | XRay Report ---
XR chest 1V portable CLINICAL HISTORY: Sepsis TECHNIQUE: Single frontal radiograph of the chest was obtained. Comparison: Comparison is made to chest radiograph 06/14/2022 FINDINGS: No lines and tubes are seen. Cardiomegaly is noted. Prominence and cephalization of the vasculature i s seen. No evidence of pleural effusion or pneumothorax. IMPRESSION: Cardiomegaly and mild pulmonary edema. ACT 112: Negative or not required by law. Electronically signed by: Sudeep Smart M.D. 01/30/2023 1:01 PM
[2023-01-30] MEDS: SODIUM CHLORIDE 0.9% 1,000 ML IV SCH ×2 (13:52→14:39)
[2023-01-30 14:12] LABS: Hematocrit (blood only) 43.4 % (42.0-52.0); Hemoglobin 14.9 g/dl (14.0-18.0); Mean Corpuscular Hemoglobin 29.7 pg (25.0-34.0); Mean Corpuscular Hgb Conc 34.3 g/dL (32.0-36.0); Mean Corpuscular Volume 86.6 fL (80.0-100.0); Mean Platelet Volume 10.7 fL (9.4-12.4); Platelet Count 356 K/uL (130-400); RDW Standard Deviation 44.1 fL (36.4-46.3); Red Blood Count 5.01 M/uL (4.70-6.10); White Blood Count 22.26 K/ul (4.8-10.8)
[2023-01-30 14:22] LABS: Albumin Level 4.1 gm/dl (3.4-5.0); BUN Creatinine Ratio 12.5 (10-20); Bilirubin Direct 0.1 mg/dl (0-0.2); Bilirubin,Total 0.7 mg/dl (0.2-1.0); Calcium 9.6 mg/dl (8.6-10.3); Creatinine Clr Calc Pharmacy 129.5 ml/min; Est GFR (African American) 116.6 ml/min; Est GFR (Non-African American) 100.6 ml/min; Magnesium 1.9 mg/dl (1.7-2.4); Potassium 4.3 mmol/L (3.5-5.1)
[2023-01-30 14:29] LABS: Prothrombin Time 11.2 Seconds (9.0-12.0)
[2023-01-30 14:37] LABS: Adenovirus PCR Not Detected (NotDetected); Bordetella parapertussis PCR Not Detected (NotDetected); Bordetella pertussis PCR Not Detected (NotDetected); Chlamydia pneumoniae PCR Not Detected (NotDetected); Coronavirus 229E PCR Not Detected (NotDetected); Coronavirus CoV-2 (COVID19)PCR Not Detected (NotDetected); Coronavirus HKU1 PCR Not Detected (NotDetected); Coronavirus NL63 PCR Not Detected (NotDetected); Coronavirus OC43PCR Not Detected (NotDetected); Human Metapneumovirus PCR Not Detected (NotDetected); Influenza A PCR Not Detected (NotDetected); Influenza B PCR Not Detected (NotDetected); Mycoplasma pneumoniae PCR Not Detected (NotDetected); Parainfluenza Virus 1 PCR Not Detected (NotDetected); Parainfluenza Virus 2 PCR Not Detected (NotDetected); Parainfluenza Virus 3 PCR Not Detected (NotDetected); Parainfluenza Virus 4 PCR Not Detected (NotDetected); Respiratory Syncytial VirusPCR Not Detected (NotDetected)
[2023-01-30 14:43] LABS: Rhinovirus/Enterovirus PCR DETECTED (NotDetected)
[2023-01-30 14:43] LABS: Basophils # (auto) 0.06 K/uL (0.00-0.20); Basophils % (auto) 0.3 %; Eosinophils # (auto) 0.01 K/uL (0.00-0.50); Immature Granulocytes # (auto) 0.18 K/uL (0.01-0.20); Immature Granulocytes % (auto) 0.8 %; Lymphocytes # (auto) 0.77 K/uL (1.20-3.40); Lymphocytes % (auto) 3.5 %; Monocytes # (auto) 1.23 K/uL (0.11-0.59); Monocytes % (auto) 5.5 %; Neutrophils # (auto) 20.01 K/uL (1.40-6.50); Neutrophils % (auto) 89.9 %
[2023-01-30] MEDS ORDERED: VANCOMYCIN HCL 2,250 MG in SODIUM CHLORIDE 0.9% 500 ML IV ONE (14:46)
[2023-01-30] MEDS ORDERED: VANCOMYCIN CONSULT ACTIVE PRN ×2 (14:46→20:03)
[2023-01-30] MEDS ORDERED: CEFEPIME 2,000 MG/20 ML VIAL IV STA (14:46)
[2023-01-30] MEDS ORDERED: SODIUM CHLORIDE 0.9% 500 ML IV ONE (14:47)
[2023-01-30 15:04] LABS: Appearance Urine Clear (Clear); Bacteria Urine Automated 2+ (Negative); Bilirubin Urine Negative (Negative); Blood Urine Trace (Negative); Color Urine Dark Yellow; Glucose Urine UA 3+ (Negative); Ketones Urine 1+ (Negative); Leukocyte Esterase Urine 2+ (Negative); Nitrite Urine Positive (Negative); Protein Urine Trace (Negative); RBC Urine Automated 0-4 /hpf (0-4); Specific Gravity Urine 1.028 (1.000-1.030); Urobilinogen Urine Negative (Negative); WBC Urine Automated >30 /hpf (0-5)
--- NOTE | 2023-01-30 15:51 | Electrocardiogram Report ---
Test Reason : Blood Pressure : / mmHG Vent. Rate : 121 BPM Atrial Rate : 121 BPM P-R Int : 192 ms QRS Dur : 094 ms QT Int : 296 ms P-R-T Axes : 000 206 171 degrees QTc Int : 420 ms Suspect arm lead reversal, interpretation assumes no reversal Sinus tachycardia Right superior axis deviation Incomplete right bundle branch block Possible Anterior infarct , age undetermined Abnormal ECG When compared with ECG of 08-APR-2022 15:02, QRS axis Shifted left Borderline criteria for Anterior infarct are now Present Confirmed by Bimal Vazquez ([id number]) on 01/30/2023 3:50:38 PM Referred By: REFERRED SELF Confirmed By:Bimal Vazquez
--- NOTE | 2023-01-30 16:44 | Ultrasound Report ---
ULTRASOUND TESTES AND SCROTUM CLINICAL HISTORY: Right testicular pain and swelling COMPARISON STUDY: Scrotal ultrasound dated 11/15/2020. TECHNIQUE: Real-time, grayscale, and color Doppler sonography of the testes and scrotum is performed. Images are reviewed in the transverse and longitudinal planes. FINDINGS: The testes are normal in size. The right testis is slightly heterogeneous. The right testis measures 4.6 x 2.9 x 3.2 cm and the left testis measures 4.9 x 2.3 x 2.7 cm. No intratesticular mass is seen. The right testis is markedly hyperemic as compared to the left. Normal Doppler waveforms are identifi ed in both testes. The right epididymal head appears enlarged and heterogeneous measuring 1.4 cm in length. The right ep ididymal head is hyperemic. The left epididymal head is normal in appearance, measuring 0.9 cm in marcy gth. A 3 mm and a digital head cyst seen on the left. There is a small complex right-sided hydrocele. No hydrocele is seen on the left and there is no vari cocele identified. IMPRESSION: 1. There is evidence of right-sided epididymoorchitis. Correlate clinically. 2. The left testis is normal in appearance. 3. There is no sonographic evidence of testicular torsion at the time of examination. 4. Small complex right-sided hydrocele. ACT 112: Negative or not required by law. Electronically signed by: Dennis Lombardo M.D. 01/30/2023 4:43 PM
--- NOTE | 2023-01-30 17:48 | History & Physical Report ---
Date of Service January 30, 2023 Assessment & Plan (1) Right epididymitis: Plan: Leukocytosis of 22.26 with a neutrophil predominance Scrotum ultrasound revealed evidence of right-sided epididymoorchitis Lactate 3.5 --> 2.0 on arrival Continue cefepime 2000 mg IV q8h Urology consult placed Acetaminophen 650 mg p.o. q6h as needed for fever A.m. CBC, BMP (2) Sepsis: Plan: Elevated WBC, tachycardia, and urinary source (UTI) UA positive on arrival (cefepime as above) Blood cultures pending Procalcitonin WNL Vancomycin started in the ED; continue Patient received 30cc/kg fluid resuscitation in the ED (3) Nausea and vomiting: Plan: 1 episode of vomiting while in the ED Zofran 4 mg IV q6h as needed for nausea and vomiting (4) Multiple sclerosis: Plan: Dx in 2007; advanced MS Patient normally gets ocrelizumab IV q6mo Continue baclofen for spasticity Aspiration precautions; reports that he eats a regular diet, but should maintain HOB >30 degrees when eating Hold naltrexone (which he normally takes at bedtime to help with muscles, per ) (5) Infection, enterovirus: Plan: Enterovirus/rhinovirus positive at time of admission Clinically, patient denies any upper respiratory symptoms (6) Sinus tachycardia: Plan: EKG revealed sinus tachycardia at 121 bpm Likely secondary to sepsis Continuous telemetry monitoring (7) Incontinence: Plan: Per , patient is unable to do Mayen catheter Can apply briefs for now; consider [place] catheter for I&O monitoring Plan Disposition: Admit to PCU telemetry DNR/DNI Regular diet (aspiration precautions, elevated HOB) VTE PPx: Lovenox History of Present Illness Chief Complaint: Illness Primary Care Provider: Kt Herrera is a 57-year-old male with PMH of MS, anxiety, depression, bladder outlet obstruction, and epididymitis. He presented for fever, weakness, nausea that started the night of 01/29. History is provided by patient's assistant director/ (Alessia) who is at the bedside. She reports that she first noticed him feeling weak/tired on the night of 01/29. Patient's home health nurse then noticed an inflamed R scrotum the morning of 01/30. Patient reportedly took all of his morning medications. He also took an extra strength Tylenol this morning as he was feeling feverish. Patient is immunocompromised at baseline due to underlying MS. He is also incontinent and relies on briefs, as Mayen catheters are a risk infection. Patient is hypertensive at 151/104, and is tachycardic at 120 bpm at time of admission. ED course: NSS 3000 mL IV Cefepime 2000 mg Vancomycin 2250 mg ROS: (Difficult to obtain due to patient's advanced MS) This patient denies chest pain, SOB, abdominal pain. Allergies Allergy/AdvReac Type Severity Reaction Status Date / Time de la torre pepper [green pepper] Allergy Unknown Unknown Verified 01/30/23 13:59 potato Allergy Unknown Unknown Verified 01/30/23 13:59 tomato Allergy Unknown Unknown Verified 01/30/23 13:59 No Known Drug Allergies Allergy NONE Verified 01/30/23 13:59 Home Medications Medication Instructions Recorded Confirmed Type multivitamin 1 tab PO QAM 01/27/18 01/30/23 History omega 0-xqh-gyl-fish oil 1,000 mg 1,000 mg PO QAM 01/27/18 01/30/23 History (120 mg-180 mg) capsule (Fish Oil) cholecalciferol (vitamin D3) 125 See Rx Instructions .Route .COMPLEX 03/21/18 01/30/23 History mcg (5,000 unit) tablet (Vitamin D3) acetaminophen 325 mg capsule 650 mg PO Q4H PRN Fever Or Pain 09/18/20 01/30/23 History loperamide 2 mg capsule (Imodium 2 mg PO QID PRN loose stool #20 11/20/20 01/30/23 Rx A-D) caps vitamin B complex 1 cap PO DAILY 07/05/22 01/30/23 History lorazepam 1 mg tablet 1 mg PO DAILY PRN reaction #6 tabs 09/14/22 01/30/23 Rx ocrelizumab 30 mg/mL intravenous 600 mg (20 mL) IV Q6MO #20 mL 09/22/22 01/30/23 Rx solution (Ocrevus) baclofen 20 mg tablet 20 mg PO TID #270 tabs 11/15/22 01/30/23 Rx vortioxetine 20 mg tablet 20 mg PO QAM 01/09/23 01/30/23 History (Trintellix) naltrexone 4.5 mg capsule 4.5 mg PO HS 01/30/23 01/30/23 History Past Med/Surg History Medical History Morbid obesity Paraplegia Complicated urinary tract infection Immunocompromised Encephalopathy acute Acute respiratory failure with hypoxia Urinary incontinence due to benign prostatic hyperplasia Encounter for pre-operative examination Anxiety and depression OCD (obsessive compulsive disorder) Spastic gait Spasticity Vitamin D deficiency hx Multiple sclerosis WHEELCHAIR BOUND. DX'D 2007-F/U DR GALVEZ. 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: No Beliefs That Will Affect Care: None marital status: Current Living Situation: Spouse current occupational status: disabled Feels Safe at Home: Yes Safety Concerns: Feels Safe At This Time Physical Activity Frequency Comment: WHEELCHAIR BOUND Assistive Devices: Hospital Bed, Lift Chair and Wheelchair Review of Systems Review of Systems: See HPI above Physical Exam Physical Exam: General: Diaphoretic; non-toxic appearing; well-nourished; cooperative HEENT: normocephalic, atraumatic; no scleral icterus; PERRLA w/ EOMs intact; moist mucus membrane; vision and hearing grossly intact Neck: supple; no JVD; no lymphadenopathy; trachea midline Skin: warm, dry without signs of tenting; no cyanosis; no bruising or lesions noted CV: chest wall NTP; erythematous left upper chest; regular rhythm, tachycardic at 120 bpm; S1/S2 normal; no murmurs/rubs/gallops; pulses intact and symmetric at radial, DP, and PT Lungs: no acute respiratory distress; symmetrical chest wall expansion; clear breath sounds across all lung hough w/o adventitious sounds; no wheezing ABD: Soft, NTP; BS present; no rebound/guarding; no ascites; mild distention secondary to body habitus : Grossly swollen, erythematous right testicle; TTP MSK: no tics or fasciculations; no edema noted in the LEs b/l, nonerythematous; patient is unable to wiggle toes on right foot, but can move toes on left foot Neuro: Patient is oriented to name, location, but cannot tell me his date of or the month; he mainly responds in one-word yes/no answers, which reports is at his baseline; he reports that sensation is intact in the LEs B/L Results & Data Results & Data Vital Signs (Past 12 Hours) Vital Signs Temp Pulse Pulse Resp BP Pulse Ox O2 Del Method 01/30/23 17:15 117 H 26 H 93 01/30/23 17:00 122 H 28 H 92 01/30/23 16:45 156/108 H 01/30/23 16:45 118 H 26 H 92 01/30/23 16:30 165/108 H 01/30/23 16:30 118 H 28 H 93 01/30/23 16:15 118 H 26 H 93 01/30/23 16:15 156/109 H 01/30/23 16:14 120 H 26 H 92 01/30/23 16:14 156/108 H 01/30/23 16:13 121 H 23 01/30/23 15:30 118 H 22 93 01/30/23 15:15 119 H 26 H 92 01/30/23 15:00 119 H 24 90 01/30/23 13:45 117 H 27 H 91 01/30/23 13:44 141/98 H 01/30/23 13:44 116 H 21 94 01/30/23 13:30 120 H 24 94 01/30/23 13:15 122 H 24 94 Room Air 01/30/23 13:02 117 H 01/30/23 13:00 134/93 01/30/23 13:00 119 H 29 H 91 01/30/23 12:55 117 H 22 91 01/30/23 12:26 118 H 24 92 Room Air 01/30/23 12:00 36.6 C 133 H 20 169/90 H 96 Room Air Laboratory Results Abnormal lab results 01/30/23 01/30/23 01/30/23 Range/Units 13:40 14:39 Unknown WBC 22.26 H (4.8-10.8) K/ul Neut # (Auto) 20.01 H (1.40-6.50) K/uL Lymph # (Auto) 0.77 L (1.20-3.40) K/uL [place] # (Auto) 1.23 H (0.11-0.59) K/uL Sodium 135 L (136-145) mmol/L Glucose 198 H (70-99(Fasting)) mg/dl Lactate 3.5 H* (0.4-2.0) mmol/L ALT 57 H (7-52) U/L Urine Protein Trace H (Negative) Urine Glucose (UA) 3+ H (Negative) Urine Ketones 1+ H (Negative) Urine Blood Trace H (Negative) Urine Nitrite Positive A (Negative) Ur Leukocyte Esterase 2+ H (Negative) Urine WBC (Auto) >30 H (0-5) /hpf U Hyaline Cast (Auto) 5-10 H (0-5) /lpf U Epithel Cells (Auto) 5-10 H (0-5) /lpf Urine Bacteria (Auto) 2+ H (Negative) Entero/Rhino (PCR) DETECTED A* (NotDetected) Diagnostic Findings Chest X-Ray 01/30/23 12:26 XR chest 1V portable CLINICAL HISTORY: Sepsis TECHNIQUE: Single frontal radiograph of the chest was obtained. Comparison: Comparison is made to chest radiograph 06/14/2022 FINDINGS: No lines and tubes are seen. Cardiomegaly is noted. Prominence and cephalization of the vasculature is seen. No evidence of pleural effusion or pneumothorax. IMPRESSION: Cardiomegaly and mild pulmonary edema. ACT 112: Negative or not required by law. Electronically signed by: Sudeep Smart M.D. 01/30/2023 1:01 PM Scrotum Ultrasound 01/30/23 12:38 ULTRASOUND TESTES AND SCROTUM CLINICAL HISTORY: Right testicular pain and swelling COMPARISON STUDY: Scrotal ultrasound dated 11/15/2020. TECHNIQUE: Real-time, grayscale, and color Doppler sonography of the testes and scrotum is performed. Images are reviewed in the transverse and longitudinal planes. FINDINGS: The testes are normal in size. The right testis is slightly heterogeneous. The right testis measures 4.6 x 2.9 x 3.2 cm and the left testis measures 4.9 x 2.3 x 2.7 cm. No intratesticular mass is seen. The right testis is markedly hyperemic as compared to the left. Normal Doppler waveforms are identified in both testes. The right epididymal head appears enlarged and heterogeneous measuring 1.4 cm in length. The right epididymal head is hyperemic. The left epididymal head is normal in appearance, measuring 0.9 cm in length. A 3 mm and a digital head cyst seen on the left. There is a small complex right-sided hydrocele. No hydrocele is seen on the left and there is no varicocele identified. IMPRESSION: 1. There is evidence of right-sided epididymoorchitis. Correlate clinically. 2. The left testis is normal in appearance. 3. There is no sonographic evidence of testicular torsion at the time of examination. 4. Small complex right-sided hydrocele. ACT 112: Negative or not required by law. Electronically signed by: Dennis Lombardo M.D. 01/30/2023 4:43 PM Code Status & VTE Plan Code Status DNR/DNI VTE Prophylaxis Plan VTE Prophylaxis will be ordered: Yes Supervising Physician Co-Signing Physician Notes I personally saw and examined the patient. I independently reviewed the labs, EKG, imaging, problem list, medication list, past medical history and family history. I verified all kitchen points and agree with Cameron Hung PA-C with the following exceptions and/or additions: 57 year old with multiple sclerosis presents to the ER with fever and weakness. no longer present at bedside to give history. Patient is unsure how long he been unwell for and cannot provide much of a history. He reports feeling better since treatment given in the ER. O/E Alert, HS RRR, no murmurs, Chest CTAB, Abdo SNT, No CVA tenderness, right testicular erythema, swelling and warmth A/P Sepsis, epididymoorchitis - vancomycin cefepime pending urine and blood cultures. Sepsis fluid bolus given (total 3L). consult urology PG Care Time/CCT Total # of Minutes Spent Total Time Spent with Patient: Total time spent is greater than 50% in coordination of care (as documented) at patient's floor/unit and/or counseling patient: C[place] [address] INT INP/OBS CARE 375MIN Patient Type Established Medical Decision Making High Complexity Diagnoses Right epididymitis N45.1 Sepsis A41.9 Nausea and vomiting R11.2 Multiple sclerosis G35 Infection, enterovirus B34.1 Sinus tachycardia R00.0 Incontinence R32
[2023-01-30] MEDS ORDERED: LOPERAMIDE HCL 2 MG CAP PO PRN (20:03)
[2023-01-30] MEDS ORDERED: ACETAMINOPHEN 325 MG TAB PO PRN (20:03)
--- NOTE | 2023-01-30 20:28 | Urology Consultation ---
Date of Consultation January 30, 2023 Assessment & Plan (1) Right epididymitis: The patient has been admitted on the hospitalist service secondary to sepsis. It appears that the patient could have multiple causes of his sepsis including entero-/rhinovirus, epididymitis, urinary tract infection. From a urologic perspective we recommend proceeding as follows: Continue fluid resuscitation as ordered by the hospital service Patient has had antibiotics in form of vancomycin and cefepime initiated and antibiotic should continue. Appropriate cultures have been sent and antibiotics be tailored based on these results as well as the patient's clinical response. Will be preferable to ensure that patient is able to empty his bladder completely. I did discuss with the patient's and she would like us to avoid placing the Mayen catheter as patient has had issues with multiple sclerosis exacerbations in the past when patient has had Mayen catheters. For the present time we will hold on placing a Mayen catheter. History of Present Illness Reason for Consultation: Epididymitis Orchitis Urinary tract infection Attending Physician: Alexandre Hare MD History of Present Illness This is a 57-year-old male with an underlying history of multiple sclerosis. The history is obtained with the nurse attending to the patient along with the patient himself. The patient's reported to the emergency department nurse that her appeared somewhat more fatigued over the past 24 hours. She reported that the patient did get a COVID-vaccine proximally 3 days ago and felt that his fatigue could have potentially been due to that but his fatigue appear to be getting worse. She noted that he was running a low-grade fever of 100.0 at home. In addition the patient has been complaining of some testicular pain and swelling. He specific denies any dysuria or hematuria. He denies any suprapubic pressure. I did asked the patient if he has a history of urinary tract infections in the past which he said he has but cannot provide any further details regarding this. Since arrival to hospital patient has had labs and imaging which independent reviewed. Patient had a chest x-ray that showed mild pulmonary edema with cardiomegaly. Scrotum ultrasound was performed that showed no evidence of torsion. The left testicle was normal in appearance. The head of the right epididymis was hyperemic. This was felt to be consistent for epididymal orchitis. Labs include a CBC her white blood cell count was elevated at 22.2. Hemoglobin and hematocrit along with a platelet count were normal. Chemistry profile shows sodium is 135 with a potassium that was normal. His BUN and creatinine were both normal. Patient did present with a lactic acid level 3.5. This was checked approximately 2 hours later and had normalized to 2.0. Urinalysis did show 2+ leukocyte Estrace and was positive for nitrites. There is pyuria with greater than 30 white blood cells per high-power field along with 2+ bacteria. The patient did have a bio fire test performed where patient tested positive for entero-/rhinovirus. At the time of my interview the patient was not noted to be in any distress. Allergies Allergy/AdvReac Type Severity Reaction Status Date / Time de la torre pepper [green pepper] Allergy Unknown Unknown Verified 01/30/23 13:59 potato Allergy Unknown Unknown Verified 01/30/23 13:59 tomato Allergy Unknown Unknown Verified 01/30/23 13:59 No Known Drug Allergies Allergy NONE Verified 01/30/23 13:59 Home Medications Medication Instructions Recorded Confirmed Type multivitamin 1 tab PO QAM 01/27/18 01/30/23 History omega 4-zmb-tlu-fish oil 1,000 mg 1,000 mg PO QAM 01/27/18 01/30/23 History (120 mg-180 mg) capsule (Fish Oil) cholecalciferol (vitamin D3) 125 See Rx Instructions .Route .COMPLEX 03/21/18 01/30/23 History mcg (5,000 unit) tablet (Vitamin D3) acetaminophen 325 mg capsule 650 mg PO Q4H PRN Fever Or Pain 09/18/20 01/30/23 History loperamide 2 mg capsule (Imodium 2 mg PO QID PRN loose stool #20 11/20/20 01/30/23 Rx A-D) caps vitamin B complex 1 cap PO DAILY 07/05/22 01/30/23 History lorazepam 1 mg tablet 1 mg PO DAILY PRN reaction #6 tabs 09/14/22 01/30/23 Rx ocrelizumab 30 mg/mL intravenous 600 mg (20 mL) IV Q6MO #20 mL 09/22/22 01/30/23 Rx solution (Ocrevus) baclofen 20 mg tablet 20 mg PO TID #270 tabs 11/15/22 01/30/23 Rx vortioxetine 20 mg tablet 20 mg PO QAM 01/09/23 01/30/23 History (Trintellix) naltrexone 4.5 mg capsule 4.5 mg PO HS 01/30/23 01/30/23 History Patient History Medical History Morbid obesity Paraplegia Complicated urinary tract infection Immunocompromised Encephalopathy acute Acute respiratory failure with hypoxia Urinary incontinence due to benign prostatic hyperplasia Encounter for pre-operative examination Anxiety and depression OCD (obsessive compulsive disorder) Spastic gait Spasticity Vitamin D deficiency hx Multiple sclerosis WHEELCHAIR BOUND. DX'D 2007-F/U DR GALVEZ. Per last OV 07/01/20, "advanced multiple sclerosis condition radiographically stable on Ocrevus" Surgical History History of transurethral resection of prostate History of colonoscopy Family History Father Crohn's disease Colorectal cancer PT DENIES Mother Crohn's disease Colorectal cancer Other No significant family history Social History Smoking Status: Never smoker Second Hand Exposure: No; Do You Dip or Chew Tobacco: No; Hx Alcohol Use: Yes Alcohol type: beer Hx Substance Use: No Preferred Language: Cymraes Communication Ability: Effective Communication Ability Comment: Pt communication garbled Solutions Sales Consultant Required: No Beliefs That Will Affect Care: None marital status: Current Living Situation: Spouse current occupational status: disabled Feels Safe at Home: Yes Physical Activity Frequency Comment: WHEELCHAIR BOUND Assistive Devices: Bedside Commode, Hospital Bed, Mechanical Lift and Wheelchair Review of Systems Constitutional: + fever Ear, Nose, Mouth, Throat: no hearing loss Respiratory: + cough Cardiovascular: no chest pain Gastrointestinal: no abdominal pain Genitourinary: + as per Subjective / HPI Musculoskeletal: no back pain Integumentary: no rash Neurologic: Pre-existing weakness secondary to multiple sclerosis Physical Exam Constitutional: well developed and well nourished; no acute distress Eyes: no conjunctival abnormality ENMT: Ears: no hearing impairment Mouth: no oropharynx abnormality Neck: trachea midline Respiratory: normal respiratory effort; no respiratory distress and no labored breathing No wheezing Gastrointestinal (Abdomen): Abdomen is soft and nondistended. There is no pain with palpation Musculoskeletal: No calf tenderness Skin: no rashes Neurologic: Patient is noted to have marked weakness of both his upper and lower extremities Psychiatric: A+Ox3, euthymic affect Genitourinary: With a nurse molasses coloring operator present I was able to examine the patient's testicles. There is no swelling or erythema of the left testicle. The right testicle was markedly erythematous and warm. This area was tender to palpation. I do not appreciate any masses. The erythema and swelling did not appear to extend past the scrotum. Results & Data Vital Signs (Past 12 Hours) Vital Signs Temp Pulse Pulse Resp BP Pulse Ox O2 Del Method 01/30/23 19:26 122 H 01/30/23 18:45 165/112 H 01/30/23 18:45 123 H 93 01/30/23 18:30 124 H 28 H 94 01/30/23 18:30 165/110 H 01/30/23 18:15 126 H 28 H 93 01/30/23 18:00 157/122 H 01/30/23 18:00 127 H 30 H 94 01/30/23 17:45 120 H 30 H 92 01/30/23 17:30 151/104 H 01/30/23 17:30 117 H 28 H 92 01/30/23 17:15 117 H 26 H 93 01/30/23 17:00 122 H 28 H 92 01/30/23 16:45 156/108 H 01/30/23 16:45 118 H 26 H 92 01/30/23 16:30 165/108 H 01/30/23 16:30 118 H 28 H 93 01/30/23 16:15 118 H 26 H 93 01/30/23 16:15 156/109 H 01/30/23 16:14 120 H 26 H 92 01/30/23 16:14 156/108 H 01/30/23 16:13 121 H 23 01/30/23 15:30 118 H 22 93 01/30/23 15:15 119 H 26 H 92 01/30/23 15:00 119 H 24 90 01/30/23 13:45 117 H 27 H 91 01/30/23 13:44 141/98 H 01/30/23 13:44 116 H 21 94 01/30/23 13:30 120 H 24 94 01/30/23 13:15 122 H 24 94 Room Air 01/30/23 13:02 117 H 01/30/23 13:00 134/93 01/30/23 13:00 119 H 29 H 91 01/30/23 12:55 117 H 22 91 01/30/23 12:26 118 H 24 92 Room Air 01/30/23 12:00 36.6 C 133 H 20 169/90 H 96 Room Air PG Care Time/CCT Total # of Minutes Spent Total Time Spent with Patient: Total time spent is greater than 50% in coordination of care (as documented) at patient's floor/unit and/or counseling patient: Coding Level of Care Code 09682 IN/OBS CONSULT LVL 5,80M Diagnoses Right epididymitis N45.1
--- NOTE | 2023-01-30 20:47 | Pharmacy Report ---
Pharmacy PK ABX Note - Date of Service January 30, 2023 - Assessment and Plan Assessment 57 year old M receiving cefepime and vancomycin for treatment of sepsis 2nd epididymoorchitis. Plan Vancomycin * Loading dose: 2250 mg IV x 1 * Maintenance dose: 1500 mg IV every 12 hours * Regimen is predicted to achieve target AUC/DIPAK of 400-600 mg/L.hr * Trough level ordered for: 12.6 @ 0330 Pharmacy will continue to follow and will adjust dose/frequency as necessary. Thank you. Pharmacy has transitioned to AUC monitoring for vancomycin. AUC/DIPAK is the preferred PK/PD target and is associated with decreased risk of nephrotoxicity compared to traditional trough targets.
[2023-01-30] MEDS: ENOXAPARIN INJ 40 MG/0.4 ML SYR SQ SCH (22:16)
[2023-01-31] MEDS: BACLOFEN 20 MG TAB PO SCH ×4 (00:32→20:23)
[2023-01-31] MEDS: CEFEPIME 2,000 MG in SYRINGE 0 ML IV SCH ×3 (00:32→16:09)
[2023-01-31] MEDS: VANCOMYCIN HCL 1,500 MG in SODIUM CHLORIDE 0.9% 500 ML IV SCH ×2 (04:15→17:07)
[2023-01-31 05:22] LABS: Basophils # (auto) 0.09 K/uL (0.00-0.20); Basophils % (auto) 0.5 %; Eosinophils # (auto) 0.03 K/uL (0.00-0.50); Eosinophils % (auto) 0.2 %; Hematocrit (blood only) 38.5 % (42.0-52.0); Hemoglobin 13.1 g/dl (14.0-18.0); Immature Granulocytes # (auto) 0.14 K/uL (0.01-0.20); Immature Granulocytes % (auto) 0.8 %; Lymphocytes # (auto) 1.61 K/uL (1.20-3.40); Lymphocytes % (auto) 8.7 %; Mean Corpuscular Hemoglobin 29.8 pg (25.0-34.0); Mean Corpuscular Volume 87.5 fL (80.0-100.0); Mean Platelet Volume 10.5 fL (9.4-12.4); Monocytes # (auto) 1.26 K/uL (0.11-0.59); Monocytes % (auto) 6.8 %; Neutrophils # (auto) 15.46 K/uL (1.40-6.50); Platelet Count 320 K/uL (130-400); RDW Coefficient of Variation 14.2 % (11.5-14.5); RDW Standard Deviation 45.9 fL (36.4-46.3); White Blood Count 18.59 K/ul (4.8-10.8)
[2023-01-31 05:34] LABS: BUN Creatinine Ratio 11.9 (10-20); Calcium 8.3 mg/dl (8.6-10.3); Creatinine Clr Calc Pharmacy 154.6 ml/min; Est GFR (African American) 125.4 ml/min; Est GFR (Non-African American) 108.2 ml/min; Potassium 3.6 mmol/L (3.5-5.1)
[2023-01-31] MEDS ORDERED: diphenhydrAMINE 50 MG/ML VIAL ONE (06:25)
[2023-01-31] MEDS ORDERED: diphenhydrAMINE 50 MG/ML VIAL IV STA (06:29)
[2023-01-31] MEDS: MULTIVITAMIN TAB PO SCH (08:31)
[2023-01-31] MEDS: VORTIOXETINE HYDROBROMIDE PO SCH (12:27)
[2023-01-31] MEDS ORDERED: diphenhydrAMINE Capsule 25 MG CAP PO PRN (17:07)
--- NOTE | 2023-01-31 18:38 | Hospitalist Progress Note ---
Date of Service January 31, 2023 Assessment & Plan (1) Right epididymitis: Plan: Scrotum ultrasound revealed evidence of right-sided epididymoorchitis Improving white cell count is trending down, patient has less pain, patient is not encephalopathic anymore, Continue cefepime 2000 mg IV q8h Appreciate urology input, stop vancomycin, patient reaction to vancomycin Acetaminophen 650 mg p.o. q6h as needed for fever A.m. CBC, BMP (2) Sepsis: Plan: Elevated WBC, tachycardia, and urinary source (UTI) UA positive on arrival (cefepime as above) Blood cultures pending Procalcitonin WNL Blood cultures so far negative, urine cultures growing gram-negative (3) Nausea and vomiting: Plan: 1 episode of vomiting while in the ED Zofran 4 mg IV q6h as needed for nausea and vomiting (4) Multiple sclerosis: Plan: Dx in 2007; advanced MS Patient normally gets ocrelizumab IV q6mo Continue baclofen for spasticity Aspiration precautions; reports that he eats a regular diet, but should maintain HOB >30 degrees when eating Hold naltrexone (which he normally takes at bedtime to help with muscles, per ) (5) Infection, enterovirus: Plan: Enterovirus/rhinovirus positive at time of admission Clinically, patient denies any upper respiratory symptoms (6) Sinus tachycardia: Plan: EKG revealed sinus tachycardia at 121 bpm Likely secondary to sepsis Continuous telemetry monitoring (7) Incontinence: Plan: Per , patient is unable to do Mayen catheter Can apply briefs for now; consider [place] catheter for I&O monitoring Plan Disposition: Admit to PCU telemetry DNR/DNI Regular diet (aspiration precautions, elevated HOB) VTE PPx: Lovenox Admission and Anticipated Discharge Date Admission Date: January 30, 2023 Subjective Patient feels better today, discussed with the , Review of Systems Review of Systems: See HPI above Constitutional: + fever Ear, Nose, Mouth, Throat: no hearing loss Respiratory: + cough Cardiovascular: no chest pain Gastrointestinal: no abdominal pain Genitourinary: + as per Subjective / HPI Musculoskeletal: no back pain Integumentary: no rash Neurologic: Pre-existing weakness secondary to multiple sclerosis Physical Exam Physical Exam: General: Diaphoretic; non-toxic appearing; well-nourished; cooperative HEENT: normocephalic, atraumatic; no scleral icterus; PERRLA w/ EOMs intact; moist mucus membrane; vision and hearing grossly intact Neck: supple; no JVD; no lymphadenopathy; trachea midline Skin: warm, dry without signs of tenting; no cyanosis; no bruising or lesions noted CV: chest wall NTP; erythematous left upper chest; regular rhythm, tachycardic at 120 bpm; S1/S2 normal; no murmurs/rubs/gallops; pulses intact and symmetric at radial, DP, and PT Lungs: no acute respiratory distress; symmetrical chest wall expansion; clear breath sounds across all lung hough w/o adventitious sounds; no wheezing ABD: Soft, NTP; BS present; no rebound/guarding; no ascites; mild distention secondary to body habitus : Grossly swollen, erythematous right testicle; TTP MSK: no tics or fasciculations; no edema noted in the LEs b/l, nonerythematous; patient is unable to wiggle toes on right foot, but can move toes on left foot Neuro: Patient is oriented to name, location, but cannot tell me his date of or the month; he mainly responds in one-word yes/no answers, which reports is at his baseline; he reports that sensation is intact in the LEs B/L Constitutional: well developed and well nourished; no acute distress Eyes: no conjunctival abnormality ENMT: Ears: no hearing impairment Mouth: no oropharynx abnormality Neck: trachea midline Respiratory: normal respiratory effort; no respiratory distress and no labored breathing Skin: no rashes Psychiatric: A+Ox3, euthymic affect Results & Data Results & Data Vital Signs (Past 12 Hours) Vital Signs Pulse Resp BP Pulse Ox O2 Del Method 01/31/23 17:00 112/71 01/31/23 17:00 86 18 94 Room Air 01/31/23 16:00 135/95 01/31/23 16:00 91 H 20 93 Room Air 01/31/23 15:55 90 01/31/23 15:00 146/93 H 01/31/23 15:00 89 24 94 01/31/23 14:00 89 30 H 93 Room Air 01/31/23 14:00 134/87 01/31/23 13:00 91 H 25 H 94 Room Air 01/31/23 13:00 149/109 H 01/31/23 12:00 146/99 H 01/31/23 12:00 86 27 H 94 01/31/23 11:00 142/98 H 01/31/23 11:00 88 24 94 Room Air 01/31/23 10:00 95 H 26 H 93 Room Air 01/31/23 10:00 148/92 H 01/31/23 09:00 93 H 25 H 95 01/31/23 09:00 123/87 01/31/23 08:00 92 H 24 94 Room Air 01/31/23 08:00 130/90 01/31/23 07:02 90 01/31/23 07:00 128/93 01/31/23 07:00 91 H 15 91 Room Air PG Care Time/CCT Total # of Minutes Spent Total Time Spent with Patient: Total time spent is greater than 50% in coordination of care (as documented) at patient's floor/unit and/or counseling patient: Coding Level of Care Code 21225 SUB INP/OBS CARE 3/50MIN Diagnoses Right epididymitis N45.1 Sepsis A41.9 Nausea and vomiting R11.2 Multiple sclerosis G35 Infection, enterovirus B34.1 Sinus tachycardia R00.0 Incontinence R32
[2023-01-31] MEDS: ENOXAPARIN INJ 40 MG/0.4 ML SYR SQ SCH (20:24)
[2023-02-01] MEDS: CEFEPIME 2,000 MG in SYRINGE 0 ML IV SCH ×3 (01:11→15:13)
[2023-02-01] MEDS ORDERED: VANCOMYCIN LEVEL ONE (03:30)
[2023-02-01 04:54] VITALS: BP 133/86; RESP 20; O2SAT 94
[2023-02-01] MEDS: MULTIVITAMIN TAB PO SCH (08:33)
[2023-02-01] MEDS: BACLOFEN 20 MG TAB PO SCH ×2 (08:33→15:12)
[2023-02-01] MEDS: VORTIOXETINE HYDROBROMIDE PO SCH (08:34)
[2023-02-01 08:38] LABS: Basophils # (auto) 0.05 K/uL (0.00-0.20); Basophils % (auto) 0.4 %; Eosinophils # (auto) 0.29 K/uL (0.00-0.50); Eosinophils % (auto) 2.4 %; Hemoglobin 13.1 g/dl (14.0-18.0); Immature Granulocytes # (auto) 0.08 K/uL (0.01-0.20); Immature Granulocytes % (auto) 0.7 %; Lymphocytes # (auto) 1.49 K/uL (1.20-3.40); Lymphocytes % (auto) 12.6 %; Mean Corpuscular Hemoglobin 29.5 pg (25.0-34.0); Mean Corpuscular Hgb Conc 34.5 g/dL (32.0-36.0); Mean Corpuscular Volume 85.6 fL (80.0-100.0); Mean Platelet Volume 11.2 fL (9.4-12.4); Monocytes # (auto) 1.03 K/uL (0.11-0.59); Monocytes % (auto) 8.7 %; Neutrophils % (auto) 75.2 %; Platelet Count 285 K/uL (130-400); RDW Coefficient of Variation 13.9 % (11.5-14.5); RDW Standard Deviation 43.3 fL (36.4-46.3); Red Blood Count 4.44 M/uL (4.70-6.10); White Blood Count 11.84 K/ul (4.8-10.8)
[2023-02-01 08:54] LABS: BUN Creatinine Ratio 12.3 (10-20); Calcium 8.9 mg/dl (8.6-10.3); Creatinine Clr Calc Pharmacy 143.5 ml/min; Est GFR (Non-African American) 104.4 ml/min; Potassium 3.7 mmol/L (3.5-5.1)
[2023-02-01 16:15] VITALS: PULSE 79
--- NOTE | 2023-02-01 19:32 | Discharge Summary ---
Date of Service February 01, 2023 Admission HPI Per Admitting Provider Javier is a 57-year-old male with PMH of MS, anxiety, depression, bladder outlet obstruction, and epididymitis. He presented for fever, weakness, nausea that started the night of 01/29. History is provided by patient's flea market seller/ (Alessia) who is at the bedside. She reports that she first noticed him feeling weak/tired on the night of 01/29. Patient's home health nurse then noticed an inflamed R scrotum the morning of 01/30. Patient reportedly took all of his morning medications. He also took an extra strength Tylenol this morning as he was feeling feverish. Patient is immunocompromised at baseline due to underlying MS. He is also incontinent and relies on briefs, as Mayen catheters are a risk infection. Patient is hypertensive at 151/104, and is tachycardic at 120 bpm at time of admission. ED course: NSS 3000 mL IV Cefepime 2000 mg Vancomycin 2250 mg ROS: (Difficult to obtain due to patient's advanced MS) This patient denies chest pain, SOB, abdominal pain. Principal Diagnosis Right-sided orchio epididymitis Discharge Exam General: Diaphoretic; non-toxic appearing; well-nourished; cooperative HEENT: normocephalic, atraumatic; no scleral icterus; PERRLA w/ EOMs intact; moist mucus membrane; vision and hearing grossly intact Neck: supple; no JVD; no lymphadenopathy; trachea midline Skin: warm, dry without signs of tenting; no cyanosis; no bruising or lesions noted CV: chest wall NTP; erythematous left upper chest; regular rhythm, tachycardic at 120 bpm; S1/S2 normal; no murmurs/rubs/gallops; pulses intact and symmetric at radial, DP, and PT Lungs: no acute respiratory distress; symmetrical chest wall expansion; clear breath sounds across all lung hough w/o adventitious sounds; no wheezing ABD: Soft, NTP; BS present; no rebound/guarding; no ascites; mild distention secondary to body habitus : Grossly swollen, erythematous right testicle; TTP MSK: no tics or fasciculations; no edema noted in the LEs b/l, nonerythematous; patient is unable to wiggle toes on right foot, but can move toes on left foot Neuro: Patient is oriented to name, location, but cannot tell me his date of or the month; he mainly responds in one-word yes/no answers, which reports is at his baseline; he reports that sensation is intact in the LEs B/L Discharge Data Allergies Allergy/AdvReac Type Severity Reaction Status Date / Time de la torre pepper [green pepper] Allergy Unknown Unknown Verified 01/30/23 13:59 potato Allergy Unknown Unknown Verified 01/30/23 13:59 tomato Allergy Unknown Unknown Verified 01/30/23 13:59 No Known Drug Allergies Allergy NONE Verified 01/30/23 13:59 Consultations 01/30/23 16:55 ED Decision to Admit Stat 01/30/23 20:03 Consult Urology Routine Ordered Studies 01/30/23 12:38 US scrotum/testicle Stat Hospital Course (1) Right epididymitis: Scrotum ultrasound revealed evidence of right-sided epididymoorchitis, started on cefepime, vancomycin, vancomycin was later discontinued, continue cefepime, urine culture was positive for Klebsiella and E. coli pansensitive, to cefazolin , patient discharged on Ceftin, blood culture negative Improving white cell count is trending down, patient has less pain, patient is not encephalopathic anymore, Appreciate urology input, stop vancomycin, patient reaction to vancomycin Acetaminophen 650 mg p.o. q6h as needed for fever (2) Sepsis: Elevated WBC, tachycardia, and urinary source (UTI) colitis secondary to K lebsiella/E. coli (3) Nausea and vomitin episode of vomiting while in the ED Zofran 4 mg IV q6h as needed for nausea and vomiting (4) Multiple sclerosis: Dx in 2007; advanced MS Patient normally gets ocrelizumab IV q6mo Continue baclofen for spasticity Aspiration precautions; reports that he eats a regular diet, but should maintain HOB >30 degrees when eating Hold naltrexone (which he normally takes at bedtime to help with muscles, per ) (5) Infection, enterovirus: Enterovirus/rhinovirus positive at time of admission Clinically, patient denies any upper respiratory symptoms (6) Sinus tachycardia: EKG revealed sinus tachycardia at 121 bpm Likely secondary to sepsis Continuous telemetry monitoring (7) Incontinence: Per , patient is unable to do Mayen catheter Can apply briefs for now; consider [place] catheter for I&O monitoring Plan Disposition: Admit to U telemetry DNR/DNI Regular diet (aspiration precautions, elevated HOB) VTE PPx: Lovenox Total Time Total Time Spent Total Time Spent (In Minutes): 45 minutes Discharge Plan Discharge Items Patient Disposition: Home - Self-Care Reason For Visit: R-SIDED EPIDIDYOORCHITIS Discharge Diagnosis: right sided epididyoorchitis Activity: Resume your previous activity Lifting: Gradually increase as tolerated Bathing: No limitations Exercise/Sports: Gradually increase as tolerated Non-emergency contact: Primary Care Provider and Urologist Call non-emergency contact if: you have any medication questions Follow-up/Referrals: Derek Valenzuela DO [Physician] - 02/13/23 2:30 pm Kt Ledesma [Primary Care Provider] - 02/07/23 11:00 am Diet: Low Sodium (2gm) Addtl Attending Provider Instructions: please follow with the Urologist in two weeks , avoid urinary retention ,and having a good hygiene of urogenital area helps to prevent recurrent infection Pending Studies at Discharge: No Stand-Alone Forms: [employer], Smoking Cessation Medications and DC Order Prescriptions: New cefuroxime axetil 500 mg tablet 500 mg PO BID 12 Days Qty: 24 0RF Continued lorazepam 1 mg tablet 1 mg PO DAILY PRN (Reason: reaction) Qty: 6 0RF Ocrevus 30 mg/mL solution 600 mg IV Q6MO Qty: 20 1RF Rx Instructions: 30 minutes before each infusion,premedicate with methylprednisolone 100mg IV, lorazepam 1mg PO, diphenhydramine 50mg IV, and acetaminophen 500mg PO.May give an additional 25mg diphenhydramine IV during infusion PRN. baclofen 20 mg tablet 20 mg PO TID Qty: 270 1RF vitamin B complex Capsule 1 cap PO DAILY Trintellix 20 mg tablet 20 mg PO QAM acetaminophen 325 mg capsule 650 mg PO Q4H PRN (Reason: Fever Or Pain) multivitamin Tablet 1 tab PO QAM omega 5-eto-usg-fish oil [Fish Oil] 1,000 mg (120 mg-180 mg) Capsule 1,000 mg PO QAM cholecalciferol (vitamin D3) [Vitamin D3] 5,000 unit Tablet See Rx Instructions .ROUTE .COMPLEX Rx Instructions: Patient alternates between 5,000 unit tablet and 10,000 unit tablet every other day. Last took 10,000 unit tablet on the morning of 01/30/23. loperamide [Imodium A-D] 2 mg capsule 2 mg PO QID PRN (Reason: loose stool) Qty: 20 0RF naltrexone 4.5 mg Capsule 4.5 mg PO HS Discharge Orders: Discharge Order (Routine); Ordered 02/01/23 Ordered By: Samm Miller Admission Data Admit Date/Time: 01/30/23 18:28 Attending Provider: Samm Miller Admit Provider: Alexandre Hare Primary Care Provider: Kt Ledesma Other Providers: Alexandre Hare; Derek Valenzuela Other Interventions: Discharge Summary Assessment (RN) Last Done: 02/01/23 16:14 Coding Level of Care Code 46237 INP/OBS DISCH >30 MIN Diagnoses Right epididymitis N45.1 Sepsis A41.9 Nausea and vomiting R11.2 Multiple sclerosis G35 Infection, enterovirus B34.1 Sinus tachycardia R00.0 Incontinence R32
== END 2023-02-01 18:24 | disposition home or self-care (01) | DRG 872 ==
LOC: ED 11:55 → EDINP 18:28 → SUATTDRO 18:28 → EDINP 01-31 20:03 → 2S 01-31 22:30
DX: N45.3 Epididymo-orchitis; J81.1 Chronic pulmonary edema; B34.8 Other viral infections of unspecified site; Z66 Do not resuscitate; G35 Multiple sclerosis; R32 Unspecified urinary incontinence; D84.9 Immunodeficiency, unspecified; G82.20 Paraplegia, unspecified; Z99.3 Dependence on wheelchair; A41.9 Sepsis, unspecified organism; E87.1 Hypo-osmolality and hyponatremia; B96.1 Klebsiella pneumoniae [K. pneumoniae] as the cause of diseases classified elsewhere; N45.1 Epididymitis; I10 Essential (primary) hypertension; B96.20 Unspecified Escherichia coli [E. coli] as the cause of diseases classified elsewhere; R00.0 Tachycardia, unspecified; G30.9 Alzheimer's disease, unspecified

== ENCOUNTER 2024-05-26 18:17 | Inpatient (IN) ==
--- NOTE | 2024-05-26 18:38 | Emergency Department Note ---
Impression & Plan SIRS (systemic inflammatory response syndrome), Multiple sclerosis, Complicated urinary tract infection, At risk for aspiration ED Provider Note NAME: JUAN MIGUEL NIEVES AGE: 59 SEX: M : 1965 ARRIVES VIA: Walk-In INFORMANT: Patient ED PROVIDER(S): Santy Pinedo MD CHIEF COMPLAINT: Aspiration, weakness, MS. PLAN: Disposition: Admit MEDICAL DECISION MAKING: The patient is a 59-year-old gentleman with a past medical history of MS, spasticity, urinary incontinence, history of aspiration who presents to the emergency department via walk-in accompanied by his for evaluation of feverishness and increasing weakness in the setting of having aspiration event earlier this morning when he choked on his coffee. They report he was feeling fine prior to that and denied any preceding illness. On evaluation the patient is ill-appearing in acute distress, febrile to 37.7 with heart in 130s and blood pressure 140s/90s. He appears clinically dry. O2 saturation is 94% on room air. EKG without overt acute ischemia. CXR negative for acute cardiopulmonary process per my personal preliminary review/interpretation. WBC 23K with neutrophilia with no left shift. H/H and platelets within normal limits. Chemistry without metabolic acidosis. BUN/creatinine is 20 consistent with patient's clinically dry appearance. Lactic acid 1.1, within normal limits. LFTs unremarkable. High-sensitivity troponin is undetectable. Lipase is normal. Procalcitonin is not elevated. UA without convincing evidence of infection. Respiratory BioFire was negative. Given the patient's presentation with fever and leukocytosis concern for sepsis. Patient was treated with 30 cc/KG per IBW of NSS. Empiric antibiotic treatment initiated with IV Zosyn for suspicion for aspiration. Patient and at the bedside agree with plan for admission for further management. Dr. Ely, [facility] [place] hospitalist, to evaluate the patient for admission. Triage Nursing notes reviewed and agree them. Prior/external medical records reviewed Vital Signs: reviewed Differential diagnosis: Infection, dehydration, metabolic abnormality, hypo/hyperglycemia, electrolyte disturbance, anemia, hypoxia, cardiac sources, intracerebral event, toxicologic, neurologic, as well as other pathologies. ER treatment provided: See below. Diagnostics interpreted by me: ECG: Sinus tachycardia, 122 bpm, no ectopy, no overt ST elevation or depression, QTc 413, QRS 90. Cardiac Monitoring: An order for continuous cardiac monitoring was placed and demonstrated Sinus tachycardia, 122 bpm, no ectopy Laboratory studies: See below Imaging studies: See below Consultation(s): Dr. Ely, [facility] [place] hospitalist, to evaluate the patient for admission. HPI: The patient is a 59-year-old gentleman with a past medical history of MS, spasticity, urinary incontinence, history of aspiration who presents to the emergency department via walk-in accompanied by his for evaluation of feverishness and increasing weakness in the setting of having aspiration event earlier this morning when he choked on his coffee. They report he was feeling fine prior to that and denied any preceding illness. ROS: See above HPI for pertinent positives & negatives. A total of 10 systems reviewed and were otherwise negative. VITALS:See Below PHYSICAL EXAMINATION: GENERAL: Awake, alert, ill-appearing, in no distress HENT: Normocephalic, atraumatic. Oropharynx with dry mucous membranes and otherwise unremarkable. EYES: Normal conjunctiva. Sclera non-icteric. NECK: Supple. No nuchal rigidity. FROM. No JVD. RESPIRATORY: Clear to auscultation. CARDIAC: Tachycardic rate, normal rhythm. Extremities warm and well perfused. Pulses equal. ABDOMEN: Soft, non-distended. No tenderness to palpation. No rebound or guarding. No masses. MUSCULOSKELETAL: Chest examination reveals no tenderness. The back is symmetrical on inspection without obvious abnormality. There is no CVA tenderness to palpation. No joint edema. LOWER EXTREMITIES: Calves are equal size bilaterally and non-tender. No edema. No discoloration. NEURO: Paresis slightly worse than baseline for patient's MS. SKIN: No rash or jaundice noted. ED COURSE: Critical Care: I have personally spent greater than 35 minutes of critical care time in the direct management of this patient. This includes bedside care, interpretation of diagnostic studies, and testing, discussion with consultants, patient, and family members, and other required patient management activities. This 35 minutes is in excess of all separately billable procedures. Santy Pinedo MD Past Med/Surg History Problem List (Updated 05/27/24 @ 02:28 by Santy Pinedo MD) At risk for aspiration (Acute) Complicated urinary tract infection (Acute) Multiple sclerosis (Acute) SIRS (systemic inflammatory response syndrome) (Acute) Urethral stricture Status post cystoscopy (Acute) Multiple sclerosis (Acute) Cystitis (Acute) Bladder spasm (Acute) B12 deficiency Weakness (Acute) Epididymitis Cellulitis (Acute) Acute UTI (Acute) Epididymo-orchitis, acute (Acute) Diarrhea History of prostate surgery (Acute) Bladder spasms (Acute) Bladder pain (Acute) Urge incontinence Bladder outlet obstruction Incontinence Anxiety and depression (Chronic) Spastic gait (Chronic) Vitamin D deficiency (Chronic) hx No significant past surgical history (Chronic) Spasticity Multiple sclerosis (Acute) WHEELCHAIR BOUND. DX'D 2007-F/U DR GALVEZ. Per last OV 07/01/20, "advanced multiple sclerosis condition radiographically stable on Ocrevus" Medical History Blood bacterial culture positive Infection, enterovirus Right epididymitis Acute UTI Sepsis Morbid obesity Paraplegia Complicated urinary tract infection Immunocompromised Encephalopathy acute Acute respiratory failure with hypoxia Urinary incontinence due to benign prostatic hyperplasia Encounter for pre-operative examination OCD (obsessive compulsive disorder) Surgical History History of transurethral resection of prostate History of colonoscopy Family History Father Crohn's disease Colorectal cancer PT DENIES Mother Crohn's disease Colorectal cancer Other No significant family history Social History Smoking Status: Never smoker Second Hand Exposure: No; Do You Dip or Chew Tobacco: No; Hx Alcohol Use: No Hx Substance Use: No Preferred Language: Grenadian Communication Ability: Effective Communication Ability Comment: Pt communication garbled 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 Beliefs That Will Affect Care: None marital status: Current Living Situation: Spouse current occupational status: disabled Feels Safe at Home: Yes Physical Activity Frequency Comment: WHEELCHAIR BOUND Assistive Devices: Mechanical Lift and Wheelchair Allergies Allergies Allergy/AdvReac Type Severity Reaction Status Date / Time de la torre pepper [green pepper] Allergy Intermediate ALL Verified 05/26/24 19:59 PEPPERS--DIARRHEA eggplant Allergy Intermediate Diarrhea Verified 05/26/24 19:59 potato Allergy Intermediate Diarrhea Verified 05/26/24 19:59 tomato Allergy Intermediate Diarrhea Verified 05/26/24 19:59 vancomycin Allergy Intermediate Rash Verified 05/26/24 19:59 Home Meds Home Medications Medication Instructions Recorded Confirmed multivitamin 1 tab PO QAM 01/27/18 05/26/24 omega 1-kmh-qox-fish oil 1,000 mg 1,000 mg PO QAM 01/27/18 05/26/24 (120 mg-180 mg) capsule (Fish Oil) cholecalciferol (vitamin D3) 125 See Rx Instructions .Route .COMPLEX 03/21/18 05/26/24 mcg (5,000 unit) tablet (Vitamin D3) acetaminophen 325 mg capsule 650 mg PO Q4H PRN Fever Or Pain 09/18/20 05/26/24 vitamin B complex 1 cap PO DAILY 07/05/22 05/26/24 nystatin 100,000 unit/gram topical 1 applic topical BID PRN NEEDED 02/21/23 05/26/24 ointment clotrimazole-betamethasone 1 1 applic topical HS PRN NEEDED 05/14/23 05/26/24 %-0.05 % topical cream ascorbic acid (vitamin C) 1,000 mg 1 g PO DAILY 07/07/23 05/26/24 tablet methenamine hippurate 1 gram tablet 1 g PO BID 07/07/23 05/26/24 docusate sodium 100 mg capsule 100 mg PO TID 05/26/24 05/26/24 (Stool Softener) Previous Rx's Medication Instructions Recorded loperamide 2 mg capsule (Imodium 2 mg PO QID PRN loose stool #20 11/20/20 A-D) caps lorazepam 1 mg tablet 1 mg PO DAILY PRN reaction #6 tabs 09/14/22 naltrexone 4.5 mg capsule 4.5 mg PO HS #100 caps 06/19/23 vortioxetine 20 mg tablet 20 mg PO QAM #90 tabs 07/07/23 (Trintellix) ocrelizumab 30 mg/mL intravenous 600 mg (20 mL) IV Q6MO #20 mL 01/12/24 solution (Ocrevus) baclofen 20 mg tablet 20 mg PO QID #270 tabs 05/13/24 Results & Data (ED) Vital Signs Vital Signs - 24 hr 05/26/24 18:18 05/26/24 18:41 05/26/24 19:06 Temperature 37.7 C H Temperature Source Oral Pulse Rate 133 H 123 H Pulse Rate [Apical] 121 H Pulse Rate from SpO2 Sensor Respiratory Rate 18 18 Respiratory Effort / Characteristics Non-Labored Spontaneous Respiratory Depth Normal Respiratory Pattern Blood Pressure 149/91 H Blood Pressure [Left Arm] 155/97 H Blood Pressure Mean 110 Blood Pressure Mean [Left Arm] 116 Blood Pressure Position [Left Arm] Lying Pulse Oximetry 94 99 Oxygen Delivery Method Room Air Sepsis Recent Fever Within 48 Hours No Sepsis New/Unexplained Change in Mental Status N/A Sepsis Action Taken by Nursing No Action Required 05/26/24 19:30 05/26/24 19:45 05/26/24 20:00 Temperature Temperature Source Pulse Rate Pulse Rate [Apical] 126 H 119 H 114 H Pulse Rate from SpO2 Sensor Respiratory Rate 26 H 26 H 24 Respiratory Effort / Characteristics Respiratory Depth Respiratory Pattern Blood Pressure Blood Pressure [Left Arm] 165/111 H 129/98 156/102 H Blood Pressure Mean Blood Pressure Mean [Left Arm] 129 108 120 Blood Pressure Position [Left Arm] Pulse Oximetry 93 92 94 Oxygen Delivery Method Room Air Room Air Room Air Sepsis Recent Fever Within 48 Hours Sepsis New/Unexplained Change in Mental Status Sepsis Action Taken by Nursing 05/26/24 20:15 05/26/24 20:30 05/26/24 20:40 Temperature 37 C Temperature Source Oral Pulse Rate Pulse Rate [Apical] 110 H 108 H Pulse Rate from SpO2 Sensor Respiratory Rate 26 H 22 Respiratory Effort / Characteristics Respiratory Depth Respiratory Pattern Blood Pressure Blood Pressure [Left Arm] 137/97 135/91 Blood Pressure Mean Blood Pressure Mean [Left Arm] 110 105 Blood Pressure Position [Left Arm] Pulse Oximetry 93 93 Oxygen Delivery Method Room Air Room Air Sepsis Recent Fever Within 48 Hours Sepsis New/Unexplained Change in Mental Status Sepsis Action Taken by Nursing 05/26/24 21:00 05/26/24 21:15 05/26/24 21:30 Temperature Temperature Source Pulse Rate Pulse Rate [Apical] 103 H 104 H 98 H Pulse Rate from SpO2 Sensor Respiratory Rate 16 16 16 Respiratory Effort / Characteristics Non-Labored Spontaneous Respiratory Depth Respiratory Pattern Regular Blood Pressure Blood Pressure [Left Arm] 128/88 139/87 147/98 H Blood Pressure Mean Blood Pressure Mean [Left Arm] 101 104 114 Blood Pressure Position [Left Arm] Lying Pulse Oximetry 95 94 94 Oxygen Delivery Method Room Air Room Air Room Air Sepsis Recent Fever Within 48 Hours Sepsis New/Unexplained Change in Mental Status Sepsis Action Taken by Nursing 05/26/24 21:45 05/26/24 22:00 05/26/24 22:15 Temperature Temperature Source Pulse Rate Pulse Rate [Apical] 100 H 97 H 98 H Pulse Rate from SpO2 Sensor Respiratory Rate 18 22 16 Respiratory Effort / Characteristics Respiratory Depth Respiratory Pattern Blood Pressure Blood Pressure [Left Arm] 131/78 142/83 H 143/88 H Blood Pressure Mean Blood Pressure Mean [Left Arm] 95 102 106 Blood Pressure Position [Left Arm] Pulse Oximetry 93 93 94 Oxygen Delivery Method Room Air Room Air Room Air Sepsis Recent Fever Within 48 Hours Sepsis New/Unexplained Change in Mental Status Sepsis Action Taken by Nursing 05/26/24 22:30 05/26/24 22:30 05/26/24 22:30 Temperature Temperature Source Pulse Rate Pulse Rate [Apical] 98 H Pulse Rate from SpO2 Sensor Respiratory Rate 20 Respiratory Effort / Characteristics Respiratory Depth Respiratory Pattern Blood Pressure 125/81 125/81 Blood Pressure [Left Arm] 125/81 Blood Pressure Mean 97 97 Blood Pressure Mean [Left Arm] 95 Blood Pressure Position [Left Arm] Pulse Oximetry 94 Oxygen Delivery Method Room Air Sepsis Recent Fever Within 48 Hours Sepsis New/Unexplained Change in Mental Status Sepsis Action Taken by Nursing 05/26/24 22:30 05/26/24 22:30 05/26/24 22:36 Temperature Temperature Source Pulse Rate 93 H Pulse Rate [Apical] Pulse Rate from SpO2 Sensor 94 H Respiratory Rate 24 Respiratory Effort / Characteristics Respiratory Depth Respiratory Pattern Blood Pressure 125/81 125/81 Blood Pressure [Left Arm] Blood Pressure Mean 97 97 Blood Pressure Mean [Left Arm] Blood Pressure Position [Left Arm] Pulse Oximetry 94 Oxygen Delivery Method Sepsis Recent Fever Within 48 Hours Sepsis New/Unexplained Change in Mental Status Sepsis Action Taken by Nursing 05/26/24 22:42 05/26/24 22:45 05/26/24 22:45 Temperature Temperature Source Pulse Rate 94 H Pulse Rate [Apical] 92 H Pulse Rate from SpO2 Sensor 94 H Respiratory Rate 20 16 Respiratory Effort / Characteristics Respiratory Depth Respiratory Pattern Blood Pressure 131/84 Blood Pressure [Left Arm] 131/84 Blood Pressure Mean 97 Blood Pressure Mean [Left Arm] 99 Blood Pressure Position [Left Arm] Pulse Oximetry 95 94 Oxygen Delivery Method Sepsis Recent Fever Within 48 Hours Sepsis New/Unexplained Change in Mental Status Sepsis Action Taken by Nursing 05/26/24 22:45 05/26/24 22:45 05/26/24 22:45 Temperature Temperature Source Pulse Rate Pulse Rate [Apical] Pulse Rate from SpO2 Sensor Respiratory Rate Respiratory Effort / Characteristics Respiratory Depth Respiratory Pattern Blood Pressure 131/84 131/84 131/84 Blood Pressure [Left Arm] Blood Pressure Mean 97 97 97 Blood Pressure Mean [Left Arm] Blood Pressure Position [Left Arm] Pulse Oximetry Oxygen Delivery Method Sepsis Recent Fever Within 48 Hours Sepsis New/Unexplained Change in Mental Status Sepsis Action Taken by Nursing 05/26/24 22:45 05/26/24 22:57 05/26/24 23:00 Temperature Temperature Source Pulse Rate 92 H Pulse Rate [Apical] 93 H Pulse Rate from SpO2 Sensor 92 H Respiratory Rate 19 20 Respiratory Effort / Characteristics Respiratory Depth Respiratory Pattern Blood Pressure 131/84 Blood Pressure [Left Arm] 130/87 Blood Pressure Mean 97 Blood Pressure Mean [Left Arm] 101 Blood Pressure Position [Left Arm] Pulse Oximetry 95 93 Oxygen Delivery Method Room Air Sepsis Recent Fever Within 48 Hours Sepsis New/Unexplained Change in Mental Status Sepsis Action Taken by Nursing 05/26/24 23:00 05/26/24 23:00 05/26/24 23:00 Temperature Temperature Source Pulse Rate 92 H Pulse Rate [Apical] Pulse Rate from SpO2 Sensor 92 H Respiratory Rate 21 Respiratory Effort / Characteristics Respiratory Depth Respiratory Pattern Blood Pressure 130/87 130/87 Blood Pressure [Left Arm] Blood Pressure Mean 97 97 Blood Pressure Mean [Left Arm] Blood Pressure Position [Left Arm] Pulse Oximetry 95 Oxygen Delivery Method Sepsis Recent Fever Within 48 Hours Sepsis New/Unexplained Change in Mental Status Sepsis Action Taken by Nursing 05/26/24 23:00 05/26/24 23:00 05/26/24 23:15 Temperature Temperature Source Pulse Rate Pulse Rate [Apical] Pulse Rate from SpO2 Sensor Respiratory Rate Respiratory Effort / Characteristics Respiratory Depth Respiratory Pattern Blood Pressure 130/87 130/87 126/85 Blood Pressure [Left Arm] Blood Pressure Mean 97 97 95 Blood Pressure Mean [Left Arm] Blood Pressure Position [Left Arm] Pulse Oximetry Oxygen Delivery Method Sepsis Recent Fever Within 48 Hours Sepsis New/Unexplained Change in Mental Status Sepsis Action Taken by Nursing 05/26/24 23:15 05/26/24 23:15 Temperature Temperature Source Pulse Rate Pulse Rate [Apical] Pulse Rate from SpO2 Sensor Respiratory Rate Respiratory Effort / Characteristics Respiratory Depth Respiratory Pattern Blood Pressure 126/85 126/85 Blood Pressure [Left Arm] Blood Pressure Mean 95 95 Blood Pressure Mean [Left Arm] Blood Pressure Position [Left Arm] Pulse Oximetry Oxygen Delivery Method Sepsis Recent Fever Within 48 Hours Sepsis New/Unexplained Change in Mental Status Sepsis Action Taken by Nursing Laboratory Data Attestation: I reviewed the patient's lab results. 05/26/24 19:35 05/26/24 19:35 Lab Results 05/26/24 05/26/24 05/26/24 Range/Units 18:46 19:25 19:35 WBC 23.88 H (4.8-10.8) K/ul RBC 5.29 (4.70-6.10) M/uL Hgb 15.5 (14.0-18.0) g/dl Hct 45.5 (42.0-52.0) % MCV 86.0 (80.0-100.0) fL MCH 29.3 (25.0-34.0) pg MCHC 34.1 (32.0-36.0) g/dL RDW Std Deviation 41.5 (36.4-46.3) fL RDW Coeff of Bridget 13.3 (11.5-14.5) % Plt Count 397 (130-400) K/uL MPV 10.8 (9.4-12.4) fL Immature Gran % (Auto) 0.6 % Neut % (Auto) 89.2 % Lymph % (Auto) 4.5 % Crawford % (Auto) 5.1 % Eos % (Auto) 0.2 % Baso % (Auto) 0.4 % Neut # (Auto) 21.31 H (1.40-6.50) K/uL Lymph # (Auto) 1.07 L (1.20-3.40) K/uL Crawford # (Auto) 1.21 H (0.11-0.59) K/uL Eos # (Auto) 0.05 (0.00-0.50) K/uL Baso # (Auto) 0.10 (0.00-0.20) K/uL Immature Gran # (Auto) 0.14 (0.01-0.20) K/uL Sodium 137 (136-145) mmol/L Potassium 4.1 (3.5-5.1) mmol/L Chloride 104 (98-107) mmol/L Carbon Dioxide 25 (21-32) mmol/L Anion Gap 8 (3-11) BUN 13 (6-23) mg/dl Creatinine 0.63 (0.6-1.4) mg/dl Est Cr Clr Drug Dosing 152.6 ml/min eGFR 110.95 BUN/Creatinine Ratio 20.6 H (10-20) Glucose 133 H (70-99(Fasting)) mg/dl Lactate 1.1 (0.4-2.0) mmol/L Calcium 9.4 (8.6-10.3) mg/dl Magnesium 1.9 (1.7-2.4) mg/dl Total Bilirubin 0.7 (0.2-1.0) mg/dl Direct Bilirubin 0.1 (0-0.2) mg/dl AST 15 (13-39) U/L ALT 31 (7-52) U/L Alkaline Phosphatase 95 (34-104) U/L Troponin I High Sens < 2.3 (0-20) pg/ml Total Protein 7.6 (6.0-8.3) gm/dl Albumin 4.3 (3.4-5.0) gm/dl Lipase 11 (11-82) U/L Procalcitonin 0.11 (0-0.5) ng/ml Urine Color Urine Appearance (Clear) Urine pH (4.5-7.5) Ur Specific [place] (1.000-1.030) Urine Protein (Negative) Urine Glucose (UA) (Negative) Urine Ketones (Negative) Urine Blood (Negative) Urine Nitrite (Negative) Urine Bilirubin (Negative) Urine Urobilinogen (Negative) Ur Leukocyte Esterase (Negative) Urine WBC (Auto) (0-5) /hpf Urine RBC (Auto) (0-2) /hpf U Hyaline Cast (Auto) (0-2) /lpf U Epithel Cells (Auto) (0-2) /hpf Urine Bacteria (Auto) (None Seen) Nasal Screen MRSA (PCR) Negative (Negative) Adenovirus (PCR) Not Detected (NotDetected) B. pertussis DNA (PCR) Not Detected (NotDetected) B.parapertussis DNA PCR Not Detected (NotDetected) C. pneumoniae DNA (PCR) Not Detected (NotDetected) Coronavirus OC43 (PCR) Not Detected (NotDetected) Coronavirus HKU1 (PCR) Not Detected (NotDetected) Coronavirus 229E (PCR) Not Detected (NotDetected) SARS-CoV-2 (PCR) Not Detected (NotDetected) Coronavirus NL63 (PCR) Not Detected (NotDetected) Human Metapneumovir PCR Not Detected (NotDetected) Influenza Type A (PCR) Not Detected (NotDetected) Influenza Type B (PCR) Not Detected (NotDetected) M. pneumoniae (PCR) Not Detected (NotDetected) Parainfluenza 1 (PCR) Not Detected (NotDetected) Parainfluenza 2 (PCR) Not Detected (NotDetected) Parainfluenza 3 (PCR) Not Detected (NotDetected) Parainfluenza 4 (PCR) Not Detected (NotDetected) RSV (PCR) Not Detected (NotDetected) Entero/Rhino (PCR) Not Detected (NotDetected) 05/26/24 Range/Units 21:57 WBC (4.8-10.8) K/ul RBC (4.70-6.10) M/uL Hgb (14.0-18.0) g/dl Hct (42.0-52.0) % MCV (80.0-100.0) fL MCH (25.0-34.0) pg MCHC (32.0-36.0) g/dL RDW Std Deviation (36.4-46.3) fL RDW Coeff of Bridget (11.5-14.5) % Plt Count (130-400) K/uL MPV (9.4-12.4) fL Immature Gran % (Auto) % Neut % (Auto) % Lymph % (Auto) % Crawford % (Auto) % Eos % (Auto) % Baso % (Auto) % Neut # (Auto) (1.40-6.50) K/uL Lymph # (Auto) (1.20-3.40) K/uL Crawford # (Auto) (0.11-0.59) K/uL Eos # (Auto) (0.00-0.50) K/uL Baso # (Auto) (0.00-0.20) K/uL Immature Gran # (Auto) (0.01-0.20) K/uL Sodium (136-145) mmol/L Potassium (3.5-5.1) mmol/L Chloride (98-107) mmol/L Carbon Dioxide (21-32) mmol/L Anion Gap (3-11) BUN (6-23) mg/dl Creatinine (0.6-1.4) mg/dl Est Cr Clr Drug Dosing ml/min eGFR BUN/Creatinine Ratio (10-20) Glucose (70-99(Fasting)) mg/dl Lactate (0.4-2.0) mmol/L Calcium (8.6-10.3) mg/dl Magnesium (1.7-2.4) mg/dl Total Bilirubin (0.2-1.0) mg/dl Direct Bilirubin (0-0.2) mg/dl AST (13-39) U/L ALT (7-52) U/L Alkaline Phosphatase (34-104) U/L Troponin I High Sens (0-20) pg/ml Total Protein (6.0-8.3) gm/dl Albumin (3.4-5.0) gm/dl Lipase (11-82) U/L Procalcitonin (0-0.5) ng/ml Urine Color Yellow Urine Appearance Cloudy A (Clear) Urine pH 5.5 (4.5-7.5) Ur Specific [place] 1.040 H (1.000-1.030) Urine Protein Negative (Negative) Urine Glucose (UA) Negative (Negative) Urine Ketones 2+ H (Negative) Urine Blood Trace H (Negative) Urine Nitrite Negative (Negative) Urine Bilirubin Negative (Negative) Urine Urobilinogen Negative (Negative) Ur Leukocyte Esterase Negative (Negative) Urine WBC (Auto) 6-10 H (0-5) /hpf Urine RBC (Auto) 3-5 H (0-2) /hpf U Hyaline Cast (Auto) 0-2 (0-2) /lpf U Epithel Cells (Auto) 0-2 (0-2) /hpf Urine Bacteria (Auto) None Seen (None Seen) Nasal Screen MRSA (PCR) (Negative) Adenovirus (PCR) (NotDetected) B. pertussis DNA (PCR) (NotDetected) B.parapertussis DNA PCR (NotDetected) C. pneumoniae DNA (PCR) (NotDetected) Coronavirus OC43 (PCR) (NotDetected) Coronavirus HKU1 (PCR) (NotDetected) Coronavirus 229E (PCR) (NotDetected) SARS-CoV-2 (PCR) (NotDetected) Coronavirus NL63 (PCR) (NotDetected) Human Metapneumovir PCR (NotDetected) Influenza Type A (PCR) (NotDetected) Influenza Type B (PCR) (NotDetected) M. pneumoniae (PCR) (NotDetected) Parainfluenza 1 (PCR) (NotDetected) Parainfluenza 2 (PCR) (NotDetected) Parainfluenza 3 (PCR) (NotDetected) Parainfluenza 4 (PCR) (NotDetected) RSV (PCR) (NotDetected) Entero/Rhino (PCR) (NotDetected) Administered Medications Discontinued Medications Sodium Chloride (Nss) 1,000 mls @ 999 mls/hr IV .Q1H1M ONE Stop: 05/26/24 19:35 Last Infusion: 05/26/24 21:12 Dose: Infused Documented By: Admin: 05/26/24 19:46 Dose: 999 mls/hr Documented By: AN Acetaminophen (Ofirmev) 1,000 mg in 100 mls @ 400 mls/hr IV NOW STA Stop: 05/26/24 18:49 Last Infusion: 05/26/24 20:10 Dose: Infused Documented By: Admin: 05/26/24 19:46 Dose: 400 mls/hr Documented By: AN Piperacillin Sod/Tazobactam Sod (Zosyn) 4.5 gm in 100 mls @ 200 mls/hr IV NOW ONE; Protocol Stop: 05/26/24 19:14 Last Infusion: 05/26/24 21:12 Dose: Infused Documented By: Admin: 05/26/24 20:32 Dose: 200 mls/hr Documented By: AN Sodium Chloride (Nss) 1,000 mls @ 999 mls/hr IV .Q1H1M ONE Stop: 05/26/24 21:44 Last Infusion: 05/26/24 22:19 Dose: Infused Documented By: Admin: 05/26/24 21:14 Dose: 999 mls/hr Documented By: SEJAL Sodium Chloride (Nss) 250 mls @ 999 mls/hr IV .Q16M ONE Stop: 05/26/24 20:59 Last Infusion: 05/26/24 21:38 Dose: Infused Documented By: Admin: 05/26/24 21:22 Dose: 999 mls/hr Documented By: CDM Imaging Data Radiologist's Impression: Chest X-Ray 05/26/24 18:35 Exam(s): XR CXR 1 VIEW EXAM: XR Chest, 1 View CLINICAL HISTORY: Reason for exam: Sepsis. TECHNIQUE: Frontal view of the chest. COMPARISON: No relevant prior studies available. FINDINGS: Lungs: Unremarkable. No consolidation. Pleural space: Unremarkable. No pneumothorax. Heart: Unremarkable. No cardiomegaly. Mediastinum: Unremarkable. Normal mediastinal contour. Bones/joints: Unremarkable. No acute fracture. IMPRESSION: No acute pulmonary process identified Electronically signed by: Randell Tyler MD 05/26/24 21:56 PM Discharge Plan Visit Data Chief Complaint: Infection Stated Complaint: FEVER, WEAKNESS ED Provider: Santy Pinedo Discharge Problem: SIRS (systemic inflammatory response syndrome), Multiple sclerosis, Complicated urinary tract infection, At risk for aspiration
[2024-05-26 19:44] LABS: Adenovirus PCR Not Detected (NotDetected); Bordetella parapertussis PCR Not Detected (NotDetected); Bordetella pertussis PCR Not Detected (NotDetected); Chlamydia pneumoniae PCR Not Detected (NotDetected); Coronavirus 229E PCR Not Detected (NotDetected); Coronavirus CoV-2 (COVID19)PCR Not Detected (NotDetected); Coronavirus HKU1 PCR Not Detected (NotDetected); Coronavirus NL63 PCR Not Detected (NotDetected); Coronavirus OC43PCR Not Detected (NotDetected); Human Metapneumovirus PCR Not Detected (NotDetected); Influenza A PCR Not Detected (NotDetected); Influenza B PCR Not Detected (NotDetected); Mycoplasma pneumoniae PCR Not Detected (NotDetected); Parainfluenza Virus 1 PCR Not Detected (NotDetected); Parainfluenza Virus 2 PCR Not Detected (NotDetected); Parainfluenza Virus 3 PCR Not Detected (NotDetected); Parainfluenza Virus 4 PCR Not Detected (NotDetected); Respiratory Syncytial VirusPCR Not Detected (NotDetected); Rhinovirus/Enterovirus PCR Not Detected (NotDetected)
[2024-05-26] MEDS: ACETAMINOPHEN 1,000 MG/100 ML VIAL IV STA (19:46)
[2024-05-26] MEDS: SODIUM CHLORIDE 0.9% 1,000 ML IV ONE ×2 (19:46→21:14)
[2024-05-26 20:08] LABS: Hematocrit (blood only) 45.5 % (42.0-52.0); Hemoglobin 15.5 g/dl (14.0-18.0); Mean Corpuscular Hemoglobin 29.3 pg (25.0-34.0); Mean Corpuscular Hgb Conc 34.1 g/dL (32.0-36.0); Mean Platelet Volume 10.8 fL (9.4-12.4); Platelet Count 397 K/uL (130-400); RDW Coefficient of Variation 13.3 % (11.5-14.5); RDW Standard Deviation 41.5 fL (36.4-46.3); Red Blood Count 5.29 M/uL (4.70-6.10); White Blood Count 23.88 K/ul (4.8-10.8)
[2024-05-26 20:13] LABS: Alanine Aminotransferase 31 U/L (7-52); Albumin Level 4.3 gm/dl (3.4-5.0); Alkaline Phosphatase 95 U/L (34-104); Anion Gap 8 (3-11); Aspartate Aminotransferase 15 U/L (13-39); BUN Creatinine Ratio 20.6 (10-20); Bilirubin Direct 0.1 mg/dl (0-0.2); Bilirubin,Total 0.7 mg/dl (0.2-1.0); Blood Urea Nitrogen 13 mg/dl (6-23); Calcium 9.4 mg/dl (8.6-10.3); Carbon Dioxide 25 mmol/L (21-32); Chloride 104 mmol/L (98-107); Creatinine Clr Calc Pharmacy 152.6 ml/min; Glucose 133 mg/dl (70-99(Fasting)); Lipase 11 U/L (11-82); Magnesium 1.9 mg/dl (1.7-2.4); Potassium 4.1 mmol/L (3.5-5.1); Sodium 137 mmol/L (136-145); Total Protein 7.6 gm/dl (6.0-8.3)
[2024-05-26 20:19] LABS: Troponin I High Sensitivity < 2.3 pg/ml (0-20)
[2024-05-26] MEDS: PIPERACILLIN/TAZOBACTAM 4.5 GM/100 ML BAG IV ONE (20:32)
[2024-05-26 20:35] LABS: Basophils % (auto) 0.4 %; Eosinophils # (auto) 0.05 K/uL (0.00-0.50); Eosinophils % (auto) 0.2 %; Immature Granulocytes # (auto) 0.14 K/uL (0.01-0.20); Immature Granulocytes % (auto) 0.6 %; Lymphocytes # (auto) 1.07 K/uL (1.20-3.40); Lymphocytes % (auto) 4.5 %; Monocytes # (auto) 1.21 K/uL (0.11-0.59); Monocytes % (auto) 5.1 %; Neutrophils # (auto) 21.31 K/uL (1.40-6.50); Neutrophils % (auto) 89.2 %
[2024-05-26] MEDS: SODIUM CHLORIDE 0.9% 250 ML IV ONE (21:22)
--- NOTE | 2024-05-26 21:57 | XRay Report ---
Exam(s): XR CXR 1 VIEW EXAM: XR Chest, 1 View CLINICAL HISTORY: Reason for exam: Sepsis. TECHNIQUE: Frontal view of the chest. COMPARISON: No relevant prior studies available. FINDINGS: Lungs: Unremarkable. No consolidation. Pleural space: Unremarkable. No pneumothorax. Heart: Unremarkable. No cardiomegaly. Mediastinum: Unremarkable. Normal mediastinal contour. Bones/joints: Unremarkable. No acute fracture. IMPRESSION: No acute pulmonary process identified Electronically signed by: Randell Tyler MD 05/26/24 21:56 PM
[2024-05-26 22:25] LABS: Appearance Urine Cloudy (Clear); Bacteria Urine Automated None Seen (None Seen); Bilirubin Urine Negative (Negative); Blood Urine Trace (Negative); Cast Urine Automated 0-2 /lpf (0-2); Color Urine Yellow; Epithelial Cell Urine Auto 0-2 /hpf (0-2); Glucose Urine UA Negative (Negative); Ketones Urine 2+ (Negative); Leukocyte Esterase Urine Negative (Negative); Nitrite Urine Negative (Negative); Protein Urine Negative (Negative); Urobilinogen Urine Negative (Negative); pH Urine 5.5 (4.5-7.5)
--- NOTE | 2024-05-26 23:30 | History & Physical Report ---
Date of Service May 26, 2024 Assessment & Plan (1) Acute UTI: (2) Urethral stricture: (3) Bladder spasm: (4) Multiple sclerosis: (5) Immunocompromised: Plan The patient is a 59-year-old male with a past medical history including multiple sclerosis, recurrent urine tract infections associated with urethral strictures, status post cystoscopy, bladder spasm, B12 deficiency, epididymitis, epididymal orchitis, history of prostate surgery, bladder outlet obstruction, anxiety and d epression, history of aspiration of food, spastic gait, and spasticity.The patient presents to the emergency department with complaint of the acute onset of fever, chills, generalized weakness, similar to previous urinary tract infections, of which he has had several. He reportedly was drinking coffee this morning, and began to choke, and was concerned about the possibility of aspiration pneumonia as well. Prior to either of these sets of symptoms, the patient had no signs of illness, denying recent travels or sick exposures. The patient's main complaint is that of acutely progressive generalized weakness. Of note, in the emergency department respiratory BioFire testing was negative, MRSA testing negative, and COVID testing negative.. Chest x-ray showed no acute findings. #Acute urinary tract infection/immunocompromised state/multiple urethral strictures/bladder spasm/multiple sclerosis- Follow urine culture and sensitivity Patient's symptoms are very consistent with previous infections that he had in the past Nursing was unable to place Mayen catheter while in the ED Will consult urology, who he follows with on a regular basis From the ED received the following:-Normal saline 2.25 L normal saline bolus. Zosyn 4.5 g IV. Tylenol 1 g IV Continue IV antibiotics, Zosyn 4.5 g IV every 8 hours Of note, respiratory BioFire test, COVID-19 and MRSA testing negative Multiple sclerosis- Continue usual supportive medications, baclofen, vitamin D3, stool softeners, methenamine hippurate, naltrexone, vortioxetine. On ocrelizumab in the outpatient setting every 6 months Pulmonary status- Patient was concerned about possibility of aspiration when drinking coffee in the morning, but overall examination and chest x-ray appear to be good Follow examination closely over the next few days for possible aspiration pneumonitis History of Present Illness Chief Complaint: The patient presents to the emergency department with complaint of the acute onset of fever, chills, generalized weakness, similar to previous urinary tract infections, of which he has had several. He reportedly was drinking coffee this morning, and began to choke, and was concerned about the possibility of aspiration pneumonia as well. Prior to either of these sets of symptoms, the patient had no signs of illness, denying recent travels or sick exposures. Primary Care Provider: Kt Ledesma The patient is a 59-year-old male with a past medical history including multiple sclerosis, recurrent urine tract infections associated with urethral strictures, status post cystoscopy, bladder spasm, B12 deficiency, epididymitis, epididymal orchitis, history of prostate surgery, bladder outlet obstruction, anxiety and depression, history of aspiration of food, spastic gait, and spasticity.The patient presents to the emergency department with complaint of the acute onset of fever, chills, generalized weakness, similar to previous urinary tract infections, of which he has had several. He reportedly was drinking coffee this morning, and began to choke, and was concerned about the possibility of aspiration pneumonia as well. Prior to either of these sets of symptoms, the patient had no signs of illness, denying recent travels or sick exposures. The patient's main complaint is that of acutely progressive generalized weakness. Of note, in the emergency department respiratory BioFire testing was negative, MRSA testing negative, and COVID testing negative.. Chest x-ray showed no acute findings. Allergies Allergy/AdvReac Type Severity Reaction Status Date / Time de la torre pepper [green pepper] Allergy Intermediate ALL Verified 05/26/24 19:59 PEPPERS--DIARRHEA eggplant Allergy Intermediate Diarrhea Verified 05/26/24 19:59 potato Allergy Intermediate Diarrhea Verified 05/26/24 19:59 tomato Allergy Intermediate Diarrhea Verified 05/26/24 19:59 vancomycin Allergy Intermediate Rash Verified 05/26/24 19:59 Home Medications Medication Instructions Recorded Confirmed Type multivitamin 1 tab PO QAM 01/27/18 05/26/24 History omega 6-yre-mhe-fish oil 1,000 mg 1,000 mg PO QAM 01/27/18 05/26/24 History (120 mg-180 mg) capsule (Fish Oil) cholecalciferol (vitamin D3) 125 See Rx Instructions .Route .COMPLEX 03/21/18 05/26/24 History mcg (5,000 unit) tablet (Vitamin D3) acetaminophen 325 mg capsule 650 mg PO Q4H PRN Fever Or Pain 09/18/20 05/26/24 History loperamide 2 mg capsule (Imodium 2 mg PO QID PRN loose stool #20 11/20/20 05/26/24 Rx A-D) caps vitamin B complex 1 cap PO DAILY 07/05/22 05/26/24 History lorazepam 1 mg tablet 1 mg PO DAILY PRN reaction #6 tabs 09/14/22 05/26/24 Rx nystatin 100,000 unit/gram topical 1 applic topical BID PRN NEEDED 02/21/23 0 05/26/24 History ointment clotrimazole-betamethasone 1 1 applic topical HS PRN NEEDED 05/14/23 05/26/24 History %-0.05 % topical cream naltrexone 4.5 mg capsule 4.5 mg PO HS #100 caps 06/19/23 05/26/24 Rx ascorbic acid (vitamin C) 1,000 mg 1 g PO DAILY 07/07/23 05/26/24 History tablet methenamine hippurate 1 gram tablet 1 g PO BID 07/07/23 05/26/24 History vortioxetine 20 mg tablet 20 mg PO QAM #90 tabs 07/07/23 05/26/24 Rx (Trintellix) ocrelizumab 30 mg/mL intravenous 600 mg (20 mL) IV Q6MO #20 mL 01/12/24 05/26/24 Rx solution (Ocrevus) baclofen 20 mg tablet 20 mg PO QID #270 tabs 05/13/24 05/26/24 Rx docusate sodium 100 mg capsule 100 mg PO TID 05/26/24 05/26/24 History (Stool Softener) Past Med/Surg History Problem List Urethral stricture Status post cystoscopy (Acute) Multiple sclerosis (Acute) Cystitis (Acute) Bladder spasm (Acute) B12 deficiency Weakness (Acute) Epididymitis Cellulitis (Acute) Acute UTI (Acute) Epididymo-orchitis, acute (Acute) Diarrhea History of prostate surgery (Acute) Bladder spasms (Acute) Bladder pain (Acute) Urge incontinence Bladder outlet obstruction Incontinence Anxiety and depression (Chronic) Spastic gait (Chronic) Vitamin D deficiency (Chronic) hx No significant past surgical history (Chronic) Spasticity Multiple sclerosis (Acute) WHEELCHAIR BOUND. DX'D 2007-/U DR GALVEZ. Per last OV 07/01/20, "advanced multiple sclerosis condition radiographically stable on Ocrevus" Medical History Blood bacterial culture positive Infection, enterovirus Right epididymitis Acute UTI Sepsis Morbid obesity Paraplegia Complicated urinary tract infection Immunocompromised Encephalopathy acute Acute respiratory failure with hypoxia Urinary incontinence due to benign prostatic hyperplasia Encounter for pre-operative examination Anxiety and depression OCD (obsessive compulsive disorder) Spastic gait Spasticity Vitamin D deficiency Multiple sclerosis Surgical History History of transurethral resection of prostate History of colonoscopy Family History Father Crohn's disease Colorectal cancer Mother Crohn's disease Colorectal cancer Other No significant family history Social History Smoking Status: Never smoker Second Hand Exposure: No; Do You Dip or Chew Tobacco: No; Hx Alcohol Use: No Hx Substance Use: No Preferred Language: Occitan Communication Ability: Effective Communication Ability Comment: Pt communication garbled Corrections Identification Technician Required: No Beliefs That Will Affect Care: None marital status: Current Living Situation: Spouse current occupational status: disabled Feels Safe at Home: Yes Physical Activity Frequency Comment: WHEELCHAIR BOUND Assistive Devices: Mechanical Lift and Wheelchair Review of Systems Review of Systems: The patient denies chest pain, palpitations, lower extremity swelling, sore throat, sweats, weight change, nausea, vomiting, diarrhea , constipation, abdominal pain, pelvic pain, blood in urine or stool, dysuria, urinary frequency or urgency, lightheadedness, dizziness, headache, memory loss, loss of consciousness, rash, focal weakness, numbness or tingling in arms or legs, generalized arthralgias or myalgias, back or neck pain, or night sweats. The review of systems is otherwise negative other than for that already noted above, and at least 10 systems have been reviewed. Physical Exam Physical Exam: The patient is awake, alert and oriented 3, well developed and well nourished, normocephalic and atraumatic, lying in bed and in no acute distress. HEENT--PERRL, EOMI, mucous membranes and oropharynx mildly dry. Neck--supple. No JVD. No bruits. Thyroid normal, trachea midline, no adeno lali. Heart--normal S1 and S2. No murmurs, rubs or gallops. Lungs--clear bilaterally, no respiratory distress, no accessory muscle use. Abdomen--normal bowel sounds and soft. Nontender. Nondistended, no hernias or masses, no organomegaly. Extremities--no cyanosis or clubbing. No edema. Dermatologic--normal skin turgor, normal color, no abnormal lymph nodes, no rash. Neurologic--cranial nerves II through XII grossly intact. Rheumatologic--normal range of motion. Psychiatric--normal affect. Results & Data Results & Data Vital Signs (Past 12 Hours) Vital Signs Temp Pulse Pulse Resp BP BP Pulse Ox 05/26/24 23:00 93 H 20 130/87 93 05/26/24 22:45 92 H 16 131/84 94 05/26/24 22:30 98 H 20 125/81 94 05/26/24 22:15 98 H 16 143/88 H 94 05/26/24 22:00 97 H 22 142/83 H 93 05/26/24 21:45 100 H 18 131/78 93 05/26/24 21:30 98 H 16 147/98 H 94 05/26/24 21:15 104 H 16 139/87 94 05/26/24 21:00 103 H 16 128/88 95 05/26/24 20:40 37 C 05/26/24 20:30 108 H 22 135/91 93 05/26/24 20:15 110 H 26 H 137/97 93 05/26/24 20:00 114 H 24 156/102 H 94 05/26/24 19:45 119 H 26 H 129/98 92 05/26/24 19:30 126 H 26 H 165/111 H 93 05/26/24 19:06 121 H 18 155/97 H 99 05/26/24 18:41 123 H 05/26/24 18:18 37.7 C H 133 H 18 149/91 H 94 O2 Del Method 05/26/24 23:00 Room Air 05/26/24 22:45 05/26/24 22:30 Room Air 05/26/24 22:15 Room Air 05/26/24 22:00 Room Air 05/26/24 21:45 Room Air 05/26/24 21:30 Room Air 05/26/24 21:15 Room Air 05/26/24 21:00 Room Air 05/26/24 20:40 05/26/24 20:30 Room Air 05/26/24 20:15 Room Air 05/26/24 20:00 Room Air 05/26/24 19:45 Room Air 05/26/24 19:30 Room Air 05/26/24 19:06 Room Air 05/26/24 18:41 05/26/24 18:18 Laboratory Results Laboratory Results WBC 23.88 K/ul (4.8-10.8) H 05/26/24 19:35 RBC 5.29 M/uL (4.70-6.10) 05/26/24 19:35 Hgb 15.5 g/dl (14.0-18.0) 05/26/24 19:35 Hct 45.5 % (42.0-52.0) 05/26/24 19:35 MCV 86.0 fL (80.0-100.0) 05/26/24 19:35 MCH 29.3 pg (25.0-34.0) 05/26/24 19:35 MCHC 34.1 g/dL (32.0-36.0) 05/26/24 19:35 RDW Std Deviation 41.5 fL (36.4-46.3) 05/26/24 19:35 RDW Coeff of Bridget 13.3 % (11.5-14.5) 05/26/24 19:35 Plt Count 397 K/uL (130-400) 05/26/24 19:35 MPV 10.8 fL (9.4-12.4) 05/26/24 19:35 Immature Gran % (Auto) 0.6 % 05/26/24 19:35 Neut % (Auto) 89.2 % 05/26/24 19:35 Lymph % (Auto) 4.5 % 05/26/24 19:35 [place] % (Auto) 5.1 % 05/26/24 19:35 Eos % (Auto) 0.2 % 05/26/24 19:35 Baso % (Auto) 0.4 % 05/26/24 19:35 Neut # (Auto) 21.31 K/uL (1.40-6.50) H 05/26/24 19:35 Lymph # (Auto) 1.07 K/uL (1.20-3.40) L 05/26/24 19:35 [place] # (Auto) 1.21 K/uL (0.11-0.59) H 05/26/24 19:35 Eos # (Auto) 0.05 K/uL (0.00-0.50) 05/26/24 19:35 Baso # (Auto) 0.10 K/uL (0.00-0.20) 05/26/24 19:35 Immature Gran # (Auto) 0.14 K/uL (0.01-0.20) 05/26/24 19:35 Sodium 137 mmol/L (136-145) 05/26/24 19:35 Potassium 4.1 mmol/L (3.5-5.1) 05/26/24 19:35 Chloride 104 mmol/L (98-107) 05/26/24 19:35 Carbon Dioxide 25 mmol/L (21-32) 05/26/24 19:35 Anion Gap 8 (3-11) 05/26/24 19:35 BUN 13 mg/dl (6-23) 05/26/24 19:35 Creatinine 0.63 mg/dl (0.6-1.4) 05/26/24 19:35 Est Cr Clr Drug Dosing 152.6 ml/min 05/26/24 19:35 eGFR 110.95 05/26/24 19:35 BUN/Creatinine Ratio 20.6 (10-20) H 05/26/24 19:35 Glucose 133 mg/dl (70-99(Fasting)) H 05/26/24 19:35 Lactate 1.1 mmol/L (0.4-2.0) 05/26/24 19:35 Calcium 9.4 mg/dl (8.6-10.3) 05/26/24 19:35 Magnesium 1.9 mg/dl (1.7-2.4) 05/26/24 19:35 Total Bilirubin 0.7 mg/dl (0.2-1.0) 05/26/24 19:35 Direct Bilirubin 0.1 mg/dl (0-0.2) 05/26/24 19:35 AST 15 U/L (13-39) 05/26/24 19:35 ALT 31 U/L (7-52) 05/26/24 19:35 Alkaline Phosphatase 95 U/L (34-104) 05/26/24 19:35 Troponin I High Sens < 2.3 pg/ml (0-20) 05/26/24 19:35 Total Protein 7.6 gm/dl (6.0-8.3) 05/26/24 19:35 Albumin 4.3 gm/dl (3.4-5.0) 05/26/24 19:35 Lipase 11 U/L (11-82) 05/26/24 19:35 Procalcitonin 0.11 ng/ml (0-0.5) 05/26/24 19:35 Urine Color Yellow 05/26/24 21:57 Urine Appearance Cloudy (Clear) A 05/26/24 21:57 Urine pH 5.5 (4.5-7.5) 05/26/24 21:57 Ur Specific [place] 1.040 (1.000-1.030) H 05/26/24 21:57 Urine Protein Negative (Negative) 05/26/24 21:57 Urine Glucose (UA) Negative (Negative) 05/26/24 21:57 Urine Ketones 2+ (Negative) H 05/26/24 21:57 Urine Blood Trace (Negative) H 05/26/24 21:57 Urine Nitrite Negative (Negative) 05/26/24 21:57 Urine Bilirubin Negative (Negative) 05/26/24 21:57 Urine Urobilinogen Negative (Negative) 05/26/24 21:57 Ur Leukocyte Esterase Negative (Negative) 05/26/24 21:57 Urine WBC (Auto) 6-10 /hpf (0-5) H 05/26/24 21:57 Urine RBC (Auto) 3-5 /hpf (0-2) H 05/26/24 21:57 U Hyaline Cast (Auto) 0-2 /lpf (0-2) 05/26/24 21:57 U Epithel Cells (Auto) 0-2 /hpf (0-2) 05/26/24 21:57 Urine Bacteria (Auto) None Seen (None Seen) 05/26/24 21:57 Nasal Screen MRSA (PCR) Negative (Negative) 05/26/24 19:25 Adenovirus (PCR) Not Detected (NotDetected) 05/26/24 18:46 B. pertussis DNA (PCR) Not Detected (NotDetected) 05/26/24 18:46 B.parapertussis DNA PCR Not Detected (NotDetected) 05/26/24 18:46 C. pneumoniae DNA (PCR) Not Detected (NotDetected) 05/26/24 18:46 Coronavirus OC43 (PCR) Not Detected (NotDetected) 05/26/24 18:46 Coronavirus HKU1 (PCR) Not Detected (NotDetected) 05/26/24 18:46 Coronavirus 229E (PCR) Not Detected (NotDetected) 05/26/24 18:46 SARS-CoV-2 (PCR) Not Detected (NotDetected) 05/26/24 18:46 Coronavirus NL63 (PCR) Not Detected (NotDetected) 05/26/24 18:46 Human Metapneumovir PCR Not Detected (NotDetected) 05/26/24 18:46 Influenza Type A (PCR) Not Detected (NotDetected) 05/26/24 18:46 Influenza Type B (PCR) Not Detected (NotDetected) 05/26/24 18:46 M. pneumoniae (PCR) Not Detected (NotDetected) 05/26/24 18:46 Parainfluenza 1 (PCR) Not Detected (NotDetected) 05/26/24 18:46 Parainfluenza 2 (PCR) Not Detected (NotDetected) 05/26/24 18:46 Parainfluenza 3 (PCR) Not Detected (NotDetected) 05/26/24 18:46 Parainfluenza 4 (PCR) Not Detected (NotDetected) 05/26/24 18:46 RSV (PCR) Not Detected (NotDetected) 05/26/24 18:46 Entero/Rhino (PCR) Not Detected (NotDetected) 05/26/24 18:46 Impressions Chest X-Ray 05/26/24 18:35 Exam(s): XR CXR 1 VIEW EXAM: XR Chest, 1 View CLINICAL HISTORY: Reason for exam: Sepsis. TECHNIQUE: Frontal view of the chest. COMPARISON: No relevant prior studies available. FINDINGS: Lungs: Unremarkable. No consolidation. Pleural space: Unremarkable. No pneumothorax. Heart: Unremarkable. No cardiomegaly. Mediastinum: Unremarkable. Normal mediastinal contour. Bones/joints: Unremarkable. No acute fracture. IMPRESSION: No acute pulmonary process identified Electronically signed by: Randell Tyler MD 05/26/24 21:56 PM Code Status & VTE Plan Code Status Full code VTE Prophylaxis Plan VTE Prophylaxis will be ordered: Yes PG Care Time/CCT Total # of Minutes Spent Total Time Spent with Patient: Total time spent is greater than 50% in coordination of care (as documented) at patient's floor/unit and/or counseling patient: Coding Level of Care Code 80596 INT INP/OBS CARE 3/75MIN Diagnoses Acute UTI N39.0 Urethral stricture N35.919 Bladder spasm N32.89 Multiple sclerosis G35 Immunocompromised D84.9
[2024-05-27] MEDS ORDERED: LORazepam 1 MG TAB PO PRN (02:21)
[2024-05-27] MEDS ORDERED: ONDANSETRON INJ 2 MG/ML 2 ML VIAL IV PRN (02:21)
[2024-05-27] MEDS ORDERED: CLOTRIMAZOLE/BETAMETHASONE CR 15 GM TUBE EXT PRN (02:21)
[2024-05-27] MEDS ORDERED: NYSTATIN OINT 15 GM TUBE EXT PRN (02:21)
[2024-05-27] MEDS ORDERED: LOPERAMIDE HCL 2 MG CAP PO PRN (02:21)
[2024-05-27] MEDS ORDERED: ACETAMINOPHEN 325 MG TAB PO PRN (02:43)
[2024-05-27] MEDS: PIPERACILLIN/TAZOBACTAM 4.5 GM/100 ML BAG IV SCH (03:23)
[2024-05-27 06:57] LABS: Basophils # (auto) 0.07 K/uL (0.00-0.20); Basophils % (auto) 0.4 %; Eosinophils # (auto) 0.16 K/uL (0.00-0.50); Eosinophils % (auto) 0.9 %; Hematocrit (blood only) 38.8 % (42.0-52.0); Hemoglobin 13.1 g/dl (14.0-18.0); Immature Granulocytes % (auto) 0.6 %; Lymphocytes # (auto) 1.56 K/uL (1.20-3.40); Lymphocytes % (auto) 8.9 %; Mean Corpuscular Hemoglobin 29.1 pg (25.0-34.0); Mean Corpuscular Hgb Conc 33.8 g/dL (32.0-36.0); Mean Corpuscular Volume 86.2 fL (80.0-100.0); Mean Platelet Volume 10.4 fL (9.4-12.4); Monocytes # (auto) 0.92 K/uL (0.11-0.59); Monocytes % (auto) 5.2 %; Platelet Count 330 K/uL (130-400); RDW Coefficient of Variation 13.5 % (11.5-14.5); RDW Standard Deviation 42.6 fL (36.4-46.3); White Blood Count 17.61 K/ul (4.8-10.8)
[2024-05-27 07:24] LABS: Albumin Globulin Ratio 1.4 (0.9-2); Albumin Level 3.6 gm/dl (3.4-5.0); BUN Creatinine Ratio 12.5 (10-20); Bilirubin,Total 0.8 mg/dl (0.2-1.0); Calcium 8.5 mg/dl (8.6-10.3); Creatinine Clr Calc Pharmacy 150.7 ml/min; Globulin 2.6 gm/dl (2.5-4.0); Magnesium 1.9 mg/dl (1.7-2.4); Potassium 3.9 mmol/L (3.5-5.1); Total Protein 6.2 gm/dl (6.0-8.3)
[2024-05-27 07:59] VITALS: O2SAT 95
[2024-05-27] MEDS: DOCUSATE SODIUM 100 MG CAP PO SCH (08:21)
[2024-05-27] MEDS: VITAMIN B COMPLEX TAB PO SCH (08:22)
[2024-05-27] MEDS: METHENAMINE HIPPURATE 1 GM TAB PO SCH (08:22)
[2024-05-27] MEDS: BACLOFEN 20 MG TAB PO SCH (08:22)
[2024-05-27] MEDS: OMEGA-3 (PURIFIED FISH OIL) 1 GM CAP PO SCH (08:22)
[2024-05-27] MEDS: ASCORBIC ACID 500 MG TAB PO SCH (08:22)
[2024-05-27] MEDS: MULTIVITAMIN TAB PO SCH (08:22)
[2024-05-27] MEDS: VORTIOXETINE HYDROBROMIDE 20 MG TAB PO SCH (08:23)
[2024-05-27] MEDS: CHOLECALCIFEROL 125 MCG (5,000 UNITS) TAB PO SCH (08:23)
--- NOTE | 2024-05-27 08:29 | Electrocardiogram Report ---
Test Reason : Blood Pressure : */* mmHG Vent. Rate : 122 BPM Atrial Rate : 122 BPM P-R Int : 182 ms QRS Dur : 90 ms QT Int : 290 ms P-R-T Axes : 15 -38 15 degrees QTcB Int : 413 ms Sinus tachycardia with occasional Premature ventricular complexes Left axis deviation Incomplete right bundle branch block Abnormal ECG When compared with ECG of 27-Apr-2023 09:11, Premature ventricular complexes now present Confirmed by Delfino Roach ([id number]) on 05/27/2024 8:28:26 AM Referred By: Confirmed By: Delfino Roach
[2024-05-27 11:09] VITALS: PULSE 82; RESP 20; TEMP 97.9
--- NOTE | 2024-05-27 12:02 | Discharge Summary ---
Discharge Summary Date of Service May 27, 2024 Principal Dx & Hospital Course #1 = Principal Diagnosis (1) Acute UTI: The patient is feeling much better. He is afebrile. Blood cultures are negative to date. Final urine culture results are pending. He will be discharged home today on ciprofloxacin for 1 more week. He will follow-up as an outpatient with his urologist for attention to the urethral strictures (2) Urethral stricture: Follow-up with urology as outpatient for definitive treatment (3) Multiple sclerosis: Stable. Continue current medical management (4) Immunocompromised: Chronic. Due to medication treatment for MS Plan Home today, May 27, on ciprofloxacin for 1 more week. Follow-up with urology as an outpatient for definitive treatment of urethral strictures Admission HPI Per Admitting Provider The patient is a 59-year-old male with a past medical history including multiple sclerosis, recurrent urine tract infections associated with urethral strictures, status post cystoscopy, bladder spasm, B12 deficiency, epididymitis, epididymal orchitis, history of prostate surgery, bladder outlet obstruction, anxiety and depression, history of aspiration of food, spastic gait, and spasticity.The patient presents to the emergency department with complaint of the acute onset of fever, chills, generalized weakness, similar to previous urinary tract infections, of which he has had several. He reportedly was drinking coffee this morning, and began to choke, and was concerned about the possibility of aspiration pneumonia as well. Prior to either of these sets of symptoms, the patient had no signs of illness, denying recent travels or sick exposures. The patient's main complaint is that of acutely progressive generalized weakness. Of note, in the emergency department respiratory BioFire testing was negative, MRSA testing negative, and COVID testing negative.. Chest x-ray showed no acute findings. Discharge Plan Discharge Items Patient Disposition: Home - Self-Care Reason For Visit: PROGRESSIVE WEAKNESS, UTI, DEHYDRATION Discharge Diagnosis: Recurrent urinary tract infection, Activity: Resume your previous activity Non-emergency contact: Primary Care Provider Call non-emergency contact if: your symptoms worsen Follow-up/Referrals: Kt Ledesma [Primary Care Provider] - Diet: Regular Addtl Attending Provider Instructions: Take Cipro 500 mg twice daily for 1 week. All other medications remain the same Pending Studies at Discharge: Yes Studies:: Final urine culture result Stand-Alone Forms: [facility] [employer], Smoking Cessation Medications and DC Order Prescriptions: New ciprofloxacin HCl [Cipro] 500 mg tablet 500 mg PO BID Qty: 14 0RF Continued lorazepam 1 mg tablet 1 mg PO DAILY PRN (Reason: reaction) Qty: 6 0RF Rx Instructions: TAKES WITH OCREVUS INFUSIONS Q 6 MONTHS naltrexone 4.5 mg capsule 4.5 mg PO HS Qty: 100 3RF Ocrevus 30 mg/mL solution 600 mg IV Q6MO Qty: 20 1RF Rx Instructions: DUE JUNE 2024. 30 minutes before each infusion,premedicate with methylprednisolone 100mg IV, diphenhydramine 50mg IV, and acetaminophen 500mg PO.May give an additional 25mg diphenhydramine IV during infusion PRN. ascorbic acid (vitamin C) 1,000 mg tablet 1 g PO DAILY methenamine hippurate 1 gram tablet 1 g PO BID Trintellix 20 mg tablet 20 mg PO QAM Qty: 90 3RF vitamin B complex Capsule 1 cap PO DAILY acetaminophen 325 mg capsule 650 mg PO Q4H PRN (Reason: Fever Or Pain) baclofen 20 mg tablet 20 mg PO QID Qty: 270 3RF multivitamin Tablet 1 tab PO QAM omega 2-tcy-hrb-fish oil [Fish Oil] 1,000 mg (120 mg-180 mg) Capsule 1,000 mg PO QAM cholecalciferol (vitamin D3) [Vitamin D3] 5,000 unit Tablet See Rx Instructions .ROUTE .COMPLEX Rx Instructions: Patient alternates between 5,000 unit tablet and 10,000 unit tablet every other day. loperamide [Imodium A-D] 2 mg capsule 2 mg PO QID PRN (Reason: loose stool) Qty: 20 0RF nystatin 100,000 unit/gram ointment 1 applic TOPICAL BID PRN (Reason: NEEDED) clotrimazole-betamethasone 1-0.05 % cream 1 applic topical HS PRN (Reason: NEEDED) Rx Instructions: Apply small/pea-sized amount topically before bed docusate sodium [Stool Softener] 100 mg Capsule 100 mg PO TID Discharge Orders: Discharge Order (Routine); Ordered 05/27/24 Ordered By: Vince Archibald Admission Data Admit Date/Time: 05/26/24 23:29 Attending Provider: Vince Archibald Admit Provider: Enrrique Ely Primary Care Provider: Kt Ledesma Other Providers: Enrrique Ely; Yong Peralta Hospital Stay Data Consultations 05/26/24 20:44 ED Decision to Admit Stat 05/27/24 02:21 Consult Urology Routine Pending Results Patient Have Any Pending Studies at Discharge: Yes Discharge Instructions Given to Patient (Per Discharging Provider) Take Cipro 500 mg twice daily for 1 week. All other medications remain the same Total Time Total Time Spent Total Time Spent (In Minutes): 45 minutes Coding Level of Care Code 48315 INP/OBS DISCH >30 MIN Diagnoses Acute UTI N39.0 Urethral stricture N35.919 Multiple sclerosis G35 Immunocompromised D84.9
[2024-05-27 12:05] VITALS: BP 144/84
--- NOTE | 2024-05-27 12:14 | Urology Consultation ---
Date of Consultation May 27, 2024 Assessment & Plan (1) Complicated urinary tract infection: (2) Urethral stricture: 59-year-old male with history of MS, urethral stricture, and recurrent UTIs admitted for SIRS secondary to suspected UTI, possible aspiration. Patient afebrile, hemodynamically stable Subjectively feeling better Labs reviewedWBC downtrending (17.61), creatinine 0.64 Urinalysis on arrival was not overly suspicious for infection No urine culture pending at this time Blood cultures pending Continue with antibiotics, narrow per sensitivity data when available Straight catheterization was attempted in ED without success, urology is consulted for possible Hernandez catheter placement Patient and declined Hernandez catheter placement PVR this morning was 89 mL per nursing No current indication for Hernandez catheter, will hold off on Hernandez catheter placement per patient wishes Continue antibiotics upon discharge when medically stable Will arrange outpatient follow-up with our service will sign off, please contact us with any additional questions or concerns History of Present Illness Reason for Consultation: MS. UTI, strictures, unable to place hernandez Attending Physician: Vince Archibald MD History of Present Illness This is a 59-year-old male with MS who follows with urology for urethral strictures, incomplete emptying and recurrent UTIs. He presented to the emergency department on 05/26/2024 for evaluation of fever, weakness and possible aspiration event. On arrival to ED, temperature 37.7, tachycardic. Lab work showed WBC 23.88, hemoglobin 15.5, creatinine 0.63. Bio fire PCR panel negative. Urinalysis showed trace blood, 6-10 WBC, 3-5 RBC, otherwise negative. Blood cultures obtained. Chest x-ray showed no acute findings. Patient was admitted to the hospital medicine service for suspected UTI, risks for aspiration, SIRS. Patient seen and examined at bedside. in room. Patient denies suprapubic or flank pain. He is voiding/incontinent. reports that straight catheterization was attempted in the ED, but unsuccessful. Has utilized external catheter intermittently. Patient and declined Hernandez catheter placement. Bladder scan after voiding this morning was 89 mL per nursing. No fever or chills at present. Labs today reviewedcreatinine 0.64, WBC 17.61. Allergies Allergy/AdvReac Type Severity Reaction Status Date / Time de [place] pepper [green pepper] Allergy Intermediate ALL Verified 05/26/24 19:59 PEPPERS--DIARRHEA eggplant Allergy Intermediate Diarrhea Verified 05/26/24 19:59 potato Allergy Intermediate Diarrhea Verified 05/26/24 19:59 tomato Allergy Intermediate Diarrhea Verified 05/26/24 19:59 vancomycin Allergy Intermediate Rash Verified 05/26/24 19:59 Home Medications Medication Instructions Recorded Confirmed Type multivitamin 1 tab PO QAM 01/27/18 05/26/24 History omega 1-aha-yrh-fish oil 1,000 mg 1,000 mg PO QAM 01/27/18 05/26/24 History (120 mg-180 mg) capsule (Fish Oil) cholecalciferol (vitamin D3) 125 See Rx Instructions .Route .COMPLEX 03/21/18 05/26/24 History mcg (5,000 unit) tablet (Vitamin D3) acetaminophen 325 mg capsule 650 mg PO Q4H PRN Fever Or Pain 09/18/20 05/26/24 History loperamide 2 mg capsule (Imodium 2 mg PO QID PRN loose stool #20 11/20/20 05/26/24 Rx A-D) caps vitamin B complex 1 cap PO DAILY 07/05/22 05/26/24 History lorazepam 1 mg tablet 1 mg PO DAILY PRN reaction #6 tabs 09/14/22 05/26/24 Rx nystatin 100,000 unit/gram topical 1 applic topical BID PRN NEEDED 02/21/23 05/26/24 History ointment clotrimazole-betamethasone 1 1 applic topical HS PRN NEEDED 05/14/23 05/26/24 History %-0.05 % topical cream naltrexone 4.5 mg capsule 4.5 mg PO HS #100 caps 06/19/23 05/26/24 Rx ascorbic acid (vitamin C) 1,000 mg 1 g PO DAILY 07/07/23 05/26/24 History tablet methenamine hippurate 1 gram tablet 1 g PO BID 07/07/23 05/26/24 History vortioxetine 20 mg tablet 20 mg PO QAM #90 tabs 07/07/23 05/26/24 Rx (Trintellix) ocrelizumab 30 mg/mL intravenous 600 mg (20 mL) IV Q6MO #20 mL 01/12/24 05/26/24 Rx solution (Ocrevus) baclofen 20 mg tablet 20 mg PO QID #270 tabs 05/13/24 05/26/24 Rx docusate sodium 100 mg capsule 100 mg PO TID 05/26/24 05/26/24 History (Stool Softener) ciprofloxacin HCl 500 mg tablet 500 mg PO BID #14 tabs 05/27/24 Rx (Cipro) Patient History Medical History Blood bacterial culture positive Infection, enterovirus Right epididymitis Acute UTI Sepsis Morbid obesity Paraplegia Complicated urinary tract infection Immunocompromised Encephalopathy acute Acute respiratory failure with hypoxia Urinary incontinence due to benign prostatic hyperplasia Encounter for pre-operative examination OCD (obsessive compulsive disorder) Surgical History History of transurethral resection of prostate History of colonoscopy Family History Father Crohn's disease Colorectal cancer PT DENIES Mother Crohn's disease Colorectal cancer Other No significant family history Social History Smoking Status: Never smoker Second Hand Exposure: No; Do You Dip or Chew Tobacco: No; Hx Alcohol Use: No Hx Substance Use: No Preferred Language: Croatian Communication Ability: Effective Communication Ability Comment: Pt communication garbled [employer] Required: No Beliefs That Will Affect Care: None marital status: Current Living Situation: Spouse current occupational status: disabled Feels Safe at Home: Yes Physical Activity Frequency Comment: WHEELCHAIR BOUND Assistive Devices: Lift Chair and Wheelchair Review of Systems Review of Systems: All systems reviewed & are unremarkable except as noted in HPI & below Physical Exam Constitutional: no acute distress Respiratory: no respiratory distress and no labored breathing Gastrointestinal (Abdomen): Inspection/Auscultation: abdomen normal to inspection Neurologic: awake Psychiatric: Orientation: alert and oriented x 3 Results & Data Vital Signs (Past 12 Hours) Vital Signs Temp Pulse Pulse Resp BP BP BP 05/27/24 12:02 36.6 C 82 20 144/84 H 119/73 05/27/24 11:09 36.6 C 82 20 119/73 05/27/24 09:30 05/27/24 07:58 36.8 C 89 18 113/61 05/27/24 07:00 91 H 05/27/24 02:48 90 05/27/24 02:47 05/27/24 02:47 36.6 C 88 18 144/84 H 05/27/24 02:23 36.6 C 88 18 144/84 H 05/27/24 02:11 91 H 05/27/24 01:06 90 17 134/80 05/27/24 00:45 146/89 H 05/27/24 00:45 146/89 H 05/27/24 00:45 146/89 H 05/27/24 00:45 146/89 H 05/27/24 00:39 96 H 20 05/27/24 00:30 140/83 05/27/24 00:30 140/83 05/27/24 00:30 140/83 05/27/24 00:30 140/83 05/27/24 00:30 95 H 20 05/27/24 00:27 96 H 24 05/27/24 00:18 96 H 21 05/27/24 00:15 146/82 H 05/27/24 00:15 146/82 H 05/27/24 00:15 146/82 H 05/27/24 00:15 146/82 H 05/27/24 00:15 146/82 H 05/27/24 00:09 94 H 21 Pulse Ox O2 Del Method 05/27/24 12:02 95 05/27/24 11:09 95 Room Air 05/27/24 09:30 Room Air 05/27/24 07:58 95 Room Air 05/27/24 07:00 05/27/24 02:48 98 Room Air 05/27/24 02:47 Room Air 05/27/24 02:47 96 Room Air 05/27/24 02:23 96 Room Air 05/27/24 02:11 05/27/24 01:06 94 Room Air 05/27/24 00:45 05/27/24 00:45 05/27/24 00:45 05/27/24 00:45 05/27/24 00:39 94 05/27/24 00:30 05/27/24 00:30 05/27/24 00:30 05/27/24 00:30 05/27/24 00:30 94 05/27/24 00:27 95 05/27/24 00:18 94 05/27/24 00:15 05/27/24 00:15 05/27/24 00:15 05/27/24 00:15 05/27/24 00:15 05/27/24 00:09 94 PG Care Time/CCT Total # of Minutes Spent Total Time Spent with Patient: Total time spent is greater than 50% in coordination of care (as documented) at patient's floor/unit and/or counseling patient: Coding Level of Care Code 70747 IN/OBS CONSULT LVL 4,60M Diagnoses Complicated urinary tract infection N39.0 Urethral stricture N35.919
--- NOTE | 2024-05-27 14:16 | Communication Note ---
Date of Service: May 27, 2024 By CMS guidelines, a determination that the admission or continued stay is not medically necessary has been made by a member of the UR committee and a phys ician for this hospital stay, therefore a Code 44 will be completed and the Inpatient admission will be changed to outpatient.
[2024-05-28] MEDS ORDERED: CHOLECALCIFEROL 125 MCG (5,000 UNITS) TAB PO SCH (09:00)
== END 2024-05-27 12:35 | disposition home or self-care (01) | DRG 690 ==
LOC: SUATTDRO → ED 18:17 → 2W 23:29 → SUATTDRO 23:29 → 2W 05-27 02:48

== ENCOUNTER 2024-08-24 20:38 | Observation (INO) ==
--- NOTE | 2024-08-24 21:05 | Emergency Department Note ---
Impression & Plan SIRS (systemic inflammatory response syndrome), Lethargic, Leukocytosis ED Provider Note HISTORY OF PRESENT ILLNESS: Patient is a 59-year-old male presenting with lethargy and low-grade fevers. Patient has a history of multiple sclerosis and is on twice yearly immunosuppressants. He reportedly was very sleepy and lethargic today and was sleeping all afternoon. reports that at dinnertime the patient barely ate anything and seemed very withdrawn. He has a history of chronic urinary tract infections and she is concerned he may have this. He reportedly was doing well yesterday and symptoms mainly started today. Patient was on antibiotics for urinary tract infection after cystoscopy in early July about 3 weeks ago. Patient denies any abdominal pain, nausea or vomiting. Patient reportedly did choke on his coffee this morning and may have aspirated. He denies any shortness of breath. ROS: as above PHYSICAL EXAM: Constitutional: Patient appears in no acute distress. HENT: Head: Normocephalic and atraumatic. Eyes: EOMI, PERRL Mouth/Throat: Mucous membranes moist. Neck: Trachea midline. Neck supple. Cardiovascular: Tachycardic with regular rhythm. No murmurs, rubs or gallops. Intact distal pulses. Pulmonary/Chest: No respiratory distress. Breath sounds clear and equal bilaterally. No wheezes or rales. Abdominal: Abdomen soft, no tenderness, rebound or guarding. Musculoskeletal: No edema, tenderness or deformity noted. Skin: Warm and dry. No rash, erythema, pallor or cyanosis Psychiatric: Appropriate mood and affect for situation. Neurological: Alert and keenly responsive. CN II-XII grossly intact MDM: - Vitals signs showed fever and tachycardia. - History obtained via patient. History as above. - Chronic conditions affecting care: neurogenic bladder; multiple sclerosis; paraplegia - Differential diagnoses include, but are not limited to: UTI; pneumonia; viral syndrome; electrolyte abnormality; aspiration - Order placed for continuous cardiac monitoring. At this time, monitor showed rate of 105 bpm with normal sinus rhythm, per my interpretation. - External medical records reviewed. Discharge summary dated 05/27/2024 was reviewed. Patient was admitted for an acute UTI. He had negative blood cultures. He was discharged on ciprofloxacin for 1 week. - EKG image interpreted by myself showed normal sinus rhythm. Rate tachycardic at 105 bpm. QT 336. No acute ischemic changes. Noted to have an incomplete right bundle branch block. - Laboratory workup interpreted by myself showed leukocytosis (WBC 22.45) with neutrophil predominance; normal PT/INR; stable electrolytes; normal troponin; normal lactic acid; normal procalcitonin - Blood cultures obtained - Patient given 2.5L NS. Patient's sepsis fluid volume calculation based on ideal body weight is 2100.00 mL. Patient's tachycardia has improved with fever management and fluid resuscitation. - Given 1g IV tylenol for fever - Given IV zosyn empirically - CXR image reviewed by myself negative for pneumonia however per my interpretation. - UA obtained via straight cath is negative for infection. - Viral respiratory panel negative - Discussion was had with patient case manager about patient's case and need for admission - Hospitalist consulted for admission - Patient admitted to [facility] service for further evaluation and management. ASSESSMENT AND PLAN: Diagnosis: SIRS; lethargy; leukocytosis Plan: admit Past Med/Surg History Problem List (Updated 08/24/24 @ 23:33 by Herminia Enciso MD) Leukocytosis (Acute) Lethargic (Acute) SIRS (systemic inflammatory response syndrome) (Acute) Status post cystoscopy (Acute) Multiple sclerosis (Chronic) Cystitis (Acute) B12 deficiency Weakness (Acute) Cellulitis (Acute) Diarrhea History of prostate surgery (Chronic) Bladder spasms (Chronic) Bladder pain (Chronic) Urge incontinence Incontinence (Chronic) Anxiety and depression (Chronic) Spastic gait (Chronic) Vitamin D deficiency (Chronic) hx Spasticity Medical History (Updated 08/24/24 @ 23:33 by Herminia Enciso MD) Epididymo-orchitis, acute Multiple sclerosis Urethral stricture Bladder spasm Multiple sclerosis WHEELCHAIR BOUND. DX'D 2007-F/U DR GALVEZ. Per last OV 07/01/20, "advanced multiple sclerosis condition radiographically stable on Ocrevus" Blood bacterial culture positive Infection, enterovirus Right epididymitis Acute UTI Sepsis Morbid obesity Paraplegia Complicated urinary tract infection Encephalopathy acute Acute respiratory failure with hypoxia Urinary incontinence due to benign prostatic hyperplasia Encounter for pre-operative examination OCD (obsessive compulsive disorder) Surgical History (Updated 07/10/24 @ 12:38 by Stephon Boudreaux PA-C) No significant past surgical history History of transurethral resection of prostate History of colonoscopy Family History Father Crohn's disease Colorectal cancer PT DENIES Mother Crohn's disease Colorectal cancer Other No significant family history Social History Smoking Status: Never smoker Second Hand Exposure: No; Do You Dip or Chew Tobacco: No; Hx Alcohol Use: No Hx Substance Use: No Preferred Language: Icelandic Communication Ability: Effective Communication Ability Comment: Pt communication garbled [employer]ider [employer] Operator Required: No Beliefs That Will Affect Care: None marital status: Current Living Situation: Spouse current occupational status: disabled Feels Safe at Home: Yes Physical Activity Frequency Comment: WHEELCHAIR BOUND Assistive Devices: Lift Chair and Wheelchair Allergies Allergies Allergy/AdvReac Type Severity Reaction Status Date / Time de la torre pepper [green pepper] Allergy Intermediate ALL Verified 07/11/24 09:27 PEPPERS--DIARRHEA eggplant Allergy Intermediate Diarrhea Verified 07/11/24 09:27 potato Allergy Intermediate Diarrhea Verified 07/11/24 09:27 tomato Allergy Intermediate Diarrhea Verified 07/11/24 09:27 vancomycin Allergy Intermediate Rash Verified 07/11/24 09:27 Home Meds Home Medications Medication Instructions Recorded Confirmed multivitamin 1 tab PO QAM 01/27/18 08/24/24 omega 5-uga-rtl-fish oil 1,000 mg 1,000 mg PO QAM 01/27/18 08/24/24 (120 mg-180 mg) capsule (Fish Oil) cholecalciferol (vitamin D3) 125 See Rx Instructions .Route .COMPLEX 03/21/18 08/24/24 mcg (5,000 unit) tablet (Vitamin D3) acetaminophen 325 mg capsule 650 mg PO Q4H PRN Fever Or Pain 09/18/20 08/24/24 vitamin B complex 1 cap PO DAILY 07/05/22 08/24/24 nystatin 100,000 unit/gram topical 1 applic topical BID PRN NEEDED 02/21/23 08/24/24 ointment clotrimazole-betamethasone 1 1 applic topical HS PRN NEEDED 05/14/23 08/24/24 %-0.05 % topical cream ascorbic acid (vitamin C) 1,000 mg 1 g PO DAILY 07/07/23 08/24/24 tablet methenamine hippurate 1 gram tablet 1 g PO BID 07/07/23 08/24/24 docusate sodium 100 mg capsule 100 mg PO TID 05/26/24 08/24/24 (Stool Softener) baclofen 20 mg tablet 20 mg PO TID 08/24/24 08/24/24 Previous Rx's Medication Instructions Recorded loperamide 2 mg capsule (Imodium 2 mg PO QID PRN loose stool #20 11/20/20 A-D) caps lorazepam 1 mg tablet 1 mg PO DAILY PRN reaction #6 tabs 09/14/22 ocrelizumab 30 mg/mL intravenous 600 mg (20 mL) IV Q6MO #20 mL 01/12/24 solution (Ocrevus) naltrexone 4.5 mg capsule 4.5 mg PO HS #100 caps 06/24/24 vortioxetine 20 mg tablet 20 mg PO QAM #90 tabs 07/16/24 (Trintellix) Results & Data (ED) Vital Signs Vital Signs - 24 hr 08/24/24 20:39 08/24/24 20:59 08/24/24 21:09 Temperature 37.8 C H Temperature Source Oral Pulse Rate 113 H 114 H 106 H Pulse Rate [Apical] Pulse Rate from SpO2 Sensor Pulse Rhythm Regular Pulse Rhythm [Apical] Pulse Strength Normal Pulse Strength [Apical] Respiratory Rate 20 22 Respiratory Effort / Characteristics Non-Labored Spontaneous Respiratory Depth Normal Respiratory Pattern Regular Blood Pressure 136/87 161/109 H Blood Pressure [Right Arm] Blood Pressure Mean 103 126 Blood Pressure Mean [Right Arm] Blood Pressure Position Sitting Pulse Oximetry 94 95 Oxygen Delivery Method Room Air Sepsis Recent Fever Within 48 Hours Yes Sepsis New/Unexplained Change in Mental Status N/A Sepsis Action Taken by Nursing No Action Required 08/24/24 21:16 08/24/24 21:16 08/24/24 21:30 Temperature 37.2 C Temperature Source Oral Pulse Rate 110 H Pulse Rate [Apical] 106 H Pulse Rate from SpO2 Sensor Pulse Rhythm Pulse Rhythm [Apical] Regular Pulse Strength Pulse Strength [Apical] Normal Respiratory Rate 27 H 22 Respiratory Effort / Characteristics Non-Labored Spontaneous Respiratory Depth Normal Respiratory Pattern Regular Blood Pressure 156/108 H Blood Pressure [Right Arm] 161/109 H Blood Pressure Mean 124 Blood Pressure Mean [Right Arm] 126 Blood Pressure Position Pulse Oximetry 95 95 95 Oxygen Delivery Method Room Air Room Air Sepsis Recent Fever Within 48 Hours Sepsis New/Unexplained Change in Mental Status Sepsis Action Taken by Nursing 08/24/24 22:12 08/24/24 22:30 08/24/24 22:56 Temperature 36.6 C Temperature Source Oral Pulse Rate 94 H Pulse Rate [Apical] Pulse Rate from SpO2 Sensor Pulse Rhythm Pulse Rhythm [Apical] Pulse Strength Pulse Strength [Apical] Respiratory Rate 21 24 Respiratory Effort / Characteristics Respiratory Depth Respiratory Pattern Blood Pressure 141/89 H 143/88 H Blood Pressure [Right Arm] Blood Pressure Mean 106 112 Blood Pressure Mean [Right Arm] Blood Pressure Position Pulse Oximetry 96 96 Oxygen Delivery Method Sepsis Recent Fever Within 48 Hours Sepsis New/Unexplained Change in Mental Status Sepsis Action Taken by Nursing 08/24/24 23:30 Temperature Temperature Source Pulse Rate 91 H Pulse Rate [Apical] Pulse Rate from SpO2 Sensor 90 Pulse Rhythm Pulse Rhythm [Apical] Pulse Strength Pulse Strength [Apical] Respiratory Rate 28 H Respiratory Effort / Characteristics Respiratory Depth Respiratory Pattern Blood Pressure 142/81 H Blood Pressure [Right Arm] Blood Pressure Mean 122 Blood Pressure Mean [Right Arm] Blood Pressure Position Pulse Oximetry 95 Oxygen Delivery Method Room Air Sepsis Recent Fever Within 48 Hours Sepsis New/Unexplained Change in Mental Status Sepsis Action Taken by Nursing Laboratory Data 08/24/24 21:22 08/24/24 21:22 Lab Results 08/24/24 08/24/24 08/24/24 Range/Units 21:22 21:36 22:45 WBC 22.45 H (4.8-10.8) K/ul RBC 5.16 (4.70-6.10) M/uL Hgb 15.5 (14.0-18.0) g/dl Hct 44.3 (42.0-52.0) % MCV 85.9 (80.0-100.0) fL MCH 30.0 (25.0-34.0) pg MCHC 35.0 (32.0-36.0) g/dL RDW Std Deviation 42.9 (36.4-46.3) fL RDW Coeff of Bridget 13.6 (11.5-14.5) % Plt Count 396 (130-400) K/uL MPV 10.9 (9.4-12.4) fL Immature Gran % (Auto) 0.5 % Neut % (Auto) 81.0 % Lymph % (Auto) 10.6 % [place] % (Auto) 5.8 % Eos % (Auto) 1.6 % Baso % (Auto) 0.5 % Neut # (Auto) 18.18 H (1.40-6.50) K/uL Lymph # (Auto) 2.38 (1.20-3.40) K/uL [place] # (Auto) 1.31 H (0.11-0.59) K/uL Eos # (Auto) 0.35 (0.00-0.50) K/uL Baso # (Auto) 0.11 (0.00-0.20) K/uL Immature Gran # (Auto) 0.12 (0.01-0.20) K/uL PT 10.7 (9.0-12.0) Seconds INR 1.0 (0.9-1.1) APTT 28 (21-31) Seconds PTT Ratio 1.0 Sodium 137 (136-145) mmol/L Potassium 4.5 (3.5-5.1) mmol/L Chloride 103 (98-107) mmol/L Carbon Dioxide 24 (21-32) mmol/L Anion Gap 10 (3-11) BUN 13 (6-23) mg/dl Creatinine 0.65 (0.6-1.4) mg/dl Est Cr Clr Drug Dosing 147.8 ml/min eGFR 109.90 BUN/Creatinine Ratio 20.0 (10-20) Glucose 136 H (70-99(Fasting)) mg/dl Lactate 1.9 (0.4-2.0) mmol/L Calcium 9.4 (8.6-10.3) mg/dl Magnesium 2.0 (1.7-2.4) mg/dl Total Bilirubin 0.5 (0.2-1.0) mg/dl AST 12 L (13-39) U/L ALT 24 (7-52) U/L Alkaline Phosphatase 100 (34-104) U/L Troponin I High Sens 4.5 (0-20) pg/ml Total Protein 7.2 (6.0-8.3) gm/dl Albumin 4.3 (3.4-5.0) gm/dl Globulin 2.9 (2.5-4.0) gm/dl Albumin/Globulin Ratio 1.5 (0.9-2) Procalcitonin 0.03 (0-0.5) ng/ml Urine Color Yellow Urine Appearance Clear (Clear) Urine pH 6.0 (4.5-7.5) Ur Specific [place] 1.026 (1.000-1.030) Urine Protein Negative (Negative) Urine Glucose (UA) Negative (Negative) Urine Ketones Trace H (Negative) Urine Blood 2+ H (Negative) Urine Nitrite Negative (Negative) Urine Bilirubin Negative (Negative) Urine Urobilinogen Negative (Negative) Ur Leukocyte Esterase Negative (Negative) Urine WBC (Auto) 6-10 H (0-5) /hpf Urine RBC (Auto) 11-20 H (0-2) /hpf U Hyaline Cast (Auto) 0-2 (0-2) /lpf U Epithel Cells (Auto) 0-2 (0-2) /hpf Urine Bacteria (Auto) None Seen (None Seen) Urine Comment Adenovirus (PCR) Not Detected (NotDetected) B. pertussis DNA (PCR) Not Detected (NotDetected) B.parapertussis DNA PCR Not Detected (NotDetected) C. pneumoniae DNA (PCR) Not Detected (NotDetected) Coronavirus OC43 (PCR) Not Detected (NotDetected) Coronavirus HKU1 (PCR) Not Detected (NotDetected) Coronavirus 229E (PCR) Not Detected (NotDetected) SARS-CoV-2 (PCR) Not Detected (NotDetected) Coronavirus NL63 (PCR) Not Detected (NotDetected) Human Metapneumovir PCR Not Detected (NotDetected) Influenza Type A (PCR) Not Detected (NotDetected) Influenza Type B (PCR) Not Detected (NotDetected) M. pneumoniae (PCR) Not Detected (NotDetected) Parainfluenza 1 (PCR) Not Detected (NotDetected) Parainfluenza 2 (PCR) Not Detected (NotDetected) Parainfluenza 3 (PCR) Not Detected (NotDetected) Parainfluenza 4 (PCR) Not Detected (NotDetected) RSV (PCR) Not Detected (NotDetected) Entero/Rhino (PCR) Not Detected (NotDetected) Administered Medications Discontinued Medications Sodium Chloride (Nss) 1,000 mls @ 999 mls/hr IV .Q1H1M ONE Stop: 08/24/24 21:57 Last Infusion: 08/24/24 22:55 Dose: Infused Documented By: Admin: 08/24/24 21:37 Dose: 999 mls/hr Documented By: ABENA Acetaminophen (Ofirmev) 1,000 mg in 100 mls @ 400 mls/hr IV NOW STA Stop: 08/24/24 21:11 Last Infusion: 08/24/24 22:31 Dose: Infused Documented By: Admin: 08/24/24 21:37 Dose: 400 mls/hr Documented By: ABENA Piperacillin Sod/Tazobactam Sod (Zosyn) 4.5 gm in 100 mls @ 200 mls/hr IV NOW ONE; Protocol Stop: 08/24/24 22:29 Last Infusion: 08/24/24 23:30 Dose: Infused Documented By: MARY KATE Admin: 08/24/24 23:00 Dose: 200 mls/hr Documented By: ABENA Sodium Chloride (Nss) 1,000 mls @ 999 mls/hr IV .Q1H1M ONE Stop: 08/24/24 23:09 Last Infusion: 08/24/24 23:32 Dose: Infused Documented By: MARY KATE Admin: 08/24/24 22:31 Dose: 999 mls/hr Documented By: ABENA Sodium Chloride (Nss) 500 mls @ 999 mls/hr IV .Q31M ONE Stop: 08/24/24 22:39 Last Infusion: 08/24/24 23:02 Dose: Infused Documented By: MARY KATE Admin: 08/24/24 22:31 Dose: 999 mls/hr Documented By: ABENA Discharge Plan Visit Data Chief Complaint: Weakness Stated Complaint: LETHARGIC,WEAK,FEVER,LOW 02, ED Provider: Herminia Enciso Discharge Problem: SIRS (systemic inflammatory response syndrome), Lethargic, Leukocytosis Condition: Fair Forms Stand Alone Forms: [facility] [place] Prescriptions Prescriptions: No Action lorazepam 1 mg tablet 1 mg PO DAILY PRN (Reason: reaction) Qty: 6 0RF Rx Instructions: TAKES WITH OCREVUS INFUSIONS Q 6 MONTHS Ocrevus 30 mg/mL solution 600 mg IV Q6MO Qty: 20 1RF Rx Instructions: DUE JUNE 2024. 30 minutes before each infusion,premedicate with methylprednisolone 100mg IV, diphenhydramine 50mg IV, and acetaminophen 500mg PO.May give an additional 25mg diphenhydramine IV during infusion PRN. naltrexone 4.5 mg capsule 4.5 mg PO HS Qty: 100 3RF Trintellix 20 mg tablet 20 mg PO QAM Qty: 90 3RF ascorbic acid (vitamin C) 1,000 mg tablet 1 g PO DAILY methenamine hippurate 1 gram tablet 1 g PO BID vitamin B complex Capsule 1 cap PO DAILY acetaminophen 325 mg capsule 650 mg PO Q4H PRN (Reason: Fever Or Pain) multivitamin Tablet 1 tab PO QAM omega 0-wqo-phl-fish oil [Fish Oil] 1,000 mg (120 mg-180 mg) Capsule 1,000 mg PO QAM cholecalciferol (vitamin D3) [Vitamin D3] 5,000 unit Tablet See Rx Instructions .ROUTE .COMPLEX Rx Instructions: Patient alternates between 5,000 unit tablet and 10,000 unit tablet every other day. loperamide [Imodium A-D] 2 mg capsule 2 mg PO QID PRN (Reason: loose stool) Qty: 20 0RF nystatin 100,000 unit/gram ointment 1 applic TOPICAL BID PRN (Reason: NEEDED) clotrimazole-betamethasone 1-0.05 % cream 1 applic topical HS PRN (Reason: NEEDED) Rx Instructions: Apply small/pea-sized amount topically before bed docusate sodium [Stool Softener] 100 mg Capsule 100 mg PO TID baclofen 20 mg tablet 20 mg PO TID Referrals Referrals: tK Ledesma [Primary Care Provider] -
[2024-08-24] MEDS: ACETAMINOPHEN 1,000 MG/100 ML VIAL IV STA (21:37)
[2024-08-24] MEDS: SODIUM CHLORIDE 0.9% 1,000 ML IV ONE ×2 (21:37→22:31)
[2024-08-24 21:57] LABS: Basophils # (auto) 0.11 K/uL (0.00-0.20); Basophils % (auto) 0.5 %; Eosinophils # (auto) 0.35 K/uL (0.00-0.50); Eosinophils % (auto) 1.6 %; Hematocrit (blood only) 44.3 % (42.0-52.0); Hemoglobin 15.5 g/dl (14.0-18.0); Immature Granulocytes # (auto) 0.12 K/uL (0.01-0.20); Immature Granulocytes % (auto) 0.5 %; Lymphocytes # (auto) 2.38 K/uL (1.20-3.40); Lymphocytes % (auto) 10.6 %; Mean Corpuscular Volume 85.9 fL (80.0-100.0); Mean Platelet Volume 10.9 fL (9.4-12.4); Monocytes # (auto) 1.31 K/uL (0.11-0.59); Monocytes % (auto) 5.8 %; Neutrophils # (auto) 18.18 K/uL (1.40-6.50); Platelet Count 396 K/uL (130-400); RDW Coefficient of Variation 13.6 % (11.5-14.5); RDW Standard Deviation 42.9 fL (36.4-46.3); Red Blood Count 5.16 M/uL (4.70-6.10); White Blood Count 22.45 K/ul (4.8-10.8)
[2024-08-24 22:15] LABS: Albumin Globulin Ratio 1.5 (0.9-2); Bilirubin,Total 0.5 mg/dl (0.2-1.0); Calcium 9.4 mg/dl (8.6-10.3); Creatinine Clr Calc Pharmacy 147.8 ml/min; Globulin 2.9 gm/dl (2.5-4.0); Potassium 4.5 mmol/L (3.5-5.1); Total Protein 7.2 gm/dl (6.0-8.3)
[2024-08-24 22:21] LABS: Troponin I High Sensitivity 4.5 pg/ml (0-20)
[2024-08-24 22:27] LABS: Partial Thromboplastin Time 28 Seconds (21-31); Prothrombin Time 10.7 Seconds (9.0-12.0)
[2024-08-24] MEDS: SODIUM CHLORIDE 0.9% 500 ML IV ONE (22:31)
[2024-08-24 22:35] LABS: Adenovirus PCR Not Detected (NotDetected); Bordetella parapertussis PCR Not Detected (NotDetected); Bordetella pertussis PCR Not Detected (NotDetected); Chlamydia pneumoniae PCR Not Detected (NotDetected); Coronavirus 229E PCR Not Detected (NotDetected); Coronavirus CoV-2 (COVID19)PCR Not Detected (NotDetected); Coronavirus HKU1 PCR Not Detected (NotDetected); Coronavirus NL63 PCR Not Detected (NotDetected); Coronavirus OC43PCR Not Detected (NotDetected); Human Metapneumovirus PCR Not Detected (NotDetected); Influenza A PCR Not Detected (NotDetected); Influenza B PCR Not Detected (NotDetected); Mycoplasma pneumoniae PCR Not Detected (NotDetected); Parainfluenza Virus 1 PCR Not Detected (NotDetected); Parainfluenza Virus 2 PCR Not Detected (NotDetected); Parainfluenza Virus 3 PCR Not Detected (NotDetected); Parainfluenza Virus 4 PCR Not Detected (NotDetected); Respiratory Syncytial VirusPCR Not Detected (NotDetected); Rhinovirus/Enterovirus PCR Not Detected (NotDetected)
[2024-08-24] MEDS: PIPERACILLIN/TAZOBACTAM 4.5 GM/100 ML BAG IV ONE (23:00)
[2024-08-24 23:16] LABS: Appearance Urine Clear (Clear); Bacteria Urine Automated None Seen (None Seen); Bilirubin Urine Negative (Negative); Blood Urine 2+ (Negative); Cast Urine Automated 0-2 /lpf (0-2); Color Urine Yellow; Epithelial Cell Urine Auto 0-2 /hpf (0-2); Glucose Urine UA Negative (Negative); Ketones Urine Trace (Negative); Leukocyte Esterase Urine Negative (Negative); Nitrite Urine Negative (Negative); Protein Urine Negative (Negative); Specific Gravity Urine 1.026 (1.000-1.030); Urobilinogen Urine Negative (Negative)
--- NOTE | 2024-08-25 00:03 | History & Physical Report ---
Date of Service August 25, 2024 Assessment & Plan (1) Lethargic: (2) Multiple sclerosis: (3) Anxiety and depression: Plan 59-year-old male with history of advanced MS, frequent UTIs presenting with 1 day of increased lethargy, decreased oral intake and low-grade fever. Patient did have an aspiration event earlier in the day while he was drinking his coffee. Presently complaining of generalized weakness and ongoing cough. Afebrile hemodynamically stable in the ER. Labs as above with marked leukocytosis WBC = 22.45. Chest x-ray does appear to have more patchy airspace opacities when compared with prior. UA does not strongly suggest infection #Lethargyin setting of marked leukocytosis. No obvious source of infection. Suspect aspiration event. Patient presently afebrile, hemodynamically stable, no sepsis Observation to medical telemetry Continue empiric Zosyn Tylenol as needed for fever Oxygen as needed Albuterol nebs as needed Guaifenesin 600 mg p.o. every 12 hours Repeat labs in the morning #Multiple sclerosispatient receives Ocrevus injection every 6 months Continue baclofen 2520 mg p.o. 3 times daily Holding methenamine while patient is on Zosyn #Anxiety and depression Continue Trintellix History of Present Illness Chief Complaint: lethargy, fatigue Primary Care Provider: Kt Ledesma Javier Thomas is a 59yo male with Advanced multiple sclerosis, chronic UTIs (ureteral strictures, bladder stent in place, follows with urology) presenting with increased lethargy, decreased oral intake and low-grade fever. History obtained from patient's who is at bedside. She reports that patient woke this morning and seemed to be fairly normal. He ate breakfast and lunch without difficulty. He did have an episode of aspiration of coffee with significant coughing. After lunch he took a nap which is common for him. states that after he woke from his nap he was more lethargic and confused. She checked his pulse ox at home and found his heart rate to be elevated from baseline with oxygen saturations in the low 90s which is abnormal for him. Patient endorses increased weakness as well as ongoing cough otherwise denies fever, chest pain, shortness of breath, nausea, vomiting, diarrhea. No rash In the ER he is afebrile, hemodynamically stable, no acute distress ER course: Tylenol Zosyn Normal saline Allergies Allergy/AdvReac Type Severity Reaction Status Date / Time de la torre pepper [green pepper] Allergy Intermediate ALL Verified 07/11/24 09:27 PEPPERS--DIARRHEA eggplant Allergy Intermediate Diarrhea Verified 07/11/24 09:27 potato Allergy Intermediate Diarrhea Verified 07/11/24 09:27 tomato Allergy Intermediate Diarrhea Verified 07/11/24 09:27 vancomycin Allergy Intermediate Rash Verified 07/11/24 09:27 Home Medications Medication Instructions Recorded Confirmed Type multivitamin 1 tab PO QAM 01/27/18 08/24/24 History omega 4-bfb-dqh-fish oil 1,000 mg 1,000 mg PO QAM 01/27/18 08/24/24 History (120 mg-180 mg) capsule (Fish Oil) cholecalciferol (vitamin D3) 125 See Rx Instructions .Route .COMPLEX 03/21/18 08/24/24 History mcg (5,000 unit) tablet (Vitamin D3) acetaminophen 325 mg capsule 650 mg PO Q4H PRN Fever Or Pain 09/18/20 08/24/24 History loperamide 2 mg capsule (Imodium 2 mg PO QID PRN loose stool #20 11/20/20 08/24/24 Rx A-D) caps vitamin B complex 1 cap PO DAILY 07/05/22 08/24/24 History lorazepam 1 mg tablet 1 mg PO DAILY PRN reaction #6 tabs 09/14/22 08/24/24 Rx nystatin 100,000 unit/gram topical 1 applic topical BID PRN NEEDED 02/21/23 08/24/24 History ointment clotrimazole-betamethasone 1 1 applic topical HS PRN NEEDED 05/14/23 08/24/24 History %-0.05 % topical cream ascorbic acid (vitamin C) 1,000 mg 1 g PO DAILY 07/07/23 08/24/24 History tablet methenamine hippurate 1 gram tablet 1 g PO BID 07/07/23 08/24/24 History ocrelizumab 30 mg/mL intravenous 600 mg (20 mL) IV Q6MO #20 mL 01/12/24 08/24/24 Rx solution (Ocrevus) docusate sodium 100 mg capsule 100 mg PO TID 05/26/24 08/24/24 History (Stool Softener) naltrexone 4.5 mg capsule 4.5 mg PO HS #100 caps 06/24/24 08/24/24 Rx vortioxetine 20 mg tablet 20 mg PO QAM #90 tabs 07/16/24 08/24/24 Rx (Trintellix) baclofen 20 mg tablet 20 mg PO TID 08/24/24 08/24/24 History Past Med/Surg History Problem List Leukocytosis (Acute) Lethargic (Acute) SIRS (systemic inflammatory response syndrome) (Acute) Status post cystoscopy (Acute) Multiple sclerosis (Chronic) Cystitis (Acute) B12 deficiency Weakness (Acute) Cellulitis (Acute) Diarrhea History of prostate surgery (Chronic) Bladder spasms (Chronic) Bladder pain (Chronic) Urge incontinence Incontinence (Chronic) Anxiety and depression (Chronic) Spastic gait (Chronic) Vitamin D deficiency (Chronic) hx Spasticity Medical History Epididymo-orchitis, acute Multiple sclerosis Urethral stricture Bladder spasm Multiple sclerosis WHEELCHAIR BOUND. DX'D 2007-F/U DR GALVEZ. Per last OV 07/01/20, "advanced multiple sclerosis condition radiographically stable on Ocrevus" Blood bacterial culture positive Infection, enterovirus Right epididymitis Acute UTI Sepsis Morbid obesity Paraplegia Complicated urinary tract infection Encephalopathy acute Acute respiratory failure with hypoxia Urinary incontinence due to benign prostatic hyperplasia Encounter for pre-operative examination OCD (obsessive compulsive disorder) Surgical History No significant past surgical history History of transurethral resection of prostate History of colonoscopy Family History Father Crohn's disease Colorectal cancer PT DENIES Mother Crohn's disease Colorectal cancer Other No significant family history Social History Smoking Status: Never smoker Second Hand Exposure: No; Do You Dip or Chew Tobacco: No; Hx Alcohol Use: No Hx Substance Use: No Preferred Language: Tamazight Communication Ability: Effective Communication Ability Comment: Pt communication garbled 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 Beliefs That Will Affect Care: None marital status: Current Living Situation: Spouse current occupational status: disabled Feels Safe at Home: Yes Physical Activity Frequency Comment: WHEELCHAIR BOUND Assistive Devices: Lift Chair and Wheelchair Review of Systems Review of Systems: All systems reviewed & are unremarkable except as noted in HPI & below Physical Exam Physical Exam: General: patient resting comfortably, NAD, non-toxic in appearance, AA&O x 4 Skin: warm, dry, intact, no rashes or lesions HEENT: NC/AT, PERRL, EOMI, anicteric sclera, conjunctiva without injection, external ear normal to inspection and nontender, nares patent, moist mucus membranes, dentition intact, no oropharyngeal lesions, neck supple, trachea midline, no LAD, no thyromegaly, no JVD Heart: +S1/S2, regular, no m/r/g Lungs: equal air entry bilaterally, no rales/rhonchi/wheezes Abd: +BS, soft, NT/ND, no masses/organomegaly/ascites Ext: warm, 2+ pulses in UE/LE bilaterally, no clubbing/cyanosis or edema Neuro: Patient with advanced MS. Chronic diffuse weakness Results & Data Results & Data Vital Signs (Past 12 Hours) Vital Signs Temp Pulse Pulse Resp BP BP Pulse Ox 08/24/24 23:30 91 H 28 H 142/81 H 95 08/24/24 22:56 36.6 C 08/24/24 22:30 24 143/88 H 96 08/24/24 22:12 94 H 21 141/89 H 96 08/24/24 21:30 110 H 22 156/108 H 95 08/24/24 21:16 37.2 C 106 H 27 H 161/109 H 95 08/24/24 21:16 95 08/24/24 21:09 106 H 22 161/109 H 95 08/24/24 20:59 114 H 08/24/24 20:39 37.8 C H 113 H 20 136/87 94 O2 Del Method 08/24/24 23:30 Room Air 08/24/24 22:56 08/24/24 22:30 08/24/24 22:12 08/24/24 21:30 08/24/24 21:16 Room Air 08/24/24 21:16 Room Air 08/24/24 21:09 08/24/24 20:59 08/24/24 20:39 Room Air Laboratory Results Laboratory Results WBC 22.45 K/ul (4.8-10.8) H 08/24/24 21:22 RBC 5.16 M/uL (4.70-6.10) 08/24/24 21:22 Hgb 15.5 g/dl (14.0-18.0) 08/24/24 21:22 Hct 44.3 % (42.0-52.0) 08/24/24 21:22 MCV 85.9 fL (80.0-100.0) 08/24/24 21:22 MCH 30.0 pg (25.0-34.0) 08/24/24 21:22 MCHC 35.0 g/dL (32.0-36.0) 08/24/24 21:22 RDW Std Deviation 42.9 fL (36.4-46.3) 08/24/24 21:22 RDW Coeff of Bridget 13.6 % (11.5-14.5) 08/24/24 21:22 Plt Count 396 K/uL (130-400) 08/24/24 21:22 MPV 10.9 fL (9.4-12.4) 08/24/24 21:22 Immature Gran % (Auto) 0.5 % 08/24/24 21:22 Neut % (Auto) 81.0 % 08/24/24 21:22 Lymph % (Auto) 10.6 % 08/24/24 21:22 [place] % (Auto) 5.8 % 08/24/24 21:22 Eos % (Auto) 1.6 % 08/24/24 21:22 Baso % (Auto) 0.5 % 08/24/24 21:22 Neut # (Auto) 18.18 K/uL (1.40-6.50) H 08/24/24 21:22 Lymph # (Auto) 2.38 K/uL (1.20-3.40) 08/24/24 21:22 [place] # (Auto) 1.31 K/uL (0.11-0.59) H 08/24/24 21:22 Eos # (Auto) 0.35 K/uL (0.00-0.50) 08/24/24 21:22 Baso # (Auto) 0.11 K/uL (0.00-0.20) 08/24/24 21:22 Immature Gran # (Auto) 0.12 K/uL (0.01-0.20) 08/24/24 21:22 PT 10.7 Seconds (9.0-12.0) 08/24/24 21:22 INR 1.0 (0.9-1.1) 08/24/24 21:22 APTT 28 Seconds (21-31) 08/24/24 21:22 PTT Ratio 1.0 08/24/24 21:22 Sodium 137 mmol/L (136-145) 08/24/24 21:22 Potassium 4.5 mmol/L (3.5-5.1) 08/24/24 21:22 Chloride 103 mmol/L (98-107) 08/24/24 21:22 Carbon Dioxide 24 mmol/L (21-32) 08/24/24 21:22 Anion Gap 10 (3-11) 08/24/24 21:22 BUN 13 mg/dl (6-23) 08/24/24 21:22 Creatinine 0.65 mg/dl (0.6-1.4) 08/24/24 21:22 Est Cr Clr Drug Dosing 147.8 ml/min 08/24/24 21:22 eGFR 109.90 08/24/24 21:22 BUN/Creatinine Ratio 20.0 (10-20) 08/24/24 21:22 Glucose 136 mg/dl (70-99(Fasting)) H 08/24/24 21:22 Lactate 1.9 mmol/L (0.4-2.0) 08/24/24 21:22 Calcium 9.4 mg/dl (8.6-10.3) 08/24/24 21:22 Magnesium 2.0 mg/dl (1.7-2.4) 08/24/24 21:22 Total Bilirubin 0.5 mg/dl (0.2-1.0) 08/24/24 21:22 AST 12 U/L (13-39) L 08/24/24 21:22 ALT 24 U/L (7-52) 08/24/24 21:22 Alkaline Phosphatase 100 U/L (34-104) 08/24/24 21:22 Troponin I High Sens 4.5 pg/ml (0-20) 08/24/24 21:22 Total Protein 7.2 gm/dl (6.0-8.3) 08/24/24 21: Albumin 4.3 gm/dl (3.4-5.0) 08/24/24 21: Globulin 2.9 gm/dl (2.5-4.0) 08/24/24 21:22 Albumin/Globulin Ratio 1.5 (0.9-2) 08/24/24 21:22 Procalcitonin 0.03 ng/ml (0-0.5) 08/24/24 21:22 Urine Color Yellow 08/24/24 22:45 Urine Appearance Clear (Clear) 08/24/24 22:45 Urine pH 6.0 (4.5-7.5) 08/24/24 22:45 Ur Specific [place] 1.026 (1.000-1.030) 08/24/24 22:45 Urine Protein Negative (Negative) 08/24/24 22:45 Urine Glucose (UA) Negative (Negative) 08/24/24 22:45 Urine Ketones Trace (Negative) H 08/24/24 22:45 Urine Blood 2+ (Negative) H 08/24/24 22:45 Urine Nitrite Negative (Negative) 08/24/24:45 Urine Bilirubin Negative (Negative) 08/24/24 22:45 Urine Urobilinogen Negative (Negative) 08/24/24 22:45 Ur Leukocyte Esterase Negative (Negative) 08/24/24 22:45 Urine WBC (Auto) 6-10 /hpf (0-5) H 08/24/24 22:45 Urine RBC (Auto) 11-20 /hpf (0-2) H 08/24/24 22:45 U Hyaline Cast (Auto) 0-2 /lpf (0-2) 08/24/24 22:45 U Epithel Cells (Auto) 0-2 /hpf (0-2) 08/24/24 22:45 Urine Bacteria (Auto) None Seen (None Seen) 08/24/24 22:45 Urine Comment 08/24/24 22:45 Adenovirus (PCR) Not Detected (NotDetected) 08/24/24 21:36 B. pertussis DNA (PCR) Not Detected (NotDetected) 08/24/24 21:36 B.parapertussis DNA PCR Not Detected (NotDetected) 08/24/24 21:36 C. pneumoniae DNA (PCR) Not Detected (NotDetected) 08/24/24 21:36 Coronavirus OC43 (PCR) Not Detected (NotDetected) 08/24/24 21:36 Coronavirus HKU1 (PCR) Not Detected (NotDetected) 08/24/24 21:36 Coronavirus 229E (PCR) Not Detected (NotDetected) 08/24/24 21:36 SARS-CoV-2 (PCR) Not Detected (NotDetected) 08/24/24 21:36 Coronavirus NL63 (PCR) Not Detected (NotDetected) 08/24/24 21:36 Human Metapneumovir PCR Not Detected (NotDetected) 08/24/24 21:36 Influenza Type A (PCR) Not Detected (NotDetected) 08/24/24 21:36 Influenza Type B (PCR) Not Detected (NotDetected) 08/24/24 21:36 M. pneumoniae (PCR) Not Detected (NotDetected) 08/24/24 21:36 Parainfluenza 1 (PCR) Not Detected (NotDetected) 08/24/24 21:36 Parainfluenza 2 (PCR) Not Detected (NotDetected) 08/24/24 21:36 Parainfluenza 3 (PCR) Not Detected (NotDetected) 08/24/24 21:36 Parainfluenza 4 (PCR) Not Detected (NotDetected) 08/24/24 21:36 RSV (PCR) Not Detected (NotDetected) 08/24/24 21:36 Entero/Rhino (PCR) Not Detected (NotDetected) 08/24/24 21:36 Impressions Chest X-Ray 08/24/24 20:45 Exam(s): XR CXR 1 VIEW EXAM: XR Chest, 1 View CLINICAL HISTORY: Reason for exam: Sepsis. TECHNIQUE: Frontal view of the chest. COMPARISON: 05/26/2024 FINDINGS: Lungs: Mild vascular congestion and bronchovascular crowding, exaggerated by body habitus and portable technique. No overt edema or focal consolidation is seen. Pleural space: Unremarkable. No pneumothorax. Heart: Borderline cardiomegaly, similar to previous. Mediastinum: Unremarkable. Normal mediastinal contour. Bones/joints: Unremarkable. No acute fracture. Upper abdomen: Unremarkable as visualized. No pneumoperitoneum under the diaphragm. IMPRESSION: 1. Mild vascular congestion and bronchovascular crowding, exaggerated by body habitus and portable technique. No overt edema or focal consolidation is seen. 2. Borderline cardiomegaly, similar to previous. Electronically signed by: Duy Kaiser MD 08/25/24 00:38 AM PG Care Time/CCT Total # of Minutes Spent Total Time Spent with Patient: Total time spent is greater than 50% in coordination of care (as documented) at patient's floor/unit and/or counseling patient: Coding Level of Care Code 85521 INT INP/OBS CARE 3/75MIN Diagnoses Lethargic R53.83 Multiple sclerosis G35 Anxiety and depression F41.9; F32.9
--- NOTE | 2024-08-25 00:38 | XRay Report ---
Exam(s): XR CXR 1 VIEW EXAM: XR Chest, 1 View CLINICAL HISTORY: Reason for exam: Sepsis. TECHNIQUE: Frontal view of the chest. COMPARISON: 05/26/2024 FINDINGS: Lungs: Mild vascular congestion and bronchovascular crowding, exaggerated by body habitus and portable technique. No overt edema or focal consolidation is seen. Pleural space: Unremarkable. No pneumothorax. Heart: Borderline cardiomegaly, similar to previous. Mediastinum: Unremarkable. Normal mediastinal contour. Bones/joints: Unremarkable. No acute fracture. Upper abdomen: Unremarkable as visualized. No pneumoperitoneum under the diaphragm. IMPRESSION: 1. Mild vascular congestion and bronchovascular crowding, exaggerated by body habitus and portable technique. No overt edema or focal consolidation is seen. 2. Borderline cardiomegaly, similar to previous. Electronically signed by: Duy Kaiser MD 08/25/24 00:38 AM
[2024-08-25] MEDS ORDERED: ALBUTEROL 0.5% NEB SOLN 2.5 MG/0.5 ML VIAL NEB PRN (03:05)
[2024-08-25] MEDS ORDERED: ONDANSETRON INJ 2 MG/ML 2 ML VIAL IV PRN (03:05)
[2024-08-25] MEDS ORDERED: ACETAMINOPHEN 325 MG TAB PO PRN (03:05)
[2024-08-25] MEDS: PIPERACILLIN/TAZOBACTAM 4.5 GM/100 ML BAG IV SCH (03:41)
[2024-08-25 07:19] LABS: Hematocrit (blood only) 38.6 % (42.0-52.0); Hemoglobin 13.2 g/dl (14.0-18.0); Mean Corpuscular Hemoglobin 29.9 pg (25.0-34.0); Mean Corpuscular Hgb Conc 34.2 g/dL (32.0-36.0); Mean Corpuscular Volume 87.3 fL (80.0-100.0); Mean Platelet Volume 10.7 fL (9.4-12.4); Platelet Count 326 K/uL (130-400); RDW Coefficient of Variation 13.8 % (11.5-14.5); RDW Standard Deviation 44.3 fL (36.4-46.3); Red Blood Count 4.42 M/uL (4.70-6.10); White Blood Count 14.03 K/ul (4.8-10.8)
[2024-08-25 07:36] LABS: BUN Creatinine Ratio 14.5 (10-20); Calcium 8.4 mg/dl (8.6-10.3); Creatinine Clr Calc Pharmacy 173.6 ml/min; Potassium 3.8 mmol/L (3.5-5.1)
[2024-08-25] MEDS: VORTIOXETINE HYDROBROMIDE 20 MG TAB PO SCH (08:59)
[2024-08-25] MEDS: BACLOFEN 20 MG TAB PO SCH ×3 (08:59→13:54)
[2024-08-25] MEDS: guaiFENesin 600 MG TABCR PO SCH (08:59)
[2024-08-25] MEDS: ENOXAPARIN INJ 40 MG/0.4 ML SYR SQ SCH (09:00)
[2024-08-25] MEDS: DOCUSATE SODIUM 100 MG CAP PO SCH (09:02)
[2024-08-25] MEDS ORDERED: oxyCODONE HCL IR 5 MG TAB (IMMEDIATE RELEASE) PO PRN (10:26)
[2024-08-25] MEDS ORDERED: HYDROmorphone INJ 0.5 MG/0.5 ML SYR IV PRN (10:26)
[2024-08-25] MEDS ORDERED: tiZANidine HCL 4 MG TABLET PO PRN (10:30)
[2024-08-25] MEDS: ACETAMINOPHEN 325 MG TAB PO SCH (11:12)
--- NOTE | 2024-08-25 11:56 | Electrocardiogram Report ---
Test Reason : Blood Pressure : */* mmHG Vent. Rate : 105 BPM Atrial Rate : 105 BPM P-R Int : 170 ms QRS Dur : 100 ms QT Int : 336 ms P-R-T Axes : 19 -33 31 degrees QTcB Int : 444 ms Sinus tachycardia Left axis deviation Low voltage QRS Incomplete right bundle branch block Poor R wave progression, consider anterior SD vs. lead placement vs. LVH Abnormal ECG When compared with ECG of 26-May-2024 18:44, Premature ventricular complexes are no longer Present Confirmed by Rigo Moran ([id number]) on 08/25/2024 11:56:22 AM Referred By: REFERRED SELF Confirmed By: Rigo Moran
[2024-08-25] MEDS: oxyCODONE HCL IR 5 MG TAB (IMMEDIATE RELEASE) PO SCH (13:10)
--- NOTE | 2024-08-25 16:57 | Communication Note ---
Date of Service: August 25, 2024 Admitted early this AM around midnight 59 y/o with MS, paraplegia, urologic issues who was admitted with SIRS and lethargy. Aspirated coffee the morning prior to coming to the ED, was lethargic with sats in low 90s later that afternoon. Admitting workup remarkable for leukocytosis W22, negative UA, CXR clear. Procal negative, repeat this AM negative. Has cough. Started on pip-tazo at admission. Probable aspiration pneumonitis I talked to Javier and his is at the bedside. he is doing much better today and they feel he is neurologically back at his baseline. He is not coughing today and has no shortness of breath. No abdominal pain nausea or vomiting he is eating normally. His reports he does aspirate liquids from time to time and they do use a liquid thickener he did have an aspiration the morning prior to presentation. No CP or SOB, no cough. Fully awake/alert. Exam - AOx4, Speech is slow and deliberate but completely understandable, gaze is disconjugate. Heart reg no mrg, lungs CTAB nonlabored. abdomen soft nontender nondistended bowel tones are present. He is paraplegic lower extremities are warm well-perfused he has no edema of his extremities. # SIRS, aspiration pneumonitis - ordered repeat procalcitonin - 0.06 - WBC decreased after fluid bolus, Tmax 37.8 overnight - supp O2 as needed, monitor O2 sats - watch today on pip-tazo, stop tomorrow if no ongoing significant pulmonary symptoms - I discussed antibiotics at length with his he does get a lot of courses for UTIs or aspirations she would like to avoid if possible as long as antibiotics are not necessary. If he is not needing ongoing antibiotics as of tomorrow I may send her home with a prescription for Augmentin to have on hand in case he does develop worsening chest symptoms like cough, purulent sputum or recurrence of fever at home In the next several days. # Urologic issues - followed by Dr. Valenzuela. Cysto 07/29 with bladder stone removal and dilation of urethral stricture. Frequent UTI - UA negative, monitor voiding / bladder scan PRN - he states he has been voiding well - methrnamine held while on abx # MS, paraplegia - on immunotherapy q6 mo - continue baclofen for spasticity - stable # Anxiety/depression - continue Trintellix. stable # DVT ppx - enoxaparin if he is doing this well tomorrow morning we will get him home with his
[2024-08-25 23:18] VITALS: RESP 16
[2024-08-26 06:25] LABS: Hematocrit (blood only) 39.2 % (42.0-52.0); Hemoglobin 13.5 g/dl (14.0-18.0); Mean Corpuscular Hemoglobin 29.8 pg (25.0-34.0); Mean Corpuscular Hgb Conc 34.4 g/dL (32.0-36.0); Mean Corpuscular Volume 86.5 fL (80.0-100.0); Mean Platelet Volume 10.5 fL (9.4-12.4); Platelet Count 326 K/uL (130-400); RDW Coefficient of Variation 13.7 % (11.5-14.5); RDW Standard Deviation 42.9 fL (36.4-46.3); Red Blood Count 4.53 M/uL (4.70-6.10); White Blood Count 8.97 K/ul (4.8-10.8)
[2024-08-26 06:52] LABS: BUN Creatinine Ratio 11.3 (10-20); Calcium 8.7 mg/dl (8.6-10.3); Potassium 3.9 mmol/L (3.5-5.1)
[2024-08-26 07:52] VITALS: BP 142/84; TEMP 98.4; O2SAT 96
[2024-08-26 10:50] VITALS: PULSE 77
--- NOTE | 2024-08-26 19:08 | Discharge Summary ---
Discharge Summary Date of Service August 26, 2024 Principal Dx & Hospital Course #1 = Principal Diagnosis (1) Acute metabolic encephalopathy: (2) Aspiration pneumonitis: (3) Multiple sclerosis: (4) Dysphagia: Plan 59 y/o with MS, paraplegia, urologic issues who was admitted with SIRS and lethargy. Aspirated coffee the morning prior to coming to the ED, was lethargic with sats in low 90s later that afternoon and noted to have cough. Admitting workup remarkable for leukocytosis W22, negative UA, CXR clear. Procal negative, repeat Pro-Sunil next AM negative. Started on pip-tazo at admission. acute metabolic encephalopathy resolved by the following morning and he was at his baseline mental status, baseline neurological status with his multiple sclerosis. He is on room air no cough and afebrile. White blood count n ormalized prior to discharge. I do not think he has a pneumonia rather an aspiration pneumonitis which caused the encephalopathy and resolved quickly. I did give his a paper prescription for a week of Augmentin in case he does develop symptoms of pneumonia such as increasing cough, purulent sputum, fever or lethargy. His reports he does aspirate liquids from time to time and they do use a liquid thickener, he did have an aspiration the morning prior to presentation. # SIRS present on admission secondary to aspiration pneumonitis. sepsis ruled out - Resolved, as discussed above blood cultures no growth to date but still pending - she has an Augmentin prescription in hand that she can fill if pneumonia symptoms develop over the next week or so, I instructed her to call his doctor if she does need to start the antibiotic # acute metabolic encephalopathy present on admission, resolved as discussed above # Urologic issues - followed by Dr. Valenzuela. Cysto 07/29 with bladder stone removal and dilation of urethral stricture. Frequent UTI - UA negative - he states he has been voiding well - methenamine prophylaxis # MS, paraplegia - on immunotherapy q6 mo - continue baclofen for spasticity - stable # Anxiety/depression - continue Trintellix. stable routine and home with his who is his caregiver Admission HPI Per Admitting Provider Javier Thomas is a 59yo male with Advanced multiple sclerosis, chronic UTIs (ureteral strictures, bladder stent in place, follows with urology) presenting with increased lethargy, decreased oral intake and low-grade fever. History obtained from patient's who is at bedside. She reports that patient woke this morning and seemed to be fairly normal. He ate breakfast and lunch without difficulty. He did have an episode of aspiration of coffee with significant coughing. After lunch he took a nap which is common for him. states that after he woke from his nap he was more lethargic and confused. She checked his pulse ox at home and found his heart rate to be elevated from baseline with oxygen saturations in the low 90s which is abnormal for him. Patient endorses increased weakness as well as ongoing cough otherwise denies fever, chest pain, shortness of breath, nausea, vomiting, diarrhea. No rash In the ER he is afebrile, hemodynamically stable, no acute distress ER course: Tylenol Zosyn Normal saline Discharge Exam Last 24h vitals reviewed GEN: no acute distress, sitting in bed, awake HEENT: pupils equal, sclerae anicteric, moist MM. disconjugate gaze at baseline RESP: normal WOB, CTAB, no coughing observed on room air CV: reg no mrg ABD: soft/nt/nd +BT : no hernandez SKIN: warm and dry, no generalized rashes NEURO: AOx place and basic situation, slow verbal responses which are appropriate. he has some upper extremity contractures spasticity and paraplegia at baseline Discharge Plan Discharge Items Patient Disposition: Home - Self-Care Reason For Visit: FATIGUE, LETHARGY Discharge Diagnosis: aspiration pneumonitis Condition on Discharge: Fair Activity: Resume your previous activity Non-emergency contact: Primary Care Provider Call non-emergency contact if: you have any medication questions, your symptoms worsen and you have a fever Follow-up/Referrals: Kt Ledesma [Primary Care Provider] - (Office will call patient with appointment date and time) Diet: Regular Addtl Attending Provider Instructions: You had an episode of lethargy - it seems this was triggered by an aspiration event Most significant aspirations cause a "pneumonitis" which is an irritation/inflammation of the lung tissue from stomach or mouth contents. Some turn into a pneumonia which is a bacterial lung infection. Right now I don't see evidence of an infection. I gave you a prescription for antibiotic in case you're developing signs of pneumonia - increasing cough or shortness of breath, especially with purulent sputum, fever If you think you need to start the antibiotic call your doctor to check in I'm very skeptical that liquid thickeners do any good - there is no proof that they prevent aspiration events or pneumonias, and most studies have shown no beneficial effect. Doctors and speech therapists have different opinions about this, however. You may want to talk to your regular doctor to get their opinion. Continue aspiration precautions like sitting upright during and 30 minutes after meals, slow sips and swallows, chin tuck etc. keep the head of the bed elevated by 30 degrees or more at all times if possible It was a pleasure taking care of you in the hospital, Malinda Eckert MD Pending Studies at Discharge: No Stand-Alone Forms: My [facility], Smoking Cessation Medications and DC Order Prescriptions: New amoxicillin-pot clavulanate 875-125 mg tablet 1 tab PO BID Qty: 14 0RF Rx Instructions: start taking if symptoms of pneumonia develop Continued lorazepam 1 mg tablet 1 mg PO DAILY PRN (Reason: reaction) Qty: 6 0RF Rx Instructions: TAKES WITH OCREVUS INFUSIONS Q 6 MONTHS Ocrevus 30 mg/mL solution 600 mg IV Q6MO Qty: 20 1RF Rx Instructions: DUE JUNE 2024. 30 minutes before each infusion,premedicate with methylprednisolone 100mg IV, diphenhydramine 50mg IV, and acetaminophen 500mg PO.May give an additional 25mg diphenhydramine IV during infusion PRN. naltrexone 4.5 mg capsule 4.5 mg PO HS Qty: 100 3RF Trintellix 20 mg tablet 20 mg PO QAM Qty: 90 3RF ascorbic acid (vitamin C) 1,000 mg tablet 1 g PO DAILY methenamine hippurate 1 gram tablet 1 g PO BID vitamin B complex Capsule 1 cap PO DAILY acetaminophen 325 mg capsule 650 mg PO Q4H PRN (Reason: Fever Or Pain) multivitamin Tablet 1 tab PO QAM omega 9-mds-mgr-fish oil [Fish Oil] 1,000 mg (120 mg-180 mg) Capsule 1,000 mg PO QAM cholecalciferol (vitamin D3) [Vitamin D3] 5,000 unit Tablet See Rx Instructions .ROUTE .COMPLEX Rx Instructions: Patient alternates between 5,000 unit tablet and 10,000 unit tablet every other day. loperamide [Imodium A-D] 2 mg capsule 2 mg PO QID PRN (Reason: loose stool) Qty: 20 0RF nystatin 100,000 unit/gram ointment 1 applic TOPICAL BID PRN (Reason: NEEDED) clotrimazole-betamethasone 1-0.05 % cream 1 applic topical HS PRN (Reason: NEEDED) Rx Instructions: Apply small/pea-sized amount topically before bed docusate sodium [Stool Softener] 100 mg Capsule 100 mg PO TID baclofen 20 mg tablet 20 mg PO TID Discharge Orders: Discharge Order (Routine); Ordered 08/26/24 Ordered By: Malinda Eckert Admission Data Admit Date/Time: 08/25/24 00:02 Attending Provider: Malinda Eckert Admit Provider: Tana Kaiser Primary Care Provider: Kt Ledesma Other Providers: Tana Kaiser Other Interventions: Discharge Summary Assessment (RN) Last Done: 08/26/24 10:50 Hospital Stay Data Consultations 08/24/24 23:31 ED Decision to Admit Stat Pending Results Patient Have Any Pending Studies at Discharge: No Discharge Instructions Given to Patient (Per Discharging Provider) You had an episode of lethargy - it seems this was triggered by an aspiration event Most significant aspirations cause a "pneumonitis" which is an irritation/inflammation of the lung tissue from stomach or mouth contents. Some turn into a pneumonia which is a bacterial lung infection. Right now I don't see evidence of an infection. I gave you a prescription for antibiotic in case you're developing signs of pneumonia - increasing cough or shortness of breath, especially with purulent sputum, fever If you think you need to start the antibiotic call your doctor to check in I'm very skeptical that liquid thickeners do any good - there is no proof that they prevent aspiration events or pneumonias, and most studies have shown no beneficial effect. Doctors and speech therapists have different opinions about this, however. You may want to talk to your regular doctor to get their opinion. Continue aspiration precautions like sitting upright during and 30 minutes after meals, slow sips and swallows, chin tuck etc. keep the head of the bed elevated by 30 degrees or more at all times if possible It was a pleasure taking care of you in the hospital, Malinda Eckert MD Total Time Total Time Spent Total Time Spent (In Minutes): <30 Coding Level of Care Code 35798 IN/OBS DISCH 30 MIN/LESS Diagnoses Acute metabolic encephalopathy G93.41 Aspiration pneumonitis J69.0 Multiple sclerosis G35 Dysphagia R13.10
== END 2024-08-26 11:07 | disposition home or self-care (01) ==
LOC: ED 20:38 → 2W 20:38 → SUATTDRO 08-25 00:02 → 2W 08-25 02:27